=== PATIENT | female | born 1950 | race Caucasian/White ===

== ENCOUNTER 2019-11-18 09:50 | Outpatient (CLI) | payer MEDICARE, SELFPAY ==
[2019-11-18 10:24] LABS: Basophils Percent Auto 0.7 % (0.2-1.2); Eosinophils Absolute Auto 0.2 K/mm3 (0-0.3); Eosinophils Percent Auto 4.2 % (0-4.4); Hematocrit 43.7 % (37.0-47.0); Hemoglobin 14.3 g/dL (12.0-15.0); Immature Granulocyte Absolute 0.01 K/mm3 (0.00-0.031); Immature Granulocyte Percent A 0.2 % (0-0.5); Lymphocytes Absolute Auto 1.35 K/mm3 (0.9-3.2); Lymphocytes Percent Auto 24.5 % (18.3-44.2); Mean Corpuscular HGB Conc 32.7 g/dl (32-36); Mean Corpuscular Hemoglobin 28.8 pg (26-34); Mean Corpuscular Volume 87.9 fl (80-100); Mean Platelet Volume 9.1 fl (7.4-10.4); Monocytes Absolute Auto 0.6 K/mm3 (0.1-0.6); Monocytes Percent Auto 10.7 % (2.6-8.5); Neutrophils Absolute Auto 3.3 K/mm3 (1.3-6.7); Neutrophils Percent Auto 59.7 % (45.5-73.1); Platelet Count Result 247 k/mm3 (150-375); Red Blood Count 4.97 M/mm3 (4.2-5.4); Red Cell Distribution Width 13.2 % (11.5-14.5); White Blood Count 5.5 K/mm3 (4.5-10.0)
[2019-11-18 10:39] LABS: Alanine Aminotransferase 32 U/L (4-35); Albumin Level 4.4 g/dL (3.5-5.1); Alkaline Phosphatase 83 U/L (38-126); Anion Gap 11.5 mmol/L (7-16); Aspartate Amino Transferase 23 U/L (14-36); Bilirubin,Total 0.5 mg/dL (0.2-1.3); Blood Urea Nitrogen 19 mg/dL (7-17); Calcium 9.2 mg/dL (8.4-10.2); Carbon Dioxide 27 mmol/L (22-30); Chloride 106 mmol/L (98-107); Cholesterol 179 mg/dL (0-200); Estimated Glomerular Filt Rate > 60; Glucose 126 mg/dL (65-105); HDL Direct 47 mg/dL; Potassium 4.5 mmol/L (3.4-5.0); Sodium 140 mmol/L (137-145); Triglycerides 119 mg/dL (<150)
[2019-11-18 10:44] LABS: Hemoglobin A1C 5.8 % (<5.7)
[2019-11-18 10:50] LABS: LDL Cholesterol Direct 111 mg/dL
[2019-11-18 11:37] LABS: Free T4 Free Thyroxine 0.98 ng/mL (0.78-2.19)
[2019-11-21 03:43] LABS: Insulin Level Total 32.1 uIU/mL (<=19.6)
== END 2019-11-18 09:51 | disposition home or self-care (01) ==
PROVIDERS: PCP Physician Assistant; Visit Provider Physician Assistant
DX: R73.02 Impaired glucose tolerance (oral) (principal); E78.5 Hyperlipidemia, unspecified; E03.9 Hypothyroidism, unspecified; Z79.899 Other long term (current) drug therapy
CPT/HCPCS: 36415; 80048; 80061; 80076; 83036; 83525; 84439; 84443; 85025

== ENCOUNTER 2020-03-26 09:33 | Outpatient (CLI) | payer MEDICARE, SELFPAY ==
--- NOTE | ~2020-03-26 | MM_ITS ---
EXAMINATION: MM screening autumn BI w kirk HISTORY: Screening TECHNIQUE: Craniocaudal and mediolateral oblique 3-D tomosynthesis images were obtained and synthetic 2-D images were generated. CAD analysis was submitted and interpreted. COMPARISON: Comparison to multiple prior studies sequentially, with oldest reviewed study dated 10/24. BREAST PARENCHYMAL COMPOSITION: There are scattered areas of fibroglandular density. FINDINGS: There is no evidence of suspicious mass, calcification, or architectural distortion to sugg est malignancy in either breast. There has been no suspicious interval change. IMPRESSION: 1. No mammographic evidence of malignancy. 2. Recommend routine screening mammography in one year. BI-RADS Category 1: Negative Reviewed, dictated and finalized at location A. 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
--- NOTE | ~2020-03-26 | DEXA_ITS ---
Bone Density Report Name: Palak Peterson Age: 69 Sex: Female Ethnicity: White Date of : 1950 Indication: postmenopausal; height loss; Referring Provider: ALISHA LUA Study: Bone densitometry was performed. Exam Date: March 26, 2020 Accession number: [id number] Bone Density: Region BMD T-score Z-score Classification AP Spine (L1, L3) 1.277 2.4 4.4 Normal Femoral Neck (Left) 0.956 1.0 2.7 Normal Total Hip (Left) 1.211 2.2 3.7 Normal Total Hip Bilateral Avg 1.178 2.0 3.4 Normal Femoral Neck (Right) 0.926 0.7 2.5 Normal Total Hip (Right) 1.143 1.7 3.1 Normal World Health Organization criteria for BMD impression classify patients as: Normal (T-score at or above -1.0), Osteopenia (T-score between -1.0 and -2.5), or Osteoporosis (T-score at or below -2.5). 10-year Fracture Risk: FRAX not reported because: All T-scores for Spine Total, Hip Total, Femoral Neck at or above -1.0 Previous Exams: Region Exam Age BMD T-score BMD Change BMD Change Date g/cm2 vs Baseline vs Previous AP Spine(L1, L3) 03/26/2020 69 1.277 2.4 0.014(1.1%)# 0.031(2.5%)* 03/05/2018 67 1.246 2.1 -0.018(-1.4%)# -0.039(-3.0%)* 02/16/2016 65 1.284 2.5 0.021(1.7%)# 0.025(2.0%)# 09/19/2012 61 1.260 2.2 -0.004(-0.3%)# -0.089(-6.6%)# 07/15/2010 59 1.349 3.1 0.086(6.8%)* -0.034(-2.5%)* 06/24/2008 57 1.383 3.4 0.120(9.5%)* 0.120(9.5%)* 06/01/2006 55 1.263 2.3 Total Hip(Left) 03/26/2020 69 1.211 2.2 0.012(1.0%)# 0.002(0.2%) 03/05/2018 67 1.209 2.2 0.010(0.8%)# -0.015(-1.3%) 02/16/2016 65 1.224 2.3 0.025(2.1%)# 0.007(0.6%)# 09/19/2012 61 1.217 2.3 0.018(1.5%)# -0.003(-0.2%)# 07/15/2010 59 1.220 2.3 0.021(1.8%) 0.010(0.8%) 06/24/2008 57 1.210 2.2 0.011(0.9%) 0.011(0.9%) 06/01/2006 55 1.199 2.1 Total Hip(Right) 03/26/2020 69 1.143 1.7 -0.029(-2.4%)# -0.035(-3.0%)* 03/05/2018 67 1.178 1.9 0.006(0.5%)# 0.002(0.2%) 02/16/2016 65 1.176 1.9 0.004(0.4%)# 0.016(1.4%)# 09/19/2012 61 1.160 1.8 -0.012(-1.0%)# -0.024(-2.0%)# 07/15/2010 59 1.184 2.0 0.012(1.0%) -0.004(-0.3%) 06/24/2008 57 1.187 2.0 0.015(1.3%) 0.015(1.3%) 06/01/2006 55 1.172 1.9 *Denotes significance at 95% confidence level, LSC for AP Spine = 0.022 g/cm2, LSC for Total Hip = 0.027 g/cm2 Clinical Information Provided by Patient: Has used the following medications:
== END 2020-03-26 09:34 | disposition home or self-care (01) ==
LOC: ANHIMG 09:38
PROVIDERS: PCP Physician Assistant; Visit Provider Obstetrics & Gynecology
DX: Z12.31 Encounter for screening mammogram for malignant neoplasm of breast (principal); Z78.0 Asymptomatic menopausal state
CPT/HCPCS: 77063; 77067; 77080

== ENCOUNTER 2020-06-24 09:16 | Outpatient (CLI) | payer MEDICARE, SELFPAY ==
[2020-06-24 09:59] LABS: Alanine Aminotransferase 31 U/L (4-35); Albumin Level 4.4 g/dL (3.5-5.1); Alkaline Phosphatase 76 U/L (38-126); Anion Gap 8 mmol/L (8-16); Aspartate Amino Transferase 25 U/L (14-36); Bilirubin,Total 0.5 mg/dL (0.2-1.3); Blood Urea Nitrogen 21 mg/dL (7-17); Calcium 9.3 mg/dL (8.4-10.2); Carbon Dioxide 27 mmol/L (22-30); Chloride 109 mmol/L (98-107); Cholesterol 181 mg/dL (0-200); Estimated Glomerular Filt Rate > 60; Glucose 130 mg/dL (65-105); HDL Direct 49 mg/dL; Sodium 144 mmol/L (137-145); Triglycerides 99 mg/dL (<150)
[2020-06-24 10:00] LABS: Add Urine Microscopic? YES; Appearance Urine Cloudy (Clear); Bacteria Urine Trace /hpf; Bilirubin Urine Negative (Negative); Blood Urine 3+ (Negative); Color Urine Yellow (Yellow); Glucose Urine UA Negative (Negative); Ketones Urine Negative (Negative); Leukocyte Esterase Ur 3+ LEU/UL (NEGATIVE); Mucus Urine Rare /lpf; Nitrate Urine Negative (Negative); Protein Urine 1+ mg/dL (Negative); RBC Urine >75 /hpf (0-2); Specific Grav Ur 1.015 (1.001-1.035); Squamous Epithelial Cell Urine Moderate /hpf (Few); Transitional Epi Cells Urine Rare /hpf (None Seen); Urobilinogen Urine Negative mg/dL (<2.0); WBC Urine 51-75 /hpf (0-3)
[2020-06-24 10:09] LABS: Hemoglobin A1C 5.9 % (<5.7)
[2020-06-24 10:09] LABS: LDL Cholesterol Direct 108 mg/dL
[2020-06-24 10:51] LABS: Free T4 Free Thyroxine 1.15 ng/mL (0.78-2.19)
[2020-06-27 03:22] LABS: Insulin Level Total 31.4 uIU/mL (<=19.6)
== END 2020-06-24 09:17 | disposition home or self-care (01) ==
PROVIDERS: PCP Physician Assistant; Visit Provider Physician Assistant
DX: R73.02 Impaired glucose tolerance (oral) (principal); E78.5 Hyperlipidemia, unspecified; E03.9 Hypothyroidism, unspecified; Z79.899 Other long term (current) drug therapy
CPT/HCPCS: 36415; 80048; 80061; 80076; 81001; 83036; 83525; 84439; 84443

== ENCOUNTER 2020-07-06 09:07 | Outpatient (CLI) | payer MEDICARE, SELFPAY ==
--- NOTE | ~2020-07-06 | CT_ITS ---
EXAMINATION: CT abdomen pelvis wo/w con DATE: 07/06/2020 10:25 INDICATION: Gross hematuria TECHNIQUE: Computed tomography (CT) of the abdomen and pelvis was performed without and subsequently with 130 cc Omnipaque 350 intravenous contrast. Automated exposure control and iterative reconstructi on technique were employed. Exam dose: 2017.70 mGy-cm total exam DLP. COMPARISON: 07/17/2011 CT abdomen pelvis FINDINGS: There is minimal dependent atelectasis at the lower lobes. Heart size is within normal limits. No pericardial or pleural effusion. There is diffuse hepatic steatosis. No hepatic space-occupying mass lesion is evident. The gallbladder is present. No gallbladder wall thickening or pericholecystic fluid or fat stranding. No pancreatic mass lesion or calcification. No bile duct or pancreatic duct dilatation. Normal spleni c size. Normal morphology of the adrenal glands. There is a 6 mm cyst of the right kidney. No other renal space occupying mass lesion. There are numerous bilateral renal nonobstructing calculi, measuring up to 9 mm approximate maximal d imension on the left, 7.5 mm on the right. No ureteral calculus or obstruction. The urinary bladder i s unremarkable. Uterus and adnexal areas are unremarkable. There is numerous diverticula of the sigmoid colon and scattered descending and ascending colon diver ticula; no CT evidence of diverticulitis. No bowel obstruction, bowel wall thickening, pneumatosis or intraperitoneal free air. Normal appendix. Normal caliber of the abdominal aorta. No intraperitoneal or retroperitoneal or pelvic mass lesion or adenopathy or ascites is detected. No suspicious osteolytic or osteoblastic lesions are noted. There are degenerative changes of the tho racic and lumbar spine, including degenerative change at the apophyseal joints with associated grade 1 anterolisthesis at L4-5 and multilevel degenerative disc disease, particularly severe at L5-S1. IMPRESSION: Prominent bilateral nonobstructive nephrolithiasis 6 mm right renal cyst Diffuse hepatic steatosis Diverticulosis of the colon; no CT evidence of diverticulitis Reviewed, dictated and finalized at Location A. Reviewed, dictated and finalized at location B.
[2020-07-06 09:55] LABS: Add Urine Microscopic? YES; Appearance Urine Clear (Clear); Bilirubin Urine Negative (Negative); Blood Urine 1+ (Negative); Color Urine Yellow (Yellow); Glucose Urine UA Negative (Negative); Ketones Urine Negative (Negative); Leukocyte Esterase Ur 2+ LEU/UL (NEGATIVE); Mucus Urine Few /lpf; Nitrate Urine Negative (Negative); Protein Urine Negative (Negative); Specific Grav Ur 1.013 (1.001-1.035); Squamous Epithelial Cell Urine Moderate /hpf (Few); Urobilinogen Urine Negative mg/dL (<2.0); WBC Urine 21-30 /hpf (0-3)
== END 2020-07-06 09:08 | disposition home or self-care (01) ==
PROVIDERS: PCP Physician Assistant; Visit Provider Physician Assistant
DX: R31.29 Other microscopic hematuria (principal)
CPT/HCPCS: 74178; 81001; 87086; Q9967

== ENCOUNTER 2020-12-31 08:34 | Outpatient (CLI) | payer MEDICARE, SELFPAY ==
[2020-12-31 09:05] LABS: Basophils Absolute Auto 0.1 K/mm3 (0.0-0.1); Basophils Percent Auto 1.1 % (0.2-1.2); Eosinophils Absolute Auto 0.3 K/mm3 (0-0.3); Eosinophils Percent Auto 6.3 % (0-4.4); Hemoglobin 14.1 g/dL (12.0-15.0); Immature Granulocyte Absolute 0.02 K/mm3 (0.00-0.031); Immature Granulocyte Percent A 0.4 % (0-0.5); Lymphocytes Absolute Auto 1.39 K/mm3 (0.9-3.2); Lymphocytes Percent Auto 26.3 % (18.3-44.2); Mean Corpuscular HGB Conc 32.8 g/dl (32-36); Mean Corpuscular Hemoglobin 29.6 pg (26-34); Mean Corpuscular Volume 90.1 fl (80-100); Mean Platelet Volume 8.9 fl (7.4-10.4); Monocytes Absolute Auto 0.7 K/mm3 (0.1-0.6); Monocytes Percent Auto 13.6 % (2.6-8.5); Neutrophils Absolute Auto 2.8 K/mm3 (1.3-6.7); Neutrophils Percent Auto 52.3 % (45.5-73.1); Platelet Count Result 230 k/mm3 (150-375); Red Blood Count 4.77 M/mm3 (4.2-5.4); Red Cell Distribution Width 13.5 % (11.5-14.5); White Blood Count 5.3 K/mm3 (4.5-10.0)
[2020-12-31 09:24] LABS: Alanine Aminotransferase 45 U/L (4-35); Albumin Level 4.3 g/dL (3.5-5.1); Alkaline Phosphatase 70 U/L (38-126); Anion Gap 8 mmol/L (8-16); Aspartate Amino Transferase 30 U/L (14-36); Bilirubin,Total 0.7 mg/dL (0.2-1.3); Blood Urea Nitrogen 22 mg/dL (7-17); Calcium 9.1 mg/dL (8.4-10.2); Carbon Dioxide 27 mmol/L (22-30); Chloride 107 mmol/L (98-107); Cholesterol 173 mg/dL (0-200); Estimated Glomerular Filt Rate > 60; Glucose 118 mg/dL (65-110); HDL Direct 45 mg/dL; Potassium 4.1 mmol/L (3.4-5.0); Sodium 142 mmol/L (137-145); Triglycerides 125 mg/dL (<150)
[2020-12-31 09:35] LABS: LDL Cholesterol Direct 93 mg/dL
[2020-12-31 10:56] LABS: Hemoglobin A1C 6.1 % (<5.7)
== END 2020-12-31 08:35 | disposition home or self-care (01) ==
PROVIDERS: PCP Physician Assistant; Visit Provider Physician Assistant
DX: E78.5 Hyperlipidemia, unspecified (principal); R73.03 Prediabetes; E03.9 Hypothyroidism, unspecified; Z79.899 Other long term (current) drug therapy
CPT/HCPCS: 36415; 80048; 80061; 80076; 83036; 84439; 84443; 85025

== ENCOUNTER 2021-03-22 11:57 | Outpatient (CLI) | payer MEDICARE, SELFPAY ==
--- NOTE | ~2021-03-22 | XR_ITS ---
EXAMINATION: XR abdomen/kub 1V INDICATION: Bilateral kidney stones TECHNIQUE: Supine views of the abdomen were obtained on 2 radiographs. COMPARISON: 07/06/2020 FINDINGS: There is a 1.3 cm stone of the right kidney lower pole. Punctate stones measuring up to 2 m m are also seen in the right kidney lower pole. There are at least five stones of the left kidney. Th e largest measure 1.7 cm in the upper pole and 1.2 cm in the lower pole. No stones are identified yissel ng the expected courses of the ureters or within the urinary bladder. The bowel gas pattern is normal . Punctate left upper quadrant calcifications are consistent with healed granulomatous disease of the spleen. IMPRESSION: 1. Bilateral nephrolithiasis. Reviewed, dictated and finalized at location A. 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
== END 2021-03-22 11:58 | disposition home or self-care (01) ==
LOC: ANHIMG 12:00
PROVIDERS: PCP Physician Assistant; Visit Provider Urology
DX: N20.0 Calculus of kidney (principal)
CPT/HCPCS: 74018

== ENCOUNTER 2021-04-25 09:47 | Outpatient (CLI) | payer MEDICARE, SELFPAY ==
--- NOTE | ~2021-04-25 | MM_ITS ---
EXAMINATION: MM screening autumn BI w kirk HISTORY: Screening TECHNIQUE: Craniocaudal and mediolateral oblique 3-D tomosynthesis images were obtained and synthetic 2-D images were generated. CAD analysis was submitted and interpreted. COMPARISON: Comparison to multiple prior studies sequentially, with oldest reviewed study dated 10/26. BREAST PARENCHYMAL COMPOSITION: There are scattered areas of fibroglandular density. FINDINGS: There is no evidence of suspicious mass, calcification, or architectural distortion to sugg est malignancy in either breast. There has been no suspicious interval change. IMPRESSION: 1. No mammographic evidence of malignancy. 2. Recommend routine screening mammography in one year. BI-RADS Category 1: Negative Reviewed, dictated and finalized at location A. LE FIRER
== END 2021-04-25 09:48 | disposition home or self-care (01) ==
LOC: ANHIMG 09:49
PROVIDERS: PCP Physician Assistant; Visit Provider Obstetrics & Gynecology
DX: Z12.31 Encounter for screening mammogram for malignant neoplasm of breast (principal)
CPT/HCPCS: 77063; 77067

== ENCOUNTER 2021-06-27 10:24 | Outpatient (CLI) | payer MEDICARE, SELFPAY ==
--- NOTE | 2021-06-27 10:30 | ECG_ITS ---
Measurements Intervals [place] Rate: 81 P: 23 DE: 173 QRS: -33 QRSD: 98 T: 64 QT: 397 QTc: 461 Interpretive Statements SINUS RHYTHM LEFT ANTERIOR HEMIBLOCK INCOMPLETE RIGHT BUNDLE BRANCH BLOCK [90+ ms QRS DURATION, TERMINAL R IN V1/V2, 40+ ms S IN I/aVL/V4/V5/V6] NO PREVIOUS ECG AVAILABLE FOR COMPARISON Electronically Signed On 06-27-2021 14:28:15 CDT by Juan Erwin M.D.
[2021-06-27 11:31] LABS: Prothrombin Time 12.5 Seconds (11.1-14.7)
[2021-06-27 11:32] LABS: Partial Thromboplastin Time 23.5 SECONDS (22.3-36.8)
[2021-06-27 11:36] LABS: Anion Gap 7 mmol/L (8-16); Blood Urea Nitrogen 17 mg/dL (7-17); Calcium 8.9 mg/dL (8.4-10.2); Carbon Dioxide 26 mmol/L (22-30); Chloride 109 mmol/L (98-107); Estimated Glomerular Filt Rate > 60; Glucose 127 mg/dL (65-110); Potassium 4.1 mmol/L (3.4-5.0); Sodium 142 mmol/L (137-145)
== END 2021-06-27 10:25 | disposition home or self-care (01) ==
LOC: ANHSURGERY 10:25
PROVIDERS: Anesthesiology; PCP Physician Assistant; Visit Provider Urology
DX: N20.0 Calculus of kidney (principal); E78.00 Pure hypercholesterolemia, unspecified; E11.9 Type 2 diabetes mellitus without complications; Z01.818 Encounter for other preprocedural examination; I45.10 Unspecified right bundle-branch block
CPT/HCPCS: 36415; 80048; 85610; 85730; 87086; 87088; 93005

== ENCOUNTER 2021-06-27 11:02 | Outpatient (CLI) | payer MEDICARE, SELFPAY ==
[2021-06-27 11:43] LABS: Basophils Absolute Auto 0.1 K/mm3 (0.0-0.1); Basophils Percent Auto 1.1 % (0.2-1.2); Eosinophils Absolute Auto 0.3 K/mm3 (0-0.3); Hematocrit 42.9 % (37.0-47.0); Immature Granulocyte Absolute 0.03 K/mm3 (0.00-0.031); Immature Granulocyte Percent A 0.5 % (0-0.5); Lymphocytes Absolute Auto 1.46 K/mm3 (0.9-3.2); Lymphocytes Percent Auto 22.5 % (18.3-44.2); Mean Corpuscular HGB Conc 32.6 g/dl (32-36); Mean Corpuscular Hemoglobin 29.2 pg (26-34); Mean Corpuscular Volume 89.4 fl (80-100); Mean Platelet Volume 8.9 fl (7.4-10.4); Monocytes Absolute Auto 0.7 K/mm3 (0.1-0.6); Monocytes Percent Auto 11.4 % (2.6-8.5); Neutrophils Absolute Auto 3.9 K/mm3 (1.3-6.7); Neutrophils Percent Auto 60.5 % (45.5-73.1); Platelet Count Result 230 k/mm3 (150-375); Red Cell Distribution Width 13.6 % (11.5-14.5); White Blood Count 6.5 K/mm3 (4.5-10.0)
[2021-06-27 11:57] LABS: Alanine Aminotransferase 33 U/L (4-35); Albumin Level 4.6 g/dL (3.5-5.1); Alkaline Phosphatase 74 U/L (38-126); Aspartate Amino Transferase 26 U/L (14-36); Bilirubin,Total 0.5 mg/dL (0.2-1.3); Cholesterol 192 mg/dL (0-200); HDL Direct 47 mg/dL; Triglycerides 106 mg/dL (<150)
[2021-06-27 12:07] LABS: Hemoglobin A1C 5.9 % (<5.7)
[2021-06-27 12:08] LABS: LDL Cholesterol Direct 112 mg/dL
[2021-06-27 12:27] LABS: Free T4 Free Thyroxine 1.25 ng/mL (0.78-2.19)
== END 2021-06-27 11:03 | disposition home or self-care (01) ==
LOC: ANHLAB 11:12
PROVIDERS: PCP Physician Assistant; Visit Provider Physician Assistant
DX: E78.5 Hyperlipidemia, unspecified (principal); R73.03 Prediabetes; E03.9 Hypothyroidism, unspecified; R31.29 Other microscopic hematuria; Z79.899 Other long term (current) drug therapy
CPT/HCPCS: 36415; 80048; 80061; 80076; 83036; 84439; 84443; 85025; 85610; 85730; 87086; 87088; 93005

== ENCOUNTER 2021-07-01 00:08 | Day surgery (SDC) | payer MEDICARE, SELFPAY ==
[2021-06-20 13:18] VITALS: BMI 32.6
--- NOTE | 2021-06-20 13:37 | PC.NURSE ---
Report to the Outpatient Waiting Room, entrance under the green pavilion located off [facility], at time _6:00AM____ on date __07/01/21 . OR Time: ___7:30AM . - You and your visitor will be asked a series of questions to screen for COVID 19 for your protection. - A mask is required within the hospital. Preoperative COVID Testing Requirements: No COVID Test needed if: (proof is required; if not received patient will have Rapid Test prior to entry) - Patient has received COVID Vaccine at least 14 days prior to procedure date or - Patient has positive COVID test result within last 90 days of surgery date. COVID Test needed if above criteria is not met If not COVID vaccinated a COVID test must be conducted within 72 hours of surgery and patient is asked to isolate self from time of testing until procedure. You will go to the [facility] for your COVID testing. The [facility] is located at the corner of [address] [facility]. You will only be called if COVID results are positive and your surgeon may reschedule your elective surgery date. Patients may have clear liquids (water, carbonated beverages, clear teas, apple juice) until 3 hours prior to surgery with a maximum of 20 ounces. - No food from midnight until time of surgery - Infants may have breast milk until 4 hours before surgery, infant formula 6 hours prior to surgery. - Children will be allowed to drink immediately following surgery. If applicable, please bring a bottle or sippy cup to assist with drinking. Juice, water, soda, and popsicles are readily available. For infants on formula, please bring formula the day of surgery. Pacifiers are allowed. Take the following medications with a SIP of water the morning of surgery: __NONE Medications to discontinue per physician MELOXICAM, ASPIRIN & VITAMINS/SUPPLEMENTS 7 DAYS PRE-OP PER DR RUIZ Date to take last dose 3/11/22 Please no make-up, nail occitan, hairspray, perfume, deodorant, or body powder the day of surgery. No jewelry (including any body piercings) or valuables the day of surgery, leave them at home. Please take a shower or bath the night before, or the morning of, surgery with an antibacterial soap. Wear comfortable, loose fitting clothing. Children are encouraged to wear pajamas. - Jewelry must be removed prior to entering the operating room. Rings and piercings that are not removed may be cut off. - The hospital will not accept responsibility for valuables. - Please leave all valuables, including medications, at home the day of surgery. If you are going home after surgery, a licensed courtesy bus driver must drive you home. - NO public transportation without another adult. - We recommend that an adult stay with you for 24 hours following discharge. - We also recommend that you do not drive, make important decision, drink alcoholic beverages, or take any drugs that were not prescribed by your health care provider for at least 24 hours after your discharge time. For Pediatric surgeries, we recommend two adults accompany the child home (only one inside the building at this time). One visitor will be allowed to accompany the patient into the hospital. Patients visitor will be instructed to remain with patient at all times or leave the building. We will allow the visitor to come back to the postoperative area when patient is ready. Follow any additional instructions given to you from your surgeon. Telephone instructions given to __PATIENT and asked if any additional questions and then verbalized understanding. Patient advised to call surgeon office or pre surgery nurse liaison [phone] if any additional questions.
--- NOTE | 2021-06-27 08:09 | PM.HPGS ---
History of Present Illness History of Present Illness Consent: Risks, benefits, and alternatives have been discussed and questions answered. Patient agrees to proceed with procedure. Chief complaint: Lt Renal Stone Narrative: Palak Peterson is a 70 year old female initially seen in March 2021 when imaging demonstrated nonobstructing calcified renal calculi. Stone in the right kidney measured 7.5 mm left kidney 9 mm. After discussion of therapeutic options she has elected for ESWL, starting the left. She is risk including, but limited to, adverse cardiopulmonary events, persistent so fragments, ureteral obstruction with fragments, injury to her kidney and hematuria. Review of Systems Cardiovascular: Cardiovascular: Denies chest pain, Denies lightheadedness, Denies palpitations and Denies dyspnea Respiratory: Respiratory: Denies dyspnea Gastrointestinal: Gastrointestinal: Denies diarrhea, Denies nausea and Denies vomiting Genitourinary: Genitourinary: Denies hematuria and Denies dysuria Endocrine: Endocrine: Denies palpitations PMFSH Past Medical History Medical History Cataracts, bilateral History of stress test History of vaginal delivery x 2 Kidney stone Retinal detachment Surgical History Surgical History H/O section H/O knee surgery Left knee History of bilateral tubal ligation History of laser refractive surgery Right eye Family History Family History Father Family history of diabetes mellitus in first degree relative, Onset Age: 74 Family history of coronary artery disease, Onset Age: 74 Patient's father is Mother Non Hodgkin's lymphoma Other Cerebrovascular accident Diabetes mellitus Family history of arthritis Family history of cardiovascular disease Family history of kidney disease Family history of malignant neoplasm Family history of osteoporosis Social History Social History Smoking packs per day: 0.5 Smoking cigarettes per day: 10.0 Years smoked: 15 Smoking pack-years: 7.50 Smoking status: Never smoker Tobacco type: cigarettes Second hand tobacco smoke exposure: No Smoking end date: 10/14/80 Alcohol intake: current Substance use: never Additional living arrangements comments: [facility] Spiritual care concerns: No Meds Home Medications and Allergies Home Medications Medication Instructions Recorded Confirmed Type aspirin 81 mg tablet,delayed 81 mg PO DAILY 02/12/20 06/20/21 History release biotin 5,000 mcg disintegrating 10,000 mcg PO DAILY 02/12/20 06/20/21 History tablet meloxicam 15 mg tablet 15 mg PO DAILY 02/12/20 06/20/21 History metformin 500 mg tablet 500 mg PO BID 02/12/20 06/20/21 History omega-3 fatty acids 500 mg capsule 500 mg PO DAILY 02/12/20 06/20/21 History pravastatin 20 mg tablet 20 mg PO DAILY 02/12/20 06/20/21 History triamcinolone acetonide 0.1 % 1 applic TOPICAL BID PRN #30 g 02/12/20 06/20/21 Rx topical ointment clobetasol 1 applic TOPICAL BID PRN 06/20/21 06/20/21 History levothyroxine 50 mcg PO HS 06/20/21 06/20/21 History Allergies Allergy/AdvReac Type Severity Reaction Status Date / Time No Known Allergies Allergy Unverified 06/20/21 13:08 Exam Const: General: no acute distress Resp: Effort & Inspection: normal respiratory effort GI: Inspection: non-distended GI Palp: No abdominal tenderness and No Guarding due to palpation present (GI) Auscultation: normal bowel sounds Assessment and Plan Assessment and plan (1) Bilateral kidney stones: Code(s): N20.0 - Calculus of kidney Status: Acute Assessment and Plan: Left ESWL
[2021-07-01] VITALS (8 sets, daily range): BP systolic 115–159; BP diastolic 74–99; PULSE 65–97; RESP 11–20; TEMP 36.3; O2SAT 95–98
--- NOTE | ~2021-07-01 | XR_ITS ---
XR abdomen/kub 1V 07/01/2021 06:18 Indication: Renal stones Procedure: KUB Comparison: Comparison to multiple prior studies sequentially, with oldest reviewed study dated 08/24. Findings: There are 2 distal right ureteral stones. There are multiple bilateral renal stones. Larges t stone in the distal aspect of the ureter measures 9 x 3 mm. Bowel gas pattern is nonobstructive. Mo derate lower lumbar spondylosis. Impression: 1: Distal right ureterolithiasis. 2: Bilateral nephrolithiasis. Reviewed, dictated and finalized at location B. Impression: 1: Distal right ureterolithiasis. 2: Bilateral nephrolithiasis.
--- NOTE | 2021-07-01 06:48 | WPDHPUPDATE1 ---
History and Physical Update Update Date/Time: 07/01/21 06:48 History and Physical has been reviewed, including an updated exam of the patient. There are NO changes in the patient's condition. Risks, benefits, and alternatives have been discussed and questions answered. Patient agrees to proceed with procedure.
--- NOTE | 2021-07-01 06:54 | WPDANESEPPF ---
Anes - Initial Pre Proc Eval Procedure: Operation Date: 07/01/21 07:30 Proposed Procedures p Left Renal Extracorporeal Shock Wave Lithotripsy - Wong Watkins MD Date/Time: 07/01/21 06:54 Surgeon: Wong Watkins MD Pre Op Diagnosis: Lt Renal Stone Patient Data Age: 70 Gender: F Height: 1.71 m Weight: 96 kg Allergies Allergy/AdvReac Type Severity Reaction Status Date / Time No Known Allergies Allergy Unverified 07/01/21 06:27 Home Medications Medication Instructions Recorded Confirmed Type aspirin 81 mg tablet,delayed 81 mg PO DAILY 02/12/20 07/01/21 History release biotin 5,000 mcg disintegrating 10,000 mcg PO DAILY 02/12/20 07/01/21 History tablet meloxicam 15 mg tablet 15 mg PO DAILY 02/12/20 07/01/21 History metformin 500 mg tablet 500 mg PO BID 02/12/20 07/01/21 History omega-3 fatty acids 500 mg capsule 500 mg PO DAILY 02/12/20 07/01/21 History pravastatin 20 mg tablet 20 mg PO DAILY 02/12/20 07/01/21 History triamcinolone acetonide 0.1 % 1 applic TOPICAL BID PRN #30 g 02/12/20 07/01/21 Rx topical ointment clobetasol 1 applic TOPICAL BID PRN 06/20/21 07/01/21 History levothyroxine 50 mcg PO HS 06/20/21 07/01/21 History Patient hx anesthesia problems: none Family hx anesthesia problems: none Results Review: All pre-operative results and documents have been reviewed as part of the pre-operative evaluation. COUNT INCLUDES THE [facility] Past Medical History Medical History (Updated 07/01/21 @ 06:57 by Waylon Damon MD) Cataracts, bilateral Diabetes History of stress test History of vaginal delivery x 2 Kidney stone Obesity Retinal detachment Surgical History Surgical History H/O section H/O knee surgery Left knee History of bilateral tubal ligation History of laser refractive surgery Right eye Family History Family History Father Family history of diabetes mellitus in first degree relative, Onset Age: 74 Family history of coronary artery disease, Onset Age: 74 Patient's father is Mother Non Hodgkin's lymphoma Other Cerebrovascular accident Diabetes mellitus Family history of arthritis Family history of cardiovascular disease Family history of kidney disease Family history of malignant neoplasm Family history of osteoporosis Social History Social History Smoking packs per day: 0.5 Smoking cigarettes per day: 10.0 Years smoked: 15 Smoking pack-years: 7.50 Smoking status: Former smoker Tobacco type: cigarettes Second hand tobacco smoke exposure: No Smoking end date: 10/14/80 Alcohol intake: current Substance use: never Living arrangements: with family [facility] Spiritual care concerns: No Anes - Eval Final PreProcedure Day of Procedure 07/01/21 06:54 Patient weight: obese Heart: regular rate and rhythm Lungs: clear to auscultation Airway: Mallampati scale class II Neurological: alert and oriented Last oral intake: >/= 8 hours ASA classification: III Emergent: no Anesthetic plan: proceed Anesthesia type and monitoring: general LMA and standard monitoring Results Review: All pre-operative results and documents have been reviewed as part of the pre-operative evaluation. Informed Consent: The patient's anesthetic plan and its attendant risks and benefits were discussed with the patient/family/POA. Questions were solicited and answers provided to the satisfaction of the patient/family/POA.
[2021-07-01] MEDS: LACTATED RINGERS 1,000 ML 30 ML IV CONT (07:05)
[2021-07-01 07:18] LABS: Glucose Point of Care 111 mg/dl (65-105)
[2021-07-01] MEDS: ceFAZolin 2 GM/D5W 50 ML 2 GM/50 ML BAG IVPB (07:19)
--- NOTE | 2021-07-01 07:46 | P.OP_ITS ---
Procedure Note - Detailed Date of Procedure 07/01/21 Pre-op Diagnosis Left renal stone Post-op Diagnosis Same Procedure Performed Left ESWL Surgeon Wong Watkins MD Anesthesia General Description of Procedure The patient was brought to the operative suite where she was placed in the supine position on the Dornier lithotripsy table. The focal point of the lithotripter was placed at a 9mm left upper pole calculus. A total of 2500 shocks were delivered at a power setting of 4. There appeared to be good f ragmentation of Renal calculus but only with shocks delivered at that site. We were not able true stone lower. The patient tolerated the procedure well and was taken to the recovery room in good condition. Estimated Blood Loss 0 Drains No Packing No Pathology None sent Complications No immediate complications Condition Stable Disposition PACU
[2021-07-01 08:10] LABS: Glucose Point of Care 116 mg/dl (65-105)
== END 2021-07-01 09:50 | disposition home or self-care (01) ==
PROVIDERS: PCP Physician Assistant; Visit Provider Urology
PROC: (CPT 50590; principal; 2021-07-01 07:30)
DX: N20.1 Calculus of ureter (principal); Z79.82 Long term (current) use of aspirin; Z79.84 Long term (current) use of oral hypoglycemic drugs; E03.9 Hypothyroidism, unspecified; Z87.891 Personal history of nicotine dependence; E66.9 Obesity, unspecified; Z68.32 Body mass index [BMI] 32.0-32.9, adult
CPT/HCPCS: 50590; 74018; 82948; J0690; J2405; J2704; J3010; J7120

== ENCOUNTER 2021-07-07 11:48 | Outpatient (CLI) | payer MEDICARE, SELFPAY ==
--- NOTE | ~2021-07-07 | XR_ITS ---
EXAMINATION: XR finger 1st RT min 2V INDICATION: Right first finger pain TECHNIQUE: Three views of the right first finger are obtained. COMPARISON: None available FINDINGS: Bone alignment is normal. No acute fracture is identified. There is mild osteoarthritis at the triscaphe and first carpometacarpal joints as well as in the first interphalangeal joint. The sof t tissues are unremarkable. IMPRESSION: 1. Polyarticular osteoarthritis Reviewed, dictated and finalized at location B.
--- NOTE | ~2021-07-07 | XR_ITS ---
EXAMINATION: XR abdomen/kub 1V INDICATION: Calculus of the kidney TECHNIQUE: Supine views of the abdomen were obtained on 2 radiographs. COMPARISON: 07/01/2021 FINDINGS: There are stable stones measuring 11 mm and 6 mm in the distal right ureter. There is a 1.5 cm stone in the left kidney lower pole. There is unchanged gaseous distention of the stomach. Modera te osteoarthritis is noted in the hips. There is also moderate lumbar spondylosis. IMPRESSION: 1. Stable stones in the right distal ureter and left kidney lower pole. Reviewed, dictated and finalized at location B.
== END 2021-07-07 11:49 | disposition home or self-care (01) ==
PROVIDERS: PCP Physician Assistant; Visit Provider Urology
DX: S69.91XA Unspecified injury of right wrist, hand and finger(s), initial encounter (principal); X58.XXXA Exposure to other specified factors, initial encounter; M19.041 Primary osteoarthritis, right hand; N20.2 Calculus of kidney with calculus of ureter
CPT/HCPCS: 73140; 74018

== ENCOUNTER 2021-08-08 11:24 | Outpatient (CLI) | payer MEDICARE, SELFPAY ==
--- NOTE | ~2021-08-08 | XR_ITS ---
EXAMINATION: XR abdomen/kub 1V INDICATION: Calculus of ureter TECHNIQUE: Supine views of the abdomen were obtained on 2 radiographs. COMPARISON: 07/07/2021 FINDINGS: There are stable stones of the left kidney lower pole measuring up to 11 mm. There appear t o be stones of the right distal ureter measuring up to 10 mm with slight decrease in density. The bow el gas pattern is normal. There is severe lumbar spondylosis. Moderate osteoarthritis is noted in the hips. IMPRESSION: 1. Stable left nephrolithiasis. 2. Probable right distal ureteral stones with decrease in density, possibly due to interval treatment change. Reviewed, dictated and finalized at location F.
== END 2021-08-08 11:25 | disposition home or self-care (01) ==
LOC: ANHIMG 11:37
PROVIDERS: PCP Physician Assistant; Visit Provider Urology
DX: N20.2 Calculus of kidney with calculus of ureter (principal)
CPT/HCPCS: 74018

== ENCOUNTER 2021-08-18 10:28 | Outpatient (CLI) | payer MEDICARE, SELFPAY ==
--- NOTE | ~2021-08-18 | CT_ITS ---
EXAMINATION: CT abdomen pelvis wo con DATE: 08/18/2021 10:53 INDICATION: Bilateral kidney stones TECHNIQUE: Computed tomography (CT) of the abdomen and pelvis was performed without intravenous contr ast. The dose-length product (DLP) was 410.57 mGy-cm. Automated exposure control and iterative recons truction technique were employed. COMPARISON: 07/06/2020 FINDINGS: Minimal dependent atelectasis is present in the lung bases. The heart size is normal. The l iver is diffusely low in attenuation when compared with the spleen, consistent with hepatic steatosis . Punctate calcifications in an otherwise normal spleen likely represent healed granulomatous disease . The pancreas, gallbladder, and adrenal glands are normal. There are multiple nonobstructing stones of the left kidney which measure up to 9 mm in the lower pole. There are multiple small nonobstructin g stones of the right kidney which measure up to 2 mm. There is a 9 mm stone at the right ureterovesi cular junction. There is also a 10 mm stone in the urinary bladder. There is severe lumbar spondylosi s. A small fat-containing umbilical hernia is noted. No pathologically enlarged abdominal or pelvic l ymph nodes are identified. There is no free intraperitoneal gas or evidence of bowel obstruction. Col onic diverticulosis is present without evidence of diverticulitis. IMPRESSION: 1. 9 mm stone at the right ureterovesicular junction and 10 mm stone in the urinary bladder. 2. Bilateral nephrolithiasis. Reviewed, dictated and finalized at location B. IMPRESSION: 1. 9 mm stone at the right ureterovesicular junction and 10 mm stone in the uri nary bladder. 2. Bilateral nephrolithiasis.
== END 2021-08-18 10:29 | disposition home or self-care (01) ==
PROVIDERS: PCP Physician Assistant; Visit Provider Urology
DX: N20.0 Calculus of kidney (principal); N20.1 Calculus of ureter
CPT/HCPCS: 74176

== ENCOUNTER 2021-08-25 01:38 | Day surgery (SDC) | payer MEDICARE, SELFPAY ==
--- NOTE | 2021-08-22 14:45 | PC.NURSE ---
Report to the Outpatient Waiting Room, entrance under the green pavilion located off [facility], at time 1000 on date _08/25/21 . OR Time: _1200 . - You and your visitor will be asked a series of questions to screen for COVID 19 for your protection. - Only one visitor is allowed at this time. - The patient visitor is requested to leave or wait in car when not with patient. - A mask is required within the hospital. Patients may have clear liquids (water, carbonated beverages, clear teas, apple juice) until 3 hours prior to surgery with a maximum of 20 ounces. - No food from midnight until time of surgery - Infants may have breast milk until 4 hours before surgery, infant formula 6 hours prior to surgery. - Children will be allowed to drink immediately following surgery. If applicable, please bring a bottle or sippy cup to assist with drinking. Juice, water, soda, and popsicles are readily available. For infants on formula, please bring formula the day of surgery. Pacifiers are allowed. Take the following medications with a SIP of water the morning of surgery: ___LEVOTHYROXINE Medications to discontinue per physician ___ASPRIRIN,MELOXICAM,PER DR RUIZ, BIOTIN 3 DAYS PRE OP Date to take last dose___08/21/21 Please no make-up, nail amharic, hairspray, perfume, deodorant, or body powder the day of surgery. No jewelry (including any body piercings) or valuables the day of surgery, leave them at home. Please take a shower or bath the night before, or the morning of, surgery with an antibacterial soap. Wear comfortable, loose fitting clothing. Children are encouraged to wear pajamas. - Jewelry must be removed prior to entering the operating room. Rings and piercings that are not removed may be cut off. - The hospital will not accept responsibility for valuables. - Please leave all valuables, including medications, at home the day of surgery. If you are going home after surgery, a licensed stake driver must drive you home. - NO public transportation without another adult. - We recommend that an adult stay with you for 24 hours following discharge. - We also recommend that you do not drive, make important decision, drink alcoholic beverages, or take any drugs that were not prescribed by your health care provider for at least 24 hours after your discharge time. For Pediatric surgeries, we recommend two adults accompany the child home (only one inside the building at this time). Follow any additional instructions given to you from your surgeon. If you or anyone in your household have experienced Covid symptoms in the past week, please notify your surgeon or the nurse liaison at the phone number below for possible testing. Telephone instructions given to __PATIENT and asked if any additional questions and then verbalized understanding. Patient advised to call surgeon office or pre surgery nurse liaison [phone] if any additional questions.
[2021-08-22 14:46] VITALS: BMI 30.4
[2021-08-25] VITALS (9 sets, daily range): BP systolic 115–149; BP diastolic 62–80; PULSE 53–67; RESP 11–18; TEMP 36–36.7; O2SAT 93–100
--- NOTE | ~2021-08-25 | XR_ITS ---
EXAMINATION: XR fluoroscopy no charge DATE: 08/25/2021 12:24 INDICATION: Right ureteral stone. TECHNIQUE: A single intraoperative fluoroscopic view of the pelvis was obtained. I was not present. F luoroscopy exposure time was 27 seconds. COMPARISON: CT abdomen and pelvis 08/18/2021 FINDINGS: There is a wire in the right ureter. There is a stone in the distal right ureter. IMPRESSION: 1. Stone in the distal right ureter with wire in the right ureter. Reviewed, dictated and finalized at location A.
--- NOTE | 2021-08-25 06:34 | PM.HPGS ---
History of Present Illness History of Present Illness Consent: Risks, benefits, and alternatives have been discussed and questions answered. Patient agrees to proceed with procedure. Chief complaint: right ureteral and renal stones Narrative: Palak Peterson is a 70 year old female, s/p right ESWL, with residual fragments in her right ureter and kidney. After discussion, plan for endoscopic extration right ureteral stone fragments. She's aware of risks including, but not limited to, ureteral injury, need to replace stent, hematuria. Review of Systems Cardiovascular: Cardiovascular: Denies chest pain, Denies lightheadedness, Denies palpitations and Denies dyspnea Respiratory: Respiratory: Denies dyspnea Gastrointestinal: Gastrointestinal: Denies diarrhea, Denies nausea and Denies vomiting Genitourinary: Genitourinary: Denies hematuria and Denies dysuria Endocrine: Endocrine: Denies palpitations PMFSH Past Medical History Medical History Cataracts, bilateral Diabetes History of stress test History of vaginal delivery x 2 Kidney stone Obesity Retinal detachment Surgical History Surgical History H/O section H/O knee surgery Left knee History of bilateral tubal ligation History of laser refractive surgery Right eye Family History Family History Father Family history of diabetes mellitus in first degree relative, Onset Age: 74 Family history of coronary artery disease, Onset Age: 74 Patient's father is Mother Non Hodgkin's lymphoma Other Cerebrovascular accident Diabetes mellitus Family history of arthritis Family history of cardiovascular disease Family history of kidney disease Family history of malignant neoplasm Family history of osteoporosis Social History Social History Smoking packs per day: 0.5 Smoking cigarettes per day: 10.0 Years smoked: 15 Smoking pack-years: 7.50 Smoking status: Former smoker Tobacco type: cigarettes Second hand tobacco smoke exposure: No Smoking end date: 04/16/80 Alcohol intake: current Substance use: never Living arrangements: with family Additional living arrangements comments: [facility] Spiritual care concerns: No Meds Home Medications and Allergies Home Medications Medication Instructions Recorded Confirmed Type aspirin 81 mg tablet,delayed 81 mg PO DAILY 02/12/20 08/22/21 History release biotin 5,000 mcg disintegrating 10,000 mcg PO DAILY 02/12/20 08/22/21 History tablet meloxicam 15 mg tablet 15 mg PO DAILY 02/12/20 08/22/21 History metformin 500 mg tablet 500 mg PO BID 02/12/20 08/22/21 History pravastatin 20 mg tablet 20 mg PO DAILY 02/12/20 08/22/21 History clobetasol 1 applic TOPICAL PRN PRN 06/20/21 08/22/21 History levothyroxine 50 mcg PO HS 06/20/21 08/22/21 History tamsulosin 0.4 mg PO DAILY 08/22/21 08/22/21 History triamcinolone acetonide 1 applic TOPICAL PRN PRN 08/22/21 08/22/21 History Allergies Allergy/AdvReac Type Severity Reaction Status Date / Time No Known Allergies Allergy Unverified 08/22/21 14:27 Exam Const: General: no acute distress Resp: Effort & Inspection: normal respiratory effort GI: Inspection: non-distended GI Palp: No abdominal tenderness and No Guarding due to palpation present (GI) Auscultation: normal bowel sounds Assessment and Plan Assessment and plan (1) Right ureteral stone: Code(s): N20.1 - Calculus of ureter Status: Acute Assessment and Plan: Cystoscopy, right ureteroscopy with stone extraction, possible laser lithotripsy, retrograde pyelogram and possible stent replacement.
--- NOTE | 2021-08-25 06:38 | WPDHPUPDATE1 ---
History and Physical Update Update Date/Time: 08/25/21 06:38 History and Physical has been reviewed, including an updated exam of the patient. There are NO changes in the patient's condition. Risks, benefits, and alternatives have been discussed and questions answered. Patient agrees to proceed with procedure.
[2021-08-25] MEDS: LACTATED RINGERS 1,000 ML 30 ML IV CONT (10:30)
[2021-08-25 10:55] LABS: Glucose Point of Care 110 mg/dl (65-105)
--- NOTE | 2021-08-25 11:12 | WPDANESEPPF ---
Anes - Initial Pre Proc Eval Procedure: Operation Date: 08/25/21 12:00 Proposed Procedures p Cystoscopy, Right Ureteroscopy, Right Laser Lithotripsy with Bladder and Right Ureteral Stone Removal, Possible Right Retrograde Pyelogram,Possible Right Stent Placement - Wong Watkins MD Date/Time: 08/25/21 11:12 Surgeon: Wong Watkins MD Pre Op Diagnosis: right ureteral and renal stones Patient Data Age: 70 Gender: F Height: 1.73 m Weight: 93 kg Last Vital Signs Temp 36.7 C 08/25/21 10:55 Pulse 60 08/25/21 10:55 Resp 18 08/25/21 10:55 BP 149/80 H 08/25/21 10:55 Pulse Ox 97 08/25/21 10:55 Allergies Allergy/AdvReac Type Severity Reaction Status Date / Time No Known Allergies Allergy Unverified 08/25/21 10:58 Home Medications Medication Instructions Recorded Confirmed Type aspirin 81 mg tablet,delayed 81 mg PO DAILY 02/12/20 08/25/21 History release biotin 5,000 mcg disintegrating 10,000 mcg PO DAILY 02/12/20 08/22/21 History tablet meloxicam 15 mg tablet 15 mg PO DAILY 02/12/20 08/22/21 History metformin 500 mg tablet 500 mg PO BID 02/12/20 08/22/21 History pravastatin 20 mg tablet 20 mg PO DAILY 02/12/20 08/22/21 History clobetasol 1 applic TOPICAL PRN PRN 06/20/21 08/22/21 History levothyroxine 50 mcg PO HS 06/20/21 08/25/21 History tamsulosin 0.4 mg PO DAILY 08/22/21 08/22/21 History triamcinolone acetonide 1 applic TOPICAL PRN PRN 08/22/21 08/22/21 History Laboratory Tests 08/25/21 10:45 POC Capillary Glucose 110 mg/dl H mg/dl (65-105) Patient hx anesthesia problems: post op nausea/vomiting Family hx anesthesia problems: none Results Review: All pre-operative results and documents have been reviewed as part of the pre-operative evaluation. [facility] Past Medical History Medical History Arthritis Diabetes Hyperlipidemia Hypothyroid Kidney stone Obesity Surgical History Surgical History H/O section H/O knee surgery Left knee History of bilateral tubal ligation History of laser refractive surgery Right eye Family History Family History Father Family history of diabetes mellitus in first degree relative, Onset Age: 74 Family history of coronary artery disease, Onset Age: 74 Patient's father is Mother Non Hodgkin's lymphoma Other Cerebrovascular accident Diabetes mellitus Family history of arthritis Family history of cardiovascular disease Family history of kidney disease Family history of malignant neoplasm Family history of osteoporosis Social History Social History Smoking packs per day: 0.5 Smoking cigarettes per day: 10.0 Years smoked: 15 Smoking pack-years: 7.50 Smoking status: Former smoker Tobacco type: cigarettes Second hand tobacco smoke exposure: No Smoking end date: 04/16/80 Alcohol intake: current Substance use: never Living arrangements: with family [facility] Spiritual care concerns: No Anes - Eval Final PreProcedure Day of Procedure 08/25/21 11:12 Patient weight: obese Heart: regular rate and rhythm Lungs: decreased breath sounds Airway: Mallampati scale class II Neurological: alert and oriented Last oral intake: >/= 8 hours ASA classification: III Emergent: no Anesthetic plan: proceed Anesthesia type and monitoring: general LMA and standard monitoring Results Review: All pre-operative results and documents have been reviewed as part of the pre-operative evaluation. Informed Consent: The patient's anesthetic plan and its attendant risks and benefits were discussed with the patient/family/POA. Questions were solicited and answers provided to the satisfaction of the patient/family/PO
[2021-08-25] MEDS: ceFAZolin 2 GM/D5W 50 ML 2 GM/50 ML BAG IVPB (11:54)
[2021-08-25] MEDS: KETOROLAC 30 MG/ML VIAL (*BKC) IV PUSH (12:17)
--- NOTE | 2021-08-25 12:18 | W.PM.PROC2 ---
Procedure Note - Detailed Date of Procedure 08/25/21 Pre-op Diagnosis Right ureteral and renal stones Post-op Diagnosis Other ( 2 right distal ureteral stones) Procedure Performed Cystoscopy with right ureteroscopy and ureteral stone extraction Surgeon Wong Watkins MD Anesthesia General Description of Procedure The patient was brought to the operative suite where she is prepped and draped in a routine sterile fashion while in the dorsal lithotomy position after the uneventful induction of a general LMA anesthetic. A 19F rigid cystoscope was placed in the bladder. The patient had no evidence of urethral stricture or bladder neck contracture. The bladder mucosa was endoscopically normal without hyperemia or neoplasm. There was a single, orthotopic ureteral orifice bilaterally. A 0.035 glidewire was advanced into the right renal pelvis under fluoroscopy. The distal ureter was dilated with an 8F/10F ureteral dilator. Ureteroscopy was undertaken with a short, tapered, semi-rigid ureteroscope and two stone were extracted with ease using a 1.9F Escape disposable stone basket. Due to the ease of this manipulation I opted not to place a ureteral stent. The patient's bladder was emptied and was taken to the recovery room having tolerated this procedure well. Drains No Packing No Pathology Yes Complications No immediate complications Condition Stable Disposition PACU
[2021-08-25 13:19] LABS: Glucose Point of Care 110 mg/dl (65-105)
== END 2021-08-25 14:15 | disposition home or self-care (01) ==
PROVIDERS: PCP Physician Assistant; Visit Provider Urology
PROC: (CPT 52352; principal; 2021-08-25 12:00)
DX: N20.2 Calculus of kidney with calculus of ureter (principal); E03.9 Hypothyroidism, unspecified; Z79.82 Long term (current) use of aspirin; Z79.84 Long term (current) use of oral hypoglycemic drugs; M19.90 Unspecified osteoarthritis, unspecified site; E11.9 Type 2 diabetes mellitus without complications; E78.5 Hyperlipidemia, unspecified; Z87.891 Personal history of nicotine dependence; E66.9 Obesity, unspecified; Z68.31 Body mass index [BMI] 31.0-31.9, adult; H33.20 Serous retinal detachment, unspecified eye
CPT/HCPCS: 52352; 82365; 82948; 88300; A9270; C1769; J0690; J1100; J1885; J2405; J2704; J3010; J7120

== ENCOUNTER 2022-01-06 09:28 | Outpatient (CLI) | payer MEDICARE, SELFPAY ==
[2022-01-06 10:49] LABS: Alanine Aminotransferase 36 U/L (6-35); Albumin Level 4.3 g/dL (3.5-5.1); Alkaline Phosphatase 84 U/L (38-126); Anion Gap 11 mmol/L (8-16); Aspartate Amino Transferase 25 U/L (14-36); Bilirubin,Total 0.5 mg/dL (0.2-1.3); Blood Urea Nitrogen 17 mg/dL (7-17); Calcium 9.1 mg/dL (8.4-10.2); Carbon Dioxide 23 mmol/L (22-30); Chloride 108 mmol/L (98-107); Cholesterol 176 mg/dL (0-200); Estimated Glomerular Filt Rate > 60; Glucose 125 mg/dL (65-110); HDL Direct 50 mg/dL; Potassium 4.4 mmol/L (3.4-5.0); Sodium 142 mmol/L (137-145); Triglycerides 99 mg/dL (<150)
[2022-01-06 10:56] LABS: Hemoglobin A1C 5.9 % (<5.7)
[2022-01-06 11:05] LABS: LDL Cholesterol Direct 109 mg/dL
[2022-01-06 11:19] LABS: Thyroid Stimulating Hormone 0.664 uIU/mL (0.465-4.680)
== END 2022-01-06 09:29 | disposition home or self-care (01) ==
PROVIDERS: PCP Physician Assistant; Visit Provider Physician Assistant
DX: E78.5 Hyperlipidemia, unspecified (principal); E03.9 Hypothyroidism, unspecified; R73.03 Prediabetes
CPT/HCPCS: 36415; 80048; 80061; 80076; 83036; 84439; 84443

== ENCOUNTER 2022-03-07 11:31 | Outpatient (CLI) | payer MEDICARE, SELFPAY ==
--- NOTE | ~2022-03-07 | XR_ITS ---
XR abdomen/kub 1V 03/07/2022 11:49 Indication: Renal stone follow-up Procedure: KUB Comparison: 08/08/2021. Findings: There are stones in the lower pole of the left kidney, largest measuring up to 11 mm. The g as pattern nonobstructive. Moderate colonic fecal loading. No definite ureteral stones. There are pun ctate stones in the lower pole of the right kidney, partially obscured by bowel content. Impression: 1: Bilateral nephrolithiasis. Reviewed, dictated and finalized at location A. [employer] Impression: 1: Bilateral nephrolithiasis.
== END 2022-03-07 11:32 | disposition home or self-care (01) ==
PROVIDERS: PCP Physician Assistant; Visit Provider Urology
DX: N20.0 Calculus of kidney (principal)
CPT/HCPCS: 74018

== ENCOUNTER 2022-07-05 08:31 | Outpatient (CLI) | payer MEDICARE, SELFPAY ==
[2022-07-05 10:40] LABS: Basophils Absolute Auto 0.1 K/mm3 (0.0-0.1); Eosinophils Absolute Auto 0.2 K/mm3 (0-0.3); Eosinophils Percent Auto 4.8 % (0-4.4); Hematocrit 43.5 % (37.0-47.0); Hemoglobin 14.2 g/dL (12.0-15.0); Immature Granulocyte Absolute 0.04 K/mm3 (0.00-0.031); Immature Granulocyte Percent A 0.8 % (0-0.5); Lymphocytes Absolute Auto 1.21 K/mm3 (0.9-3.2); Lymphocytes Percent Auto 24.4 % (18.3-44.2); Mean Corpuscular HGB Conc 32.6 g/dl (32-36); Mean Corpuscular Hemoglobin 28.9 pg (26-34); Mean Corpuscular Volume 88.6 fl (80-100); Mean Platelet Volume 9.3 fl (7.4-10.4); Monocytes Absolute Auto 0.7 K/mm3 (0.1-0.6); Monocytes Percent Auto 13.1 % (2.6-8.5); Neutrophils Absolute Auto 2.8 K/mm3 (1.3-6.7); Neutrophils Percent Auto 55.9 % (45.5-73.1); Platelet Count Result 271 k/mm3 (150-375); Red Blood Count 4.91 M/mm3 (4.2-5.4); Red Cell Distribution Width 13.2 % (11.5-14.5)
[2022-07-05 10:58] LABS: Alanine Aminotransferase 31 U/L (6-35); Albumin Level 4.4 g/dL (3.5-5.1); Alkaline Phosphatase 76 U/L (38-126); Anion Gap 7 mmol/L (8-16); Aspartate Amino Transferase 26 U/L (14-36); Bilirubin,Total 0.6 mg/dL (0.2-1.3); Blood Urea Nitrogen 19 mg/dL (7-17); Calcium 8.8 mg/dL (8.4-10.2); Carbon Dioxide 28 mmol/L (22-30); Chloride 108 mmol/L (98-107); Cholesterol 187 mg/dL (0-200); Estimated Glomerular Filt Rate > 60; Glucose 116 mg/dL (65-110); HDL Direct 42 mg/dL; Potassium 4.2 mmol/L (3.4-5.0); Sodium 143 mmol/L (137-145); Triglycerides 123 mg/dL (<150)
[2022-07-05 11:09] LABS: LDL Cholesterol Direct 116 mg/dL
[2022-07-05 11:19] LABS: Free T4 Free Thyroxine 1.35 ng/mL (0.78-2.19)
== END 2022-07-05 08:32 | disposition home or self-care (01) ==
PROVIDERS: PCP Physician Assistant; Visit Provider Physician Assistant
DX: E78.5 Hyperlipidemia, unspecified (principal); R73.03 Prediabetes; E03.9 Hypothyroidism, unspecified; Z79.899 Other long term (current) drug therapy; Z01.83 Encounter for blood typing
CPT/HCPCS: 36415; 80048; 80061; 80076; 83036; 84439; 84443; 85025; 86900; 86901

== ENCOUNTER 2022-07-25 09:57 | Outpatient (CLI) | payer MEDICARE, SELFPAY ==
--- NOTE | ~2022-07-25 | MM_ITS ---
EXAMINATION: MM screening autumn BI w kirk HISTORY: Screening mammogram TECHNIQUE: Craniocaudal and mediolateral oblique 3-D tomosynthesis images were obtained and synthetic 2-D images were generated. CAD analysis was submitted and interpreted. COMPARISON: 04/25/2021, 03/26/2020, 03/25/2019 BREAST PARENCHYMAL COMPOSITION:There are scattered areas of fibroglandular density. FINDINGS: No suspicious mass, calcification, or architectural distortion are identified in either gaby ast to suggest malignancy. There has been no suspicious interval change. IMPRESSION: No mammographic evidence of malignancy. Recommend routine screening mammography in one year. BI-RADS Category 1: Negative Reviewed, dictated and finalized at location .
--- NOTE | ~2022-07-25 | DEXA_ITS ---
Bone Density Report Name: JONY GONZALEZ Age: 71 Sex: Female Ethnicity: White Date of : 1950 Indication: postmenopausal; screening for osteoporosis; height loss; Referring Provider: ALISHA LUA Study: Bone densitometry was performed. Exam Date: July 25, 2022 Accession number: [id number] Bone Density: Region BMD T-score Z-score Classification AP Spine(L1-L4) 1.338 2.6 4.9 Normal Femoral Neck (Left) 0.940 0.8 2.7 Normal Total Hip (Left) 1.193 2.1 3.7 Normal Femoral Neck (Right) 0.921 0.6 2.5 Normal Total Hip (Right) 1.155 1.7 3.3 Normal Total Hip Mean 1.174 1.9 3.5 Normal World Health Organization criteria for BMD impression classify patients as: Normal (T-score at or above -1.0), Osteopenia (T-score between -1.0 and -2.5), or Osteoporosis (T-score at or below -2.5). 10-year Fracture Risk: FRAX not reported because: All T-scores for Spine Total, Hip Total, Femoral Neck at or above -1.0 Previous Exams: Region Exam Age BMD T-score BMD Change BMD Change Date g/cm2 vs Baseline vs Previous AP Spine (L1-L4) 07/25/2022 71 1.338 2.6 0.038 (2.9%)# 0.038 (2.9%)# 09/19/2012 61 1.300 2.3 Total Hip(Left) 07/25/2022 71 1.193 2.1 -0.024 (-1.9%) -0.018 (-1.4%) 03/26/2020 69 1.211 2.2 -0.006 (-0.5%) 0.002 (0.2%) 03/05/2018 67 1.209 2.2 -0.009 (-0.7%) -0.015 (-1.3%) 02/16/2016 65 1.224 2.3 0.007 (0.6%)# 0.007 (0.6%)# 09/19/2012 61 1.217 2.3 Total Hip(Right) 07/25/2022 71 1.155 1.7 -0.005 (-0.4%) 0.012 (1.0%) 03/26/2020 69 1.143 1.7 -0.017 (-1.4%) -0.035 (-3.0%) 03/05/2018 67 1.178 1.9 0.018 (1.6%)# 0.002 (0.2%) 02/16/2016 65 1.176 1.9 0.016 (1.4%)# 0.016 (1.4%)# 09/19/2012 61 1.160 1.8 *Denotes significance at 95% confidence level, LSC for AP Spine = 0.022 g/cm2, LSC for Total Hip = 0.027 g/cm2 # Denotes dissimilar scan types or analysis methods Clinical Information Provided by Patient: Patient maximum height was 68.5 Menopause Age: 52 Drinks caffeinated beverages Onset of menses at age 14 Number of children 3 Impression: The patient has normal bone mass. No significant bone loss was observed. Discussion: LOW RISK OF FRACTURE; BONE DENSITY IS WELL ABOVE THE MINIMUM DESIRABLE LEVEL AND ABOVE AVERAGE FOR AGE AND SEX AT ALL SKELETAL SITES TESTED. This person's bone density is above expected limits for age and sex. Thi
== END 2022-07-25 09:58 | disposition home or self-care (01) ==
PROVIDERS: PCP Physician Assistant; Visit Provider Obstetrics & Gynecology
DX: Z12.31 Encounter for screening mammogram for malignant neoplasm of breast (principal); Z78.0 Asymptomatic menopausal state
CPT/HCPCS: 77063; 77067; 77080

== ENCOUNTER 2022-09-06 11:47 | Outpatient (CLI) | payer MEDICARE, SELFPAY ==
--- NOTE | ~2022-09-06 | XR_ITS ---
Supine and upright views of the abdomen Clinical history: Kidney stones COMPARISON: 03/07/2022 Findings: Bowel gas pattern is nonspecific. No evidence for obstruction or free air. Left renal stone s measuring up to 11 mm in maximum diameter. Probable small right renal stones present.. Osseous stru ctures are intact. Impression: Probable bilateral nephrolithiasis, largest stone at the left lower pole measuring 11 mm. Reviewed, dictated and finalized at location . Impression: Probable bilateral nephrolithiasis, largest stone at the left lower pole measur ing 11 mm.
== END 2022-09-06 11:48 | disposition home or self-care (01) ==
PROVIDERS: PCP Physician Assistant; Visit Provider Urology
DX: N20.0 Calculus of kidney (principal)
CPT/HCPCS: 74018

== ENCOUNTER 2023-01-04 09:37 | Outpatient (CLI) | payer MEDICARE, SELFPAY ==
[2023-01-04 10:38] LABS: Basophils Absolute Auto 0.1 K/mm3 (0.0-0.1); Eosinophils Absolute Auto 0.2 K/mm3 (0-0.3); Hematocrit 44.8 % (37.0-47.0); Hemoglobin 14.6 g/dL (12.0-15.0); Immature Granulocyte Absolute 0.02 K/mm3 (0.00-0.031); Immature Granulocyte Percent A 0.4 % (0-0.5); Lymphocytes Absolute Auto 1.09 K/mm3 (0.9-3.2); Lymphocytes Percent Auto 20.8 % (18.3-44.2); Mean Corpuscular HGB Conc 32.6 g/dl (32-36); Mean Corpuscular Hemoglobin 29.4 pg (26-34); Mean Corpuscular Volume 90.1 fl (80-100); Mean Platelet Volume 9.2 fl (7.4-10.4); Monocytes Absolute Auto 0.6 K/mm3 (0.1-0.6); Monocytes Percent Auto 11.7 % (2.6-8.5); Neutrophils Absolute Auto 3.3 K/mm3 (1.3-6.7); Neutrophils Percent Auto 62.1 % (45.5-73.1); Platelet Count Result 248 k/mm3 (150-375); Red Blood Count 4.97 M/mm3 (4.2-5.4); Red Cell Distribution Width 13.2 % (11.5-14.5); White Blood Count 5.2 K/mm3 (4.5-10.0)
[2023-01-04 10:48] LABS: Hemoglobin A1C 5.7 % (<5.7)
[2023-01-04 10:52] LABS: Alanine Aminotransferase 34 U/L (6-35); Albumin Level 4.6 g/dL (3.5-5.1); Alkaline Phosphatase 73 U/L (38-126); Anion Gap 8 mmol/L (8-16); Aspartate Amino Transferase 27 U/L (14-36); Bilirubin,Total 0.7 mg/dL (0.2-1.3); Blood Urea Nitrogen 19 mg/dL (7-17); Carbon Dioxide 27 mmol/L (22-30); Chloride 106 mmol/L (98-107); Cholesterol 171 mg/dL (0-200); Estimated Glomerular Filt Rate > 60; Glucose 105 mg/dL (65-110); HDL Direct 48 mg/dL; Potassium 4.1 mmol/L (3.4-5.0); Sodium 141 mmol/L (137-145); Triglycerides 91 mg/dL (<150)
[2023-01-04 11:04] LABS: LDL Cholesterol Direct 101 mg/dL
[2023-01-04 11:09] LABS: Free T4 Free Thyroxine 1.22 ng/mL (0.78-2.19)
[2023-01-07 18:06] LABS: Triiodothyronine T3 Free 2.9 pg/mL (2.3-4.2)
== END 2023-01-04 09:38 | disposition home or self-care (01) ==
LOC: ANHLAB 09:39
PROVIDERS: PCP Physician Assistant; Visit Provider Physician Assistant
DX: R73.03 Prediabetes (principal); E78.5 Hyperlipidemia, unspecified; E03.9 Hypothyroidism, unspecified; Z79.899 Other long term (current) drug therapy
CPT/HCPCS: 36415; 80048; 80061; 80076; 83036; 84439; 84443; 84481; 85025

== ENCOUNTER 2023-02-19 08:09 | Day surgery (SDC) | payer MEDICARE, SELFPAY ==
[2023-01-11 09:26] VITALS: BMI 28.0
--- NOTE | 2023-02-16 13:53 | PM.HPGS ---
History of Present Illness History of Present Illness Consent: Risks, benefits, and alternatives have been discussed and questions answered. Patient agrees to proceed with procedure. Chief complaint: Other Fecal Abnormalities Narrative: Palak Peterson is a 72 year old female Referred for colon cancer screening. A Cologuard test was positive Review of Systems Review of Systems: All systems reviewed & are unremarkable except as noted in HPI and below PMFSH Past Medical History Medical History Arthritis Diabetes Hyperlipidemia Hypothyroid Kidney stone Obesity Surgical History Surgical History H/O section H/O knee surgery Left knee H/O lithotripsy History of bilateral tubal ligation History of laser refractive surgery Right eye Family History Family History Father Family history of diabetes mellitus in first degree relative, Onset Age: 74 Family history of coronary artery disease, Onset Age: 74 Patient's father is Mother Non Hodgkin's lymphoma Other Cerebrovascular accident Diabetes mellitus Family history of arthritis Family history of cardiovascular disease Family history of kidney disease Family history of malignant neoplasm Family history of osteoporosis Social History Social History Smoking packs per day: 0.5 Smoking cigarettes per day: 10.0 Years smoked: 15 Smoking pack-years: 7.50 Smoking status: Former smoker Tobacco type: cigarettes Second hand tobacco smoke exposure: No Smoking end date: 04/16/80 Alcohol intake: current Substance use: never Substance use type: does not use Living arrangements: with family [facility] Spiritual care concerns: No Meds Home Medications and Allergies Home Medications Medication Instructions Recorded Confirmed Type aspirin 81 mg tablet,delayed 81 mg PO DAILY 02/12/20 01/31/23 History release (Adult Aspirin Regimen) biotin 5,000 mcg disintegrating 10,000 mcg PO DAILY 02/12/20 01/31/23 History tablet meloxicam 15 mg tablet 15 mg PO DAILY 02/12/20 01/31/23 History pravastatin 20 mg tablet 20 mg PO DAILY 02/12/20 02/19/23 History levothyroxine 50 mcg tablet 50 mcg PO HS 06/20/21 01/31/23 History clobetasol 0.05 % topical ointment 1 applic topical QAM AND QPM PRN 02/16/22 01/31/23 Rx Itching #45 grams triamcinolone acetonide 0.1 % 1 applic topical PRN PRN vaginal 08/25/22 01/31/23 Rx topical ointment irritation #15 grams multivitamin 1 tablet PO DAILY 01/31/23 01/31/23 History Allergies Allergy/AdvReac Type Severity Reaction Status Date / Time No Known Allergies Allergy Verified 02/19/23 09:11 Exam Resp: Auscultation: clear to auscultation bilaterally Cardio: Rate: regular rate Rhythm: regular rhythm GI: GI Palp: Yes Soft to palpation and No Tenderness to palpation present (GI) Assessment and Plan Assessment and plan (1) Positive colorectal cancer screening using Cologuard test: Code(s): R19.5 - Other fecal abnormalities Status: Acute Assessment and Plan: Colonoscopy with possible biopsy or polypectomy or cautery or injection of substances.
--- NOTE | 2023-02-19 09:17 | WPDANESEPPF ---
Anes - Initial Pre Proc Eval Procedure: Operation Date: 02/19/23 10:30 Proposed Procedures p Diagnostic Colonoscopy - Arthur Canela MD Date/Time: 02/19/23 09:17 Surgeon: Arthur Canela MD Pre Op Diagnosis: Other Fecal Abnormalities Patient Data Age: 72 Gender: F Height: 1.69 m Weight: 90.7 kg Allergies Allergy/AdvReac Type Severity Reaction Status Date / Time No Known Allergies Allergy Verified 02/19/23 09:11 Home Medications Medication Instructions Recorded Confirmed Type aspirin 81 mg tablet,delayed 81 mg PO DAILY 02/12/20 01/31/23 History release (Adult Aspirin Regimen) biotin 5,000 mcg disintegrating 10,000 mcg PO DAILY 02/12/20 01/31/23 History tablet meloxicam 15 mg tablet 15 mg PO DAILY 02/12/20 01/31/23 History pravastatin 20 mg tablet 20 mg PO DAILY 02/12/20 02/19/23 History levothyroxine 50 mcg tablet 50 mcg PO HS 06/20/21 01/31/23 History clobetasol 0.05 % topical ointment 1 applic topical QAM AND QPM PRN 02/16/22 01/31/23 Rx Itching #45 grams triamcinolone acetonide 0.1 % 1 applic topical PRN PRN vaginal 08/25/22 01/31/23 Rx topical ointment irritation #15 grams multivitamin 1 tablet PO DAILY 01/31/23 01/31/23 History Patient hx anesthesia problems: none Family hx anesthesia problems: none Results Review: All pre-operative results and documents have been reviewed as part of the pre-operative evaluation. [facility] Past Medical History Medical History Arthritis Diabetes Hyperlipidemia Hypothyroid Kidney stone Obesity Surgical History Surgical History H/O section H/O knee surgery Left knee H/O lithotripsy History of bilateral tubal ligation History of laser refractive surgery Right eye Family History Family History Father Family history of diabetes mellitus in first degree relative, Onset Age: 74 Family history of coronary artery disease, Onset Age: 74 Patient's father is Mother Non Hodgkin's lymphoma Other Cerebrovascular accident Diabetes mellitus Family history of arthritis Family history of cardiovascular disease Family history of kidney disease Family history of malignant neoplasm Family history of osteoporosis Social History Social History Smoking packs per day: 0.5 Smoking cigarettes per day: 10.0 Years smoked: 15 Smoking pack-years: 7.50 Smoking status: Former smoker Tobacco type: cigarettes Second hand tobacco smoke exposure: No Smoking end date: 04/16/80 Alcohol intake: current Substance use: never Substance use type: does not use Living arrangements: with family Additional living arrangements comments: [facility] Spiritual care concerns: No Anes - Eval Final PreProcedure Day of Procedure 02/19/23 09:17 Patient weight: obese Heart: regular rate and rhythm Lungs: clear to auscultation Airway: Mallampati scale class II Neurological: alert and oriented Last oral intake: >/= 8 hours ASA classification: III Emergent: no Anesthetic plan: proceed Anesthesia type and monitoring: general GIVS and standard monitoring Results Review: All pre-operative results and documents have been reviewed as part of the pre-operative evaluation. Informed Consent: The patient's anesthetic plan and its attendant risks and benefits were discussed with the patient/family/POA. Questions were solicited and answers provided to the satisfaction of the patient/family/POA.
[2023-02-19 09:29] LABS: Glucose Point of Care 113 mg/dl (65-105)
[2023-02-19 09:30] VITALS: BP 144/105; PULSE 80; RESP 16; TEMP 36.8; O2SAT 97
[2023-02-19] MEDS: LACTATED RINGERS 1,000 ML 150 ML IV CONT (09:31)
[2023-02-19 10:49] VITALS: BP 108/60; PULSE 73; RESP 20; O2SAT 96
[2023-02-19 10:59] VITALS: BP 100/64; PULSE 68; RESP 14; O2SAT 94
[2023-02-19 11:09] VITALS: BP 101/71; PULSE 65; RESP 16; O2SAT 94
--- NOTE | 2023-02-19 13:47 | WPDANESPN ---
Anes - Prog Note Post-Op Date/Time: 02/19/23 13:47 Cardiovascular status: normal Respiratory status: normal Airway patency: baseline Mental status: baseline Post-Op hydration status: normal Vital Signs: Last Vital Signs Temp 36.8 C 02/19/23 09:30 Pulse 65 02/19/23 11:09 Resp 16 02/19/23 11:09 BP 101/71 02/19/23 11:09 Pulse Ox 94 02/19/23 11:09 O2 Del Method Room Air 02/19/23 11:09 Pain Score (VAS): 0 I/O: Intake & Output 02/18/23 02/19/23 02/19/23 23:59 07:59 15:59 Intake Total 150 Balance 150 02/19/23 09:25 POC Capillary Glucose 113 H Post-procedural complaints: none Patient Feedback: Patient satisfied with anesthetic care. Other Findings: Patient vital signs back to baseline. Patient denies nausea and vomiting. Patient's pain under control. Patient OK for discharge.
== END 2023-02-19 11:18 | disposition home or self-care (01) ==
PROVIDERS: PCP Internal Medicine; Visit Provider Internal Medicine Gastroenterology
PROC: 0DJD8ZZ Inspection of Lower Intestinal Tract, Via Natural or Artificial Opening Endoscopic (ICD-10-PCS; CPT 45378; principal; 2023-02-19 10:30)
DX: R19.5 Other fecal abnormalities (principal); K57.30 Diverticulosis of large intestine without perforation or abscess without bleeding
CPT/HCPCS: 45378

== ENCOUNTER 2023-07-12 09:40 | Outpatient (CLI) | payer MEDICARE, SELFPAY ==
[2023-07-12 10:14] LABS: Basophils Absolute Auto 0.1 K/mm3 (0.0-0.1); Eosinophils Absolute Auto 0.3 K/mm3 (0-0.3); Eosinophils Percent Auto 6.1 % (0-4.4); Hematocrit 46.4 % (37.0-47.0); Immature Granulocyte Absolute 0.01 K/mm3 (0.00-0.031); Immature Granulocyte Percent A 0.2 % (0-0.5); Lymphocytes Absolute Auto 1.24 K/mm3 (0.9-3.2); Lymphocytes Percent Auto 25.4 % (18.3-44.2); Mean Corpuscular HGB Conc 32.3 g/dl (32-36); Mean Corpuscular Hemoglobin 29.1 pg (26-34); Mean Corpuscular Volume 90.1 fl (80-100); Mean Platelet Volume 9.2 fl (7.4-10.4); Monocytes Absolute Auto 0.6 K/mm3 (0.1-0.6); Monocytes Percent Auto 12.9 % (2.6-8.5); Neutrophils Absolute Auto 2.7 K/mm3 (1.3-6.7); Neutrophils Percent Auto 54.4 % (45.5-73.1); Platelet Count Result 226 k/mm3 (150-375); Red Blood Count 5.15 M/mm3 (4.2-5.4); Red Cell Distribution Width 13.4 % (11.5-14.5); White Blood Count 4.9 K/mm3 (4.5-10.0)
[2023-07-12 10:25] LABS: Alanine Aminotransferase 24 U/L (6-35); Albumin Level 4.4 g/dL (3.5-5.1); Alkaline Phosphatase 81 U/L (38-126); Anion Gap 5 mmol/L (4-12); Aspartate Amino Transferase 29 U/L (14-36); Bilirubin,Total 0.7 mg/dL (0.2-1.3); Blood Urea Nitrogen 19 mg/dL (7-17); Calcium 9.6 mg/dL (8.4-10.2); Carbon Dioxide 29 mmol/L (22-30); Chloride 109 mmol/L (98-107); Cholesterol 196 mg/dL (0-200); Estimated Glomerular Filt Rate > 60; Glucose 122 mg/dL (65-110); HDL Direct 52 mg/dL; Potassium 4.1 mmol/L (3.4-5.0); Sodium 143 mmol/L (137-145); Triglycerides 105 mg/dL (<150)
[2023-07-12 10:47] LABS: LDL Cholesterol Direct 126 mg/dL
[2023-07-12 10:51] LABS: Hemoglobin A1C 6.1 % (<5.7)
[2023-07-12 11:01] LABS: Free T4 Free Thyroxine 0.92 ng/mL (0.78-2.19)
== END 2023-07-12 09:41 | disposition home or self-care (01) ==
LOC: ANHLAB 09:47
PROVIDERS: PCP Internal Medicine; Visit Provider Physician Assistant
DX: R73.03 Prediabetes (principal); Z13.220 Encounter for screening for lipoid disorders; Z79.899 Other long term (current) drug therapy
CPT/HCPCS: 36415; 80048; 80061; 80076; 83036; 84439; 84443; 85025

== ENCOUNTER 2023-09-07 12:53 | Outpatient (RCR) | payer MEDICARE, SELFPAY ==
--- NOTE | 2023-09-07 14:08 | OTOPEVDC ---
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 Patient reports experiencing pain in the base of her thumb for several years. She has a neoprene thumb brace at home that she hasn't really tried to wear. Functionally she reports a decline in her ability to complete gripping and pinching tasks. Difficulties with writing. She uses voltaren. Reported Pain Level Pain Score 2: Self Report Assessment OT Clinical Summary Patient referred to OT with dx of right 1st CMC OA . She presents with intact functional ROM and strength. She verbalizes a functional decline due to pain with gripping and pinching tasks. Educated patient on HEP for ROM and strengthening as well as joint protection techniques during ADLs. She declines fabrication of a thumb spica brace. She declines further follow up at this time. D/C OT with patient independent with HEP. Plan of Care OT Services Indicated No
== END 2023-09-12 10:30 | disposition home or self-care (01) ==
LOC: ANHOT 12:53
PROVIDERS: PCP Internal Medicine; Visit Provider Plastic Surgery
DX: M18.11 Unilateral primary osteoarthritis of first carpometacarpal joint, right hand (principal)
CPT/HCPCS: 97018; 97110; 97165

== ENCOUNTER 2023-10-24 12:52 | Outpatient (CLI) | payer MEDICARE, SELFPAY ==
--- NOTE | ~2023-10-24 | XR_ITS ---
Left Knee Technique: AP, lateral, and sunrise views were obtained. Clinical History: Pain Findings: No fracture or dislocation is seen. Osseous alignment is anatomic. There is mild to moderat e tricompartmental degenerative spurring. Soft tissues are unremarkable. No joint effusion is seen. Impression: Mild to moderate tricompartmental degenerative spurring. Reviewed, dictated and finalized at location . Impression: Mild to moderate tricompartmental degenerative spurring.
--- NOTE | ~2023-10-24 | XR_ITS ---
Right Knee Technique: AP, lateral, and sunrise views were obtained. Clinical History: Pain Findings: No fracture or dislocation is seen. Osseous alignment is anatomic. Mild tricompartmental sp urring noted. Soft tissues are unremarkable. No joint effusion is seen. Impression: Mild tricompartmental degenerative spurring. Reviewed, dictated and finalized at [facility]. Impression: Mild tricompartmental degenerative spurring.
== END 2023-10-24 12:53 | disposition home or self-care (01) ==
LOC: ANHIMG 12:59
PROVIDERS: PCP Physician Assistant; Visit Provider Orthopaedic Surgery
DX: M25.561 Pain in right knee (principal); M25.562 Pain in left knee; M76.52 Patellar tendinitis, left knee; M76.51 Patellar tendinitis, right knee
CPT/HCPCS: 73564

== ENCOUNTER 2023-11-02 10:23 | Outpatient (CLI) | payer MEDICARE, SELFPAY ==
--- NOTE | ~2023-11-02 | MM_ITS ---
EXAMINATION: MM screening autumn BI w kirk HISTORY: Screening TECHNIQUE: Craniocaudal and mediolateral oblique 3-D tomosynthesis images were obtained and synthetic 2-D images were generated. CAD analysis was submitted and interpreted. COMPARISON: Comparison to multiple prior studies sequentially, with oldest reviewed study dated 02/14. BREAST PARENCHYMAL COMPOSITION: Not dense: There are scattered areas of fibroglandular density. FINDINGS: There is no evidence of suspicious mass, calcification, or architectural distortion to sugg est malignancy in either breast. There has been no suspicious interval change. IMPRESSION: 1. No mammographic evidence of malignancy. 2. Recommend routine screening mammography in one year. BI-RADS Category 1: Negative Reviewed, dictated and finalized at location B.
== END 2023-11-02 10:24 | disposition home or self-care (01) ==
PROVIDERS: PCP Physician Assistant; Visit Provider Obstetrics & Gynecology
DX: Z12.31 Encounter for screening mammogram for malignant neoplasm of breast (principal)
CPT/HCPCS: 77063; 77067

== ENCOUNTER 2024-01-21 09:45 | Outpatient (CLI) | payer MEDICARE, SELFPAY ==
[2024-01-21 10:12] LABS: Basophils Absolute Auto 0.1 K/mm3 (0.0-0.1); Basophils Percent Auto 0.9 % (0.2-1.2); Eosinophils Absolute Auto 0.3 K/mm3 (0-0.3); Eosinophils Percent Auto 5.7 % (0-4.4); Hematocrit 43.3 % (37.0-47.0); Hemoglobin 14.5 g/dL (12.0-15.0); Immature Granulocyte Absolute 0.02 K/mm3 (0.00-0.031); Immature Granulocyte Percent A 0.4 % (0-0.5); Lymphocytes Absolute Auto 1.21 K/mm3 (0.9-3.2); Lymphocytes Percent Auto 22.3 % (18.3-44.2); Mean Corpuscular HGB Conc 33.5 g/dl (32-36); Mean Corpuscular Hemoglobin 29.8 pg (26-34); Mean Corpuscular Volume 89.1 fl (80-100); Mean Platelet Volume 9.1 fl (7.4-10.4); Monocytes Absolute Auto 0.7 K/mm3 (0.1-0.6); Monocytes Percent Auto 12.7 % (2.6-8.5); Neutrophils Absolute Auto 3.2 K/mm3 (1.3-6.7); Platelet Count Result 225 k/mm3 (150-375); Red Blood Count 4.86 M/mm3 (4.2-5.4); Red Cell Distribution Width 13.6 % (11.5-14.5); White Blood Count 5.4 K/mm3 (4.5-10.0)
[2024-01-21 10:23] LABS: Alanine Aminotransferase 29 U/L (6-35); Albumin Level 4.3 g/dL (3.5-5.1); Alkaline Phosphatase 74 U/L (38-126); Anion Gap 5 mmol/L (4-12); Aspartate Amino Transferase 24 U/L (14-36); Bilirubin,Total 0.6 mg/dL (0.2-1.3); Blood Urea Nitrogen 13 mg/dL (7-17); Calcium 9.1 mg/dL (8.4-10.2); Carbon Dioxide 30 mmol/L (22-30); Chloride 107 mmol/L (98-107); Cholesterol 173 mg/dL (0-200); Estimated Glomerular Filt Rate > 60; Glucose 125 mg/dL (65-110); HDL Direct 50 mg/dL; Potassium 4.4 mmol/L (3.4-5.0); Sodium 142 mmol/L (137-145); Triglycerides 87 mg/dL (<150)
[2024-01-21 10:35] LABS: LDL Cholesterol Direct 93 mg/dL
[2024-01-21 11:33] LABS: Hemoglobin A1C 6.2 % (<5.7)
== END 2024-01-21 09:46 | disposition home or self-care (01) ==
LOC: ANHLAB 09:47
PROVIDERS: PCP Physician Assistant; Visit Provider Physician Assistant
DX: E03.9 Hypothyroidism, unspecified (principal); E78.5 Hyperlipidemia, unspecified; R73.03 Prediabetes; Z79.899 Other long term (current) drug therapy
CPT/HCPCS: 36415; 80048; 80061; 80076; 83036; 84439; 84443; 85025

== ENCOUNTER 2024-01-25 15:35 | Outpatient (CLI) | payer MEDICARE, SELFPAY ==
--- NOTE | ~2024-01-25 | CT_ITS ---
Clinical indication:Night sweats, hot flashes, chest discomfort. COMPARISON:None TECHNIQUE: Multiple contiguous axial images of the chest were performed without the administration of intravenous contrast. Coronal and sagittal reconstructed images were obtained. DLP: 357 2 mGy-cm FINDINGS: LUNG:No pulmonary nodules are identified. MEDIASTINUM: Calcified lymph nodes are identified within the right hilum and right paratracheal posit ions. Multiple nonpathologically enlarged and otherwise morphologically benign-appearing lymph nodes within the bilateral axilla, a nonspecific finding. HEART:The heart is of normal size, without pericardial effusion. SOFT TISSUES OF THE CHEST: Unremarkable BONES OF THE CHEST: No significant degenerative disease is identified within the thoracic spine. No l ytic or blastic lesions are noted. VISUALIZED PORTION OF THE UPPER ABDOMEN: Unremarkable IMPRESSION: Calcified right hilar and right paratracheal lymph nodes. No pulmonary nodules. No morphologically suspicious or pathologically enlarged lymph nodes, as detailed above. Reviewed, dictated and finalized at location A. IMPRESSION: Calcified right hilar and right paratracheal lymph nodes. No pulmonary nodules. No morphologically suspicious or pathologically enlarged lymph nodes, as detail ed above.
== END 2024-01-25 15:36 | disposition home or self-care (01) ==
LOC: ANHIMG 15:37
PROVIDERS: PCP Physician Assistant; Visit Provider Physician Assistant
DX: I89.8 Other specified noninfective disorders of lymphatic vessels and lymph nodes (principal); R61 Generalized hyperhidrosis
CPT/HCPCS: 71250

== ENCOUNTER 2024-02-22 12:37 | Outpatient (CLI) | payer MEDICARE, SELFPAY ==
[2024-02-22 12:53] LABS: Basophils Absolute Auto 0.1 K/mm3 (0.0-0.1); Basophils Percent Auto 0.9 % (0.2-1.2); Eosinophils Absolute Auto 0.3 K/mm3 (0-0.3); Eosinophils Percent Auto 4.4 % (0-4.4); Hematocrit 42.6 % (37.0-47.0); Hemoglobin 13.9 g/dL (12.0-15.0); Immature Granulocyte Absolute 0.02 K/mm3 (0.00-0.031); Immature Granulocyte Percent A 0.3 % (0-0.5); Lymphocytes Absolute Auto 1.57 K/mm3 (0.9-3.2); Lymphocytes Percent Auto 23.6 % (18.3-44.2); Mean Corpuscular HGB Conc 32.6 g/dl (32-36); Mean Corpuscular Hemoglobin 29.5 pg (26-34); Mean Corpuscular Volume 90.4 fl (80-100); Mean Platelet Volume 9.1 fl (7.4-10.4); Monocytes Absolute Auto 0.9 K/mm3 (0.1-0.6); Monocytes Percent Auto 13.9 % (2.6-8.5); Neutrophils Absolute Auto 3.8 K/mm3 (1.3-6.7); Neutrophils Percent Auto 56.9 % (45.5-73.1); Platelet Count Result 248 k/mm3 (150-375); Red Blood Count 4.71 M/mm3 (4.2-5.4); Red Cell Distribution Width 13.4 % (11.5-14.5); White Blood Count 6.6 K/mm3 (4.5-10.0)
== END 2024-02-22 12:38 | disposition home or self-care (01) ==
LOC: ANHLAB 12:39
PROVIDERS: PCP Physician Assistant; Visit Provider Physician Assistant
DX: R79.9 Abnormal finding of blood chemistry, unspecified (principal)
CPT/HCPCS: 36415; 85025

== ENCOUNTER 2024-04-10 11:02 | Outpatient (CLI) | payer MEDICARE, SELFPAY ==
[2024-04-10 11:28] LABS: Basophils Absolute Auto 0.1 K/mm3 (0.0-0.1); Basophils Percent Auto 0.8 % (0.2-1.2); Eosinophils Absolute Auto 0.4 K/mm3 (0-0.3); Eosinophils Percent Auto 5.7 % (0-4.4); Hematocrit 42.4 % (37.0-47.0); Immature Granulocyte Absolute 0.02 K/mm3 (0.00-0.031); Immature Granulocyte Percent A 0.3 % (0-0.5); Lymphocytes Absolute Auto 1.19 K/mm3 (0.9-3.2); Lymphocytes Percent Auto 19.5 % (18.3-44.2); Mean Corpuscular Hemoglobin 29.5 pg (26-34); Mean Corpuscular Volume 89.5 fl (80-100); Mean Platelet Volume 9.2 fl (7.4-10.4); Monocytes Absolute Auto 0.5 K/mm3 (0.1-0.6); Monocytes Percent Auto 8.5 % (2.6-8.5); Neutrophils Percent Auto 65.2 % (45.5-73.1); Platelet Count Result 214 k/mm3 (150-375); Red Blood Count 4.74 M/mm3 (4.2-5.4); Red Cell Distribution Width 13.2 % (11.5-14.5); White Blood Count 6.1 K/mm3 (4.5-10.0)
== END 2024-04-10 11:03 | disposition home or self-care (01) ==
PROVIDERS: PCP Physician Assistant; Visit Provider Physician Assistant
DX: R79.9 Abnormal finding of blood chemistry, unspecified (principal); I10 Essential (primary) hypertension
CPT/HCPCS: 36415; 85025

== ENCOUNTER 2024-06-29 21:34 | Emergency (ER) | payer MEDICARE, SELFPAY ==
[2024-06-29 21:35] VITALS: BP 121/96; PULSE 79; RESP 15; TEMP 36.6; O2SAT 97
--- OUTSIDE RECORDS SUMMARY | 2024-06-29 21:35 | XMS_ITS | Encounter Summary ---
Author Organization [facility] Address [address] [place] [address] Care Team Providers Care Continuous Yarn Dyeing Machine Operator Name Role Phone Juan Nicole MD Primary Care Provider [phone] Raymundo Bolton MD Unavailable [phone] Encounter Details Date Type Department Care Team (Late st Contact Info) Description 03/19/2023 Lab Requisition [facility] - DermPath Lab [address] [facility], [place] [id number] Wendy Harrison DO [address] [facility] [address]L [place] [address] Social History Tobacco Use Types Packs/Day Years Used Date Smoking Tobacco: Never Assessed Sex and Gender Information Value Date Recorded Sex Assigned at Not on file Gender Identity Not on file Sexual Orientation Not on file documented as of this encounter Plan of Treatment Not on file documented as of this encounter Procedures Procedure Name Priority Date/Time Associated Diagnosis Comments DERMATOPATHOLOGY Routine 03/19/2023 11:2 4 AM BASKET GRADER documented in this encounter Results * DERMATOPATHOLOGY (03/19/2023 11:24 AM BASKET GRADER) Case Report Dermatopathology Report Case: [id number] Authorizing Provider: Wendy Harrison DO Collected: 03/19/2023 11:24 AM Ordering Location: [facility] D[facility] Lab Received: 03/20/2023 12:31 PM Pathologist: Lauren Griffith MD Specimens: A) - Skin, right helix B) - Skin, left upper back 3:03 PM BASKET GRADER DERMATOPATHOLOGY LABORATORY Final Diagnosis Specimen A. SKIN, right helix: SQUAMOUS PROLIFERATION (D48.5) OVERLYING CUTANEOUS HORN (L85.8) (see microscopic description and comment) Specimen B. SKIN, left upper back: BASAL CELL CARCINOMA, SUPERFICIAL MULTIFOCAL (C44.519) 3:03 PM [facility] DERMATOPATHOLOGY LABORATORY Clinical History A: CNH, R/O NMSC B: R/O NMSC 3:03 PM [facility] DERMATOPATHOLOGY LABORATORY Gross Description Specimen A: Received is one formalin filled container labeled with the patient's name and designated right helix. The specimen consists of a(2) pieces shave biopsy measuring 1x1x1, 2x1x1 mm. Jar 0. Specimen B: Received is one formalin filled container labeled with the patient's name and designated left upper back. The specimen consists of a shave biopsy measuring 5x5x1 mm. Jar 0. 3:03 PM [facility] DERMATOPATHOLOGY LABORATORY Microscopic Description Specimen A. SKIN, right helix: Sections show maturational disarray and nuclear pleomorphism of keratinocytes extending throughout the full thickness of the specimen. The base of this lesion is not visualized. There is a column of marked compact hyperkeratosis and parakeratosis. Additional deeper sections were obtained and reviewed. COMMENT: The histological differential diagnosis includes superficial portions of chondrodermatitis nodularis helicis, an irritated and inflamed benign keratosis, an actinic keratosis, and squamous cell carcinoma. Specimen B. SKIN, left upper back: Attached to the undersurface of the epidermis, there are small aggregates of basaloid cells with a high nuclear to cytoplasmic ratio and peripheral palisading. 3:03 PM [facility] DERMATOPATHOLOGY LABORATORY Disclaimer An external and internal positive and negative controls are appropriate for the histochemical, immunohistochemical and immunofluorescence stain(s) in this case (if any), except where stated explicitly. The performance characteristics of the stain(s) cited in this report were developed and its performance characteristic determined by the Dermatopathology Laboratory at [facility], directed by Dr. Linda Armijo. These tests need not be, and therefore are not, approved by the [place] Food and Drug Administration. The tests are used for clinical purposes. Billing Codes Specimen Charges Stain Charges 44285 39969 1 1 3 3:03 PM BASKET GRADER DERMATOPATHOLOGY LABORATORY Embedded Images 3 3:03 PM BASKET GRADER DERMATOPATHOLOGY LABORATORY Pathology/Cytology TISSUE SPECIMEN FROM SKIN / Unknown 03/19/2023 11:24 AM BASKET GRADER 03/20/2023 12:31 PM BASKET GRADER Miscellaneous samples (specimen) TISSUE SPECIMEN FROM SKIN / Unknown 03/19/2023 11:24 AM BASKET GRADER 03/20/2023 12:31 PM BASKET GRADER Wendy Harrison DO LAB - PATHOLOGY/C YTOLOGY ORDERABLES DERMATOPATHOLOGY LABORATORY [facility] - Department of Dermatology [facility] Medicine [address] [place] [address], [address] [phone] documented in this encounter Visit Diagnoses Not on filedocumented in this encounter Care Teams Continuous Yarn Dyeing Machine Operator Relationship Specialty Start Date End Date Juan Nicole MD PCP - General Internal Medicine 11/21/18 [place] [address] [place] [address] Orthopedic Surgery 11/21/18 documented as of this encounter
--- OUTSIDE RECORDS SUMMARY | 2024-06-29 21:35 | XMS_ITS | Clinical Summary ---
Author Organization [facility] Address [address] [place] [address] Care Team Providers Care Cat Cracker Operator Name Role Phone Juan Nicole MD Primary Care Provider [phone] Raymundo Bolton MD Unavailable [phone] Source Comments [facility],non-owned Affiliates and Associated Physician Practices is amultiple site organization consisting of ambulatory clinics and hospital sitesin [place], [place], [place] and [place]. This disclosure is being madepursuant to the Care Everywhere program and may not contain all information available regarding this patient. Last updated 18.[facility] [employer] Allergies No known active allergies Medications * Be aware that medications may not be up to date on this document. Alwaysverify current medications with the patient. Medication Sig Dispensed Refills Start Date End Date Status metFORMIN (GLUCOPHAGE) 500 MG tablet Take 1 tablet by mouth once daily 10/29/2018 Active levothyroxine (SYNTHROID) 50 MCG tablet Take 1 tablet by mouth once daily 09/20/2018 Active MYRBETRIQ 25 MG tablet Take 1 tablet by mouth once daily 11/20/2018 Active pravastatin (PRAVACHOL) 20 MG tablet Take 1 tablet by mouth once daily 10/29/2018 Active meloxicam (MOBIC) 15 MG tablet Take 1 tablet by mouth once daily 30 tablet 5 11/21/2018 Active Active Problems Problem Noted Date Diagnosed Date Primary osteoarthritis of both knees 11/22/2018 Encounters Date Type Department Care Team Description 05/01/2024 Lab Requisition [facility] - DermPath Lab [address] [facility], [place] [address] Wendy Harrison DO from Last 3 Months Social History Tobacco Use Types Packs/Day Years Used Date Smoking Tobacco: Never Assessed Sex and Gender Information Value Date Recorded Sex Assigned at Not on file Gender Identity Not on file Sexual Orientation Not on file Last Filed Vital Signs Vital Sign Reading Time Taken Comments Blood Pressure - - Pulse - - Temperature - - Respiratory Rate - - Oxygen Saturation - - Inhaled Oxygen Concentration - - Weight 90.7 kg (200 lb) 11/21/2018 2:06 PM CDT Height 172.7 cm (5' 8 ) 11/21/2018 2:06 PM CDT Body Mass Index 30.41 11/21/2018 2:06 PM CDT Plan of Treatment Health Maintenance Due Date Last Done Comments BONE DENSITY TESTING 1950 COLOGUARD (AGES 45-75) - COL ON CA SCREENING 1950 COLON MONITORING 1950 COLONOSCOPY - COLON CA SCREENING 1950 CT COLONOGRAPHY - COLON CA SCREENING 1950 Colorectal Cancer Screening 1950 FIT - COLON CA SCREENING 1950 FLEX SIG - COLON CA SCREENING 1950 MAMMOGRAM 1950 HEPATITIS C SCREENING 10/04/1968 DTAP/TDAP/TD VACCINES (1 - Tdap) 1969 PNEUMOCOCCAL VACCINE 50+ (1 of 1 - PCV) 2000 ZOSTER VACCINE (1 of 2) 2000 SCREENING FOR DIABETES 11/21/2018 COVID-19 VACCINE (1 - 2023-2 5 season) 2023 INFLUENZA VACCINE (#1) 2023 DEPRESSION SCREENING 04/16/2024 MEDICARE AWV CALENDAR YEAR 2024 Respiratory Syncytial Virus (RSV) Vaccine Pt: or over 60 yrs (1 - 1-dose 75+ series) 2025 HEPATITIS B VACCINE Aged Out No longe r eligible based on patient's age to complete this topic HIB VACCINE Aged Out No longer eligi ble based on patient's age to complete this topic HPV VACCINE Aged Out No longer eligi ble based on patient's age to complete this topic MENINGOCOCCAL (Group B) VACC INE SHARED DECISION-MAKING Aged Out No longer eligibl e based on patient's age to complete this topic MENINGOCOCCAL GROUPS A/C/Y/W VACCINE Aged Out No longer eligible b ased on patient's age to complete this topic Procedures Procedure Name Priority Date/Time Associated Diagnosis Comments DERMATOPATHOLOGY Routine 05/01/2024 10:5 8 AM SALON PROFESSIONAL from Last 3 Months Results * DERMATOPATHOLOGY (05/01/2024 10:58 AM SALON PROFESSIONAL) Case Report Dermatopathology Report Case: [id number] Authorizing Provider: Wendy Harrison DO Collected: 05/01/2024 10:58 AM Ordering Location: [facility] - Received: 05/01/2024 04:34 PM DermPath Lab Pathologist: Lauren Griffith MD Specimen: Skin, left superior NLF 1:03 PM [facility] DERMATOPATHOLOGY LABORATORY Final Diagnosis Specimen A. SKIN, left superior NLF: BASAL CELL CARCINOMA, NODULAR TYPE (C44.311) (see microscopic description) 1:03 PM [facility] DERMATOPATHOLOGY LABORATORY Clinical History R/O BCC 1:03 PM [facility] DERMATOPATHOLOGY LABORATORY Gross Description Specimen A: Received is one formalin filled container labeled with the patient's name and designated left superior NLF. The specimen consists of a shave biopsy measuring 2x2x1 mm. Jar 0. 1:03 PM [facility] DERMATOPATHOLOGY LABORATORY Microscopic Description Specimen A. SKIN, left superior NLF: Within the dermis there are aggregates of basaloid cells with a high nuclear to cytoplasmic ratio and peripheral palisading. Additional deeper sections were obtained and reviewed. 1:03 PM [facility] DERMATOPATHOLOGY LABORATORY Disclaimer An external and internal positive and negative controls are appropriate for the histochemical, immunohistochemical and immunofluorescence stain(s) in this case (if any), except where stated explicitly. The performance characteristics of the stain(s) cited in this report were developed and its performance characteristic determined by the Dermatopathology Laboratory at [facility], directed by Dr. Linda Armijo. These tests need not be, and therefore are not, approved by the [place] Food and Drug Administration. The tests are used for clinical purposes. Billing Codes Specimen Charges Stain Charges 99431 1 01/20/202 5 1:03 PM SALON PROFESSIONAL DERMATOPATHOLOGY LABORATORY Embedded Images 5 1:03 PM SALON PROFESSIONAL DERMATOPATHOLOGY LABORATORY Pathology/Cytolo gy TISSUE SPECIMEN FROM SKIN / Unknown 05/01/2024 10:58 AM SALON PROFESSIONAL 05/01/2024 4:34 PM SALON PROFESSIONAL Wendy Harrison DO LAB - PATHOLOGY/C YTOLOGY ORDERABLES DERMATOPATHOLOGY LABORATORY [facility] - Department of Dermatology [address], [address] [phone] from Last 3 Months Care Teams Cat Cracker Operator Relationship Specialty Start Date End Date Juan Nicole MD PCP - General Internal Medicine 11/21/18 [place] [address] [place] [address] [place] [address] Orthopedic Surgery 11/21/18
--- OUTSIDE RECORDS SUMMARY | 2024-06-29 21:35 | XMS_ITS | Clinical Summary ---
Author Organization [facility] Address [address] [place] [address] Care Team Providers Care Nut Dehydrator Operator Name Role Phone Unavailable Primary Care Provider Unavailabl e Social History Tobacco Use Types Packs/Day Years Used Date Smoking Tobacco: Never Assessed Comments Unknown Sex and Gender Information Value Date Recorded Sex Assigned at Not on file Legal Sex Female 6:38 PM CDT Gender Identity Not on file Sexual Orientation Not on file Plan of Treatment Health Maintenance Due Date Last Done Comments Colorectal Cancer Screening Colonoscopy (10 Years) 1950 Hepatitis C 1968 DTaP, Tdap and Td Vaccines ( 1 - Tdap) 1969 Mammogram Screening 1990 Zoster Vaccines (1 of 2) 2000 Dexa Scan (General) 10/10/2015 Pneumococcal Vaccine: 65+ Ye ars (1 of 1 - PCV) 10/10/2015 COVID-19 Vaccine (2023-2 5 season) 2023 Influenza Adult (#1) 2024 RSV Immunization or 60+ Years (1 - 1-dose 75+ series) 2025 Meningococcal B Vaccine Aged Out No l onger eligible based on patient's age to complete this topic Meningococcal Vaccine Aged Out No leilani calvin eligible based on patient's age to complete this topic RSV Immunizations Under 20 Months Aged Out No longer eligible based on patient's age to complete this topic
--- OUTSIDE RECORDS SUMMARY | 2024-06-29 21:35 | XMS_ITS | Continuity of Care Document ---
Author Organization [facility] Address [address] [place] [address] Phone Care Team Providers Care Donations Attendant Name Role Phone Karyn Acosta Unavailable Unavailable Procedures Procedure Date Post-op Follow-up Visit Post-op Follow-up Visit Post-op Follow-up Visit Remove Cataract, Insert Lens Post-op Follow-up Visit [facility] Post-op Follow-up Visit Post-op Follow-up Visit Remove Cataract, Insert Lens Office/outpatient Visit, [facility] Advance Directives Directive Yes / No Effective Date File Name No Information Encounters Encounter Description Practice Location Reason(s) For Visit Diagnoses Date Provider Providers Copied on Encounter [facility], [address] [place] [address] [address], [place], [place], [id number], tel:[phone] [facility] No Information Oct-2 1-201 0 Karla Wahl [address], [place], [address], [place]. tel:[phone] [facility], [address] [place] [address] [address], [place], [place], [id number], tel:[phone] [facility] No Information Oct-0 7-201 0 Karla Wahl [address], [place], [address], [place]. tel:[phone] [facility], [address], [place], [place], [address], [place] tel:[phone] [facility] No Information Sep-3 0-201 0 King OD Tomy. [address], [address], [place], [address], [place]. tel:[phone] Referring Provider: Karyn Mackey, [address], [place], [place], [facility]. tel:[phone] [facility], [address], [place], [place], [id number], [place] tel:[phone] [facility] No Information Sep-2 9-201 0 Karla Boss. [address], [place], [facility], [place]. tel:[phone] [facility], [address], [place], [place], [id number], [place] tel:[phone] [facility] No Information Sep-1 6-201 0 Karla Boss. [address], [place], [address], [place]. tel:[phone] Referring Provider: Shala Hernandez MD, [address] [facility], [place], [address]. tel:[phone] [facility], [address], [place], [place], [id number], [place] tel:[phone] [facility] [place] No Information Aug-2 6-201 0 Karla Boss. [address], [place], [address], [place]. tel:[phone] [facility], [address], [place], [place], [address], [place] tel:[phone] [facility] No Information 9-201 0 King OD Tomy. [address], [place], [address], [place]. tel:[phone] [facility], [address] [place] [address] [address], [place], [place], [address], [place] tel:[phone] [facility] No Information 8-201 0 Karla Boss. [address] [facility] , [address], [place], [address], [place]. tel:[phone] Referring Provider: Shala Hernandez MD, [address] [place], [address]. tel:[phone] Office/outpat ient Visit, [facility], [address], [place], [place], [address], [place] tel:[phone] [facility] No Information 0-201 0 Karla Boss. [address] [facility] , [address], [place], [address], [place]. tel:[phone] Referring Provider: Shala Hernandez MD, [address] [place], [address]. tel:[phone] Family History Family Member Type Diagnosis Age At Onset No Information Payers Payer name Insurance type Covered democrat ID Authoriza tion(s) No Information Social History Type Description Quantity Date Captured Comments Sex Female Smoking Status No Information Chief Complaint And Reason For Visit No Information Reason For Referral Reason For Referral No Information History Of Present Illness Encounter Date Complaint History Of Prese nt Illness No Information Functional Status Date Functional Assessmen t No Information Instructions Date Instruction Additional Infor mation No Information Assessments Type Assessment Date No Information Patient Care Teams Name Effective Dates (start - stop) Status Members No Information
--- OUTSIDE RECORDS SUMMARY | 2024-06-29 21:35 | XMS_ITS | Patient Health Summary ---
Author Organization [facility] Address [address] [place] [address] Care Team Providers Care Commissioned Police Officer Name Role Phone Juan Nicole MD Primary Care Provider [phone] Raymundo Bolton MD Unavailable [phone] Note from [facility],non-owned Affiliates and Associated Physician Practices is amultiple site organization consisting of ambulatory clinics and hospital sitesin [place], [place], [place] and [place]. This disclosure is being madepursuant to the Care Everywhere program and may not contain all information available regarding this patient. Last updated 18.[facility] Allergies No known active allergies Medications * Be aware that medications may not be up to date on this document. Alwaysverify current medications with the patient. * metFORMIN (GLUCOPHAGE) 500 MG tablet(Started 10/29/2018) Take 1 tablet by mouth once daily * levothyroxine (SYNTHROID) 50 MCG tablet(Started 09/20/2018) Take 1 tablet by mouth once daily * MYRBETRIQ 25 MG tablet(Started 11/20/2018) Take 1 tablet by mouth once daily * pravastatin (PRAVACHOL) 20 MG tablet(Started 10/29/2018) Take 1 tablet by mouth once daily * meloxicam (MOBIC) 15 MG tablet(Started 11/21/2018) Take 1 tablet by mouth once daily 5 refills remaining Active Problems Problem Noted Date Diagnosed Date Primary osteoarthritis of both knees 11/22/2018 Social History Tobacco Use Types Packs/Day Years [...] Mass Index 30.41 11/21/2018 2:06 PM CDT Procedures * DERMATOPATHOLOGY(Performed 05/01/2024) * DERMATOPATHOLOGY(Performed 03/19/2023) * DERMATOPATHOLOGY(Performed 03/08/2021) * DERMATOPATH TECHNICAL REPORT(Performed 08/26/2019) * XR KNEE BILAT 3VW(Performed 11/21/2018) Performed for Pain in both knees, unspecified chronicity * DERMATOPATHOLOGY(Performed 07/12/2016) Results * DERMATOPATHOLOGY (05/01/2024 10:58 AM [facility]) Only the most recent of4 resultswithin the time period is included. Case Report Dermatopathology Report Case: [id number] Authorizing Provider: Wendy Harrison DO Collected: 05/01/2024 10:58 AM Ordering Location: [facility] - Received: 05/01/2024 04:34 PM DermPath Lab Pathologist: Lauren Griffith MD Specimen: Skin, left superior NLF 1:03 PM [facility] Final Diagnosis Specimen A. SKIN, left superior NLF: BASAL CELL CARCINOMA, NODULAR TYPE (C44.311) (see microscopic description) 1:03 PM [facility] Clinical History R/O BCC 1:03 PM [facility] Gross Description Specimen A: Received is one formalin filled container labeled with the patient's name and designated left superior NLF. The specimen consists of a shave biopsy measuring 2x2x1 mm. Jar 0. 1:03 PM [facility] Microscopic Description Specimen A. SKIN, left superior NLF: Within the dermis there are aggregates of basaloid cells with a high nuclear to cytoplasmic ratio and peripheral palisading. Additional deeper sections were obtained and reviewed. 1:03 PM [facility] Disclaimer An external and internal positive and negative controls are appropriate for the histochemical, immunohistochemical and immunofluorescence stain(s) in this case (if any), except where stated explicitly. The performance characteristics of the stain(s) cited in this report were developed and its performance characteristic determined by the Dermatopathology Laboratory at [facility], directed by Dr. Linda Armijo. These tests need not be, and therefore are not, approved by the [place] Food and Drug Administration. The tests are used for clinical purposes. Billing Codes Specimen Charges Stain Charges 78498 1 5 1:03 PM [facility] Embedded Images 5 1:03 PM [facility] Pathology/Cytolo gy TISSUE SPECIMEN FROM SKIN / Unknown 05/01/2024 10:58 AM [facility] 05/01/2024 4:34 PM [facility] Wendy Harrison DO LAB - PATHOLOGY/C YTOLOGY ORDERABLES DERMATOPATHOLOGY LABORATORY [facility] Department of Dermatology [address], [address] [phone] * DERMATOPATH TECHNICAL REPORT (08/26/2019 12:00 AM CDT) Case Report Dermatopathology Report Case: [id number] Authorizing Provider: Cesilia Gomez MD Collected: 08/26/2019 12:00 AM Ordering Location: [facility] Derm[facility] Lab Received: 08/27/2019 06:44 AM Pathologist: Lauren Griffith MD Specimen: Skin, left upper eyelid 0 12:43 PM CDT DERMATOPATHOLOGY LABORATORY Clinical History R/O SK, irritated. 0 12:43 PM CDT DERMATOPATHOLOGY LABORATORY Gross Description Specimen A: Received is one formalin filled container labeled with the patient's name and designated left upper eyelid. The specimen consists of a shave measuring [id number]. Jar 0. [facility] Dermat[facility] performed the technical component only. 0 12:43 PM CDT DERMATOPATHOLOGY LABORATORY Embedded Images 0 12:43 PM CDT DERMATOPATHOLOGY LABORATORY DISCLAIMER An external and internal positive and negative controls are appropriate for the histochemical, immunohistochemical and immunofluorescence stain(s) in this case (if any), except where stated explicitly. The performance characteristics of the stain(s) cited in this report were developed and its performance characteristic determined by the Dermatopathology Laboratory at [facility], directed by Dr. Linda Armijo. These tests need not be, and therefore are not, approved by the [place] Food and Drug Administration. The tests are used for clinical purposes. 0 12:43 PM CDT DERMATOPATHOLOGY LABORATORY Pathology/Cytolog y TISSUE SPECIMEN FROM SKIN / Unknown 08/26/2019 08/27/2019 6:44 AM CDT Cesilia Gomez MD LAB - PATHOLOGY/CYT OLOGY ORDERABLES Performing Organization Address City/State/[facility] Co de Phone Number DERMATOPATHOLOGY LABORATORY [facility] - Department of Dermatology [address] [place] [address], [address] Floor Lab [address] [phone] * XR KNEE BILAT 3VW (11/21/2018 2:16 PM CDT) Anatomical Region Laterality Modality Lower Extremity Computed Radiogr aphy Narrative 11/21/2018 2:17 PM CDT Kenyatta Pardo, RT(R) 12/04/2018 4:54 PM See progress notes for results Raymundo Bolton MD DIAGNOSTIC IMAGING O RDERABLES Care Teams Commissioned Police Officer Relationship Specialty Start Date End Date Juan Nicole MD PCP - General Internal Medicine 11/21/18 [place] [id number] [address] Orthopedic Surgery 11/21/18
--- OUTSIDE RECORDS SUMMARY | 2024-06-29 21:35 | XMS_ITS | Data Portability ---
Author Organization [facility] [place] [facility] Address [address] [facility] [place] [address] Care Team Providers Care Screening Nurse Name Role Phone TAMELA TORRES Primary Care Provider Unavailab le Assessment Encounter Date Assessment Date Assessment LastModified by Organization Details LastModified Time 01/24/2024 01/24/2024 Mammogram completed October of 2023 Colonoscopy March 05, 2023 at [facility] Eye exam is up-to-date Dental exams up-to-date Labs up-to-date [email or web address] Not available 02/15/2024 23:15:51 Plan of Treatment Reminders Order Date Submit Date Provider Last Modified By Organization Details Last Modified Time Details Appointments ANY 15 2024 10:30A M RODOLFO Fagan Not available Not available Not available Lab HbA1c (hemoglob in A1c), blood [address] [facility], [address] [place] [address], [id number], 01/24/2024 12:58:17 CBC w/ auto diff [address] [facility], [facility], [address], 01/24/2024 12:58:18 BMP, serum or plasma [address] [facility], [facility] [address], [address], 01/24/2024 12:58:18 hepatic function panel, serum [address] [facility], [address] [place] [address], [id number], 01/24/2024 12:58:18 lipid panel, serum [address] [facility], [address] [place] [address], [id number], 01/24/2024 12:58:18 CBC w/ manual diff 2023 024 [facility], [address] [place] [address], [id number], 02/25/2024 12:35:10 TSH + free T4, serum [address] [facility], [address] [place] [address], [id number], 01/24/2024 12:58:18 HbA1c (hemoglob in A1c), blood 2023 024 [facility], [address] [place] [address], [id number], 01/21/2024 15:40:07 CBC w/ auto diff 2023 024 [facility], [address] [place] [address], [id number], 01/21/2024 12:30:44 BMP, serum or plasma [address] [facility], [address] [place] [address], [id number], 01/21/2024 17:07:49 hepatic function panel, serum 2023 024 [facility], [address] [place] [address], [id number], 01/04/2024 09:49:54 lipid panel, serum 2023 024 [facility], [address] [place] [address], [id number], 01/04/2024 09:49:54 TSH + free T4, serum 2023 [facility], [address], [place], [address], 01/04/2024 09:49:54 Referral hand surgeon referral 2023 MORENITA Lozano MD, [address] [facility] [address], [place], [address], 10/11/2023 14:25:54 Procedures None recorded. Surgeries None recorded. Imaging CT, chest, w/o contrast 2023 [facility] (Imaging), [address] [facility] [address], [place], [address], 01/26/2024 09:04:00 Medication Orders pravastat in 20 mg tablet 2023 [place] [facility], [address] [facility], [address], [place], [place], [id number], 07/19/2023 12:27:28 Zepbound 2.5 mg/0.5 mL subcutane ous pen injector [email or web address] [place] [address] [id number], [address] [facility], [place], [place], [id number], 08/01/2023 12:36:44 meloxicam 15 mg tablet 2023 024 [place], [address], [address], [place], [place], [id number], 07/19/2023 12:27:28 levothyro xine 50 mcg tablet 2023 024 [place] [facility], [address], [address], [place], [place], [id number], 07/19/2023 12:27:29 Patient TargetsNo targets recorded. Patient Instructions Encounter Date Encounter Id Patient Instructions Last Modified By Organization Details Last Modified Time 01/24/2024 [id number] A healthy lifestyle: care instructions [email or web address] [id number] Not available 01/24/2024 12:58:18 Reason for Referral Hand Surgeon Referral for Os teoarthrosis of the carpometacarpal joint of the thumb right thumb pain with hx of arthritis. Referring Physician: Tamela Torres, Internal Medicine, Encounter Date: 07/19/2023 Results Created Date Observation Date Name Description Value Unit Range Abnormal Flag Note LastModifiedBy Organization Detail LastModifiedTime 10/24/19 24 10/24/2023 XR, knee No observ ation record ed. [address], [address], 10/24/2023 19:25:31 11/02/19 24 11/02/2023 MAMMO , scree claribel, digit al, bilat eral No observ ation record ed. [address] [facility], [place], [address], 02/15/2024 23:15:57 01/26/20 24 01/25/2024 CT, chest , w/o contr ast No observ ation record ed. [address] [facility], [place], [address], 01/30/2024 12:51:28 Result Notes None recorded. Problems Name Problem SNOMED Code Status Onset Date Resolution Date Notes Provider Name and Address Organization Details Recorded Time Body mass index 30+ - obesity 008138293 Active 2023 Baldemar Nagel MA null, [place] - [facility] 4 12:27:17 Hyperlipide vesna 69499973 Active 2023 RODOLFO Fagan Attn: Mark ravi,[address] [place], [address], [place] - [facility] 4 23:14:47 Hypothyroid ism 00638585 Active 2023 RODOLFO Fagan Attn: Accountin g,[address] [facility], [place], [address], [place] [facility] 4 23:14:48 Impaired glucose tolerance 0192368 Active 2023 RODOLFO Fagan Attn: Accountin g,[address] [facility], [place], [address], [place] [facility] 4 23:14:50 Blood chemistry outside reference range 104050621 Active 2023 RODOLFO Fagan Attn: Accountin g,[address] [facility], [place], [address], [place] [facility] 4 23:14:52 Pain of bilateral knee joints 2074365953514 04 Active 2023 RODOLFO Fagan Attn: Accountin g,[address] [facility], [place], [address], [place] [facility] 4 23:14:55 Osteoarthro sis of the carpometaca rpal joint of the thumb 62889973 Active 2023 RODOLFO Fagan Attn: Accountin g,[address] [facility], [place], [address], [place] [facility] 4 23:14:57 Obesity 194248697 Active 2023 RODOLFO Fagan Attn: Accountin g,[address] [facility], [place], [address], [place] [facility] 4 23:15:00 Long-term drug therapy Active 2023 RODOLFO Fagan Attn: Accountin g,[address] [facility], [place], [address], [place] [facility] 4 23:15:02 Night sweats 67354828 Active 2023 RODOLFO Fagan Attn: Accountin g,[address] [facility], [place], [address], [place] [facility] 4 23:19:07 Problem Notes None recorded. Procedures Surgical History None recorded. Imaging Results Imaging Date Name Status LastModified by Organiz ation Details LastModified Time 10/24/2023 XR, knee completed [address] [facility], [place], [address], 10/24/2023 19:25:31 11/02/2023 MAMMO, screening, digital, bilateral completed [address] [facility], [place], [address], 02/15/2024 23:15:57 01/25/2024 CT, chest, w/o contrast completed [address] [facility], [place], [address], 01/30/2024 12:51:28 Procedure Notes None recorded. Medical Equipment None Reported. Allergies No known drug allergies Medications Name Sig Start Date Stop Date Status Note LastModified by Organization Details LastModified Time metformin 500 mg tablet TAKE 1 TABLET BY MOUTH TWICE DAILY active Not Available Not Available No t Available meloxicam 15 mg tablet TAKE 1 TABLET BY MOUTH DAILY WITH A MEAL 2023 active Not Available Not Available Not Avai lable amoxicillin 500 mg tablet TAKE 1 TABLET BY MOUTH THREE TIMES DAILY UNTIL ALL TAKEN 07/18 completed Not Available Not Available Not Available levothyroxi ne 50 mcg tablet TAKE 1 TABLET BY MOUTH DAILY 2023 active Not Available Not Available Not Avai lable triamcinolo ne acetonide 0.1 % topical ointment APPLY EXTERNALL Y TO THE AFFECTED AREA NEEDED FOR VAGINAL IRRITATIO N 01/23 completed Not Available Not Available Not Available pravastatin 20 mg tablet TAKE 1 TABLET BY MOUTH DAILY 2023 active Not Available Not Available Not Avai lable clobetasol 0.05 % topical ointment APPLY TOPICALLY TO THE AFFECTED AREA EVERY DAY IN THE MORNING AND IN THE EVENING NEEDED FOR ITCHING active Not Available Not Available No t Available hydrocortis one 2.5 % topical ointment APPLY TO EAR TWICE DAILY NEEDED active Not Available Not Available No t Available Asprin Ec Low Dose 81 mg tablet,rachel yed release Take 1 tablet every day by oral route. active Not Available Not Available No t Available levothyroxi ne 50 mcg capsule Take 1 capsule every day by oral route. 01/23 completed Not Available Not Available Not Available Ozempic 1 mg/dose (4 mg/3 mL) subcutaneou s pen injector INJECT 1 MG UNDER THE SKIN EVERY WEEK 07/18 completed Not Available Not Available Not Available Ozempic 2 mg/dose (8 mg/3 mL) subcutaneou s pen injector INJECT 2MG UNDER THE SKIN ONCE WEEKLY 07/18 completed Not Available Not Available Not Available Ozempic 0.25 mg or 0.5 mg (2 mg/3 mL) subcutaneou s pen injector 07/18 completed Not Available Not Available Not Available Zepbound 2.5 mg/0.5 mL subcutaneou s pen injector ADMINISTE R 2.5 MG UNDER THE SKIN EVERY WEEK 07/31 completed Not Available Not Available Not Available Vitals Date Recorded Body height Body mass index (BMI) Body weight Respiratory rate Oxygen saturation Oxygen saturation in Arterial blood by Pulse oximetry Heart rate Systolic blood pressure Diastolic blood pressure Provider Name and Address Organization Details Last Updated DateTime 171.45 cm 31 kg/m2 74961.0 7 g 20 /min 99 % 99 % 83 /min 128 mm[Hg] 82 mm[Hg] Baldemar Nagel MA [facility] 12:00:52 Date Recorded Body height Body mass index (BMI) Body weight Respiratory rate Oxygen saturation Oxygen saturation in Arterial blood by Pulse oximetry Heart rate Systolic blood pressure Diastolic blood pressure Provider Name and Address Organization Details Last Updated DateTime 4 171.45 cm 32.6 kg/m2 32234.9 9 g 18 /min 96 % 96 % 76 /min 138 mm[Hg] 88 mm[Hg] Baldemar Nagel MA [facility] 12:29:46 Social History Question Answer Notes LastModified by Organizat ion Details LastModified Time Tobacco Smoking Status Former Smoker quit at [age] years Baldemar Nagel MA null, [facility] 07/19/2023 11:57:56 What Is Your Level Of Alcohol Consumption? Occasional Information not available 07/19/2023 Are You Blind Or Do You Have Difficulty Seeing? No Glasses Information not available 07/19/2023 What Is Your Level Of Caffeine Consumption? Occasional Tea, Doet Soda Information not available 07/19/2023 In The 14 Days Before Symptom Onset, Have You Had Close Contact With A Laboratory-confir med COVID-19 While That Case Was Ill? No Information not available 07/19/2023 In The 14 Days Before Symptom Onset, Have You Had Close Contact With A Person Who Is Under Investigation For COVID-19 While That Person Was Ill? No Information not available 07/19/2023 Have You Been To An Area Known To Be High Risk For COVID-19? No Information not available 07/19/2023 Are You Deaf Or Do You Have Serious Difficulty Hearing? No Information not available 07/19/2023 What Type Of Diet Are You Following? REGULAR Information not available 07/19/2023 Are There Any Guns Present In Your Home? No Information not available 07/19/2023 What Was The Date Of Your Most Recent Tobacco Screening? 01/24/2024 Information not available 01/24/2024 What Is Your Current Pack Years? 20-29packyear s Information not available 07/19/2023 Do You Use Your Seat Belt Or Car Seat Routinely? Yes Information not available 07/19/2023 Do You Have Smoke And Carbon Monoxide Detectors In Your Home? Yes Information not available 07/19/2023 At What Age Did You Start Smoking Tobacco? 16 Information not available 07/19/2023 Do You Use Any Illicit Or Recreational Drugs? No Information not available 07/19/2023 Do You Use Sunscreen Routinely? Yes Information not available 07/19/2023 Has Tobacco Cessation Counseling Been Provided? No Information not available 07/19/2023 Do You Or Have You Ever Used Any Other Forms Of Tobacco Or Nicotine? No Information not available 07/19/2023 Sex: Female Functional Status Question Answer Note LastModified by Organizat ion Details LastModified Time Are you able to care for yourself? Yes Information not available 07/19/2023 What is your exercise level? Occasional walk Information not available 07/19/2023 Mental Status None recorded. Family History Nothing Reported. Medical History No medical history recorded. Gynecological History Statement/Question Response Menses Monthly N Current Control Method Other Obstetrics History GPAL:G 0 P 0 0 0 0 Immunizations Vaccine Type Date Status Note Provider Nam e and Address Organization Details Recorded Time COVID-19, mRNA, LNP-S, PF, 30 mcg/0.3 mL dose 06/13/2020 completed [place], [place] - [facility] 01/22/2024 17:13:44 COVID-19, mRNA, LNP-S, PF, 30 mcg/0.3 mL dose 07/04/2020 completed [place] [facility] 01/22/2024 17:13:44 zoster live 02/06/2013 completed [place] [facility] 01/22/2024 17:13:44 Past Encounters Encounter ID Performer Location Encounter Start Date Encounter Closed Date Diagnosis/Indication Diagnosis SNOMED-CT Code Diagnosis ICD10 Code Diagnosis Note [id number] RODOLFO Fagan [facility] [place] [address] [place] [address] 07/19/2023 11:48:48 07/19/2023 12:39:36 Hyperlipidemia 51072058 E78.5 refill pravastati n 20mg daily and repeat fasting lipids in dec. Hypothyroidism 18201559 E03.9 refill levothyrox ine 50mcg daily. due for repeat TFT panel in Dec. Impaired g lucose tolerance 9108170 R73.03 6.1% a1c. stable but no longer on ozempic due to coverage issues. Long-term drug therapy 854634459 Z79.899 next labs due in dec. Body mass index 30+ - obesity 063316629 Z68.31 bmi 31 Obesity 664748010 E66.9 If insurance will authorize, start zepbound titration course to aid on weight loss but also with her prediabete s and hyperlipid emia and hypothyroi dism underlying risk factors. Pain of bi lateral knee joints 8836499239 94346 M25.561 M25.562 Trial of meloxicam 15mg daily PRN. Osteoarthr osis of the carpometacarpal joint of the thumb 90969297 M18.9 refer to Hand specialist for evaluation of painful thumb joint. hx of OA/DJD on film [id number] RODOLFO Fagan [facility] [place] [address] [place] [address] 01/24/2024 11:45:48 01/24/2024 14:32:07 Body mass index 30+ - obesity 252609601 Z68.31 BMI is 32.6 Obesity 783790910 E66.9 discussed healthy diet, exercise, controllin g carbohydra bjorn and added sugars in the diet Hyperlipidemia 71097790 E78.5 refill pravastati n 20mg daily and repeat fasting lipids in June Hypothyroidism 93383203 E03.9 Stable on levothyrox ine 50mcg daily. Repeat labs in June Impaired g lucose tolerance 9031899 R73.03 6.1% a1c. stable but no longer on ozempic due to coverage issues. Repeat A1c in June Pain of bi lateral knee joints 2064500634 51782 M25.561 M25.562 Patient has meloxicam 15mg daily PRN. Long-term drug therapy 520943017 Z79.899 Next labs are due in June Osteoarthr osis of the carpometacarpal joint of the thumb 25249010 M18.9 History noted she has seen a specialist for the thumb joint arthritis Night sweats 55497562 R6 1 For an increase in night sweats we will refer for CT of the chest without contrast for mediastina l evaluation Blood chem istry outside reference range 094029166 R79.9 Repeat CBC next month as there is a little elevation in her monocytes and differenti al that is minor that she would like to repeat to ensure normalized levels Health Concerns Section Related Observation LastModified by Organization Forrest clancy LastModified Time None Recorded Concern Status LastModified by Organization Details LastModified Time None Recorded Advance Directives Directive None Recorded Payers Encounter Date Sequence Insurance Name Policy Number Policy [place] Covered Member ID [place] Member ID Guarantor Name 07/19/2023 1 [facility] (MEDICARE REPLACEMENT/A DVANTAGE - HMO) [id number] [id number] 01/24/2024 1 [facility] (MEDICARE REPLACEMENT/A DVANTAGE - HMO) [id number] Palak Handjulien [id number] Palak Horsariela Notes Date Note Type Note Provider Name and Address Organization Details Recorded Time 07/19/19 24 text/htm l Generic HPI TemplateReported bypatient.Notes:Prediabetes hx. was on ozempic prior but not taking now.HyperlipidemiaReported bypatient.Notes:stable on pravastatin 20mg dailyThyroidReported bypatient.Notes:stable on levothyroxine 50mcg daily. RODOLFO Fagan Attn: Accounting,[address] [facility], [place], [address], [facility] 07/24/2023 09:02:56 01/24/20 24 text/htm l Generic HPI TemplateReported bypatient.Notes:Prediabetes hx. was on ozempic prior but not taking now due to coverage issues and costHyperlipidemiaReported bypatient.Notes:stable on pravastatin 20mg dailyThyroidReported bypatient.Notes:stable on levothyroxine 50mcg daily. Osteoarthritis of the knees and the thumb joint-patient has seen a specialist for both of these Patient reports night sweats are back and a little bit stronger than they were prior. She has had them for several years but they just seem a bit more frequent lately RODOLFO Fagan Attn: Accounting,[address] [facility], [place], [address], [facility] 02/15/2024 23:19:26 OBGyn Episode Ob Episode Information Episode Created Date Number of Fetuses Patient Bloodtype Patient rh Status Prepregnancy Weight lbs Domestic Partner Domestic Partner Phone Father Name Servicen[employer] Administrator Status 02/22/20 24 1 DELETED Fetus Data First Name Last Name Admitted to NICU Weight (g) Sex Living Outcome Pediatric Complications Fetus ID Race Codes Race Delivery Type [id number] Fabrice Calculation Initial Fabrice Date Initial Exam Date Initial Exam Provider Initial Ultrasound Date Last Menstrual Period Date Ultra Sound Weeks Gestation 02/22/2024 0 Eighteen To Twenty Week Fabrice Update Ultra Sound Date Fundal Height At Umbil Quickening Date Ultra Sound Latest Weeks Gestation Final Fabrice Confirmed By Final Fabrice Confirmed Date Final Fabrice Date Ultra Sound Latest Days Gestation 0 0 Menstrual History Last Menstrual Date Menses Monthly On Bcp Conception Prior Menses Frequency Hcg Plus Date Menarche Onset Age Delivery Information Delivery Date Delivery Type Labor Anesthesia Weeks Gestation Incision Type Labor Labor Length Hrs Delivered By Post Complications Tubal Sterilization Discharge Date Comments Discharge Information Feeding Method Contraceptive Method Maternal HG B and HCT Levels
--- OUTSIDE RECORDS SUMMARY | 2024-06-29 21:35 | XMS_ITS | Data Portability ---
Author Organization [place] - [facility] [email or web address], Main Office Address [address] [place] [address] Care Team Providers Care Land Use Planner Name Role Phone MELL CHIN Primary Care Provider MELL CHIN Referring Provider [phone] Assessment No assessment recorded. Plan of Treatment Reminders Order Date Submit Date Provider Last Modified By Organization Details Last Modified Time Details Appointments None recorded. Lab HbA1c (hemoglobin A1c), blood [address] (Lab), [address] [place] [address], [address], 4 11:48:28 CBC w/ auto diff [address] (Lab), [address] [place] [address], [address], 4 11:47:01 BMP, serum or plasma [address] (Lab), [address] [place] [address], [address], 4 11:47:16 hepatic function panel, serum [address] (Lab), [address] [place] [address], [address], 4 11:47:27 lipid panel, serum [address] (Lab), [address] [place] [address], [address], 4 11:48:19 T4, free, serum [address] (Lab), [address] [place] [address] 162, [place], [address], 4 11:47:43 TSH, serum or plasma [address] (Lab), [address] [place] [address] [address], [place], [address], 4 11:47:58 T3, free, serum or plasma [address] (Lab), [address] [place] [address] [address], [place], [address], 4 11:48:09 HbA1c (hemoglobin A1c), blood [email or web address] [place] [address] (Lab), [address] [place] [address], [place], [address], 3 10:53:03 CBC w/ auto diff 2022 [email or web address] [place] [address] (Lab), [address] [place] [address], [place], [address], 3 10:52:08 BMP, serum or plasma 2022 [email or web address] [place] [address] (Lab), [address] [place] [address], [place], [address], 3 10:52:27 hepatic function panel, serum 2022 [email or web address] [place] [address] (Lab), [address] [place] [address], [address], 3 10:53:18 lipid panel, serum [facility] [address] [place] [address], [place], [address], 3 10:43:39 noninvasive colorectal cancer DNA + occult blood screening, QL, stool 2022 023 [place] [facility] (Cologuard Orders Only), [address], [address], [place], [address], 3 04:30:51 T4, free, serum [address] (Lab), [address] [facility] [address], [address], 3 10:52:46 TSH, serum or plasma [address] (Lab), [facility] [address], [address], 3 10:52:52 T3, free, serum or plasma 2022 023 [facility] (Lab), [facility]0 [facility] [address], [address], 3 10:47:30 Referral None recorded. Procedures diagnostic colonoscopy (PROC) - no referral required 2022 023 [place] Arthur Canela MD, [address] [facility] [address], [address], [place], [address], 3 15:48:19 Surgeries None recorded. Imaging None recorded. Medication Orders Ozempic 1 mg/dose (4 mg/3 mL) subcutaneou s pen injector 2022 023 [place] [id number], [address], [place], [place], [id number], 3 12:16:49 Wegovy 0.25 mg/0.5 mL subcutaneou s pen injector 2022 023 [email or web address] [facility], [address], [address], [place], [place], [id number], 12:16:34 Patient TargetsNo targets recorded. Patient InstructionsNo instructions recorded. Reason for Referral None Reported. Results Created Date Observation Date Name Description Value Unit Range Abnormal Flag Note LastModifiedBy Organization Detail LastModifiedTime 01/05/2001/04/2021 urina lysis , dipst ick Leukocytes (reference range: negative keyla/ l) Small Not Available [facility] [place] [address], [place], [address], 01/04/2021 12:36:18 01/05/2001/04/2021 urina lysis , dipst ick Nitrite (reference rage: negative mg/dl) negati ve Not Available [facility] [place] [address], [place], [address], 01/04/2021 12:36:18 01/05/2001/04/2021 urina lysis , dipst ick Urobilinogen (reference range: 0.2-1 mg/dl) 0.2 Not Available [facility] [place] [address], [place], [address], 01/04/2021 12:36:18 01/05/2001/04/2021 urina lysis , dipst ick Protein (reference range: negative mg/dl) Negati ve Not Available [facility] [place] [address], [place], [address], 01/04/2021 12:36:18 01/05/2001/04/2021 urina lysis , dipst ick pH (reference range: 5-7) 5.5 Not Available [facility] [place] [address], [place], [address], 01/04/2021 12:36:18 01/05/2001/04/2021 urina lysis , dipst ick Blood (reference range: negative Sushant/ l) Hemoly zed: Trace Not Available [facility] [place] [address], [place], [address], 01/04/2021 12:36:18 01/05/2001/04/2021 urina lysis , dipst ick Specific [place] (reference range: 1.005-1.030) 1.025 Not Available [facility] [place] [address], [place], [address], 01/04/2021 12:36:18 01/05/2001/04/2021 urina lysis , dipst ick Ketone (reference range: negative mg/dl) Negati ve Not Available [facility] [place] [address], [place], [address], 01/04/2021 12:36:18 01/05/20 21 01/04/2021 urina lysis , dipst ick Bilirubin (reference range: negative mg/dl) Negati ve Not Available [facility] [place] [address], [place], [address], 01/04/2021 12:36:18 01/05/20 21 01/04/2021 urina lysis , dipst ick Glucose (reference range: negative mg/dl) Negati ve Not Available [facility] [place] [address], [place], [address], 01/04/2021 12:36:18 01/05/20 21 01/04/2021 urina lysis , dipst ick Appearance Cloudy Not Available [facility] [place] [address], [place], [address], 01/04/2021 12:36:18 01/05/20 21 01/04/2021 urina lysis , dipst ick Color Dark Yellow Not Available [facility] [place] [address], [place], [address], 01/04/2021 12:36:18 12/26/19 23 12/25/2022 COLOG UARD cologuard result reportable POSITI VE negati ve abnormal POSIT JESSE TEST RESUL T. A posit jesse Colog uard resul t shoul d be follo wed with a colon oscop y or visua l exami natio n of the colon . The bri l value (refe rence range ) for this assay is negat jesse. TEST DESCR IPTIO N: Naylor site algor ithmi c khloe sis of stool DNA-b debby puente with hemog lobin immun oassa y. Quant itati ve value s of indiv idual bioma rkers are not repor table and are not assoc iated with indiv idual bioma rker resul t refer ence range s. Colog uard is inten ded for color ectal cance r scree claribel of adult s of eithe r sex, 45 years or older , who are at [facility] for color ectal cance r (CRC) . Colog uard has been appro kevin for use by the [place]. FDA. The perfo rmanc e of Colog uard was estab lishe d in a cross secti onal study of [facility] adult s aged 50-84 . Colog uard perfo rmanc e in patie nts ages 45 to 49 years was estim ated by sub-g roup khloe sis of near- age group s. Colon oscop ies perfo rmed for a posit jesse resul t may find as the most clini sudarshan signi fican t lesio n: color ectal cance r [4.0% ], advan mitul adeno ma (incl uding sessi le bg mary lou polyp s great er than or equal to 1cm diame ter) [20%] or non- advan mitul adeno ma [31%] ; or no color ectal neopl tre [45%] . These estim ates are deriv ed from a prosp ectiv e cross -sect ional dania sanford study of ,00 0 indiv idual s at [facility] risk for color ectal cance r who were scree gayathri with both Colog uard and colon oscop y. (Gilberto Canela et al, N Engl J Med 2014; 370(1 4):12 86-12 97.) Colog uard may produ ce a false negat jesse or false posit jesse resul t (no color ectal cance r or preca ncero us polyp prese nt at colon oscop y follo w up). A negat jesse Colog uard test resul t does not guara ntee the absen ce of CRC or advan mitul adeno ma (pre- cance r). The curre nt Colog uard gagane claribel inter lore is every 3 years . (Amer ican Cance r Socie ty and U.S. Multi -Soci ety Task Force ). Colog uard perfo rmanc e data in a 0 patie nt pivot al study using colon oscop y as the refer ence metho d can be acces sed at the follo wing locat ion: www.e xactl abs.c om/re elizabeth . Addit ional descr iptio n of the Colog uard test proce ss, warni ngs and preca ution s can be found at www.c ologu loyd.c om. Not Available [facility] (Cologuard Orders Only) [address], [place], [address], 12/30/2022 04:30:51 03/23/20 21 03/22/2021 XR, abdom en No observ ation record ed. [id number] [facility] (Imaging) [facility] [address], [place], [address], 06/14/2022 03:34:14 07/08/19 22 07/01/2021 XR, abdom en No observ ation record ed. [id number] Not Available 06/14/2022 03:34:14 07/09/19 22 07/07/2021 XR, thumb No observ ation record ed. MIGRATION. [facility] ([facility]) [address] [place] [address] [address] [facility], [place], [address], 06/14/2022 03:34:14 07/14/19 22 07/07/2021 XR, abdom en No observ ation record ed. [id number] Not Available 06/14/2022 03:34:14 08/30/19 22 08/25/2021 imagi ng/di agnos tic resul t No observ ation record ed. MIGRATION. [id number], [place], [address], 06/14/2022 03:34:14 09/03/19 22 08/08/2021 XR, abdom en No observ ation record ed. MIGRATION. [address] [facility], [place], [address], 06/14/2022 03:34:14 01/17/20 23 07/25/2022 MAMMO , scree claribel, digit al, bilat eral No observ ation record ed. [id number] [facility] [address], [place], [address], 01/17/2023 15:38:00 02/20/20 23 02/19/2023 diagn ostic colon oscop y (PROC ) No observ ation record ed. [email or web address] Arthur Canela MD [address] [address] [address], [place], [address], 04/20/2023 19:49:06 Result Notes None recorded. Problems Name Problem SNOMED Code Status Onset Date Resolution Date Notes Provider Name and Address Organization Details Recorded Time Colorectal cancer detected by DNA-based stool screening 987238100 Active 2022 RODOLFO Fagan [address] [place] [address], [address], [place], [address] , [facility] 3 12:15:15 Cervical radiculitis 43864990 Active Not Available [facility] 3 03:17:14 Body mass index 30+ - obesity 388294462 Active Not Available [facility] 3 03:17:14 Thumb injury 999720139 Active 2021 Not Available [facility] 3 03:17:14 Low back pain 192547683 Active 2021 Not Available [facility] 3 03:17:14 Pain in toe 877988645 Active Not Available [facility] 3 03:17:15 Pain in left arm 166277788 Active Not Available [facility] 3 03:17:15 Hypothyroidis m 45195430 Active 2021 Not Available [facility] 3 03:17:15 Hyperlipidemi a 71042063 Active Not Available [facility] 3 03:17:15 Urinary tract infectious disease 83306289 Active Not Available [facility] 3 03:17:15 Degeneration of cervical intervertebra l disc 19362548 Active Not Available [facility] 3 03:17:15 Hyperglycemia 43298975 Active Not Available [facility] 3 03:17:15 Fatigue 44235168 Active Not Available [facility] 3 03:17:15 Impaired glucose tolerance 5761259 Active Not Available [facility] 3 03:17:15 Kidney stone 58600377 Active 2021 Not Available [facility] 3 03:17:16 Problem Notes None recorded. Procedures Surgical History Date Name Laterality Status Provider Name and Address Organization Details Recorded Time 08/26/19 22 cystoscopy completed Not Available [facility] 3 03:04:38 07/02/19 22 Lithotripsy completed Not Available [facility] 06/15/19 23 03:04:38 03/26/20 20 Most Recent Bone Density completed Not Available [facility] 06/14/2022 03:04:29 04/16/19 13 other completed Not Available [facility] 03:04:38 04/16/19 12 Eye Surgery completed Not Available [facility] 06/15/19 23 03:04:38 04/16/19 10 Xcapsl ctrc rmvl cplx wo ecp completed Not Available [facility] 06/14/2022 03:04:38 04/16/19 10 repair of retina for retinal detachment completed Not Available [facility] 06/14/2022 03:04:38 04/16/19 06 oophorectomy completed Not Available [facility] 023 03:04:38 Imaging Results Imaging Date Name Status LastModified by Organiz ation Details LastModified Time 07/07/2021 XR, abdomen completed [id number] Information not available 06/14/2022 03:34:14 08/25/2021 imaging/diagnos tic result completed [id number] [address] [place] [address], [address], 06/14/2022 03:34:14 08/08/2021 XR, abdomen completed [id number], [address], 06/14/2022 03:34:14 03/22/2021 XR, abdomen completed [id number] [facility] (Imaging) [address] [place] [address], [address], 06/14/2022 03:34:14 07/07/2021 XR, thumb completed [id number] [facility] (Imaging) [address] [place] [address], [address], 06/14/2022 03:34:14 07/01/2021 XR, abdomen completed [id number] Information not available 06/14/2022 03:34:14 07/25/2022 MAMMO, screening, digital, bilateral completed [email or web address] [address], [address], 01/17/2023 15:38:00 02/19/2023 diagnostic colonoscopy (PROC) completed [email or web address] Arthur Canela MD [address] [facility] [address], [place], [address], 04/20/2023 19:49:06 Procedure Notes None recorded. Medical Equipment None Reported. Allergies No known drug allergies Medications Name Sig Start Date Stop Date Status Note LastModified by Organization Details LastModified Time amoxicilli n 500 mg capsule TAKE 1 CAPSULE BY MOUTH THREE TIMES DAILY UNTIL ALL TAKEN 07/10 completed Not Available Not Available Not Available metformin 500 mg tablet TAKE 1 TABLET BY MOUTH TWICE DAILY active HOLD at this time. pt feels it caused GI bloat Not Available Not Available Not Available azithromyc in 250 mg tablet TAKE 2 TABLETS (500 MG) BY ORAL ROUTE ONCE DAILY FOR 1 DAY THEN 1 TABLET (250 MG) BY ORAL ROUTE ONCE DAILY FOR 4 DAYS 11/09 completed Not Available Not Available Not Available hydrocodon e 5 mg-acetami nophen 325 mg tablet TAKE 1 TO 2 TABLETS BY MOUTH EVERY 6 HOURS NEEDED 01/10 completed Not Available Not Available Not Available meloxicam 15 mg tablet TAKE 1 TABLET BY MOUTH DAILY active Not Available Not Available No t Available clobetasol 0.05 % topical cream 08/13 completed Not Available Not Available Not Available phentermin e 37.5 mg tablet TK 1 T PO D 07/31 completed Not Available Not Available Not Available ciprofloxa sabiha 500 mg tablet Take 1 tablet every 12 hours by oral route. active Not Available Not Available No t Available amoxicilli n 500 mg tablet TAKE 1 TABLET BY MOUTH THREE TIMES DAILY UNTIL ALL TAKEN 01/08 completed Not Available Not Available Not Available acyclovir 800 mg tablet TK ONE T PO FID FOR 7 DAYS 11/12 completed Not Available Not Available Not Available amoxicilli n 875 mg tablet Take 1 tablet twice a day by oral route for 7 days. active Not Available Not Available No t Available pravastati n 10 mg tablet Take 1 tablet every day by oral route in the evening. active Not Available Not Available No t Available tamsulosin 0.4 mg capsule TAKE 1 CAPSULE BY MOUTH AT BEDTIME 01/10 completed Not Available Not Available Not Available levothyrox ine 50 mcg tablet TAKE 1 TABLET BY MOUTH IN THE MORNING 01/083 completed Not Available Not Available Not Available hydrocodon e 7.5 mg-acetami nophen 325 mg tablet TK 1 T PO Q 6 TO 8 H PRN P active Not Available Not Available No t Available cephalexin 500 mg capsule TAKE 1 CAPSULE BY MOUTH EVERY 8 HOURS 01/10 completed Not Available Not Available Not Available triamcinol one acetonide 0.1 % topical ointment APPLY EXTERNAL LY TO THE AFFECTED AREA NEEDED FOR VAGINAL IRRITATI ON active Not Available Not Available No t Available indomethac in 50 mg capsule Take 1 capsule( s) 2-3 TIMES A DAY by oral route for toe pain. take with food. active Not Available Not Available No t Available oxybutynin chloride ER 5 mg tablet,ext ended release 24 hr Take 1 tablet every day by oral route. 02/01 completed Not Available Not Available Not Available gabapentin 300 mg capsule Take 1 capsule 3 times a week by oral route. 02/01 completed Not Available Not Available Not Available diclofenac sodium 75 mg tablet,del ayed release TK 1 T PO BID WC active Not Available Not Available No t Available pravastati n 20 mg tablet TAKE 1 TABLET BY MOUTH DAILY active Not Available Not Available No t Available gabapentin 100 mg capsule Take 1 capsule 3 times a day by oral route. 02/04 completed as needed Not Available Not Available Not Available clobetasol 0.05 % topical ointment APPLY TOPICALL Y TO THE AFFECTED AREA EVERY DAY IN THE MORNING AND IN THE EVENING NEEDED FOR ITCHING active Not Available Not Available No t Available Tylenol-Co deine #3 300 mg-30 mg tablet Take 1 tablet every 6 hours by oral route as needed. active Not Available Not Available No t Available Cipro HC 0.2 %-1 % ear drops,susp ension INSTILL 3 DROPS INTO AFFECTED EAR(S) BY OTIC ROUTE EVERY 12 HOURS 08/10 completed Not Available Not Available Not Available methylpred nisolone 4 mg tablets in a dose pack TK UTD 11/09 completed Not Available Not Available Not Available oxybutynin chloride 5 mg tablet Take 1 tablet twice a day by oral route. active Not Available Not Available No t Available cefdinir 300 mg capsule TK ONE C PO BID FOR 5 DAYS 11/09 completed Not Available Not Available Not Available neomycin-p olymyxin-h ydrocort 3.5 mg-10,000 unit/mL-1 % ear drops,susp INSTILL 4 DROPS INTO AFFECTED EAR(S) BY OTIC ROUTE 3 TIMES PER DAY active Not Available Not Available No t Available Asprin Ec Low Dose 81 mg tablet,del ayed release Take 1 tablet every day by oral route. 2016 active Not Available Not Available Not Avai lable Crestor 5 mg tablet Take 1 tablet every day by oral route. active Not Available Not Available No t Available Prefest 1 mg (15)/1 mg-0.09 mg (15) tablet TK 1 T PO QD 07/31 completed Not Available Not Available Not Available [place] 3 takes daily 2019 active Not Available Not Available Not Avai lable B12 takes daily 07/05 completed Not Available Not Available Not Available Picato 0.05 % topical gel 11/12 completed Not Available Not Available Not Available Myrbetriq 25 mg tablet,ext ended release TAKE 1 TABLET BY MOUTH DAILY 07/05 completed Not Available Not Available Not Available Flucelvax Quad 7310-2980 (PF) 60 mcg (15 mcg x 4)/0.5 mL IM syringe 08/13 completed Not Available Not Available Not Available Ozempic 1 mg/dose (4 mg/3 mL) subcutaneo us pen injector INJECT 1 MG UNDER THE SKIN EVERY WEEK active Not Available Not Available No t Available Wegovy 0.25 mg/0.5 mL subcutaneo us pen injector Inject 0.25 mg every week by subcutan eous route as directed . 01/09 completed Not Available Not Available Not Available Ozempic 2 mg/dose (8 mg/3 mL) subcutaneo us pen injector INJECT 2MG UNDER THE SKIN ONCE WEEKLY active Not Available Not Available No t Available Ozempic 0.25 mg or 0.5 mg (2 mg/3 mL) subcutaneo us pen injector inject 0.25mg SQ once weekly for weeks 1-4.inje ct 0.5mg SQ once weekly weeks 5 and after 01/09 completed Not Available Not Available Not Available Vitals Date Recorded Body height Body temperature Body mass index (BMI) Body weight Heart rate Oxygen saturation Oxygen saturation in Arterial blood by Pulse oximetry Systolic blood pressure Diastolic blood pressure Provider Name and Address Organization Details Last Updated DateTime 3 172.72 cm 96.9 [degF] 31.9 kg/m2 87102.4 g 84 /min 97 % 97 % 124 mm[Hg] 82 mm[Hg] ADOLPH Troncoso [facility] [employer] [facility] 3 11:44:49 Date Recorded Body height Body mass index (BMI) Body weight Body temperature Heart rate Oxygen saturation Oxygen saturation in Arterial blood by Pulse oximetry Systolic blood pressure Diastolic blood pressure Provider Name and Address Organization Details Last Updated DateTime 3 172.72 cm 30.4 kg/m2 04118.4 7 g 97.3 [degF] 84 /min 96 % 96 % 122 mm[Hg] 80 mm[Hg] ADOLPH [place] [facility] [place] [employer] [facility] 3 11:41:41 Date Recorded Body mass index (BMI) Body height Oxygen saturation Oxygen saturation in Arterial blood by Pulse oximetry Heart rate Body temperature Body weight Systolic blood pressure Diastolic blood pressure Provider Name and Address Organization Details Last Updated DateTime 1 32.2 kg/m2 172.72 cm 95 % 95 % 84 /min 96.1 [degF] 44266.1 5 g 130 mm[Hg] 90 mm[Hg] Not Available [facility] 3 03:10:39 Date Recorded Body mass index (BMI) Body height Oxygen saturation Oxygen saturation in Arterial blood by Pulse oximetry Heart rate Body temperature Body weight Systolic blood pressure Diastolic blood pressure Provider Name and Address Organization Details Last Updated DateTime 2 31.6 kg/m2 172.72 cm 96 % 96 % 92 /min 97.2 [degF] 47150.2 1 g 126 mm[Hg] 80 mm[Hg] Not Available [facility] 3 03:10:39 Date Recorded Body height Heart rate Respiratory rate Body temperature Systolic blood pressure Diastolic blood pressure Systolic blood pressure Diastolic blood pressure Provider Name and Address Organization Details Last Updated DateTime 2 172.72 cm 83 /min 16 /min 96.6 [degF] 158 mm[Hg] 100 mm[Hg] 130 mm[Hg] 90 mm[Hg] Not Available [facility] 3 03:10:40 Social History Question Answer Notes LastModified by Organizat ion Details LastModified Time Tobacco Smoking Status Former Smoker Not Available [facility] 06/14/2022 02:46:24 Do You Have An Advance Directive? No [id number] Information not available 06/14/2022 What Is Your Level Of Alcohol Consumption? Moderate [id number] Information not available 06/14/2022 Do You Wear A Helmet When Biking? No [id number] Information not available 06/14/2022 What Is Your Level Of Caffeine Consumption? Moderate [id number] Information not available 06/14/2022 How Much Tobacco Do You Chew? None [id number] Information not available 06/14/2022 In The 14 Days Before Symptom Onset, Have You Had Close Contact With A Laboratory-confir med COVID-19 While That Case Was Ill? No [id number] Information not available 06/14/2022 In The 14 Days Before Symptom Onset, Have You Had Close Contact With A Person Who Is Under Investigation For COVID-19 While That Person Was Ill? No [id number] Information not available 06/14/2022 Are You Currently Employed? No [email or web address] Information not available 01/08/2023 What Type Of Diet Are You Following? REGULAR [id number] Information not available 06/14/2022 Which Illicit Or Recreational Drugs Have You Used? None [id number] Information not available 06/14/2022 Do You Or Have You Ever Used E-cigarettes Or Vape? Never Used Electronic Cigarettes [id number] Information not available 06/14/2022 What Is The Highest Grade Or Level Of School You Have Completed Or The Highest Degree You Have Received? [id number] Information not available 06/14/2022 What Is Your Occupation? Retired. [id number] Information not available 06/14/2022 Have There Been Any Changes To Your Family Or Social Situation? No MIGRATION.[id number] Information not available 06/14/2022 Are There Any Guns Present In Your Home? No MIGRATION.964857 5006 Information not available 06/14/2022 Do You Use Insect Repellent Routinely? No MIGRATION.417893 3480 Information not available 06/14/2022 Do You Have A Medical Power Of Double Cut Off Saw Operator? No [email or web address] Information not available 01/08/2023 Have You Ever Been Counseled For Unhealthy Alcohol Use? No MIGRATION.604126 9491 Information not available 06/14/2022 Do You Have Any Pets? No MIGRATION.910161 9445 Information not available 06/14/2022 What Is Your Relationship Status? MIGRATION.179522 1061 Information not available 06/14/2022 Do You Use Your Seat Belt Or Car Seat Routinely? Yes MIGRATION.956073 8700 Information not available 06/14/2022 Do You Have Smoke And Carbon Monoxide Detectors In Your Home? Yes MIGRATION.590378 5628 Information not available 06/14/2022 Are You Passively Exposed To Smoke? No MIGRATION.731636 4488 Information not available 06/14/2022 Do You Or Have You Ever Used Smokeless Tobacco? Never Used Smokeless Tobacco MIGRATION.204992 0954 Information not available 06/14/2022 Are There Any Smokers In Your House? No MIGRATION.777612 6783 Information not available 06/14/2022 How Much Tobacco Do You Smoke? 0.5 PPD MIGRATION.977466 1202 Information not available 06/14/2022 Do You Feel Stressed (tense, Restless, Nervous, Or Anxious, Or Unable To Sleep At Night)? [id number] MIGRATION.814046 2568 Information not available 06/14/2022 Do You Use Any Illicit Or Recreational Drugs? No MIGRATION.843575 9129 Information not available 06/14/2022 Do You Use Sunscreen Routinely? Yes MIGRATION.072253 4770 Information not available 06/14/2022 Have You Recently Traveled Abroad? No MIGRATION.970458 1845 Information not available 06/14/2022 Do You Have Any Dietary Restrictions? No MIGRATION.543482 5548 Information not available 06/14/2022 Do You Or Have You Ever Used Any Other Forms Of Tobacco Or Nicotine? No MIGRATION.842006 2742 Information not available 06/14/2022 Sex: Unknown Functional Status Question Answer Note LastModified by Organizat ion Details LastModified Time Do you have transportation difficulties? No MIGRATION.9101979 026 Information not available 06/14/2022 Are you able to walk? YESWOREST MIGRATION.7577670 026 Information not available 06/14/2022 Do you have difficulty doing errands alone? No MIGRATION.4505118 026 Information not available 06/14/2022 Are you able to care for yourself? Yes MIGRATION.2805946 026 Information not available 06/14/2022 Do you have difficulty dressing or bathing? No MIGRATION.8417274 026 Information not available 06/14/2022 What is your exercise level? Moderate MIGRATION.3396560 026 Information not available 06/14/2022 Mental Status None recorded. Family History Relationship Description Onset Age of this Age Resolved Age Notes LastModified by Organization Details LastModified Time Father No current problems or disability [id number] Not available 06/14/2022 03:04:43 Father General health good MIGRATION.032 [id number] Not available 06/14/2022 03:04:43 Mother No current problems or disability MIGRATION.525 [id number] Not available 06/14/2022 03:04:43 Medical History Condition Response BLINDNESS N NERVE DISEASE N RHEUMATIC FEVER N BLADDER PROBLEMS N KIDNEY STONES Y OTHER # 1 N POLIO N LUNG DISEASE/DISORDER N RADIATION / CHEMOTHERAPY N COPD N Other # 2 N BLOOD DISEASES N SURGERY N EAR OR HEARING PROBLEMS N MUMPS N DEPRESSION (INCLUDING POST ) N BOWEL PROBLEMS N STROKE/TIA N ULCERS N BENIGN PROSTATIC HYPERPLASIA N MEASLES N MYOCARDIAL INFARCTION N OBESITY Y GERD/NAUSEA N ANEURYSM N URINARY/BLADDER/KIDNEY PROBLEMS N INPATIENT PSYCH CARE N CORONARY ARTERY DISEASE (CAD) N ADDICTION CONCERNS N ENDOMETRIOSIS N Impotence N USE OF BLOOD THINNERS N SKIN PROBLEMS N GASTROINTESTINAL DISORDER N PERIPHERAL VASCULAR DISEASE N MUSCLE,JOINT OR BONE PROBLEMS N GASTROINTESTINAL BLEEDING N BLOOD CLOTS N ASTHMA N CATARACTS N ERECTILE DYSFUNCTION N VARICOSITIES N GI PROBLEMS N Low Testosterone N INFERTILITY N AIDS/HIV N LIVER DISEASE N MALE HYPOGONADISM N HYPERTENSION N Deficiency N ANXIETY DISORDER N BLOOD TRANSFUSION N ANEMIA/BLOOD DISORDER N CHRONIC EAR INFECTIONS N BRONCHITIS N TUBERCULOSIS N GLAUCOMA N FOOT PROBLEM N DIVERTICULITIS N SLEEP APNEA N CHICKENPOX N INFECTIOUS DISEASE N HEART ARRHYTHMIA N PROSTATE N INSOMNIA N HIGH CHOLESTEROL / HYPERLIPIDEMIA N HYPERTHYROIDISM N EYE PROBLEMS N NEUROLOGICAL PROBLEMS N EDEMA N CHRONIC PAIN SYNDROME N HYPOTHYROIDISM N CAROTID BLOCKAGE N CONSTIPATION N BACK / NECK PROBLEMS Y HAVE YOU BEEN HOSPITALIZED OR SEEN IN [facility] IN THE PAST YEAR ? N ATHEROSCLEROSIS N BREAST PROBLEMS N DIALYSIS N ECZEMA N OSTEOPOROSIS N ARTHRITIS N NO SIGNIFICANT PAST MEDICAL HISTORY N APPENDICITIS N DIABETES, TYPE Y BAD TEETH N ENT N HEARTBURN / REFLUX N AUTISM SPECTRUM DISORDER (ASD) N HEPATITIS / LIVER DISEASE N PULMONARY DISEASE N GOUT Y SLEEP DISORDER N ALZHEIMER'S DISEASE N Brain Problems N HERPES N DEMENTIA N HEADACHES/MIGRAINES N SEIZURES/EPILEPSY N VASCULAR DISEASE N PACEMAKER N Blood Disorder N DIZZINESS N HEART DISEASE/HEART PROBLEMS N KIDNEY DISEASE N MULTIPLE SCLEROSIS N CARDIAC ARRHYTHMIA N CANCER: SPECIFY N ANESTHESIA COMPLICATIONS N ATRIAL FIBRILLATION N Gall Stones N PULMONARY EMBOLISM N AUTOIMMUNE DISEASE N Gynecological History Statement/Question Response Menses Monthly N Date of Last Mammogram 03/26/2020 Current Control Method Menopause Most Recent Bone Density 03/26/2020 Obstetrics History GPAL:G 0 P 0 0 0 0 Immunizations Vaccine Type Date Status Note Provider Nam e and Address Organization Details Recorded Time Influenza, split virus, quadrivalent, preservative 9 completed Not Available [facility] 06/14/2022 03:32:54 Influenza, split virus, quadrivalent, preservative 8 completed Not Available [facility] 06/14/2022 03:32:54 COVID-19, mRNA, LNP-S, PF, 30 mcg/0.3 mL dose 1 completed Not Available [facility] 06/14/2022 03:32:54 zoster live 4 completed Not Available [facility] 06/14/2022 03:32:54 Past Encounters Encounter ID Performer Location Encounter Start Date Encounter Closed Date Diagnosis/Indication Diagnosis SNOMED-CT Code Diagnosis ICD10 Code Diagnosis Note [id number] [facility] [address] [place] [address] 06/29/2020 00:00:00 07/06/2020 13:54:00 [id number] [facility] [address] [place] [address] 01/04/2021 00:00:00 01/12/2021 11:18:37 [id number] [facility] [address] [place] [address] 07/05/2021 00:00:00 07/12/2021 23:45:56 [id number] [facility] [address] [place] [address] 01/10/2022 00:00:00 01/10/2022 13:53:52 [id number] RODOLFO Fagan [facility] [address] [place] [address] 07/11/2022 11:31:57 07/11/2022 12:21:18 Impaired glucose tolerance 0803001 R73.03 6% a1c. repeat lab in dec. Hyperlipidemia 91152046 E78.5 on pravastati n 20mg daily. stable labs. repeat in dec. Hypothyroidism 98080807 E03.9 on supplement . stable. repeat labs due in dec. Body mass index 30+ - obesity 796359917 Z68.31 start wegovy if insurance with cover Long-term drug therapy 596414845 Z79.899 routine labs due in dec Screening for malignant neoplasm of colon 489764954 Z12.11 pt will be due for cologuard screening. [id number] RODOLFO Fagan [facility] Internal [facility] [address] [place] [address] 01/09/2023 11:19:56 01/09/2023 12:25:27 Impaired glucose tolerance 1443739 R73.03 5.7% a1c. . boost to ozempic 1mg weekly. HOLD metformin at this time. she feels she has GI issues from it. Hyperlipidemia 14274134 E78.5 on pravastati n 20mg daily. stable labs. repeat fasting in June Hypothyroidism 80908367 E03.9 on supplement . stable. repeat labs due in June Body mass index 30+ - obesity 622585674 Z68.31 noted. stable Long-term drug therapy 942740313 Z79.899 next labs due in June Colorectal cancer detected by DNA-based stool screening 165921053 R19.5 pt agrees to colonoscop y now with her positive cologuard screening. Health Concerns Section Related Observation LastModified by Organization Detai ls LastModified Time None Recorded Concern Status LastModified by Organization Details LastModified Time None Recorded Advance Directives Directive N: Payers Encounter Date Sequence Insurance Name Policy Number Policy [place] Covered Member ID [place] Member ID Guarantor Name 07/11/2022 1 [facility] MED[employer]ARE SOLUTIONS - MEDICARE COMPLETE (MEDICARE REPLACEMENT HMO) [id number] [address] Nicholas [id number] Palak Nicholas 01/09/2023 1 [facility] MED[employer] SOLUT[employer] - MEDICARE COMPLETE (MEDICARE REPLACEMENT HMO) [id number] Pal[address] Handariela [id number] Palak Nicholas Notes Date Note Type Note Provider Name and Address Organization Details Recorded Time 01/05/20 21 text/ht ml HyperlipidemiaReported bypatient.Control:usually well controlled; improving; at goal Compliance:compliant; compliant with diet; exercises Complications:no coronary artery disease; no peripheral artery disease; no cardiovascular diseaseHypothyroidismReported bypatient.Onset/Timing:better Context/Risk:normal thyroid levels; no history of head or neck radiation during childhood; no history of thyroid disease; no history of hypothyroidism; no history of hyperthyroidism; no excess iron exposure Exercisegets exercise Associated Symptoms:no cold intolerance; no heat intolerance; no weight loss; no weight gain; no double vision; no dry eyes; no hoarseness; no difficulty swallowing; no neck masses; no deepening of the voice; no fast heart rate; no increased blood pressure; no palpitations; no chest pain; no chest tightess or pressure; no constipation; no diarrhea; no vomiting; no decreased appetite; no loose stools; no irregular menstrual periods; no excessive sweating; no joint pain; no numbness; no tingling of the hands or feet; no dry skin; no tremor; no nervousness; no anxiety; no depression; no fatigue; no sleep difficulties; no skin changes; no hair changes Not Available [facility] [employer] [facility] [employer] 01/12/2021 11:18:37 07/06/19 22 text/ht ml Generic HPI TemplateReported bypatient.Notes:Pt presents today for six month routine follow up. States she is doing well. Pt completed labs recently and are ready for review. Pt is up to date on mammo, dexa, and colonoscopy.HyperlipidemiaReport ed bypatient.Duration:chronic Current Therapy:currently taking: (pravastatin 20mg) Compliance:compliant with diet; exercises Complications:no coronary artery disease; no peripheral artery disease; no cardiovascular disease Risk Factors:diabetes;obesityHypothyr oidReported bypatient.Reason for Visit:general check-up Associated Symptoms:no weakness; no lightheadedness; no fatigue; no cold intolerance; no constipation; no weight gain; no involuntary weight loss; normal mood; no menstrual irregularity; no pain; no dry/coarse skin; no edema; no deepening of the voice; no hoarseness; no goiter; no mass detected; no chest pain; no palpitations Treatment:current dose: 50 mcg tabs; taking medication as directed Not Available [place] [email or web address] [facility] 07/12/2021 23:45:56 01/11/20 22 text/ht ml HyperlipidemiaReported bypatient.Duration:chronic Control:usually well controlled Current Therapy:currently taking: (pravastatin 20mg) Compliance:compliant;noncomplian t with diet;does not exercise Complications:no coronary artery disease; no peripheral artery disease; no cardiovascular diseaseHypothyroidismReported bypatient.Quality:not changing Duration:constant Onset/Timing:still present Context/Risk:normal thyroid levels; no history of head or neck radiation during childhood; no history of thyroid disease; no history of hyperthyroidism; no excess iron exposure;history of hypothyroidism;female gender Modifying Factors:medication Exerciseno exercise Associated Symptoms:no cold intolerance; no heat intolerance; no weight loss; no weight gain; no double vision; no dry eyes; no hoarseness; no difficulty swallowing; no neck masses; no deepening of the voice; no fast heart rate; no increased blood pressure; no palpitations; no chest pain; no chest tightess or pressure; no constipation; no diarrhea; no vomiting; no decreased appetite; no loose stools; no irregular menstrual periods; no excessive sweating; no joint pain; no numbness; no tingling of the hands or feet; no dry skin; no tremor; no nervousness; no anxiety; no depression; no fatigue; no sleep difficulties; no skin changes;hair changes Not Available [email or web address] 01/10/2022 13:53:52 07/12/19 23 text/ht ml HyperlipidemiaReported bypatient.Duration:chronic Control:usually well controlled; improving; at goal Compliance:compliant; compliant with diet; exercises Complications:no coronary artery disease; no peripheral artery disease; no cardiovascular diseaseHypothyroidismReported bypatient.Quality:improving Onset/Timing:better Context/Risk:normal thyroid levels; no history of head or neck radiation during childhood; no history of thyroid disease; no history of hyperthyroidism; no excess iron exposure;history of hypothyroidism Modifying Factors:medication Exercisegets exercise Associated Symptoms:no cold intolerance; no heat intolerance; no weight loss; no weight gain; no double vision; no dry eyes; no hoarseness; no difficulty swallowing; no neck masses; no deepening of the voice; no fast heart rate; no increased blood pressure; no palpitations; no chest pain; no chest tightess or pressure; no constipation; no diarrhea; no vomiting; no decreased appetite; no loose stools; no irregular menstrual periods; no excessive sweating; no joint pain; no numbness; no tingling of the hands or feet; no dry skin; no tremor; no nervousness; no anxiety; no depression; no fatigue; no sleep difficulties; no skin changes; no hair changes IGT on metformin 6% a1c RODOLFO Fagan [address] [facility], [facility] [address], [place], [address], [facility] [employer] 07/11/2022 20:59:02 01/10/20 23 text/ht ml HyperlipidemiaReported bypatient.Duration:chronic Control:usually well controlled; improving; at goal Compliance:compliant; compliant with diet; exercises Complications:no coronary artery disease; no peripheral artery disease; no cardiovascular diseaseHypothyroidismReported bypatient.Quality:improving Onset/Timing:better Context/Risk:normal thyroid levels; no history of head or neck radiation during childhood; no history of thyroid disease; no history of hyperthyroidism; no excess iron exposure;history of hypothyroidism Modifying Factors:medication Exercisegets exercise Associated Symptoms:no cold intolerance; no heat intolerance; no weight loss; no weight gain; no double vision; no dry eyes; no hoarseness; no difficulty swallowing; no neck masses; no deepening of the voice; no fast heart rate; no increased blood pressure; no palpitations; no chest pain; no chest tightess or pressure; no constipation; no diarrhea; no vomiting; no decreased appetite; no loose stools; no irregular menstrual periods; no excessive sweating; no joint pain; no numbness; no tingling of the hands or feet; no dry skin; no tremor; no nervousness; no anxiety; no depression; no fatigue; no sleep difficulties; no skin changes; no hair changes 6 mo f/u RODOLFO Fagan [address] [facility], [facility] [address], [place], [address], [facility] 01/09/2023 18:11:05 OBGyn Episode No OBEpisode recorded.
--- OUTSIDE RECORDS SUMMARY | 2024-06-29 21:35 | XMS_ITS | Encounter Summary ---
Author Organization [facility] Address [address] [facility] [place] [address] Care Team Providers Care Digital Advisor Name Role Phone Juan Nicole MD Primary Care Provider [phone] Raymundo Bolton MD Unavailable [phone] Encounter Details Date Type Department Care Team (Late st Contact Info) Description 08/27/2019 Lab Requisition [facility] DermPath Lab [address] [facility] [place] [address] Cesilia Gomez MD [address] [facility] [address] [place] [address] Social History Tobacco Use Types Packs/Day Years Used Date Smoking Tobacco: Never Assessed Sex and Gender Information Value Date Recorded Sex Assigned at Not on file Gender Identity Not on file Sexual Orientation Not on file documented as of this encounter Plan of Treatment Not on file documented as of this encounter Procedures Procedure Name Priority Date/Time Associated Diagnosis Comments DERMATOPATH TECHNICAL REPORT Routine 08/26/2019 12:00 AM CDT documented in this encounter Results * DERMATOPATH TECHNICAL REPORT (08/26/2019 12:00 AM CDT) Case Report Dermatopathology Report Case: [id number] Authorizing Provider: Cesilia Gomez MD Collected: 08/26/2019 12:00 AM Ordering Location: [facility] DermPath Lab Received: 08/27/2019 06:44 AM Pathologist: Lauren Griffith MD Specimen: Skin, left upper eyelid 0 12:43 PM CDT DERMATOPATHOLOGY LABORATORY Clinical History R/O SK, irritated. 0 12:43 PM CDT DERMATOPATHOLOGY LABORATORY Gross Description Specimen A: Received is one formalin filled container labeled with the patient's name and designated left upper eyelid. The specimen consists of a shave measuring 8w8f3dh. Jar 0. [facility] Dermatopathology Laboratory performed the technical component only. [...] characteristic determined by the Dermatopathology Laboratory at [facility], directed by Dr. Linda Armijo. These tests need not be, and therefore are not, approved by the [place] Food and Drug Administration. The tests are used for clinical purposes. 0 12:43 PM CDT DERMATOPATHOLOGY LABORATORY Pathology/Cytolog y TISSUE SPECIMEN FROM SKIN / Unknown 08/26/2019 08/27/2019 6:44 AM CDT Cesilia Gomez MD LAB - PATHOLOGY/CYT OLOGY ORDERABLES DERMATOPATHOLOGY LABORATORY [facility] - Department of Dermatology [address] [place] [address], 5th Floor Lab [address] [phone] documented in this encounter Visit Diagnoses Not on filedocumented in this encounter Care Teams Digital Advisor Relationship Specialty Start Date End Date Juan Nicole MD PCP - General Internal Medicine 11/21/18 [place] [address] [place] [address] [place] [address] Orthopedic Surgery 11/21/18 documented as of this encounter
--- OUTSIDE RECORDS SUMMARY | 2024-06-29 21:35 | XMS_ITS | Referral Summary ---
Author Organization [facility] Address [address] [facility] [place] [address] Care Team Providers Care Piano Assembler Name Role Phone Juan Nicole MD Primary Care Provider Raymundo Bolton MD Unavailable [phone] Source Comments [facility],non-owned Affiliates and Associated Physician Practices is amultiple site organization consisting of ambulatory clinics and hospital sitesin [place], [place], [place] and [place]. This disclosure is being madepursuant to the Care Everywhere program and may not contain all information available regarding this patient. Last updated 18.[facility] Encounters Date Type Department Care Team Description 05/01/2024 Lab Requisition [facility] - DermPath Lab [address] [facility], [facility] [place] [address] Wendy Harrison DO from Last 3 Months Allergies No known active allergies Medications * [...] 11/21/2018 2:06 PM CDT Plan of Treatment Not on file Procedures Procedure Name Priority Date/Time Associated Diagnosis Comments DERMATOPATHOLOGY Routine 05/01/2024 10:5 8 AM [facility] from Last 3 Months Results * DERMATOPATHOLOGY (05/01/2024 10:58 AM [facility]) Case Report Dermatopathology Report Case: [id number] Authorizing Provider: Wendy Harrison DO Collected: 05/01/2024 10:58 AM Ordering Location: [facility] - Received: 05/01/2024 04:34 PM DermPath Lab Pathologist: Lauren Griffith MD Specimen: Skin, left superior NLF 1:03 PM [facility] DERMATOPATHOLOGY LABORATORY Final Diagnosis Specimen A. SKIN, left superior NLF: BASAL CELL CARCINOMA, NODULAR TYPE (C44.311) (see microscopic description) 1:03 PM [facility] DERMATOPATHOLOGY LABORATORY Clinical History R/O BCC 1:03 PM [facility] DERMATOPATHOLOGY LABORATORY Gross Description Specimen A: Received is one formalin filled container labeled with the patient's name and designated left superior NLF. The specimen consists of a shave biopsy measuring 2x2x1 mm. Jar 0. 1:03 PM [facility] DERMATOPATHOLOGY LABORATORY Microscopic Description Specimen A. SKIN, left superior NLF: Within the dermis there are aggregates of basaloid cells with a high nuclear to cytoplasmic ratio and peripheral palisading. Additional deeper sections were obtained and reviewed. 1:03 PM [facility] Disclaimer An external and internal positive and negative controls are appropriate for the histochemical, immunohistochemical and immunofluorescence stain(s) in this case (if any), except where stated explicitly. The performance characteristics of the stain(s) cited in this report were developed and its performance characteristic determined by the Dermatopathology Laboratory at [facility], directed by Dr. Linda Armijo. These tests need not be, and therefore are not, approved by the [place] Food and Drug Administration. The tests are used for clinical purposes. Billing Codes Specimen Charges Stain Charges 04261 1 5 1:03 PM [facility] Embedded Images 5 1:03 PM [facility] Pathology/Cytolo gy TISSUE SPECIMEN FROM SKIN / Unknown 05/01/2024 10:58 AM [facility] 05/01/2024 4:34 PM [facility] Wendy Harrison DO LAB - PATHOLOGY/C YTOLOGY ORDERABLES Performing Organization Address City/State/[facility] Co de Phone Number DERMATOPATHOLOGY LABORATORY [facility] - Department of Dermatology [facility] Medicine [address] [place] [address], [address] [phone] from Last 3 Months Care Teams Piano Assembler Relationship Specialty Start Date End Date Juan Nicole MD PCP - General Internal Medicine 11/21/18 [place] [address] [address] Orthopedic Surgery 11/21/18
--- OUTSIDE RECORDS SUMMARY | 2024-06-29 21:35 | XMS_ITS | Encounter Summary ---
Author Organization [facility] Address [address] [facility] [place] [address] Care Team Providers Care Forest Management Professor Name Role Phone Juan Nicole MD Primary Care Provider [phone] Raymundo Bolton MD Unavailable [phone] Encounter Details Date Type Department Care Team (Late st Contact Info) Description 05/01/2024 Lab Requisition [facility] - DermPath Lab [address] [facility], [place] [address] Wendy Harrison DO [address] [facility] 3 [place] [address] Social History Tobacco Use Types Packs/Day Years [...] Comments DERMATOPATHOLOGY Routine 05/01/2024 10:5 8 AM FUEL CELL BINDER documented in this encounter Results * DERMATOPATHOLOGY (05/01/2024 10:58 AM FUEL CELL BINDER) Case Report Dermatopathology Report Case: [id number] Authorizing Provider: Wendy Harrison DO Collected: 05/01/2024 10:58 AM Ordering Location: [facility] - Received: 05/01/2024 04:34 PM DermPath Lab Pathologist: Lauren Griffith MD Specimen: Skin, left superior NLF 1:03 PM FUEL CELL BINDER DERMATOPATHOLOGY LABORATORY Final Diagnosis Specimen A. SKIN, left superior NLF: BASAL CELL CARCINOMA, NODULAR TYPE (C44.311) (see microscopic description) 1:03 PM [facility] DERMATOPATHOLOGY LABORATORY Clinical History R/O BCC 1:03 PM [facility] DERMATOPATHOLOGY LABORATORY Gross Description Specimen A: Received is one formalin filled container labeled with the patient's name and designated left superior NLF. The specimen consists of a shave biopsy measuring 2x2x1 mm. Jar 0. 1:03 PM [facility] DERMATOPATHOLOGY LABORATORY Microscopic Description Specimen A. SKIN, left superior NLF: Within the dermis there are aggregates of basaloid cells with a high nuclear to cytoplasmic ratio and peripheral palisading. Additional deeper sections were obtained and reviewed. 1:03 PM [facility] DERMATOPATHOLOGY LABORATORY Disclaimer An external and internal positive and negative controls are appropriate for the histochemical, immunohistochemical and immunofluorescence stain(s) in this case (if any), except where stated explicitly. The performance characteristics of the stain(s) cited in this report were developed and its performance characteristic determined by the Dermatopathology Laboratory at [facility], directed by Dr. Linda Armijo. These tests need not be, and therefore are not, approved by the [place] Food and Drug Administration. The tests are used for clinical purposes. Billing Codes Specimen Charges Stain Charges 22622 1 1:03 PM FUEL CELL BINDER DERMATOPATHOLOGY LABORATORY Embedded Images 1:03 PM [facility] DERMATOPATHOLOGY LABORATORY Pathology/Cytolo gy TISSUE SPECIMEN FROM SKIN / Unknown 05/01/2024 10:58 AM FUEL CELL BINDER 05/01/2024 4:34 PM FUEL CELL BINDER Wendy Harrison DO LAB - PATHOLOGY/C YTOLOGY ORDERABLES DERMATOPATHOLOGY LABORATORY [facility] - Department of Dermatology [facility] [address] [place] [address], [address] [place] [address], [facility] [phone] documented in this encounter Visit Diagnoses Not on filedocumented in this encounter Care Teams Forest Management Professor Relationship Specialty Start Date End Date Juan Nicole MD PCP - General Internal Medicine 11/21/18 [place] [address] [address] Orthopedic Surgery 11/21/18 documented as of this encounter
--- NOTE | 2024-06-29 22:56 | PC.NURSE ---
to desk multiple times asking when they will be moved to a room. wheeled patient to order picker/assembler area and they left.
--- OUTSIDE RECORDS SUMMARY | 2024-06-29 23:02 | XMS_ITS | Referral Summary ---
Author Organization [facility] Address [address] [place] [address] Care Team Providers Care Jewelry Making Instructor Name Role Phone Juan Nicole MD Primary Care Provider [phone] Raymundo Bolton MD Unavailable Source Comments [facility],non-owned Affiliates and Associated Physician Practices is amultiple site organization consisting of ambulatory clinics and hospital sitesin [place], [place], [place] and [place]. This disclosure is being madepursuant to the Care Everywhere program and may not contain all information available regarding this patient. Last updated 18.[facility] Encounters Date Type Department Care Team Description 05/01/2024 Lab Requisition [facility] - DermPath Lab [address] [facility], [facility] [address] Wendy Harrison DO from Last 3 Months [...] Comments DERMATOPATHOLOGY Routine 05/01/2024 10:5 8 AM SOFTWARE ENGINEER WEB APPLICATIONS from Last 3 Months Results * DERMATOPATHOLOGY (05/01/2024 10:58 AM SOFTWARE ENGINEER WEB APPLICATIONS) Case Report Dermatopathology Report Case: [id number] Authorizing Provider: Wendy Harrison DO Collected: 05/01/2024 10:58 AM Ordering Location: [facility] - Received: 05/01/2024 04:34 PM DermPath Lab Pathologist: Lauren Griffith MD Specimen: Skin, left superior NLF 1:03 PM [facility] DERMATOPATHOLOGY LABORATORY Final Diagnosis Specimen A. SKIN, left superior NLF: BASAL CELL CARCINOMA, NODULAR TYPE (C44.311) (see microscopic description) 1:03 PM [facility] DERMATOPATHOLOGY LABORATORY Clinical History R/O BCC 1:03 PM [facility] DERMATOPATHOLOGY LABORATORY Gross Description Specimen A: Received is one formalin filled container labeled with the patient's name and designated left superior NLF. The specimen consists of a shave biopsy measuring 2x2x1 mm. Jar 0. 1:03 PM [facility] DERMATOPATHOLOGY LABORATORY Microscopic Description Specimen A. SKIN, left superior NLF: Within the dermis there are aggregates of basaloid cells with a high nuclear to cytoplasmic ratio and peripheral palisading. Additional deeper sections were obtained and reviewed. 1:03 PM SOFTWARE ENGINEER WEB APPLICATIONS DERMATOPATHOLOGY LABORATORY Disclaimer An external and internal positive and negative controls are appropriate for the histochemical, immunohistochemical and immunofluorescence stain(s) in this case (if any), except where stated explicitly. The performance characteristics of the stain(s) cited in this report were developed and its performance characteristic determined by the Dermatopathology Laboratory at [facility], directed by Dr. Linda Armijo. These tests need not be, and therefore are not, approved by the [place] Food and Drug Administration. The tests are used for clinical purposes. Billing Codes Specimen Charges Stain Charges 30030 1 5 1:03 PM SOFTWARE ENGINEER WEB APPLICATIONS DERMATOPATHOLOGY LABORATORY Embedded Images 5 1:03 PM SOFTWARE ENGINEER WEB APPLICATIONS DERMATOPATHOLOGY LABORATORY Pathology/Cytolo gy TISSUE SPECIMEN FROM SKIN / Unknown 05/01/2024 10:58 AM SOFTWARE ENGINEER WEB APPLICATIONS 05/01/2024 4:34 PM SOFTWARE ENGINEER WEB APPLICATIONS Wendy Harrison DO LAB - PATHOLOGY/C YTOLOGY ORDERABLES Performing Organization Address City/State/[facility] Co de Phone Number DERMATOPATHOLOGY LABORATORY [facility] - Department of Dermatology [facility] Medicine [address] [place] [address], [address]rd Floor [address] [phone] from Last 3 Months Care Teams Jewelry Making Instructor Relationship Specialty Start Date End Date Juan Nicole MD PCP - General Internal Medicine 11/21/18 [place] [address] [address] Orthopedic Surgery 11/21/18
--- OUTSIDE RECORDS SUMMARY | 2024-06-29 23:02 | XMS_ITS | Patient Health Summary ---
Author Organization [facility] Address [address] [place] [address] Care Team Providers Care Residential Property Manager Name Role Phone Juan Nicole MD Primary Care Provider [phone] Raymundo Bolton MD Unavailable [phone] Note from [facility],non-owned Affiliates and Associated Physician Practices is amultiple site organization consisting of ambulatory clinics and hospital sitesin [place], [place], [place] and [place]. This disclosure is being madepursuant to the Care Everywhere program and may not contain all information available regarding this patient. Last updated 18.[facility] Allergies No known active allergies Medications [...] 07/12/2016) Results * DERMATOPATHOLOGY (05/01/2024 10:58 AM SCOOP FILLER) Only the most recent of4 resultswithin the time period is included. Case Report Dermatopathology Report Case: [id number] Authorizing Provider: Wendy Harrison DO Collected: 05/01/2024 10:58 AM Ordering Location: [facility] - Received: 05/01/2024 04:34 PM DermPath Lab Pathologist: Lauren Griffith MD Specimen: Skin, left superior NLF 1:03 PM [facility] DERMATOPATHOLOGY LABORATORY Final Diagnosis Specimen A. SKIN, left superior NLF: BASAL CELL CARCINOMA, NODULAR TYPE (C44.311) (see microscopic description) 1:03 PM [facility] DERMATOPATHOLOGY LABORATORY Clinical History R/O BCC 1:03 PM SCOOP FILLER DERMATOPATHOLOGY LABORATORY Gross Description Specimen A: Received is one formalin filled container labeled with the patient's name and designated left superior NLF. The specimen consists of a shave biopsy measuring 2x2x1 mm. Jar 0. 1:03 PM [facility] DERMATOPATHOLOGY LABORATORY Microscopic Description Specimen A. SKIN, left superior NLF: Within the dermis there are aggregates of basaloid cells with a high nuclear to cytoplasmic ratio and peripheral palisading. Additional deeper sections were obtained and reviewed. 1:03 PM [facility] DERMATOPATHOLOGY LABORATORY Disclaimer An external and internal positive and negative controls are appropriate for the histochemical, immunohistochemical and immunofluorescence stain(s) in this case (if any), except where stated explicitly. The performance characteristics of the stain(s) cited in this report were developed and its performance characteristic determined by the Dermatopathology Laboratory at [facility], directed by Dr. Linda Armijo. These tests need not be, and therefore are not, approved by the [place] Food and Drug Administration. The tests are used for clinical purposes. Billing Codes Specimen Charges Stain Charges 45149 1 5 1:03 PM SCOOP FILLER DERMATOPATHOLOGY LABORATORY Embedded Images 5 1:03 PM [facility] DERMATOPATHOLOGY LABORATORY Pathology/Cytolo gy TISSUE SPECIMEN FROM SKIN / Unknown 05/01/2024 10:58 AM SCOOP FILLER 05/01/2024 4:34 PM SCOOP FILLER Wendy Harrison DO LAB - PATHOLOGY/C YTOLOGY ORDERABLES DERMATOPATHOLOGY LABORATORY [facility] Department of Dermatology [address], [address] [phone] * DERMATOPATH TECHNICAL REPORT (08/26/2019 12:00 AM CDT) Case Report Dermatopathology Report Case: [id number] Authorizing Provider: Cesilia Gomez MD Collected: 08/26/2019 12:00 AM Ordering Location: [facility] DermPath Lab Received: 08/27/2019 06:44 AM Pathologist: Lauren Griffith MD Specimen: Skin, left upper eyelid 0 12:43 PM CDT DERMATOPATHOLOGY LABORATORY Clinical History R/O SK, irritated. 0 12:43 PM CDT DERMATOPATHOLOGY LABORATORY Gross Description Specimen A: Received is one formalin filled container labeled with the patient's name and designated left upper eyelid. The specimen consists of a shave measuring 5x4d0ib. Jar 0. [facility] Dermatopathology Laboratory performed the technical component only. [...] characteristic determined by the Dermatopathology Laboratory at [facility], directed by Dr. Linda Armijo. These tests need not be, and therefore are not, approved by the [place] Food and Drug Administration. The tests are used for clinical purposes. 0 12:43 PM CDT DERMATOPATHOLOGY LABORATORY Pathology/Cytolog y TISSUE SPECIMEN FROM SKIN / Unknown 08/26/2019 08/27/2019 6:44 AM CDT Cesilia Gomez MD LAB - PATHOLOGY/CYT OLOGY ORDERABLES Performing Organization Address City/State/[facility] Co de Phone Number DERMATOPATHOLOGY LABORATORY [facility] - Department of Dermatology [address] [place] [address], 5th Floor Lab [address] [phone] * XR KNEE BILAT 3VW (11/21/2018 2:16 PM CDT) Anatomical Region Laterality Modality Lower Extremity Computed Radiogr aphy Narrative 11/21/2018 2:17 PM CDT Kenyatta Pardo, RT(R) 12/04/2018 4:54 PM See progress notes for results Raymundo Bolton MD DIAGNOSTIC IMAGING O RDERABLES Care Teams Residential Property Manager Relationship Specialty Start Date End Date Juan Nicole MD PCP - General Internal Medicine 11/21/18 [place] [address] [address] Orthopedic Surgery 11/21/18
--- OUTSIDE RECORDS SUMMARY | 2024-06-29 23:02 | XMS_ITS | Encounter Summary ---
Author Organization [facility] Address [address] [facility] [place] [address] Care Team Providers Care Supervisor Wood Crew Name Role Phone Juan Nicole MD Primary Care Provider [phone] Raymundo Bolton MD Unavailable [phone] Encounter Details Date Type Department Care Team (Late st Contact Info) Description 03/19/2023 Lab Requisition [facility] - DermPath Lab [address] [facility], [place] [address] Wendy Harrison DO [address] [facility] 3L [place] [address] Social History Tobacco Use Types Packs/Day Years [...] Comments DERMATOPATHOLOGY Routine 03/19/2023 11:2 4 AM ACCOUNTING COORDINATOR documented in this encounter Results * DERMATOPATHOLOGY (03/19/2023 11:24 AM ACCOUNTING COORDINATOR) Case Report Dermatopathology Report Case: [id number] Authorizing Provider: Wendy Harrison DO Collected: 03/19/2023 11:24 AM Ordering Location: [facility] DermPath Lab Received: 03/20/2023 12:31 PM Pathologist: Lauren Griffith MD Specimens: A) - Skin, right helix B) - Skin, left upper back 3:03 PM ACCOUNTING COORDINATOR DERMATOPATHOLOGY LABORATORY Final Diagnosis Specimen A. SKIN, right helix: SQUAMOUS PROLIFERATION (D48.5) OVERLYING CUTANEOUS HORN (L85.8) (see microscopic description and comment) Specimen B. SKIN, left upper back: BASAL CELL CARCINOMA, SUPERFICIAL MULTIFOCAL (C44.519) 3:03 PM [facility] DERMATOPATHOLOGY LABORATORY Clinical History A: CNH, R/O NMSC B: R/O NMSC 3:03 PM [facility] DERMATOPATHOLOGY LABORATORY Gross Description Specimen A: [...] measuring 5x5x1 mm. Jar 0. 3:03 PM [facility] DERMATOPATHOLOGY LABORATORY Microscopic Description Specimen A. [...] cytoplasmic ratio and peripheral palisading. 3:03 PM [facility] DERMATOPATHOLOGY LABORATORY Disclaimer An external and internal positive and negative controls are appropriate for the histochemical, immunohistochemical and immunofluorescence stain(s) in this case (if any), except where stated explicitly. The performance characteristics of the stain(s) cited in this report were developed and its performance characteristic determined by the Dermatopathology Laboratory at [facility], directed by Dr. Linda Armijo. These tests need not be, and therefore are not, approved by the [place] Food and Drug Administration. The tests are used for clinical purposes. Billing Codes Specimen Charges Stain Charges 22803 51443 1 1 3 3:03 PM ACCOUNTING COORDINATOR DERMATOPATHOLOGY LABORATORY Embedded Images 3 3:03 PM ACCOUNTING COORDINATOR DERMATOPATHOLOGY LABORATORY Pathology/Cytology TISSUE SPECIMEN FROM SKIN / Unknown 03/19/2023 11:24 AM ACCOUNTING COORDINATOR 03/20/2023 12:31 PM ACCOUNTING COORDINATOR Miscellaneous samples (specimen) TISSUE SPECIMEN FROM SKIN / Unknown 03/19/2023 11:24 AM ACCOUNTING COORDINATOR 03/20/2023 12:31 PM ACCOUNTING COORDINATOR Wendy Harrison DO LAB - PATHOLOGY/C YTOLOGY ORDERABLES DERMATOPATHOLOGY LABORATORY [facility] - Department of Dermatology [facility] Medicine [address] [place] [address], [address] [phone] documented in this encounter Visit Diagnoses Not on filedocumented in this encounter Care Teams Supervisor Wood Crew Relationship Specialty Start Date End Date Juan Nicole MD PCP - General Internal Medicine 11/21/18 [place] [address] [place] [address] Orthopedic Surgery 11/21/18 documented as of this encounter
--- OUTSIDE RECORDS SUMMARY | 2024-06-29 23:02 | XMS_ITS | Continuity of Care Document ---
Author Organization [facility] Address [address] [facility] [address] [place] [address] Phone Care Team Providers Care Continuous Process Tanner Rotary Drum Name Role Phone Karyn Acosta Unavailable Unavailable Procedures Procedure Date Post-op Follow-up Visit Post-op Follow-up Visit Post-op Follow-up Visit Remove Cataract, Insert Lens Post-op Follow-up Visit [facility] Post-op Follow-up Visit Post-op Follow-up Visit Remove Cataract, Insert Lens Office/outpatient Visit, [facility] Advance Directives Directive Yes / No Effective Date File Name No Information Encounters Encounter Description Practice Location Reason(s) For Visit Diagnoses Date Provider Providers Copied on Encounter [facility], [address] [place] [address] [address], [place], [place], [id number], tel:[phone] [facility] No Information Oct-2 1-201 0 Karla Wahl [address], [place], [address], [place]. tel:[phone] [facility], [address] [place] [address] [address], [place], [place], [id number], tel:[phone] [facility] No Information Oct-0 7-201 0 Karla Wahl [address] , [address], [place], [address], [place]. tel:[phone] [facility], [address], [place], [place], [address], [place] tel:[phone] [facility] No Information Sep-3 0-201 0 King OD Tomy. [address], [address], [place], [address], [place]. tel:[phone] Referring Provider: Karyn Mackey, [address], [place], [place], [facility]. tel:[phone] [facility], [address], [place], [place], [address], [place] tel:[phone] [facility] No Information Sep-2 9-201 0 Karla Boss. [address], [place], [place], [facility], [place]. tel:[phone] [facility], [address], [place], [place], [id number], [place] tel:[phone] [facility] No Information Sep-1 6-201 0 Karla Boss. [address], [place], [address], [place]. tel:[phone] Referring Provider: Shala Hernandez MD, [address] [facility], [place], [address]. tel:[phone] [facility], [address], [place], [place], [address], [place] tel:[phone] [facility] No Information Aug-2 6-201 0 Karla Boss. [address], [place], [address], [place]. tel:[phone] [facility], [address], [place], [place], [address], [place] tel:[phone] [facility] No Information 9-201 0 King OD Tomy. [address], [place], [address], [place]. tel:[phone] [facility], [address] [place] [address] [address], [place], [place], [address], [place] tel:[phone] [facility] No Information 8-201 0 Karla Boss. [address] [facility] , [address], [place], [address], [place]. tel:[phone] Referring Provider: Shala Hernandez MD, [address] [place], [address]. tel:[phone] Office/outpat ient Visit, [facility], [address], [place], [place], [address], [place] tel:[phone] [facility] No Information 0-201 0 Karla Boss. [address] [facility] , [address], [place], [address], [place]. tel:[phone] Referring Provider: Shala Hernandez MD, [address] [place], [address]. tel:[phone] Family History Family Member Type Diagnosis Age At Onset No Information Payers Payer name Insurance type Covered libertarian ID Authoriza tion(s) No Information Social History [...]
--- OUTSIDE RECORDS SUMMARY | 2024-06-29 23:03 | XMS_ITS | Clinical Summary ---
Author Organization [facility] Address [address] [facility] [place] [address] Care Team Providers Care Automotive Fuel Injection Servicer Name Role Phone Juan Nicole MD Primary Care Provider [phone] Raymundo Bolton MD Unavailable [phone] Source Comments [facility],non-owned Affiliates and Associated Physician Practices is amultiple site organization consisting of ambulatory clinics and hospital sitesin [place], [place], [place] and [place]. This disclosure is being madepursuant to the Care Everywhere program and may not contain all information available regarding this patient. Last updated 18.[facility] Allergies No known active allergies Medications * [...] Department Care Team Description 05/01/2024 Lab Requisition [facility] - DermPath Lab [address] [facility], [place] [address] Wendy Harrison DO from Last 3 Months [...] Comments DERMATOPATHOLOGY Routine 05/01/2024 10:5 8 AM LIBRARY TECHNICIAN from Last 3 Months Results * DERMATOPATHOLOGY (05/01/2024 10:58 AM LIBRARY TECHNICIAN) Case Report Dermatopathology Report Case: [id number] Authorizing Provider: Wendy Harrison DO Collected: 05/01/2024 10:58 AM Ordering Location: [facility] - Received: 05/01/2024 04:34 PM DermPath Lab Pathologist: Lauren Griffith MD Specimen: Skin, left superior NLF 1:[address] [facility] DERMATOPATHOLOGY LABORATORY Final Diagnosis Specimen A. SKIN, left superior NLF: BASAL CELL CARCINOMA, NODULAR TYPE (C44.311) (see microscopic description) 1:[address] [facility] DERMATOPATHOLOGY LABORATORY Clinical History R/O BCC 1:[address] [facility] DERMATOPATHOLOGY LABORATORY Gross Description Specimen A: Received is one formalin filled container labeled with the patient's name and designated left superior NLF. The specimen consists of a shave biopsy measuring 2x2x1 mm. Jar 0. 1:[address] [facility] DERMATOPATHOLOGY LABORATORY Microscopic Description Specimen A. SKIN, left superior NLF: Within the dermis there are aggregates of basaloid cells with a high nuclear to cytoplasmic ratio and peripheral palisading. Additional deeper sections were obtained and reviewed. 1:[address] [facility] DERMATOPATHOLOGY LABORATORY Disclaimer An external and internal positive and negative controls are appropriate for the histochemical, immunohistochemical and immunofluorescence stain(s) in this case (if any), except where stated explicitly. The performance characteristics of the stain(s) cited in this report were developed and its performance characteristic determined by the Dermatopathology Laboratory at [facility], directed by Dr. Linda Armijo. These tests need not be, and therefore are not, approved by the [place] Food and Drug Administration. The tests are used for clinical purposes. Billing Codes Specimen Charges Stain Charges 81626 1 01/20/202 5 1:03 PM LIBRARY TECHNICIAN DERMATOPATHOLOGY LABORATORY Embedded Images 5 1:03 PM LIBRARY TECHNICIAN DERMATOPATHOLOGY LABORATORY Pathology/Cytolo gy TISSUE SPECIMEN FROM SKIN / Unknown 05/01/2024 10:58 AM LIBRARY TECHNICIAN 05/01/2024 4:34 PM LIBRARY TECHNICIAN Wendy Harrison DO LAB - PATHOLOGY/C YTOLOGY ORDERABLES DERMATOPATHOLOGY LABORATORY [facility] - Department of Dermatology [address], [address] [phone] from Last 3 Months Care Teams Automotive Fuel Injection Servicer Relationship Specialty Start Date End Date Juan Nicole MD PCP - General Internal Medicine 11/21/18 [place] [address] [place] [address] [place] [id number] Orthopedic Surgery 11/21/18
--- OUTSIDE RECORDS SUMMARY | 2024-06-29 23:03 | XMS_ITS | Encounter Summary ---
Author Organization [facility] Address [address] [facility] [place] [address] Care Team Providers Care Freight Adjuster Name Role Phone Juan iNcole MD Primary Care Provider [phone] Raymundo Bolton MD Unavailable [phone] Encounter Details Date Type Department Care Team (Late st Contact Info) Description 08/27/2019 Lab Requisition [facility] DermPath Lab [address] [facility] [place] [address] Cesilia Gomez MD [address] [facility] [address] DE[place] [address] Social History Tobacco Use Types Packs/Day Years [...] AM CDT) Case Report Dermatopathology Report Case: [id number] Authorizing Provider: Cesilia Gomez MD Collected: 08/26/2019 12:00 AM Ordering Location: [facility] DermPath Lab Received: 08/27/2019 06:44 AM Pathologist: Lauren Griffith MD Specimen: Skin, left upper eyelid 0 12:43 PM CDT DERMATOPATHOLOGY LABORATORY Clinical History R/O SK, irritated. 0 12:43 PM CDT DERMATOPATHOLOGY LABORATORY Gross Description Specimen A: Received is one formalin filled container labeled with the patient's name and designated left upper eyelid. The specimen consists of a shave measuring [id number]. Jar 0. [facility] Dermatopathology Laboratory performed the technical component only. [...] determined by the Dermatopathology Laboratory at [facility], directed by Dr. Linda Armijo. These tests need not be, and therefore are not, approved by the [place] Food and Drug Administration. The tests are used for clinical purposes. 0 12:43 PM CDT DERMATOPATHOLOGY LABORATORY Pathology/Cytolog y TISSUE SPECIMEN FROM SKIN / Unknown 08/26/2019 08/27/2019 6:44 AM CDT Cesilia Gomez MD LAB - PATHOLOGY/CYT OLOGY ORDERABLES DERMATOPATHOLOGY LABORATORY [facility] - Department of Dermatology [address] [place] [address], 5th Floor Lab [address] [phone] documented in this encounter Visit Diagnoses Not on filedocumented in this encounter Care Teams Freight Adjuster Relationship Specialty Start Date End Date Juan Nicole MD PCP - General Internal Medicine 11/21/18 [place] [address] [place] [address] [place] [id number] Orthopedic Surgery 11/21/18 documented as of this encounter
--- OUTSIDE RECORDS SUMMARY | 2024-06-29 23:03 | XMS_ITS | Clinical Summary ---
Author Organization [facility] Address [address] [place] [address] Care Team Providers Care Mine Supervisor Name Role Phone Unavailable Primary Care Provider [...]
--- OUTSIDE RECORDS SUMMARY | 2024-06-29 23:03 | XMS_ITS | Encounter Summary ---
Author Organization [facility] Address [address] [place] [address] Care Team Providers Care Hourly Manager Name Role Phone Juan Nicole MD Primary Care Provider [phone] Raymundo Bolton MD Unavailable [phone] Encounter Details Date Type Department Care Team (Late st Contact Info) Description 05/01/2024 Lab Requisition [facility] - DermPath Lab [address] [facility], [place] [address] Wendy Harrison DO [address] [facility] [address] [place] [address] Social History Tobacco Use Types Packs/Day Years [...] Comments DERMATOPATHOLOGY Routine 05/01/2024 10:5 8 AM PHOTO OFFSET PRINTER documented in this encounter Results * DERMATOPATHOLOGY (05/01/2024 10:58 AM PHOTO OFFSET PRINTER) Case Report Dermatopathology Report Case: [id number] Authorizing Provider: Wendy Harrison DO Collected: 05/01/2024 10:58 AM Ordering Location: [facility] - Received: 05/01/2024 04:34 PM DermPath Lab Pathologist: Lauren Griffith MD Specimen: Skin, left superior NLF 1:03 PM PHOTO OFFSET PRINTER DERMATOPATHOLOGY LABORATORY Final Diagnosis Specimen A. SKIN, left superior NLF: BASAL CELL CARCINOMA, NODULAR TYPE (C44.311) (see microscopic description) 1:03 PM [facility] DERMATOPATHOLOGY LABORATORY Clinical History R/O BCC 1:03 PM [facility] DERMATOPATHOLOGY LABORATORY Gross Description Specimen A: Received is one formalin filled container labeled with the patient's name and designated left superior NLF. The specimen consists of a shave biopsy measuring 2x2x1 mm. Jar 0. 1:03 PM [facility] DERMATOPATHOLOGY LABORATORY Microscopic Description Specimen A. SKIN, left superior NLF: Within the dermis there are aggregates of basaloid cells with a high nuclear to cytoplasmic ratio and peripheral palisading. Additional deeper sections were obtained and reviewed. 1:03 PM [facility] DERMATOPATHOLOGY LABORATORY Disclaimer An external and internal positive and negative controls are appropriate for the histochemical, immunohistochemical and immunofluorescence stain(s) in this case (if any), except where stated explicitly. The performance characteristics of the stain(s) cited in this report were developed and its performance characteristic determined by the Dermatopathology Laboratory at [facility], directed by Dr. Linda Armijo. These tests need not be, and therefore are not, approved by the [place] Food and Drug Administration. The tests are used for clinical purposes. Billing Codes Specimen Charges Stain Charges 59983 1 1:03 PM PHOTO OFFSET PRINTER DERMATOPATHOLOGY LABORATORY Embedded Images 1:03 PM [facility] DERMATOPATHOLOGY LABORATORY Pathology/Cytolo gy TISSUE SPECIMEN FROM SKIN / Unknown 05/01/2024 10:58 AM PHOTO OFFSET PRINTER 05/01/2024 4:34 PM PHOTO OFFSET PRINTER Wendy Harrison DO LAB - PATHOLOGY/C YTOLOGY ORDERABLES DERMATOPATHOLOGY LABORATORY [facility] - Department of Dermatology [facility] Medicine [address] [place] [address], [address] [place] [address], [facility] [phone] documented in this encounter Visit Diagnoses Not on filedocumented in this encounter Care Teams Hourly Manager Relationship Specialty Start Date End Date Juan Nicole MD PCP - General Internal Medicine 11/21/18 [place] [address] [address] Orthopedic Surgery 11/21/18 documented as of this encounter
== END 2024-06-30 00:21 | disposition left against medical advice (07) ==
PROVIDERS: PCP Physician Assistant
DX: R10.9 Unspecified abdominal pain (principal)
CPT/HCPCS: 99199

== ENCOUNTER 2024-07-09 08:37 | Outpatient (CLI) | payer MEDICARE, SELFPAY ==
--- NOTE | ~2024-07-09 | CT_ITS ---
EXAMINATION: CT LE LT wo con DATE: 07/09/2024 08:59 INDICATION: Left knee osteoarthritis. TECHNIQUE: Computed tomography (CT) of the left lower limb was performed without intravenous contrast . Automated exposure control and iterative reconstruction technique were employed. The dose-length pr oduct was 1889.24 mGy-cm. COMPARISON: Left knee radiographs 06/27/2024 FINDINGS: There is moderate left hip osteoarthritis. Left knee demonstrates severe osteoarthritis of patellofemoral compartment, moderate osteoarthritis of medial compartment, and mild osteoarthritis of lateral compartment. There is a small knee joint effusion. IMPRESSION: 1. Severe left knee osteoarthritis. 2. Small left knee joint effusion. Reviewed, dictated and finalized at location A.
--- OUTSIDE RECORDS SUMMARY | 2024-07-09 09:00 | XMS_ITS | Data Portability ---
Author Organization [facility] [place] Address [address] [facility] [place] [address] Care Team Providers Care Face Man Name Role Phone TAMELA ROMERO Primary Care Provider Unavailab le Assessment Encounter Date Assessment Date Assessment LastModified by Organization Details LastModified Time 01/24/2024 01/24/2024 Mammogram completed October of 2023 Colonoscopy March 05, 2023 at [facility] Eye exam is up-to-date Dental exams up-to-date Labs up-to-date Not available 02/15/2024 23:15:51 Plan of Treatment Reminders Order Date Submit Date Provider Last Modified By Organization Details Last Modified Time Details Appointments ANY 15 2024 10:30A M RODOLFO Fagan Not available Not available Not available Lab HbA1c (hemoglob in A1c), blood 2023 025 [facility], [address] [place] [address], [address], 07/07/2024 09:30:55 CBC w/ auto diff 2023 025 [facility], [address] [place] [address], [address], 07/07/2024 09:30:55 BMP, serum or plasma 2023 025 [facility], [address] [place] [address], [address], 07/07/2024 09:30:55 hepatic function panel, serum 2023 025 [facility], [address] [place] [address], [address], 07/07/2024 09:30:55 lipid panel, serum 2023 025 [facility], [address] [place] [address], [address], 07/07/2024 09:30:55 CBC w/ manual diff 2023 024 [facility], [address] [place] [address], [address], 02/25/2024 12:35:10 TSH + free T4, serum 2023 025 [facility], [address] [place] [address], [address], 07/07/2024 09:30:55 HbA1c (hemoglob in A1c), blood 2023 024 [facility], [address] [place] [address], [address], 01/21/2024 15:40:07 CBC w/ auto diff 2023 024 [facility], [address] [place] [address], [id number], 01/21/2024 12:30:44 BMP, serum or plasma [address] [facility], [address] [place] [address], [address], 01/21/2024 17:07:49 hepatic function panel, serum [address] [facility], [address] [place] [address], [address], 07/02/2024 10:58:53 lipid panel, serum [address] [facility], [address] [place] [address], [address], 07/02/2024 10:58:53 TSH + free T4, serum [address] [facility], [address], [place], [address], 07/02/2024 10:58:52 Referral hand surgeon referral 2023 MORENITA Lozano MD, [address] [facility] [address], [place], [address], 10/11/2023 14:25:54 Procedures None recorded. Surgeries None recorded. Imaging CT, chest, w/o contrast 2023 [facility] (Imaging), [address] [facility] [address], [place], [address], 01/26/2024 09:04:00 Medication Orders pravastat in 20 mg tablet 2023 [place] [facility], [address], [address], [place], [place], [id number], 07/19/2023 12:27:28 Zepbound 2.5 mg/0.5 mL subcutane ous pen injector 2023 [email or web address] [id number], [address] , [place], [place], [id number], 08/01/2023 12:36:44 meloxicam 15 mg tablet 2023 024 [place] [facility], [address], [address], [place], [place], [id number], 07/19/2023 12:27:28 levothyro xine 50 mcg tablet 2023 024 [place] [facility], [address], [address], [place], [place], [id number], 07/19/2023 12:27:29 Patient TargetsNo targets recorded. Patient Instructions Encounter Date Encounter Id Patient Instructions Last Modified By Organization Details Last Modified Time 01/24/2024 [id number] A healthy lifestyle: care instructions Not available 01/24/2024 12:58:18 Reason for Referral Hand Surgeon Referral for Os teoarthrosis of the carpometacarpal joint of the thumb right thumb pain with hx of arthritis. Referring Physician: Tamela Romero, Internal Medicine, Encounter Date: 07/19/2023 Results Created Date Observation Date Name Description Value Unit Range Abnormal Flag Note LastModifiedBy Organization Detail LastModifiedTime 05/01/19 25 05/05/2024 Skin Patho logy biops y repor t pathology report.secti on heading Dermat opatho logy Report Case: [id number] Author shun Owens er: Wendy Harrison DO Colle mary lou: 2024 10:58 AM Orderi ng Locati on: [facility] - Receiv ed: 2024 04:34 PM [facility]erm[facility] th Lab Pathol ogist: Lauren Bertrand MD Specim en: Skin, left superi or NLF Case Repor t [place] [facility] y Repor t Case: [id number] Autho shaheen ravi Provi fanta: Jensen Saldana DO Colle cted: 05/01 10:58 AM Order ing Locat ion: [facility] - Recei kevin: 05/01 04:34 PM DermP ath Lab Patho logis t: Carmen Chavez MD Speci men: Skin, left super ior NLF 05/05 1:03 PM [facility] Not Available Not Available 07/03/2024 11:01:27 05/01/19 25 05/05/2024 Skin Patho logy biops y repor t pathology report final diagnosis narrative Specim en A. SKIN, left superi or NLF: BASAL CELL CARCIN IMAN, NODULA R TYPE (C44.3 11) (see micros copic descri ption) Final Diagn osis Speci men A. SKIN, left super ior NLF: BASAL CELL CARCI NOMA, NODUL AR TYPE (C44. 311) (see micro scopi c descr iptio n) 05/05 1:03 PM [facility] Elect diya jameson mili d by Carmen Chavez MD on 2024 at 1:03 PM Not Available Not Available 07/03/2024 11:01:27 05/01/19 25 05/05/2024 Skin Patho logy biops y repor t pathology report relevant history narrative R/O BCC Clini stephanie Histo ry R/O BCC 05/05 1:03 PM [facility] Not Available Not Available 07/03/2024 11:01:27 05/01/19 25 05/05/2024 Skin Patho logy biops y repor t pathology report gross observation narrative Specim en A: Receiv ed is one formal in filled contai ner labele d with the jh t's name and design ated left superi or NLF. The specim en consis ts of a shave biopsy measur ing 2x2x1 mm. Jar 0. Gross Descr iptio n Speci men A: Recei kevin is one forma thee fille d conta iner label ed with the patie nt's name and desig nated left super ior NLF. The speci men consi sts of a shave biops y measu ring 2x2x1 mm. Jar 0. 05/05 1:03 PM [facility] Not Available Not Available 07/03/2024 11:01:27 05/01/19 25 05/05/2024 Skin Patho logy biops y repor t pathology report microscopic observation narrative other stain Specim en A. SKIN, left superi or NLF: Within the dermis there are aggreg ates of basalo id cells with a high nuclea r to cytopl asmic ratio and periph eral palisa ding. Additi onal deeper sectio ns were obtain ed and review ed. Micro scopi c Descr iptio n Speci men A. SKIN, left super ior NLF: Withi n the dermi s there are aggre louie of basal oid cells with a high nucle ar to cytop lasmi c ratio and perip heral palis ading . Addit ional deepe r secti ons were obtai gayathri and revie wed. 05/05 1:03 PM [facility] Not Available Not Available 07/03/2024 11:01:27 05/01/19 25 05/05/2024 Skin Patho logy biops y repor t service comment An top carrier al and internet database specialist al positi ve and negati ve contro ls are approp riate for the histoc hemica l, immuno histoc hemica l and immuno fluore scence stain( s) in this case (if any), except where stated explic itly. The perfor aileen charac terist ics of the stain( s) cited in this report were develo ped and its perfor aileen charac terist ic determ ined by the Dermat opatho logy Eliza toralaina at [facility], direct ed by Dr. Linda Armijo . These tests need not be, and theref ore are not, approv ed by the [place] Food and Drug Admini strati on. The tests are used for clinic al purpos es. Billin g Codes Specim en Charge s Stain Charge s [id number] 1 Discl aimer An exter nal and inter nal posit nabor and negat nabor contr ols are appro priat e for the histo chemi stephanie, immun ohist ochem ical and immun ofluo resce nce stain (s) in this case (if any), excep t where state d expli citly . The perfo rmanc e becki cteri stics of the stain (s) cited in this repor t were devel oped and its perfo rmanc e becki cteri stic deter mined by the [place] [facility] , direc mary lou by Dr. Linda Bryant. These tests need not be, and there fore are not, appro kevin by the [facility] Food and Drug Admin istra tion. The tests are used for clini stephanie purpo ses. Roddy ng Codes Speci [place] Charg [place] [id number] 1 05/05 1:03 PM [facility] Not Available Not Available 07/03/2024 11:01:27 05/01/19 25 05/05/2024 Skin Patho logy biops y repor t embedded images Embed ded Image s 05/05 1:03 PM [facility] Not Available Not Available 07/03/2024 11:01:27 10/24/19 24 10/24/2023 XR, knee No observ ation record ed. [address] [facility], [place], [address], 10/24/2023 19:25:31 11/02/19 24 11/02/2023 MAMMO , scree claribel, digit al, bilat eral No observ ation record ed. [address] [facility], [place], [address], 02/15/2024 23:15:57 01/26/20 24 01/25/2024 CT, chest , w/o contr ast No observ ation record ed. [address] [facility], [place], [address], 01/30/2024 12:51:28 Result Notes None recorded. Problems Name Problem SNOMED Code Status Onset Date Resolution Date Notes Provider Name and Address Organization Details Recorded Time Body mass index 30+ - obesity 747377430 Active 2023 Baldemar Nagel MA null, [place] - SI 4 12:27:17 Hyperlipide vesna 05336806 Active 2023 RODOLFO Fagan Attn: Mark ravi,[address] [facility], [place], [address], [place] - [facility] 4 23:14:47 Hypothyroid ism 13243283 Active 2023 RODOLFO Fagan Attn: Mark g,[address] [facility], [place], [address], [facility] - SIF 4 23:14:48 Impaired glucose tolerance 6573201 Active 2023 RODOLFO Fagan Attn: Mark ravi,[address] [facility], [place], [address], [place] - [facility] 4 23:14:50 Blood chemistry outside reference range 064354578 Active 2023 RODOLFO Fagan Attn: Mark ravi,[address] [facility], [place], [address], [place] - [facility] 4 23:14:52 Pain of bilateral knee joints 5286358832123 04 Active 2023 RODOLFO Fagan Attn: Mark ravi,[address] [facility], [place], [address], [place] - [facility] 4 23:14:55 Osteoarthro sis of the carpometaca rpal joint of the thumb 49701464 Active 2023 RODOLFO Fagan Attn: Mark ravi,[address] [place], [address], [place] [facility] 4 23:14:57 Obesity 008923914 Active 2023 RODOLFO Fagan Attn: Mark ravi,[address] [place], [address], [place] - [facility] 4 23:15:00 Long-term drug therapy Active 2023 RODOLFO Fagan Attn: Mark ravi,[address] [place], [address], [place] 4 23:15:02 Night sweats 69589772 Active 2023 RODOLFO Fagan Attn: Mark ravi,[address] [place], [address], [place] 4 23:19:07 Problem Notes None recorded. Procedures Surgical History None recorded. Imaging Results Imaging Date Name Status LastModified by Organiz atcount includes the [facility] Details LastModified Time 10/24/2023 XR, knee completed [email or web address] [facility] [address] [facility] [address], [place], [address], 10/24/2023 19:25:31 11/02/2023 MAMMO, screening, digital, bilateral completed [email or web address] [address], [place], [address], 02/15/2024 23:15:57 01/25/2024 CT, chest, w/o contrast completed [address], [place], [address], 01/30/2024 12:51:28 Procedure Notes None recorded. Medical [...] Last Updated DateTime 171.45 cm 31 kg/m2 07821.0 7 g 20 /min 99 % 99 % 83 /min 128 mm[Hg] 82 mm[Hg] Badlemar Nagel MA [facility] 12:00:52 Date Recorded Body height Body mass index (BMI) Body weight Respiratory rate Oxygen saturation Oxygen saturation in Arterial blood by Pulse oximetry Heart rate Systolic blood pressure Diastolic blood pressure Provider Name and Address Organization Details Last Updated DateTime 4 171.45 cm 32.6 kg/m2 62468.9 9 g 18 /min 96 % 96 % 76 /min 138 mm[Hg] 88 mm[Hg] Baldemar Nagel MA [facility] 4 12:29:46 Social History Question Answer Notes LastModified by Organizat ion Details LastModified Time Tobacco Smoking Status Former Smoker quit at 25-30 years Baldemar Nagel MA null, [facility] 07/19/2023 11:57:56 What Is Your Level Of [...] Immunizations Vaccine Type Date Status Note Provider Roshan santa and Address Organization Details Recorded Time COVID-19, [...] SNOMED-CT Code Diagnosis ICD10 Code Diagnosis Note [id number] RODOLFO Fagan [facility] [place] [address] [place] [address] 07/19/2023 11:48:48 07/19/2023 12:39:36 Hyperlipidemia 02025355 E78.5 refill pravastati n 20mg daily and repeat fasting lipids in dec. Hypothyroidism 79148257 E03.9 refill levothyrox ine 50mcg daily. due for repeat TFT panel in Dec. Impaired g lucose tolerance 0973846 R73.03 6.1% a1c. stable but no longer on ozempic due to coverage issues. Long-term drug therapy 243192791 Z79.899 next labs due in dec. Body mass index 30+ - obesity 270424302 Z68.31 bmi 31 Obesity 254863443 E66.9 If insurance will authorize, start zepbound titration course to aid on weight loss but also with her prediabete s and hyperlipid emia and hypothyroi dism underlying risk factors. Pain of bi lateral knee joints 3329597278 38899 M25.561 M25.562 Trial of meloxicam 15mg daily PRN. Osteoarthr osis of the carpometacarpal joint of the thumb 15041884 M18.9 refer to Hand specialist for evaluation of painful thumb joint. 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 Repeat labs in June Impaired g lucose tolerance 1456726 R73.03 6.1% a1c. stable but no longer on ozempic due to coverage issues. Repeat A1c in June Pain of bi lateral knee joints 1529348959 66472 M25.561 M25.562 Patient has meloxicam 15mg daily PRN. Long-term drug therapy 348860599 Z79.899 Next labs are due in June Osteoarthr osis of the carpometacarpal joint of the thumb 91746346 M18.9 History noted she has seen a specialist for the thumb joint arthritis Night sweats 26064957 R6 1 For an increase in night sweats we will refer for CT of the chest without contrast for mediastina l evaluation Blood chem istry outside reference range 285932089 R79.9 Repeat CBC next month as there [...] Beach Member ID Guarantor Name 07/19/2023 1 [facility] (MEDICARE REPLACEMENT/A DVANTAGE - HMO) [id number] Palak Peterson [id number] Palak Peterson 01/24/2024 1 [facility] (MEDICARE REPLACEMENT/A DVANTAGE - HMO) [id number] Palak Peterson [id number] Palak Peterson Notes Date Note Type Note Provider Name and Address Organization Details Recorded Time 07/19/19 24 text/htm l Generic HPI TemplateReported bypatient.Notes:Prediabetes hx. was on ozempic prior but not taking now.HyperlipidemiaReported bypatient.Notes:stable on pravastatin 20mg dailyThyroidReported bypatient.Notes:stable on levothyroxine 50mcg daily. RODOLFO Fagan Attn: Accounting,[address] [facility], [place], [address], [facility] 07/24/2023 09:02:56 01/24/20 24 text/htm l Generic [...] frequent lately RODOLFO Fagan Attn: Accounting,[address] [facility], [place], [address], [facility] 02/15/2024 23:19:26 OBGyn Episode Ob Episode Information Episode Created Date Number of Fetuses Patient Bloodtype Patient rh Status Prepregnancy Weight lbs Domestic Partner Domestic Partner Phone Father Name Indoor Landscape Architect Status 02/22/20 24 1 DELETED Fetus Data First Name Last Name Admitted to NICU Weight (g) Sex Living Outcome Pediatric Complications Fetus ID Race Codes Race Delivery Type [id number] Fabrice Calculation Initial Fabrice Date Initial Exam [...]
--- OUTSIDE RECORDS SUMMARY | 2024-07-09 09:00 | XMS_ITS | Continuity of Care Document ---
Author Organization [facility] Address [address] [place] [address] Phone Care Team Providers Care Orchardist Name Role Phone Karyn Acosta Unavailable Unavailable Procedures Procedure Date Post-op Follow-up Visit Post-op Follow-up Visit Post-op Follow-up Visit Remove Cataract, Insert Lens Post-op Follow-up Visit [facility]-Professional Post-op Follow-up Visit Post-op Follow-up Visit Remove Cataract, Insert Lens Office/outpatient Visit, [facility] Advance Directives Directive Yes / No Effective Date File Name No Information Encounters Encounter Description Practice Location Reason(s) For Visit Diagnoses Date Provider Providers Copied on Encounter [facility], [address] [place] [address] [address], [place], [place], [id number], tel:[phone] [facility] No Information Oct-2 1-201 0 Karla Wahl [address], [place], [address], [place]. tel:[phone] [facility], [address] [place] [address] [address], [place], [place], [address], tel:[phone] [facility] No Information Oct-0 7-201 0 Karla Wahl [address], [place], [address], [place]. tel:[phone] [facility], [address], [place], [place], [address], [place] tel:[phone] [facility] No Information Sep-3 0-201 0 King OD Tomy. [address], [place], [address], [place]. tel:[phone] Referring Provider: Karyn Mackey, [address], [place], [place], [facility]. tel:[phone] [facility], [address], [place], [place], [address], [place] tel:[phone] [facility] No Information Sep-2 9-201 0 Karla Boss. [address], [place], [facility], [place]. tel:[phone] [facility], [address], [place], [place], [address], [place] tel:[phone] [facility] No Information Sep-1 6-201 0 Karla Boss. [address], [place], [address], [place]. tel:[phone] Referring Provider: Shala Hernandez MD, [address] [facility], [place], [address]. tel:[phone] [facility], [address], [place], [place], [address], [place] tel:[phone] [facility] No Information Aug-2 6-201 0 Karla Boss. [address], [place], [address], [place]. tel:[phone] [facility], [address], [place], [place], [address], [place] tel:[phone] [facility] No Information 9-201 0 King OD Tomy. [address], [place], [address], [place]. tel:[phone] [facility], [address] [place] [address] [address], [place], [place], [address], [place] tel:[phone] [facility] No Information 8-201 0 Karla Boss. [address] [facility] , [address], [place], [address], [place]. tel:[phone] Referring Provider: Shala Hernandez MD, [address] [place], [address]. tel:[phone] Office/outpat ient Visit, [facility], [address], [place], [place], [address], [place] tel:[phone] [facility] No Information 0-201 0 Karla Boss. [address] [facility] , [address], [place], [address], [place]. tel:[phone] Referring Provider: Shala Hernandez MD, [address] [place], [address]. tel:[phone] Family History Family Member Type Diagnosis Age At Onset No Information Payers Payer name Insurance type Covered green party ID Authoriza tion(s) No Information Social History [...]
--- OUTSIDE RECORDS SUMMARY | 2024-07-09 09:00 | XMS_ITS | Encounter Summary ---
Author Organization [facility] Address [address] [facility] [place] [address] Care Team Providers Care Hardening Machine Operator Name Role Phone Juan Nicole MD Primary Care Provider [phone] Raymundo Bolton MD Unavailable [phone] Encounter Details Date Type Department Care Team (Late st Contact Info) Description 05/01/2024 Lab Requisition [facility] - DermPath Lab [address] [facility], [place] [address] Wendy Harrison DO [address] [facility] [address] [place] [address] Social History Tobacco Use Types Packs/Day Years [...] Comments DERMATOPATHOLOGY Routine 05/01/2024 10:5 8 AM URBAN REDEVELOPMENT SPECIALIST documented in this encounter Results * DERMATOPATHOLOGY (05/01/2024 10:58 AM URBAN REDEVELOPMENT SPECIALIST) Case Report Dermatopathology Report Case: [id number] Authorizing Provider: Wendy Harrison DO Collected: 05/01/2024 10:58 AM Ordering Location: [facility] - Received: 05/01/2024 04:34 PM DermPath Lab Pathologist: Lauren Griffith MD Specimen: Skin, left superior NLF 1:03 PM URBAN REDEVELOPMENT SPECIALIST DERMATOPATHOLOGY LABORATORY Final Diagnosis Specimen A. SKIN, left superior NLF: BASAL CELL CARCINOMA, NODULAR TYPE (C44.311) (see microscopic description) 1:03 PM [facility] DERMATOPATHOLOGY LABORATORY Clinical History R/O BCC 1:03 PM [facility] DERMATOPATHOLOGY LABORATORY Gross Description Specimen [...] characteristic determined by the Dermatopathology Laboratory at [facility], directed by Dr. Linda Armijo. These tests need not be, and therefore are not, approved by the [place] Food and Drug Administration. The tests are used for clinical purposes. Billing Codes Specimen Charges Stain Charges 76361 1 1:03 PM URBAN REDEVELOPMENT SPECIALIST DERMATOPATHOLOGY LABORATORY Embedded Images 1:03 PM [facility] DERMATOPATHOLOGY LABORATORY Pathology/Cytolo gy TISSUE SPECIMEN FROM SKIN / Unknown 05/01/2024 10:58 AM URBAN REDEVELOPMENT SPECIALIST 05/01/2024 4:34 PM URBAN REDEVELOPMENT SPECIALIST Wendy Harrison DO LAB - PATHOLOGY/C YTOLOGY ORDERABLES DERMATOPATHOLOGY LABORATORY [facility] - Department of Dermatology [facility] [address] [place] [address], [address] [place] [address], [facility] [phone] documented in this encounter Visit Diagnoses Not on filedocumented in this encounter Care Teams Hardening Machine Operator Relationship Specialty Start Date End Date Juan Nicole MD PCP - General Internal Medicine 11/21/18 [place] [address] [address] Orthopedic Surgery 11/21/18 documented as of this encounter
--- OUTSIDE RECORDS SUMMARY | 2024-07-09 09:00 | XMS_ITS | Encounter Summary ---
Author Organization [facility] Address [address] [place] [address] Care Team Providers Care Cigar Roller Name Role Phone Juan Nicole MD Primary Care Provider [phone] Raymundo Bolton MD Unavailable [phone] Encounter Details Date Type Department Care Team (Late st Contact Info) Description 03/19/2023 Lab Requisition [facility] - Derm[facility] Lab [address] [facility] [place] [address] Wendy Harrison DO [address] [facility] [address] [place] [address] Social History Tobacco Use Types Packs/Day Years [...] Comments DERMATOPATHOLOGY Routine 03/19/2023 11:2 4 AM AIR ANALYSIS TECHNICIAN documented in this encounter Results * DERMATOPATHOLOGY (03/19/2023 11:24 AM AIR ANALYSIS TECHNICIAN) Case Report Dermatopathology Report Case: [id number] Authorizing Provider: Wendy Harrison DO Collected: 03/19/2023 11:24 AM Ordering Location: [facility] Received: 03/20/2023 12:31 PM Pathologist: Lauren Griffith MD Specimens: A) - Skin, right helix B) - Skin, left upper back 3:03 PM AIR ANALYSIS TECHNICIAN DERMATOPATHOLOGY LABORATORY Final Diagnosis Specimen A. SKIN, right helix: SQUAMOUS PROLIFERATION (D48.5) OVERLYING CUTANEOUS HORN (L85.8) (see microscopic description and comment) Specimen B. SKIN, left upper back: BASAL CELL CARCINOMA, SUPERFICIAL MULTIFOCAL (C44.519) 3:03 PM [facility] Clinical History A: [facility], R/O NMSC B: R/O NMSC 3:03 PM [facility] Gross Description Specimen A: Received [...] measuring 5x5x1 mm. Jar 0. 3:03 PM [facility] Microscopic Description Specimen A. SKIN, [...] cytoplasmic ratio and peripheral palisading. 3:03 PM [facility] Disclaimer An external and internal positive and negative controls are appropriate for the histochemical, immunohistochemical and immunofluorescence stain(s) in this case (if any), except where stated explicitly. The performance characteristics of the stain(s) cited in this report were developed and its performance characteristic determined by the Dermatopathology Laboratory at [facility], directed by Dr. Linda Armijo. These tests need not be, and therefore are not, approved by the [place] Food and Drug Administration. The tests are used for clinical purposes. Billing Codes Specimen Charges Stain Charges 38951 [id number] 1 1 3 3:03 PM AIR ANALYSIS TECHNICIAN DERMATOPATHOLOGY LABORATORY Embedded Images 3 3:03 PM AIR ANALYSIS TECHNICIAN DERMATOPATHOLOGY LABORATORY Pathology/Cytology TISSUE SPECIMEN FROM SKIN / Unknown 03/19/2023 11:24 AM AIR ANALYSIS TECHNICIAN 03/20/2023 12:31 PM AIR ANALYSIS TECHNICIAN Miscellaneous samples (specimen) TISSUE SPECIMEN FROM SKIN / Unknown 03/19/2023 11:24 AM AIR ANALYSIS TECHNICIAN 03/20/2023 12:31 PM AIR ANALYSIS TECHNICIAN Wendy Harrison DO LAB - PATHOLOGY/C YTOLOGY ORDERABLES DERMATOPATHOLOGY LABORATORY [facility] - Department of Dermatology [facility] Medicine [address] [place] [address], [address] [phone] documented in this encounter Visit Diagnoses Not on filedocumented in this encounter Care Teams Cigar Roller Relationship Specialty Start Date End Date Juan Nicole MD PCP - General Internal Medicine 11/21/18 [place] [id number] [place] [id number] Orthopedic Surgery 11/21/18 documented as of this encounter
--- OUTSIDE RECORDS SUMMARY | 2024-07-09 09:01 | XMS_ITS | Data Portability ---
Author Organization [facility], Main Office Address [address] [place] [address] Care Team Providers Care Buggy Man Name Role Phone MELL CHIN Primary Care Provider MELL CHIN Referring Provider Assessment No assessment recorded. Plan of Treatment Reminders Order Date Submit Date Provider Last Modified By Organization Details Last Modified Time Details Appointments None recorded. Lab HbA1c (hemoglobin A1c), blood [address] (Lab), [address] [place] [address], [address], 4 11:48:28 CBC w/ auto diff [address] (Lab), [address] [place] [address], [address], 4 11:47:01 BMP, serum or plasma [address] (Lab), [address] [place] [address], [address], 4 11:47:16 hepatic function panel, serum [address] (Lab), [address] [place] [address], [address], 4 11:47:27 lipid panel, serum [address] (Lab), [address] [place] [address], [address], 4 11:48:19 T4, free, serum [address] (Lab), [address] [place] [address] 162, [place], [address], 4 11:47:43 TSH, serum or plasma [address] (Lab), [address] [place] [address] 162, [place], [address], 4 11:47:58 T3, free, serum or plasma [address] (Lab), [address] [place] [address] 162, [place], [address], 4 11:48:09 HbA1c (hemoglobin A1c), blood [email or web address] [place] [address] (Lab), [address] [place] [address], [place], [address], 3 10:53:03 CBC w/ auto diff 2022 [email or web address] [place] [address] (Lab), [address] [place] [address], [place], [address], 3 10:52:08 BMP, serum or plasma 2022 [email or web address] [place] [address] (Lab), [address] [place] [address], [place], [address], 3 10:52:27 hepatic function panel, serum 2022 [email or web address] [place] [address] (Lab), [address] [place] [address], [address], 3 10:53:18 lipid panel, serum 2022 023 [facility] [address] [place] [address] 162, [place], [address], 3 10:43:39 noninvasive colorectal cancer DNA + occult blood screening, QL, stool 2022 023 [place] [facility] (Cologuard Orders Only), [address], [address], [place], [address], 3 04:30:51 T4, free, serum [address] (Lab), [address] [facility] [address], [address], 3 10:52:46 TSH, serum or plasma [address] (Lab), [facility] [address], [address], 3 10:52:52 T3, free, serum or plasma 2022 023 [facility] (Lab), [facility] [address], [place], [address], 3 10:47:30 Referral None recorded. Procedures diagnostic colonoscopy (PROC) - no referral required 2022 023 [place] Arthur Canela MD, [address] [facility] [address], [address], [place], [address], 3 15:48:19 Surgeries None recorded. Imaging None recorded. Medication Orders Ozempic 1 mg/dose (4 mg/3 mL) subcutaneou s pen injector 2022 023 [place] [id number], [address], [place], [place], [id number], 3 12:16:49 Wegovy 0.25 mg/0.5 mL subcutaneou s pen injector 2022 023 [email or web address] [facility], [address], [address], [place], [place], [phone], 12:16:34 Patient TargetsNo targets recorded. Patient InstructionsNo instructions recorded. Reason for Referral None Reported. Results Created Date Observation Date Name Description Value Unit Range Abnormal Flag Note LastModifiedBy Organization Detail LastModifiedTime 01/05/2001/04/2021 urina lysis , dipst ick Leukocytes (reference range: negative keyla/ l) Small Not Available [facility] [place] [address], [place], [address], 01/04/2021 12:36:18 01/05/2001/04/2021 urina lysis , dipst ick Nitrite (reference rage: negative mg/dl) negati ve Not Available [facility] [place] [address], [place], [address], 01/04/2021 12:36:18 01/05/2001/04/2021 urina lysis , dipst ick Urobilinogen (reference range: 0.2-1 mg/dl) 0.2 Not Available [facility] [place] [address], [place], [address], 01/04/2021 12:36:18 01/05/2001/04/2021 urina lysis , dipst ick Protein (reference range: negative mg/dl) Negati ve Not Available [facility] [place] [address], [place], [address], 01/04/2021 12:36:18 01/05/2001/04/2021 urina lysis , dipst ick pH (reference range: 5-7) 5.5 Not Available [facility] [place] [address], [place], [address], 01/04/2021 12:36:18 01/05/2001/04/2021 urina lysis , dipst ick Blood (reference range: negative Sushant/ l) Hemoly zed: Trace Not Available [facility] [place] [address], [place], [address], 01/04/2021 12:36:18 01/05/2001/04/2021 urina lysis , dipst ick Specific [place] (reference range: 1.005-1.030) 1.025 Not Available [facility] [place] [address], [place], [address], 01/04/2021 12:36:18 01/05/2001/04/2021 urina lysis , dipst ick Ketone (reference range: negative mg/dl) Negati ve Not Available [facility] [place] [address], [place], [address], 01/04/2021 12:36:18 01/05/20 21 01/04/2021 urina lysis , dipst ick Bilirubin (reference range: negative mg/dl) Negati ve Not Available [facility] [place] [address], [place], [address], 01/04/2021 12:36:18 01/05/20 21 01/04/2021 urina lysis , dipst ick Glucose (reference range: negative mg/dl) Negati ve Not Available [facility] [place] [address], [place], [address], 01/04/2021 12:36:18 01/05/20 21 01/04/2021 urina lysis , dipst ick Appearance Cloudy Not Available [facility] [place] [address], [place], [address], 01/04/2021 12:36:18 01/05/20 21 01/04/2021 urina lysis , dipst ick Color Dark Yellow Not Available [facility] [place] [address], [place], [address], 01/04/2021 12:36:18 12/26/19 23 12/25/2022 COLOG UARD [...] is negat jesse. TEST DESCR IPTIO N: [place] site algor ithmi c khloe sis of [...] years or older , who are at [facility] for color ectal cance r (CRC) . Colog uard has been appro kevin for use by the [place]. FDA. The perfo rmanc e of Colog uard was estab lishe d in a cross secti onal study of [facility] adult s aged 50-84 . Colog uard [...] of ,00 0 indiv idual s at [facility] risk for color ectal cance r who [...] at www.c ologu loyd.c om. Not Available [facility] (Cologuard Orders Only) [address], [place], [address], 12/30/2022 04:30:51 03/23/20 21 03/22/2021 XR, abdom en No observ ation record ed. [id number] [facility] (Imaging) [facility] [address], [place], [address], 06/14/2022 03:34:14 07/08/19 22 07/01/2021 XR, abdom en No observ ation record ed. [id number] Not Available 06/14/2022 03:34:14 07/09/19 22 07/07/2021 XR, thumb No observ ation record ed. MIGRATION. [facility] ([facility]) [address] [place] [address] Rte [facility], [place], [address], 06/14/2022 03:34:14 07/14/19 22 07/07/2021 XR, abdom en No observ ation record ed. [id number] Not Available 06/14/2022 03:34:14 08/30/19 22 08/25/2021 imagi ng/di agnos tic resul t No observ ation record ed. MIGRATION. [address], [place], [address], 06/14/2022 03:34:14 09/03/19 22 08/08/2021 XR, abdom en No observ ation record ed. MIGRATION. [address] [facility], [place], [address], 06/14/2022 03:34:14 01/17/20 23 07/25/2022 MAMMO , scree claribel, digit al, bilat eral No observ ation record ed. [id number] [facility] [address], [place], [address], 01/17/2023 15:38:00 02/20/20 23 02/19/2023 diagn ostic colon oscop y (PROC ) No observ ation record ed. [email or web address] Arthur Canela MD [address] [address] [address], [place], [address], 04/20/2023 19:49:06 Result Notes None recorded. Problems Name Problem SNOMED Code Status Onset Date Resolution Date Notes Provider Name and Address Organization Details Recorded Time Colorectal cancer detected by DNA-based stool screening 088312298 Active 2022 RODOLFO Fagan [address] [place] [address], [address], [place], [address] , [facility] 3 12:15:15 Cervical radiculitis 33792000 Active Not Available [facility] 3 03:17:14 Body mass index 30+ - obesity 119820897 Active Not Available [facility] 3 03:17:14 Thumb injury 155529503 Active 2021 Not Available [facility] 3 03:17:14 Low back pain 789958884 Active 2021 Not Available [facility] 3 03:17:14 Pain in toe 486431369 Active Not Available [facility] 3 03:17:15 Pain in left arm 303383394 Active Not Available [facility] 3 03:17:15 Hypothyroidis m 15266392 Active 2021 Not Available [facility] 3 03:17:15 Hyperlipidemi a 14575354 Active Not Available [facility] 3 03:17:15 Urinary tract infectious disease 41290285 Active Not Available [facility] 3 03:17:15 Degeneration of cervical intervertebra l disc 87476801 Active Not Available [facility] 3 03:17:15 Hyperglycemia 15199087 Active Not Available [facility] 3 03:17:15 Fatigue 26442408 Active Not Available [facility] 3 03:17:15 Impaired glucose tolerance 2806364 Active Not Available [facility] 3 03:17:15 Kidney stone 14348622 Active 2021 Not Available [facility] 3 03:17:16 Problem Notes None recorded. Procedures Surgical History Date Name Laterality Status Provider Name and Address Organization Details Recorded Time 08/26/19 22 cystoscopy completed Not Available [facility] 3 03:04:38 07/02/19 22 Lithotripsy completed Not Available [facility] 06/15/19 23 03:04:38 03/26/20 20 Most Recent Bone Density completed Not Available [facility] 06/14/2022 03:04:29 04/16/19 13 other completed Not Available [facility] 03:04:38 04/16/19 12 Eye Surgery completed Not Available [facility] 06/15/19 23 03:04:38 04/16/19 10 Xcapsl ctrc rmvl cplx wo ecp completed Not Available [facility] 06/14/2022 03:04:38 04/16/19 10 repair of retina for retinal detachment completed Not Available [facility] 06/14/2022 03:04:38 04/16/19 06 oophorectomy completed Not Available [facility] 023 03:04:38 Imaging Results Imaging Date Name Status LastModified by Organiz ation Details LastModified Time 07/07/2021 XR, abdomen completed [id number] 3 0026 Information not available 06/14/2022 03:34:14 08/25/2021 imaging/diagnos tic result completed MIGRATION.[id number] [address] [place] [address], [address], 06/14/2022 03:34:14 08/08/2021 XR, abdomen completed MIGRATION.[address], [address], 06/14/2022 03:34:14 03/22/2021 XR, abdomen completed MIGRATION.[id number] 3 0026 [facility] (Imaging) [address] [place] [address], [address], 06/14/2022 03:34:14 07/07/2021 XR, thumb completed MIGRATION.[id number] 3 0026 [facility] (Imaging) [address] [place] [address], [address], 06/14/2022 03:34:14 07/01/2021 XR, abdomen completed MIGRATION.[id number] 3 0026 Information not available 06/14/2022 03:34:14 07/25/2022 MAMMO, screening, digital, bilateral completed [email or web address] [address], [address], 01/17/2023 15:38:00 02/19/2023 diagnostic colonoscopy (PROC) completed [email or web address] Arthur Canela MD [address] [facility] [address], [place], [address], 04/20/2023 19:49:06 Procedure Notes None recorded. Medical [...] completed Not Available Not Available Not Available Greer 3 takes daily 2019 active Not Available Not Available Not Avai lable B12 takes daily 07/05 completed Not Available Not Available Not Available Picato 0.05 % topical gel 11/12 completed Not Available Not Available Not Available Myrbetriq 25 mg tablet,ext ended release TAKE 1 TABLET BY MOUTH DAILY 07/05 completed Not Available Not Available Not Available Flucelvax Quad [id number] (PF) 60 mcg (15 mcg x 4)/0.5 [...] 3 172.72 cm 96.9 [degF] 31.9 kg/m2 30562.4 g 84 /min 97 % 97 % 124 mm[Hg] 82 mm[Hg] AD[facility] [employer] [facility] 3 11:44:49 Date Recorded Body height Body mass index (BMI) Body weight Body temperature Heart rate Oxygen saturation Oxygen saturation in Arterial blood by Pulse oximetry Systolic blood pressure Diastolic blood pressure Provider Name and Address Organization Details Last Updated DateTime 3 172.72 cm 30.4 kg/m2 45773.4 7 g 97.3 [degF] 84 /min 96 % 96 % 122 mm[Hg] 80 mm[Hg] ADOLPH [place] [facility] [place] [facility] [employer] [facility] 3 11:41:41 Date Recorded Body mass index (BMI) Body height Oxygen saturation Oxygen saturation in Arterial blood by Pulse oximetry Heart rate Body temperature Body weight Systolic blood pressure Diastolic blood pressure Provider Name and Address Organization Details Last Updated DateTime 1 32.2 kg/m2 172.72 cm 95 % 95 % 84 /min 96.1 [degF] 55609.1 5 g 130 mm[Hg] 90 mm[Hg] Not Available [facility] 3 03:10:39 Date Recorded Body mass index (BMI) Body height Oxygen saturation Oxygen saturation in Arterial blood by Pulse oximetry Heart rate Body temperature Body weight Systolic blood pressure Diastolic blood pressure Provider Name and Address Organization Details Last Updated DateTime 2 31.6 kg/m2 172.72 cm 96 % 96 % 92 /min 97.2 [degF] 56036.2 1 g 126 mm[Hg] 80 mm[Hg] Not Available [facility] 3 03:10:39 Date Recorded Body height Heart rate Respiratory rate Body temperature Systolic blood pressure Diastolic blood pressure Systolic blood pressure Diastolic blood pressure Provider Name and Address Organization Details Last Updated DateTime 2 172.72 cm 83 /min 16 /min 96.6 [degF] 158 mm[Hg] 100 mm[Hg] 130 mm[Hg] 90 mm[Hg] Not Available [facility] 3 03:10:40 Social History Question Answer Notes LastModified by Organizat ion Details LastModified Time Tobacco Smoking Status Former Smoker Not Available [facility] 06/14/2022 02:46:24 Do You Have An Advance Directive? No [id number] Information not available 06/14/2022 What Is Your Level Of Alcohol Consumption? Moderate MIGRATION.685769 5041 Information not available 06/14/2022 Do You Wear A Helmet When Biking? No MIGRATION.738417 5282 Information not available 06/14/2022 What Is Your Level Of Caffeine Consumption? Moderate MIGRATION.170606 8870 Information not available 06/14/2022 How Much Tobacco Do You Chew? None MIGRATION.649859 8808 Information not available 06/14/2022 In The 14 Days Before Symptom Onset, Have You Had Close Contact With A Laboratory-confir med COVID-19 While That Case Was Ill? No MIGRATION.246858 7646 Information not available 06/14/2022 In The 14 Days Before Symptom Onset, Have You Had Close Contact With A Person Who Is Under Investigation For COVID-19 While That Person Was Ill? No MIGRATION.249703 8636 Information not available 06/14/2022 Are You Currently Employed? No [email or web address] Information not available 01/08/2023 What Type Of Diet Are You Following? REGULAR MIGRATION.730262 1843 Information not available 06/14/2022 Which Illicit Or Recreational Drugs Have You Used? None MIGRATION.948743 0066 Information not available 06/14/2022 Do You Or Have You Ever Used E-cigarettes Or Vape? Never Used Electronic Cigarettes MIGRATION.621693 0538 Information not available 06/14/2022 What Is The Highest Grade Or Level Of School You Have Completed Or The Highest Degree You Have Received? [id number] MIGRATION.848261 6969 Information not available 06/14/2022 What Is Your Occupation? Retired. MIGRATION.274868 5605 Information not available 06/14/2022 Have There Been Any Changes To Your Family Or Social Situation? No MIGRATION.773249 8338 Information not available 06/14/2022 Are There Any Guns Present In Your Home? No MIGRATION.960209 6661 Information not available 06/14/2022 Do You Use Insect Repellent Routinely? No MIGRATION.266590 3033 Information not available 06/14/2022 Do You Have A Medical Power Of Rfid Analyst? No [email or web address] Information not available 01/08/2023 Have You Ever Been Counseled For Unhealthy Alcohol Use? No MIGRATION.472475 4547 Information not available 06/14/2022 Do You Have Any Pets? No MIGRATION.360336 0832 Information not available 06/14/2022 What Is Your Relationship Status? MIGRATION.410228 4858 Information not available 06/14/2022 Do You Use Your Seat Belt Or Car Seat Routinely? Yes MIGRATION.925896 3791 Information not available 06/14/2022 Do You Have Smoke And Carbon Monoxide Detectors In Your Home? Yes MIGRATION.307138 1632 Information not available 06/14/2022 Are You Passively Exposed To Smoke? No MIGRATION.227317 4301 Information not available 06/14/2022 Do You Or Have You Ever Used Smokeless Tobacco? Never Used Smokeless Tobacco MIGRATION.739429 2501 Information not available 06/14/2022 Are There Any Smokers In Your House? No MIGRATION.572818 7179 Information not available 06/14/2022 How Much Tobacco Do You Smoke? 0.5 PPD MIGRATION.169286 4544 Information not available 06/14/2022 Do You Feel Stressed (tense, Restless, Nervous, Or Anxious, Or Unable To Sleep At Night)? [id number] MIGRATION.048406 7276 Information not available 06/14/2022 Do You Use Any Illicit Or Recreational Drugs? No MIGRATION.733936 1397 Information not available 06/14/2022 Do You Use Sunscreen Routinely? Yes MIGRATION.511399 1904 Information not available 06/14/2022 Have You Recently Traveled Abroad? No MIGRATION.290610 0082 Information not available 06/14/2022 Do You Have Any Dietary Restrictions? No MIGRATION.021095 9631 Information not available 06/14/2022 Do You Or Have You Ever Used Any Other Forms Of Tobacco Or Nicotine? No MIGRATION.673417 7163 Information not available 06/14/2022 Sex: Unknown Functional Status Question Answer Note LastModified by Organizat ion Details LastModified Time Do you have transportation difficulties? No MIGRATION.5692884 026 Information not available 06/14/2022 Are you able to walk? YESWOREST MIGRATION.0904249 026 Information not available 06/14/2022 Do you have difficulty doing errands alone? No MIGRATION.7068970 026 Information not available 06/14/2022 Are you able to care for yourself? Yes MIGRATION.3479047 026 Information not available 06/14/2022 Do you have difficulty dressing or bathing? No MIGRATION.3995102 026 Information not available 06/14/2022 What is your exercise level? Moderate MIGRATION.4254966 026 Information not available 06/14/2022 Mental Status None recorded. Family History Relationship Description Onset Age of this Age Resolved Age Notes LastModified by Organization Details LastModified Time Father No current problems or disability [id number].[id number] Not available 06/14/2022 03:04:43 Father General health good MIGRATION.912 [id number] Not available 06/14/2022 03:04:43 Mother No current problems or disability MIGRATION.472 [id number] Not available 06/14/2022 03:04:43 Medical History Condition [...] ARTERY DISEASE (CAD) N ADDICTION CONCERNS N Impotence N ENDOMETRIOSIS N USE OF BLOOD THINNERS N SKIN [...] APNEA N CHICKENPOX N INFECTIOUS DISEASE N PROSTATE N HEART ARRHYTHMIA N INSOMNIA N HIGH CHOLESTEROL / HYPERLIPIDEMIA N HYPERTHYROIDISM N EYE PROBLEMS N NEUROLOGICAL PROBLEMS N EDEMA N CHRONIC PAIN SYNDROME N HYPOTHYROIDISM N CONSTIPATION N CAROTID BLOCKAGE N BACK / NECK PROBLEMS Y HAVE YOU BEEN HOSPITALIZED OR SEEN IN [facility] IN THE PAST YEAR ? N [...] Brain Problems N HERPES N DEMENTIA N SEIZURES/EPILEPSY N HEADACHES/MIGRAINES N VASCULAR DISEASE N PACEMAKER N Blood Disorder N DIZZINESS N KIDNEY DISEASE N HEART DISEASE/HEART PROBLEMS N MULTIPLE SCLEROSIS N CARDIAC ARRHYTHMIA N CANCER: SPECIFY N ANESTHESIA COMPLICATIONS N Gall Stones N ATRIAL FIBRILLATION N PULMONARY EMBOLISM N AUTOIMMUNE DISEASE N Gynecological History Statement/Question Response Menses Monthly N Date of Last Mammogram 03/26/2020 Current Control Method Menopause Most Recent Bone Density 03/26/2020 Obstetrics History GPAL:G 0 P 0 0 0 0 Immunizations Vaccine Type Date Status Note Provider Nam e and Address Organization Details Recorded Time Influenza, split virus, quadrivalent, preservative 9 completed Not Available [facility] 06/14/2022 03:32:54 Influenza, split virus, quadrivalent, preservative 8 completed Not Available [facility] 06/14/2022 03:32:54 COVID-19, mRNA, LNP-S, PF, 30 mcg/0.3 mL dose 1 completed Not Available [facility] 06/14/2022 03:32:54 zoster live 4 completed Not Available [facility] 06/14/2022 03:32:54 Past Encounters Encounter ID Performer Location Encounter Start Date Encounter Closed Date Diagnosis/Indication Diagnosis SNOMED-CT Code Diagnosis ICD10 Code Diagnosis Note [id number] [facility] [place] [address] [place] [address] 06/29/2020 00:00:00 07/06/2020 13:54:00 [id number] [facility] [place] [address] [place] [address] 01/04/2021 00:00:00 01/12/2021 11:18:37 [id number] [facility] [place] [address] [place] [address] 07/05/2021 00:00:00 07/12/2021 23:45:56 [id number] [facility] [place] [address] [place] [address] 01/10/2022 00:00:00 01/10/2022 13:53:52 [id number] RODOLFO Fagan [facility] Internal [facility] [address] [place] [address] 07/11/2022 11:31:57 07/11/2022 12:21:18 Impaired glucose tolerance 7887481 R73.03 6% a1c. repeat lab in dec. Hyperlipidemia 69000173 E78.5 on pravastati n 20mg daily. stable labs. repeat in dec. Hypothyroidism 54621544 E03.9 on supplement . stable. repeat labs due in dec. Body mass index 30+ - obesity 410669033 Z68.31 start wegovy if insurance with cover Long-term drug therapy 082062166 Z79.899 routine labs due in dec Screening for malignant neoplasm of colon 604829207 Z12.11 pt will be due for cologuard screening. [id number] RODOLFO Fagan [facility] Internal [facility] [address] [place] [address] 01/09/2023 11:19:56 01/09/2023 12:25:27 Impaired glucose tolerance 6026528 R73.03 5.7% a1c. . boost to ozempic 1mg weekly. HOLD metformin at this time. she feels she has GI issues from it. Hyperlipidemia 14844235 E78.5 on pravastati n 20mg daily. stable labs. repeat fasting in June Hypothyroidism 92574490 E03.9 on supplement . stable. repeat labs due in June Body mass index 30+ - obesity 402358126 Z68.31 noted. stable Long-term drug therapy 913166192 Z79.899 next labs due in June Colorectal cancer detected by DNA-based stool screening 137896629 R19.5 pt agrees to colonoscop y now with her positive cologuard screening. Health Concerns Section Related Observation LastModified by Organization Detai ls LastModified Time None Recorded Concern Status LastModified by Organization Details LastModified Time None Recorded Advance Directives Directive N: Payers Encounter Date Sequence Insurance Name Policy Number Policy [place] Covered Member ID [place] Member ID Guarantor Name 07/11/2022 1 [facility] MEDICARE SOLUTIONS - MEDICARE COMPLETE (MEDICARE REPLACEMENT HMO) [id number] [address] Vaca Nicholas [id number] Palak Nicholas 01/09/2023 1 [facility] MEDICARE SOLUTIONS - MEDICARE COMPLETE (MEDICARE REPLACEMENT HMO) [id number] Palak Handariela [id number] Palak Nicholas Notes Date Note Type Note [...] skin changes; no hair changes Not Available [facility] [employer] [facility] [employer] 01/12/2021 11:18:37 07/06/19 22 text/ht ml Generic [...] tabs; taking medication as directed Not Available [place] [employer] [facility] 07/12/2021 23:45:56 01/11/20 22 text/ht ml [...] difficulties; no skin changes;hair changes Not Available [employer] 01/10/2022 13:53:52 07/12/19 23 text/ht ml HyperlipidemiaReported [...] on metformin 6% a1c RODOLFO Fagan [address] [facility] [facility] [address], [place], [address], [facility] [employer] 07/11/2022 20:59:02 01/10/20 23 text/ht ml HyperlipidemiaReported [...] changes 6 mo f/u RODOLFO Fagan [address] [facility] [facility] [address], [place], [address], [facility] 01/09/2023 18:11:05 OBGyn Episode No OBEpisode recorded.
--- OUTSIDE RECORDS SUMMARY | 2024-07-09 09:01 | XMS_ITS | Clinical Summary ---
Author Organization [facility] Address [address] [place] [address] Care Team Providers Care Utilization Manager Name Role Phone Juan Nicole MD Primary Care Provider [phone] Raymundo Bolton MD Unavailable [phone] Source Comments [facility],non-owned Affiliates and Associated Physician Practices is amultiple site organization consisting of ambulatory clinics and hospital sitesin [place], [place], [place] and [place]. This disclosure is being madepursuant to the Care Everywhere program and may not contain all information available regarding this patient. Last updated 18.[facility] [employer] Allergies No known active allergies Medications * [...] Department Care Team Description 05/01/2024 Lab Requisition [facility] - DermPath Lab [address] [facility] [place] [address] Wendy Harrison DO from Last 3 Months [...] Comments DERMATOPATHOLOGY Routine 05/01/2024 10:5 8 AM WATER SANDER from Last 3 Months Results * DERMATOPATHOLOGY (05/01/2024 10:58 AM WATER SANDER) Case Report Dermatopathology Report Case: [id number] Authorizing Provider: Wendy Harrison DO Collected: 05/01/2024 10:58 AM Ordering Location: [facility] - Received: 05/01/2024 04:34 PM DermPath Lab Pathologist: Lauren Griffith MD Specimen: Skin, left superior NLF 1:03 PM [facility] DERMATOPATHOLOGY LABORATORY Final Diagnosis Specimen A. SKIN, left superior NLF: BASAL CELL CARCINOMA, NODULAR TYPE (C44.311) (see microscopic description) 1:03 PM [facility] DERMATOPATHOLOGY LABORATORY Clinical History R/O BCC 1:03 PM [facility] DERMATOPATHOLOGY LABORATORY Gross Description Specimen A: Received is one formalin filled container labeled with the patient's name and designated left superior NLF. The specimen consists of a shave biopsy measuring 2x2x1 mm. Jar 0. 1:03 PM [facility] DERMATOPATHOLOGY LABORATORY Microscopic Description Specimen A. SKIN, left superior NLF: Within the dermis there are aggregates of basaloid cells with a high nuclear to cytoplasmic ratio and peripheral palisading. Additional deeper sections were obtained and reviewed. 1:03 PM [facility] DERMATOPATHOLOGY LABORATORY Disclaimer An external and [...] purposes. Billing Codes Specimen Charges Stain Charges 78373 1 01/20/202 5 1:03 PM [facility] DERMATOPATHOLOGY LABORATORY Embedded Images 5 1:03 PM [facility] DERMATOPATHOLOGY LABORATORY Pathology/Cytolo gy TISSUE SPECIMEN FROM SKIN / Unknown 05/01/2024 10:58 AM WATER SANDER 05/01/2024 4:34 PM WATER SANDER Wendy Harrison DO LAB - PATHOLOGY/C YTOLOGY ORDERABLES DERMATOPATHOLOGY LABORATORY [facility] - Department of Dermatology [address], [address] [phone] from Last 3 Months Care Teams Utilization Manager Relationship Specialty Start Date End Date Juan Nicole MD PCP - General Internal Medicine 11/21/18 [place] [address] [place] [address] [place] [address] Orthopedic Surgery 11/21/18
--- OUTSIDE RECORDS SUMMARY | 2024-07-09 09:01 | XMS_ITS | Clinical Summary ---
Author Organization [facility] Address [address] [place] [address] Care Team Providers Care Concrete Buildings Assembler Name Role Phone Unavailable Primary Care Provider [...]
--- OUTSIDE RECORDS SUMMARY | 2024-07-09 09:01 | XMS_ITS | Encounter Summary ---
Author Organization [facility] Address [address] [facility] [place] [address] Care Team Providers Care Pattern Illustrator Name Role Phone Juan Nicole MD Primary Care Provider [phone] Raymundo Bolton MD Unavailable [phone] Encounter Details Date Type Department Care Team (Late st Contact Info) Description 08/27/2019 Lab Requisition [facility] DermPath Lab [address] [facility] [place] [address] Cesilia Gomez MD [address] [facility] [address] [place] [address] Social History Tobacco Use Types Packs/Day Years [...] AM CDT) Case Report Dermatopathology Report Case: [id number] Authorizing Provider: Cesilia Gomez MD Collected: 08/26/2019 12:00 AM Ordering Location: [facility] DermPath Lab Received: 08/27/2019 06:44 AM Pathologist: Lauren Griffith MD Specimen: Skin, left upper eyelid 0 12:43 PM CDT DERMATOPATHOLOGY LABORATORY Clinical History R/O SK, irritated. 0 12:43 PM CDT DERMATOPATHOLOGY LABORATORY Gross Description Specimen A: Received is one formalin filled container labeled with the patient's name and designated left upper eyelid. The specimen consists of a shave measuring [id number]. Jar 0. [facility] Dermatopathology Laboratory performed the technical [...] characteristic determined by the Dermatopathology Laboratory at [facility], directed by Dr. Linda Armijo. These tests need not be, and therefore are not, approved by the [place] Food and Drug Administration. The tests are used for clinical purposes. 0 12:43 PM CDT DERMATOPATHOLOGY LABORATORY Pathology/Cytolog y TISSUE SPECIMEN FROM SKIN / Unknown 08/26/2019 08/27/2019 6:44 AM CDT Cesilia Gomez MD LAB - PATHOLOGY/CYT OLOGY ORDERABLES DERMATOPATHOLOGY LABORATORY [facility] - Department of Dermatology [address] [place] [address], 5th Floor Lab [address] [phone] documented in this encounter Visit Diagnoses Not on filedocumented in this encounter Care Teams Pattern Illustrator Relationship Specialty Start Date End Date Juan Nicole MD PCP - General Internal Medicine 11/21/18 [place] [address] [place] [address] [place] [address] Orthopedic Surgery 11/21/18 documented as of this encounter
--- NOTE | 2024-07-09 09:02 | ECG_ITS ---
Test Date: 2024-07-09 09:26:13 Measurements Intervals [place] Rate: 65 P: 38 IN: 168 QRS: -41 QRSD: 101 T: 70 QT: 412 QTc: 430 Interpretive Statements SINUS RHYTHM LEFT AXIS DEVIATION [QRS AXIS < -30] INCOMPLETE RIGHT BUNDLE BRANCH BLOCK [90+ ms QRS DURATION, TERMINAL R IN V1/V2, 40+ ms S IN I/aVL/V4/V5/V6] No previous ECG available for comparison Electronically Signed On 07-09-2024 12:59:48 CDT by Samira Fernández M.D.
[2024-07-09 10:15] LABS: Hematocrit 42.7 % (37.0-47.0); Hemoglobin 13.6 g/dL (12.0-15.0)
[2024-07-09 10:26] LABS: Albumin Level 4.3 g/dL (3.5-5.1); Estimated Glomerular Filt Rate > 60; Glucose 120 mg/dL (65-110)
[2024-07-09 10:45] LABS: Hemoglobin A1C 6.1 % (<5.7)
== END 2024-07-09 08:38 | disposition home or self-care (01) ==
LOC: ANHIMG 08:40
PROVIDERS: PCP Physician Assistant; Visit Provider Orthopaedic Surgery
DX: Z01.818 Encounter for other preprocedural examination (principal); M17.12 Unilateral primary osteoarthritis, left knee; M25.462 Effusion, left knee; R94.31 Abnormal electrocardiogram [ECG] [EKG]; R73.03 Prediabetes; N28.9 Disorder of kidney and ureter, unspecified; E78.5 Hyperlipidemia, unspecified
CPT/HCPCS: 36415; 73700; 82040; 82565; 82947; 83036; 85014; 85018; 93005

== ENCOUNTER 2024-07-10 15:58 | Outpatient (CLI) | payer MEDICARE, SELFPAY ==
--- NOTE | ~2024-07-10 | CT_ITS ---
EXAMINATION: CT abdomen pelvis wo con DATE: 07/10/2024 16:14 INDICATION: Bilateral kidney stones TECHNIQUE: Computed tomography (CT) of the abdomen and pelvis was performed without intravenous contr ast. Automated exposure control and iterative reconstruction technique were employed. The dose-length product was 456.08 mGy-cm. COMPARISON: 08/18/2021 FINDINGS: Mild reticular opacities at the periphery of the bilateral lower lungs more prominent on the right wi th appearance favoring atelectasis over mild pulmonary edema or pneumonia. Heart size is normal. No p ericardial or pleural effusion. Calcified right hilar lymph nodes and a couple hepatic and splenic ca lcifications consistent with old granulomatous disease. Diffuse hepatic steatosis. Gallbladder, pancr eas and bilateral adrenal glands are normal. Bilateral nephrolithiasis. This includes a 4 mm stone at the right ureterovesicular junction without hydronephrosis as well as stones in the right kidney calli suring up to 3-4 mm and 10 stones in the left kidney measuring up to 11 mm. There are few scattered c olonic diverticula most prominent along the sigmoid colon without adjacent inflammatory stranding to suggest diverticulitis. Small bowel and appendix are normal. Ovaries are not visualized and there are suture lines along the left and right sides of the normal uterus which suggests prior bilateral salp ingo-oophorectomies. Aside from a stone at the right ureterovesicular junction the decompressed bladd er is otherwise unremarkable. No free intraperitoneal gas or fluid. No pathologically enlarged abdomi nal or pelvic lymphadenopathy. Mild lumbar levocurvature with moderate to severe spondylosis. IMPRESSION: 1. Bilateral nephrolithiasis with 4 mm stone at the right ureterovesicular junction without right hyd roureteronephrosis. 2. Diffuse hepatic steatosis. Reviewed, dictated and finalized at location B. IMPRESSION: 1. Bilateral nephrolithiasis with 4 mm stone at the right ureterovesicular junc tion without right hydroureteronephrosis. 2. Diffuse hepatic steatosis.
--- NOTE | ~2024-07-10 | XR_ITS ---
XR abdomen/kub 1V Ordering provider: Jovana Cavanaugh, CHIEF DRAFTER History: . bi kidney stones . Comparison: September 06, 2022 FINDINGS: BOWEL: Grossly distended stomach with gases. Nonobstructive bowel gas pattern. ORGANOMEGALY: None. SIGNIFICANT PATHOLOGIC CALCIFICATIONS: Fecal material is overlapping both kidneys with highly suggest nabor bilateral kidney stones. OTHER: No free air is seen under the diaphragm. Degenerative changes of the spine. IMPRESSION: NO ACUTE ABDOMINAL FINDINGS. Distended stomach with gases. Highly suggestive bilateral kidney stones. Reviewed, dictated and finalized at location A.
--- OUTSIDE RECORDS SUMMARY | 2024-07-10 16:24 | XMS_ITS | Encounter Summary ---
Author Organization [facility] Address [address] [facility] [place] [address] Care Team Providers Care Production Drilling Machine Operator Name Role Phone Juan Nicole MD Primary Care Provider [phone] Raymundo Bolton MD Unavailable [phone] Encounter Details Date Type Department Care Team (Late st Contact Info) Description 03/19/2023 Lab Requisition [facility] - DermPath Lab [address] [facility] [place] [phone] Wendy Harrison DO [address] [facility] [address] [place] [address] Social History Tobacco Use Types Packs/Day Years [...] Comments DERMATOPATHOLOGY Routine 03/19/2023 11:2 4 AM CATALOG LIBRARIAN documented in this encounter Results * DERMATOPATHOLOGY (03/19/2023 11:24 AM CATALOG LIBRARIAN) Case Report Dermatopathology Report Case: [id number] Authorizing Provider: Wendy Harrison DO Collected: 03/19/2023 11:24 AM Ordering Location: [facility] DermPath Lab Received: 03/20/2023 12:31 PM Pathologist: Lauren Griffith MD Specimens: A) - Skin, right helix B) - Skin, left upper back 3:03 PM [facility]IAN DERMATOPATHOLOGY LABORATORY Final Diagnosis Specimen A. SKIN, right helix: SQUAMOUS PROLIFERATION (D48.5) OVERLYING CUTANEOUS HORN (L85.8) (see microscopic description and comment) Specimen B. SKIN, left upper back: BASAL CELL CARCINOMA, SUPERFICIAL MULTIFOCAL (C44.519) 3:03 PM [facility] DERMATOPATHOLOGY LABORATORY Clinical History A: CNH, R/O NMSC B: R/O NMSC 3:03 PM [facility] DERMATOPATHOLOGY [...] measuring 5x5x1 mm. Jar 0. 3:03 PM [facility] DERMATOPATHOLOGY [...] cytoplasmic ratio and peripheral palisading. 3:03 PM [facility] DERMATOPATHOLOGY LABORATORY Disclaimer An external and internal positive and negative controls are appropriate for the histochemical, immunohistochemical and immunofluorescence stain(s) in this case (if any), except where stated explicitly. The performance characteristics of the stain(s) cited in this report were developed and its performance characteristic determined by the Dermatopathology Laboratory at [facility], directed by Dr. Linda Armijo. These tests need not be, and therefore are not, approved by the [place] Food and Drug Administration. The tests are used for clinical purposes. Billing Codes Specimen Charges Stain Charges 34999 46107 1 1 3 3:03 PM CATALOG LIBRARIAN DERMATOPATHOLOGY LABORATORY Embedded Images 3 3:03 PM [facility] DERMATOPATHOLOGY LABORATORY Pathology/Cytology TISSUE SPECIMEN FROM SKIN / Unknown 03/19/2023 11:24 AM CATALOG LIBRARIAN 03/20/2023 12:31 PM CATALOG LIBRARIAN Miscellaneous samples (specimen) TISSUE SPECIMEN FROM SKIN / Unknown 03/19/2023 11:24 AM CATALOG LIBRARIAN 03/20/2023 12:31 PM CATALOG LIBRARIAN Wendy Harrison DO LAB - PATHOLOGY/C YTOLOGY ORDERABLES DERMATOPATHOLOGY LABORATORY [facility] - Department of Dermatology [facility] Medicine [address] [place] [address], [address] [phone] documented in this encounter Visit Diagnoses Not on filedocumented in this encounter Care Teams Production Drilling Machine Operator Relationship Specialty Start Date End Date Juan Nicole MD PCP - General Internal Medicine 11/21/18 [place] [address] [place] [address] Orthopedic Surgery 11/21/18 documented as of this encounter
--- OUTSIDE RECORDS SUMMARY | 2024-07-10 16:25 | XMS_ITS | Data Portability ---
Author Organization [place] - [facility], Main Office Address [address] [place] [address] Care Team Providers Care Eating Disorder Specialist Name Role Phone MELL CHIN Primary Care Provider [phone] MELL CHIN Referring Provider Assessment No assessment recorded. Plan of Treatment Reminders Order Date Submit Date Provider Last Modified By Organization Details Last Modified Time Details Appointments None recorded. Lab HbA1c (hemoglobin A1c), blood [address] (Lab), [address] [place] [address], [address], 4 11:48:28 CBC w/ auto diff [address] (Lab), [address] [place] [address], [address], 4 11:47:01 BMP, serum or plasma [address] (Lab), [address] [place] [address], [address], 4 11:47:16 hepatic function panel, serum [address] (Lab), [address] [place] [address], [address], 4 11:47:27 lipid panel, serum [address] (Lab), [address] [place] [address], [address], 4 11:48:19 T4, free, serum [address] (Lab), [address] [place] [address] 162, [place], [address], 4 11:47:43 TSH, serum or plasma [address] (Lab), [address] [place] [address] 162, [place], [address], 4 11:47:58 T3, free, serum or plasma [address] (Lab), [address] [place] [address] 162, [place], [address], 4 11:48:09 HbA1c (hemoglobin A1c), blood 2022 [email or web address] [place] [address] (Lab), [address] [place] [address], [place], [address], 3 10:53:03 CBC w/ auto diff 2022 [email or web address] [place] [address] (Lab), [address] [place] [address], [place], [address], 3 10:52:08 BMP, serum or plasma 2022 [email or web address] [place] [address] (Lab), [address] [place] [address], [place], [address], 3 10:52:27 hepatic function panel, serum 2022 [email or web address] [place] [address] (Lab), [address] [place] [address], [address], 3 10:53:18 [facility], [facility] [address] [place] [address] 162, [place], [address], 3 10:43:39 noninvasive colorectal cancer DNA + occult blood screening, QL, stool 2022 023 [place] [facility] (Cologuard Orders Only), [address], [address], [place], [address], 3 04:30:51 T4, free, serum [address] (Lab), [address] [facility] [address], [address], 3 10:52:46 TSH, serum or plasma [address] (Lab), [facility] [address], [place], [address], 3 10:52:52 T3, free, serum or plasma 2022 023 [facility] (Lab), [facility] [address], [address], 3 10:47:30 Referral None recorded. Procedures diagnostic colonoscopy (PROC) - no referral required 2022 023 [place] Arthur Canela MD, [address] [facility] [address], [address], [place], [address], 3 15:48:19 Surgeries None recorded. Imaging None recorded. Medication Orders Ozempic 1 mg/dose (4 mg/3 mL) subcutaneou s pen injector 2022 023 [place] [id number], [address], [place], [place], [id number], 3 12:16:49 Wegovy 0.25 mg/0.5 mL subcutaneou s pen injector 2022 023 [email or web address] [facility], [address], [address], [place], [place], [id number], 12:16:34 Patient TargetsNo targets recorded. Patient InstructionsNo instructions recorded. Reason for Referral None Reported. Results Created Date Observation Date Name Description Value Unit Range Abnormal Flag Note LastModifiedBy Organization Detail LastModifiedTime 01/05/2001/04/2021 urina lysis , dipst ick Leukocytes (reference range: negative keyla/ l) Small Not Available [facility] [place] [address], [place], [address], 01/04/2021 12:36:18 01/05/2001/04/2021 urina lysis , dipst ick Nitrite (reference rage: negative mg/dl) negati ve Not Available [facility] [place] [address], [place], [address], 01/04/2021 12:36:18 01/05/2001/04/2021 urina lysis , dipst ick Urobilinogen (reference range: 0.2-1 mg/dl) 0.2 Not Available [facility] [place] [address], [place], [address], 01/04/2021 12:36:18 01/05/2001/04/2021 urina lysis , dipst ick Protein (reference range: negative mg/dl) Negati ve Not Available [facility] [place] [address], [place], [address], 01/04/2021 12:36:18 01/05/2001/04/2021 urina lysis , dipst ick pH (reference range: 5-7) 5.5 Not Available [facility] [place] [address], [place], [address], 01/04/2021 12:36:18 01/05/2001/04/2021 urina lysis , dipst ick Blood (reference range: negative Sushant/ l) Hemoly zed: Trace Not Available [facility] [place] [address], [place], [address], 01/04/2021 12:36:18 01/05/2001/04/2021 urina lysis , dipst ick Specific Commerce (reference range: 1.005-1.030) 1.025 Not Available [facility] [place] [address], [place], [address], 01/04/2021 12:36:18 01/05/2001/04/2021 urina lysis , dipst ick Ketone (reference range: negative mg/dl) Negati ve Not Available [facility] [place] [address], [place], [address], 01/04/2021 12:36:18 01/05/20 21 01/04/2021 urina lysis , dipst ick Bilirubin (reference range: negative mg/dl) Negati ve Not Available [facility] [place] [address], [place], [address], 01/04/2021 12:36:18 01/05/20 21 01/04/2021 urina lysis , dipst ick Glucose (reference range: negative mg/dl) Negati ve Not Available [facility] [place] [address], [place], [address], 01/04/2021 12:36:18 01/05/20 21 01/04/2021 urina lysis , dipst ick Appearance Cloudy Not Available [facility] [place] [address], [place], [address], 01/04/2021 12:36:18 01/05/20 21 01/04/2021 urina lysis , dipst ick Color Dark Yellow Not Available [facility] [place] [address], [place], [address], 01/04/2021 12:36:18 12/26/19 23 12/25/2022 COLOG UARD [...] is negat jesse. TEST DESCR IPTIO N: [place] site algor ithmi c khloe sis of [...] years or older , who are at [facility] for color ectal cance r (CRC) . Colog uard has been appro kevin for use by the [place]. FDA. The perfo rmanc e of Colog uard was estab lishe d in a cross secti onal study of [facility] adult s aged 50-84 . Colog [...] of ,00 0 indiv idual s at [facility] risk for color ectal cance r who [...] at www.c ologu loyd.c om. Not Available [facility] (Cologuard Orders Only) [address], [place], [address], 12/30/2022 04:30:51 03/23/20 21 03/22/2021 XR, abdom en No observ ation record ed. [id number] [facility] (Imaging) [facility] [address], [place], [address], 06/14/2022 03:34:14 07/08/19 22 07/01/2021 XR, abdom en No observ ation record ed. [id number] Not Available 06/14/2022 03:34:14 07/09/19 22 07/07/2021 XR, thumb No observ ation record ed. MIGRATION. [facility] ([facility]) [address] [place] [address] [address] [facility], [place], [address], 06/14/2022 03:34:14 07/14/19 22 07/07/2021 XR, abdom en No observ ation record ed. [id number].[id number] Not Available 06/14/2022 03:34:14 08/30/19 22 08/25/2021 imagi ng/di agnos tic resul t No observ ation record ed. MIGRATION. [id number], [place], [address], 06/14/2022 03:34:14 09/03/19 22 08/08/2021 XR, abdom en No observ ation record ed. MIGRATION. [address] [facility], [place], [address], 06/14/2022 03:34:14 01/17/20 23 07/25/2022 MAMMO , scree claribel, digit al, bilat eral No observ ation record ed. [email or web address] [id number] [facility] [address], [place], [address], 01/17/2023 15:38:00 02/20/20 23 02/19/2023 diagn ostic colon oscop y (PROC ) No observ ation record ed. [email or web address] Arthur Canela MD [address] [address] [address], [place], [address], 04/20/2023 19:49:06 Result Notes None recorded. Problems Name Problem SNOMED Code Status Onset Date Resolution Date Notes Provider Name and Address Organization Details Recorded Time Colorectal cancer detected by DNA-based stool screening 966365378 Active 2022 RODOLFO Fagan [address] [place] [address], [address], [place], [address] , [facility] 3 12:15:15 Cervical radiculitis 32577687 Active Not Available [facility] 3 03:17:14 Body mass index 30+ - obesity 054327518 Active Not Available [facility] 3 03:17:14 Thumb injury 859565449 Active 2021 Not Available [facility] 3 03:17:14 Low back pain 383624703 Active 2021 Not Available [facility] 3 03:17:14 Pain in toe 561664420 Active Not Available [facility] 3 03:17:15 Pain in left arm 894107153 Active Not Available [facility] 3 03:17:15 Hypothyroidis m 49481209 Active 2021 Not Available [facility] 3 03:17:15 Hyperlipidemi a 84995838 Active Not Available [facility] 3 03:17:15 Urinary tract infectious disease 65036282 Active Not Available [facility] 3 03:17:15 Degeneration of cervical intervertebra l disc 84872871 Active Not Available [facility] 3 03:17:15 Hyperglycemia 66503019 Active Not Available [facility] 3 03:17:15 Fatigue 46439143 Active Not Available [facility] 3 03:17:15 Impaired glucose tolerance 3850547 Active Not Available [facility] 3 03:17:15 Kidney stone 71862085 Active 2021 Not Available [facility] 3 03:17:16 Problem Notes None recorded. Procedures Surgical History Date Name Laterality Status Provider Name and Address Organization Details Recorded Time 08/26/19 22 cystoscopy completed Not Available [facility] 3 03:04:38 07/02/19 22 Lithotripsy completed Not Available [facility] 06/15/19 23 03:04:38 03/26/20 20 Most Recent Bone Density completed Not Available [facility] 06/14/2022 03:04:29 04/16/19 13 other completed Not Available [facility] 03:04:38 04/16/19 12 Eye Surgery completed Not Available [facility] 06/15/19 23 03:04:38 04/16/19 10 Xcapsl ctrc rmvl cplx wo ecp completed Not Available [facility] 06/14/2022 03:04:38 04/16/19 10 repair of retina for retinal detachment completed Not Available [facility] 06/14/2022 03:04:38 04/16/19 06 oophorectomy completed Not Available [facility] 023 03:04:38 Imaging Results Imaging Date Name Status LastModified by Organiz ation Details LastModified Time 07/07/2021 XR, abdomen completed MIGRATION.[id number] 3 0026 Information not available 06/14/2022 03:34:14 08/25/2021 imaging/diagnos tic result completed MIGRATION.[id number] [address] [place] [address], [address], 06/14/2022 03:34:14 08/08/2021 XR, abdomen completed MIGRATION.[id number], [address], 06/14/2022 03:34:14 03/22/2021 XR, abdomen completed MIGRATION.[id number] 3 0026 [facility] (Imaging) [address] [place] [address], [address], 06/14/2022 03:34:14 07/07/2021 XR, thumb completed MIGRATION.[id number] 3 0026 [facility] (Imaging) [address] [place] [address], [address], 06/14/2022 03:34:14 07/01/2021 XR, abdomen completed MIGRATION.[id number] 3 0026 Information not available 06/14/2022 03:34:14 07/25/2022 MAMMO, screening, digital, bilateral completed [email or web address] [address], [address], 01/17/2023 15:38:00 02/19/2023 diagnostic colonoscopy (PROC) completed [email or web address] Arthur Canela MD [address] [facility] [address], [place], [address], 04/20/2023 19:49:06 Procedure Notes None recorded. Medical [...] completed Not Available Not Available Not Available Laie 3 takes daily 2019 active Not Available Not Available Not Avai lable B12 takes daily 07/05 completed Not Available Not Available Not Available Picato 0.05 % topical gel 11/12 completed Not Available Not Available Not Available Myrbetriq 25 mg tablet,ext ended release TAKE 1 TABLET BY MOUTH DAILY 07/05 completed Not Available Not Available Not Available Flucelvax Quad 7675-9095 (PF) 60 mcg (15 mcg x 4)/0.5 [...] 3 172.72 cm 96.9 [degF] 31.9 kg/m2 55873.4 g 84 /min 97 % 97 % 124 mm[Hg] 82 mm[Hg] ADOLPH Troncoso [facility] [employer] [facility] 3 11:44:49 Date Recorded Body height Body mass index (BMI) Body weight Body temperature Heart rate Oxygen saturation Oxygen saturation in Arterial blood by Pulse oximetry Systolic blood pressure Diastolic blood pressure Provider Name and Address Organization Details Last Updated DateTime 3 172.72 cm 30.4 kg/m2 98816.4 7 g 97.3 [degF] 84 /min 96 % 96 % 122 mm[Hg] 80 mm[Hg] ADOLPH Tron[place]o [facility] [place] [employer] [facility] 3 11:41:41 Date Recorded Body mass index (BMI) Body height Oxygen saturation Oxygen saturation in Arterial blood by Pulse oximetry Heart rate Body temperature Body weight Systolic blood pressure Diastolic blood pressure Provider Name and Address Organization Details Last Updated DateTime 1 32.2 kg/m2 172.72 cm 95 % 95 % 84 /min 96.1 [degF] 53189.1 5 g 130 mm[Hg] 90 mm[Hg] Not Available [facility] 3 03:10:39 Date Recorded Body mass index (BMI) Body height Oxygen saturation Oxygen saturation in Arterial blood by Pulse oximetry Heart rate Body temperature Body weight Systolic blood pressure Diastolic blood pressure Provider Name and Address Organization Details Last Updated DateTime 2 31.6 kg/m2 172.72 cm 96 % 96 % 92 /min 97.2 [degF] 77554.2 1 g 126 mm[Hg] 80 mm[Hg] Not Available [facility] 3 03:10:39 Date Recorded Body height Heart rate Respiratory rate Body temperature Systolic blood pressure Diastolic blood pressure Systolic blood pressure Diastolic blood pressure Provider Name and Address Organization Details Last Updated DateTime 2 172.72 cm 83 /min 16 /min 96.6 [degF] 158 mm[Hg] 100 mm[Hg] 130 mm[Hg] 90 mm[Hg] Not Available [facility] 3 03:10:40 Social History Question Answer Notes LastModified by Organizat ion Details LastModified Time Tobacco Smoking Status Former Smoker Not Available [facility] 06/14/2022 02:46:24 Do You Have An Advance Directive? No MIGRATION.[id number] 7427 Information not available 06/14/2022 What Is Your Level Of Alcohol Consumption? Moderate MIGRATION.695209 3434 Information not available 06/14/2022 Do You Wear A Helmet When Biking? No MIGRATION.723244 7167 Information not available 06/14/2022 What Is Your Level Of Caffeine Consumption? Moderate MIGRATION.002076 5947 Information not available 06/14/2022 How Much Tobacco Do You Chew? None MIGRATION.960190 4025 Information not available 06/14/2022 In The 14 Days Before Symptom Onset, Have You Had Close Contact With A Laboratory-confir med COVID-19 While That Case Was Ill? No MIGRATION.411322 1112 Information not available 06/14/2022 In The 14 Days Before Symptom Onset, Have You Had Close Contact With A Person Who Is Under Investigation For COVID-19 While That Person Was Ill? No MIGRATION.480213 1775 Information not available 06/14/2022 Are You Currently Employed? No [email or web address] Information not available 01/08/2023 What Type Of Diet Are You Following? REGULAR MIGRATION.554041 8920 Information not available 06/14/2022 Which Illicit Or Recreational Drugs Have You Used? None MIGRATION.043029 4745 Information not available 06/14/2022 Do You Or Have You Ever Used E-cigarettes Or Vape? Never Used Electronic Cigarettes MIGRATION.103459 1843 Information not available 06/14/2022 What Is The Highest Grade Or Level Of School You Have Completed Or The Highest Degree You Have Received? [id number] MIGRATION.571246 6084 Information not available 06/14/2022 What Is Your Occupation? Retired. MIGRATION.811739 6066 Information not available 06/14/2022 Have There Been Any Changes To Your Family Or Social Situation? No MIGRATION.812172 8762 Information not available 06/14/2022 Are There Any Guns Present In Your Home? No MIGRATION.990773 9938 Information not available 06/14/2022 Do You Use Insect Repellent Routinely? No MIGRATION.481581 6430 Information not available 06/14/2022 Do You Have A Medical Power Of Hunter Guide? No [email or web address] Information not available 01/08/2023 Have You Ever Been Counseled For Unhealthy Alcohol Use? No MIGRATION.445904 9532 Information not available 06/14/2022 Do You Have Any Pets? No MIGRATION.469219 8910 Information not available 06/14/2022 What Is Your Relationship Status? MIGRATION.377103 3950 Information not available 06/14/2022 Do You Use Your Seat Belt Or Car Seat Routinely? Yes MIGRATION.582528 3489 Information not available 06/14/2022 Do You Have Smoke And Carbon Monoxide Detectors In Your Home? Yes MIGRATION.079456 8343 Information not available 06/14/2022 Are You Passively Exposed To Smoke? No MIGRATION.334275 9271 Information not available 06/14/2022 Do You Or Have You Ever Used Smokeless Tobacco? Never Used Smokeless Tobacco MIGRATION.001995 6443 Information not available 06/14/2022 Are There Any Smokers In Your House? No MIGRATION.607623 8290 Information not available 06/14/2022 How Much Tobacco Do You Smoke? 0.5 PPD MIGRATION.237844 6260 Information not available 06/14/2022 Do You Feel Stressed (tense, Restless, Nervous, Or Anxious, Or Unable To Sleep At Night)? [id number] MIGRATION.944681 9304 Information not available 06/14/2022 Do You Use Any Illicit Or Recreational Drugs? No MIGRATION.346942 0500 Information not available 06/14/2022 Do You Use Sunscreen Routinely? Yes MIGRATION.662485 6334 Information not available 06/14/2022 Have You Recently Traveled Abroad? No MIGRATION.560999 1071 Information not available 06/14/2022 Do You Have Any Dietary Restrictions? No MIGRATION.555236 1072 Information not available 06/14/2022 Do You Or Have You Ever Used Any Other Forms Of Tobacco Or Nicotine? No MIGRATION.840725 5105 Information not available 06/14/2022 Sex: Unknown Functional Status Question Answer Note LastModified by Organizat ion Details LastModified Time Do you have transportation difficulties? No MIGRATION.9150931 026 Information not available 06/14/2022 Are you able to walk? YESWOREST MIGRATION.1212899 026 Information not available 06/14/2022 Do you have difficulty doing errands alone? No MIGRATION.4968149 026 Information not available 06/14/2022 Are you able to care for yourself? Yes MIGRATION.6605700 026 Information not available 06/14/2022 Do you have difficulty dressing or bathing? No MIGRATION.8447415 026 Information not available 06/14/2022 What is your exercise level? Moderate MIGRATION.5886411 026 Information not available 06/14/2022 Mental Status None recorded. Family History Relationship Description Onset Age of this Age Resolved Age Notes LastModified by Organization Details LastModified Time Father No current problems or disability MIGRATION.724 [id number] Not available 06/14/2022 03:04:43 Father General health good MIGRATION.177 [id number] Not available 06/14/2022 03:04:43 Mother No current problems or disability MIGRATION.018 [id number] Not available 06/14/2022 03:04:43 Medical History Condition Response NERVE DISEASE N BLINDNESS N RHEUMATIC FEVER N KIDNEY STONES Y BLADDER PROBLEMS N OTHER # 1 N POLIO N LUNG DISEASE/DISORDER N RADIATION / CHEMOTHERAPY N COPD N Other # 2 N BLOOD DISEASES N SURGERY N EAR OR HEARING PROBLEMS N MUMPS N BOWEL PROBLEMS N DEPRESSION (INCLUDING POST ) N STROKE/TIA N ULCERS N BENIGN PROSTATIC [...] HAVE YOU BEEN HOSPITALIZED OR SEEN IN [facility] IN THE PAST YEAR ? N [...] virus, quadrivalent, preservative 9 completed Not Available [facility] 06/14/2022 03:32:54 Influenza, split virus, quadrivalent, preservative 8 completed Not Available [facility] 06/14/2022 03:32:54 COVID-19, mRNA, LNP-S, PF, 30 mcg/0.3 mL dose 1 completed Not Available [facility] 06/14/2022 03:32:54 zoster live 4 completed Not Available [facility] 06/14/2022 03:32:54 Past Encounters Encounter ID Performer Location Encounter Start Date Encounter Closed Date Diagnosis/Indication Diagnosis SNOMED-CT Code Diagnosis ICD10 Code Diagnosis Note [id number] [facility] [place] [address] [place] [address] 06/29/2020 00:00:00 07/06/2020 13:54:00 [id number] [facility] [place] [address] [place] [address] 01/04/2021 00:00:00 01/12/2021 11:18:37 [id number] [facility] [place] [address] [place] [address] 07/05/2021 00:00:00 07/12/2021 23:45:56 [id number] [facility] [place] [address] [place] [address] 01/10/2022 00:00:00 01/10/2022 13:53:52 [id number] RODOLFO Fagan [facility] Internal [facility] [address] [place] [address] 07/11/2022 11:31:57 07/11/2022 12:21:18 Impaired glucose tolerance 1393913 R73.03 6% a1c. repeat lab in dec. Hyperlipidemia 34579969 E78.5 on pravastati n 20mg daily. stable labs. repeat in dec. Hypothyroidism 81999476 E03.9 on supplement . stable. repeat labs due in dec. Body mass index 30+ - obesity 110299390 Z68.31 start wegovy if insurance with cover Long-term drug therapy 985132075 Z79.899 routine labs due in dec Screening for malignant neoplasm of colon 508620022 Z12.11 pt will be due for cologuard screening. [id number] RODOLFO Fagan [facility] Internal [facility] [address] [place] [address] 01/09/2023 11:19:56 01/09/2023 12:25:27 Impaired glucose tolerance 2723961 R73.03 5.7% a1c. . boost to ozempic 1mg weekly. HOLD metformin at this time. she feels she has GI issues from it. Hyperlipidemia 77738373 E78.5 on pravastati n 20mg daily. stable labs. repeat fasting in June Hypothyroidism 98474175 E03.9 on supplement . stable. repeat labs due in June Body mass index 30+ - obesity 131509877 Z68.31 noted. stable Long-term drug therapy 462578685 Z79.899 next labs due in June Colorectal cancer detected by DNA-based stool screening 500486445 R19.5 pt agrees to colonoscop y now with her positive cologuard screening. Health Concerns Section Related Observation LastModified by Organization Detai ls LastModified Time None Recorded Concern Status LastModified by Organization Details LastModified Time None Recorded Advance Directives Directive N: Payers Encounter Date Sequence Insurance Name Policy Number Policy [place] Covered Member ID [place] Member ID Guarantor Name 07/11/2022 1 [facility] MEDICARE SOLUTIONS - MEDICARE COMPLETE (MEDICARE REPLACEMENT HMO) [id number] Palak Vaca Nicholas [id number] Palak Nicholas 01/09/2023 1 [facility] MEDICARE SOLUTIONS - MEDICARE COMPLETE (MEDICARE REPLACEMENT HMO) [id number] Palak Handariela [id number] Palak Nicholas Notes Date Note Type Note [...] skin changes; no hair changes Not Available [facility] Zubie 01/12/2021 11:18:37 07/06/19 22 text/ht ml Generic [...] tabs; taking medication as directed Not Available [place] [facility] 07/12/2021 23:45:56 01/11/20 22 text/ht ml HyperlipidemiaReported [...] difficulties; no skin changes;hair changes Not Available [employer] 01/10/2022 13:53:52 07/12/19 23 text/ht ml HyperlipidemiaReported [...] on metformin 6% a1c RODOLFO Fagan [address] [facility], [facility] [address], [place], [address], [facility] [employer] 07/11/2022 20:59:02 01/10/20 23 text/ht ml HyperlipidemiaReported [...] changes 6 mo f/u RODOLFO Fagan [address] [facility], [facility] [address], [place], [address], [facility] 01/09/2023 18:11:05 OBGyn Episode No OBEpisode recorded.
--- OUTSIDE RECORDS SUMMARY | 2024-07-10 16:25 | XMS_ITS | Clinical Summary ---
Author Organization [facility] Address [address] [place] [address] Care Team Providers Care Senior Hr Generalist Name Role Phone Unavailable Primary Care Provider [...]
--- OUTSIDE RECORDS SUMMARY | 2024-07-10 16:25 | XMS_ITS | Continuity of Care Document ---
Author Organization [facility] Address [address] [place] [address] Phone Care Team Providers Care Vocational Rehabilitation Supervisor Name Role Phone Karyn Acosta Unavailable Unavailable Procedures Procedure Date Post-op Follow-up Visit Post-op Follow-up Visit Post-op Follow-up Visit Remove Cataract, Insert Lens Post-op Follow-up Visit [facility]Professional Post-op Follow-up Visit Post-op Follow-up Visit Remove Cataract, Insert Lens Office/outpatient Visit, [facility] [employer] Advance Directives Directive Yes / No Effective Date File Name No Information Encounters Encounter Description Practice Location Reason(s) For Visit Diagnoses Date Provider Providers Copied on Encounter [facility], [address] [place] [address] [address], [place], [place], [id number], tel:[phone] [facility] No Information Oct-2 1-201 0 Karla Wahl [address], [place], [address], [place]. tel:[phone] [facility], [address] [place] [address] [address], [place], [place], [id number], tel:[phone] [facility] No Information Oct-0 7-201 0 Karla Wahl [address], [place], [address], [place]. tel:[phone] [facility], [address], [place], [place], [address], [place] tel:[phone] [facility] No Information Sep-3 0-201 0 King OD Tomy. [address], [place], [address], [place]. tel:[phone] Referring Provider: Karyn Mackey, [address], [place], [place], [facility]. tel:[phone] [facility], [address], [place], [place], [address], [place] tel:[phone] [facility] No Information Sep-2 9-201 0 Karla Boss. [address], [place], [place], [facility], [place]. tel:[phone] [facility], [address], [place], [place], [address], [place] tel:[phone] [facility] No Information Sep-1 6-201 0 Karla Boss. [address], [place], [address], [place]. tel:[phone] Referring Provider: Shala Hernandez MD, [address] [facility], [place], [address]. tel:[phone] [facility], [address], [place], [place], [address], [place] tel:[phone] [facility] No Information Aug-2 6-201 0 Karla Boss. [address], [place], [address], [place]. tel:[phone] [facility], [address], [place], [place], [address], [place] tel:[phone] [facility] No Information 9-201 0 King OD Tomy. [address], [place], [address], [place]. tel:[phone] [facility], [address] [place] [address] [address], [place], [place], [address], [place] tel:[phone] [facility] No Information 8-201 0 Karla Boss. [address] , [address], [place], [address], [place]. tel:[phone] Referring Provider: Sahla Hernandez MD, [address] [place], [address]. tel:[phone] Office/outpat ient Visit, [facility], [address], [place], [place], [address], [place] tel:[phone] [facility] No Information 0-201 0 Karla Boss. [address] [facility] [address] [facility] , [address], [place], [address], [place]. tel:[phone] Referring Provider: Shala Hernandez MD, [address] [place], [address]. tel:[phone] Family History Family Member Type Diagnosis Age At Onset No Information Payers Payer name Insurance type Covered republican ID Authoriza tion(s) No Information Social History [...]
--- OUTSIDE RECORDS SUMMARY | 2024-07-10 16:25 | XMS_ITS | Clinical Summary ---
Author Organization [facility] Address [address] [place] [address] Care Team Providers Care Cake Puller Name Role Phone Juan Nicole MD Primary Care Provider [phone] Raymundo Bolton MD Unavailable [phone] [facility],non-owned Affiliates and Associated Physician Practices is amultiple site organization consisting of ambulatory clinics and hospital sitesin [place], [place], [place] and [place]. This disclosure is being madepursuant to the Care Everywhere program and may not contain all information available regarding this patient. Last updated 18.[facility] Allergies No known active allergies Medications * [...] Department Care Team Description 05/01/2024 Lab Requisition [facility] - DermPath Lab [address] [facility] [place] [address] Wendy Harrison DO from Last 3 Months [...] Comments DERMATOPATHOLOGY Routine 05/01/2024 10:5 8 AM LEAD SOFTWARE TEST ENGINEER from Last 3 Months Results * DERMATOPATHOLOGY (05/01/2024 10:58 AM LEAD SOFTWARE TEST ENGINEER) Case Report Dermatopathology Report Case: [id number] Authorizing Provider: Wendy Harrison DO Collected: 05/01/2024 10:58 AM Ordering Location: [facility] - Received: 05/01/2024 04:34 PM DermPath Lab Pathologist: Lauren Griffith MD Specimen: Skin, left superior NLF 1:03 PM [facility] [[email or web address]] DERMATOPATHOLOGY LABORATORY Final Diagnosis Specimen A. SKIN, left superior NLF: BASAL CELL CARCINOMA, NODULAR TYPE (C44.311) (see microscopic description) 1:03 PM [facility] [[email or web address]] DERMATOPATHOLOGY LABORATORY Clinical History R/O BCC 1:03 PM [facility] [[email or web address]] DERMATOPATHOLOGY LABORATORY Gross Description Specimen A: Received is one formalin filled container labeled with the patient's name and designated left superior NLF. The specimen consists of a shave biopsy measuring 2x2x1 mm. Jar 0. 1:03 PM [facility] [[email or web address]] DERMATOPATHOLOGY LABORATORY Microscopic Description Specimen A. SKIN, left superior NLF: Within the dermis there are aggregates of basaloid cells with a high nuclear to cytoplasmic ratio and peripheral palisading. Additional deeper sections were obtained and reviewed. 1:03 PM [facility] [[email or web address]] DERMATOPATHOLOGY LABORATORY Disclaimer An external and internal positive and negative controls are appropriate for the histochemical, immunohistochemical and immunofluorescence stain(s) in this case (if any), except where stated explicitly. The performance characteristics of the stain(s) cited in this report were developed and its performance characteristic determined by the Dermatopathology Laboratory at [facility], directed by Dr. Linda Armijo. These tests need not be, and therefore are not, approved by the [place] Food and Drug Administration. The tests are used for clinical purposes. Billing Codes Specimen Charges Stain Charges 71553 1 01/20/202 5 1:03 PM LEAD SOFTWARE TEST ENGINEER DERMATOPATHOLOGY LABORATORY Embedded Images 5 1:03 PM LEAD SOFTWARE TEST ENGINEER DERMATOPATHOLOGY LABORATORY Pathology/Cytolo gy TISSUE SPECIMEN FROM SKIN / Unknown 05/01/2024 10:58 AM LEAD SOFTWARE TEST ENGINEER 05/01/2024 4:34 PM LEAD SOFTWARE TEST ENGINEER Wendy Harrison DO LAB - PATHOLOGY/C YTOLOGY ORDERABLES DERMATOPATHOLOGY LABORATORY [facility] - Department of Dermatology [address], [address] [phone] from Last 3 Months Care Teams Cake Puller Relationship Specialty Start Date End Date Juan Nicole MD PCP - General Internal Medicine 11/21/18 [place] [address] [place] [address] Orthopedic Surgery 11/21/18
--- OUTSIDE RECORDS SUMMARY | 2024-07-10 16:25 | XMS_ITS | Encounter Summary ---
Author Organization [facility] Address [address] [facility] [place] [address] Care Team Providers Care Acetylene Torch Operator Name Role Phone Juan Nicole MD Primary Care Provider [phone] Raymundo Bolton MD Unavailable [phone] Encounter Details Date Type Department Care Team (Late st Contact Info) Description 08/27/2019 Lab Requisition [facility] DermPath Lab [address] [facility], [place] [address] Cesilia Gomez MD [address] [facility] [address] [place] [address] Social History Tobacco Use Types Packs/Day Years [...] AM CDT) Case Report Dermatopathology Report Case: [id number] Authorizing Provider: Cesilia Gomez MD Collected: 08/26/2019 12:00 AM Ordering Location: [facility] DermPath Lab Received: 08/27/2019 06:44 AM Pathologist: Lauren Griffith MD Specimen: Skin, left upper eyelid 0 12:43 PM CDT DERMATOPATHOLOGY LABORATORY Clinical History R/O SK, irritated. 0 12:43 PM CDT DERMATOPATHOLOGY LABORATORY Gross Description Specimen A: Received is one formalin filled container labeled with the patient's name and designated left upper eyelid. The specimen consists of a shave measuring [id number]. Jar 0. [facility] Dermatopathology Laboratory performed the technical [...] characteristic determined by the Dermatopathology Laboratory at [facility], directed by Dr. Linda Armijo. These tests need not be, and therefore are not, approved by the [place] Food and Drug Administration. The tests are used for clinical purposes. 0 12:43 PM CDT DERMATOPATHOLOGY LABORATORY Pathology/Cytolog y TISSUE SPECIMEN FROM SKIN / Unknown 08/26/2019 08/27/2019 6:44 AM CDT Cesilia Gomez MD LAB - PATHOLOGY/CYT OLOGY ORDERABLES DERMATOPATHOLOGY LABORATORY [facility] - Department of Dermatology [address] [place] [address], 5th Floor Lab [address] [phone] documented in this encounter Visit Diagnoses Not on filedocumented in this encounter Care Teams Acetylene Torch Operator Relationship Specialty Start Date End Date Juan Nicole MD PCP - General Internal Medicine 11/21/18 [place] [address] [place] [address] Orthopedic Surgery 11/21/18 documented as of this encounter
--- OUTSIDE RECORDS SUMMARY | 2024-07-10 16:25 | XMS_ITS | Encounter Summary ---
Author Organization [facility] Address [address] [facility] [place] [address] Care Team Providers Care Spray Gun Operator Name Role Phone Juan Nicole MD Primary Care Provider Raymundo Bolton MD Unavailable [phone] Encounter Details Date Type Department Care Team (Late st Contact Info) Description 05/01/2024 Lab Requisition [facility] - DermPath Lab [address] [facility], [place] [address] Wendy Harrison DO [address] [facility] 3 [place] [address] Social History Tobacco Use Types Packs/Day Years [...] Comments DERMATOPATHOLOGY Routine 05/01/2024 10:5 8 AM SALESPERSON PARTS documented in this encounter Results * DERMATOPATHOLOGY (05/01/2024 10:58 AM SALESPERSON PARTS) Case Report Dermatopathology Report Case: [id number] Authorizing Provider: Wendy Harrison DO Collected: 05/01/2024 10:58 AM Ordering Location: [facility] - Received: 05/01/2024 04:34 PM DermPath Lab Pathologist: Lauren Griffith MD Specimen: Skin, left superior NLF 1:03 PM [employer]ESPERSON [employer]S DERMATOPATHOLOGY LABORATORY Final Diagnosis Specimen A. SKIN, left superior NLF: BASAL CELL CARCINOMA, NODULAR TYPE (C44.311) (see microscopic description) 1:[address] [facility] DERMATOPATHOLOGY LABORATORY Clinical History R/O BCC 1:[address] [facility] DERMATOPATHOLOGY LABORATORY Gross Description Specimen A: Received is one formalin filled container labeled with the patient's name and designated left superior NLF. The specimen consists of a shave biopsy measuring 2x2x1 mm. Jar 0. 1:[address] [facility] DERMATOPATHOLOGY LABORATORY Microscopic Description Specimen A. SKIN, left superior NLF: Within the dermis there are aggregates of basaloid cells with a high nuclear to cytoplasmic ratio and peripheral palisading. Additional deeper sections were obtained and reviewed. 1:[address] [facility] DERMATOPATHOLOGY LABORATORY Disclaimer An external and [...] purposes. Billing Codes Specimen Charges Stain Charges 80066 1 1:03 PM SALESPERSON PARTS DERMATOPATHOLOGY LABORATORY Embedded Images 1:[address] [facility] DERMATOPATHOLOGY LABORATORY Pathology/Cytolo gy TISSUE SPECIMEN FROM SKIN / Unknown 05/01/2024 10:58 AM SALESPERSON PARTS 05/01/2024 4:34 PM SALESPERSON PARTS Wendy Harrison DO LAB - PATHOLOGY/C YTOLOGY ORDERABLES DERMATOPATHOLOGY LABORATORY [facility] - Department of Dermatology [facility] Medicine [address] [place] [address], [address]rd [place] [address], [facility] [phone] documented in this encounter Visit Diagnoses Not on filedocumented in this encounter Care Teams Spray Gun Operator Relationship Specialty Start Date End Date Juan Nicole MD PCP - General Internal Medicine 11/21/18 [place] [address] [address] Orthopedic Surgery 11/21/18 documented as of this encounter
--- OUTSIDE RECORDS SUMMARY | 2024-07-10 16:25 | XMS_ITS | Data Portability ---
Author Organization [facility] [place] [facility] Address [address] [place] [address] Care Team Providers Care Infusion Nurse Name Role Phone TAMELA ROMERO Primary Care Provider Unavailab le Assessment Encounter Date Assessment Date Assessment LastModified by Organization Details LastModified Time 01/24/2024 01/24/2024 Mammogram completed October of 2023 Colonoscopy March 05, 2023 at [facility] Eye exam is up-to-date Dental exams up-to-date Labs up-to-date Not available 02/15/2024 23:15:51 Plan of Treatment Reminders Order Date Submit Date Provider Last Modified By Organization Details Last Modified Time Details Appointments ANY 15 2024 10:30A M RODOLFO Fagan Not available Not available Not available Lab HbA1c (hemoglob in A1c), blood 2023 025 [facility], [address] [place] [address], [id number], 07/07/2024 09:30:55 CBC w/ auto diff 2023 025 [facility], [address] [place] [address], [id number], 07/07/2024 09:30:55 BMP, serum or plasma 2023 025 [facility], [address] [place] [address], [id number], 07/07/2024 09:30:55 hepatic function panel, serum 2023 025 [facility], [address] [place] [address], [id number], 07/07/2024 09:30:55 lipid panel, serum 2023 025 [facility], [address] [place] [address], [id number], 07/07/2024 09:30:55 CBC w/ manual diff 2023 024 [facility], [address] [place] [address], [id number], 02/25/2024 12:35:10 TSH + free T4, serum 2023 025 [facility], [address] [place] [address], [id number], 07/07/2024 09:30:55 HbA1c (hemoglob in A1c), blood 2023 024 [facility], [address] [place] [address], [id number], 01/21/2024 15:40:07 CBC w/ auto diff 2023 024 [facility], [address] [place] [address], [id number], 01/21/2024 12:30:44 BMP, serum or plasma [address] [facility], [address] [place] [address], [id number], 01/21/2024 17:07:49 hepatic function panel, serum [address] [facility], [address] [place] [address], [address], 07/02/2024 10:58:53 lipid panel, serum [address] [facility], [address] [place] [address], [address], 07/02/2024 10:58:53 TSH + free T4, serum [address] [facility], [address], [place], [address], 07/02/2024 10:58:52 Referral hand surgeon referral 2023 MORENITA Lozano MD, [address] [facility] [address], [place], [address], 10/11/2023 14:25:54 Procedures None recorded. Surgeries None recorded. Imaging CT, chest, w/o contrast 2023 [facility] ([facility]), [address] [facility] [facility] [address], [place], [address], 01/26/2024 09:04:00 Medication Orders pravastat in 20 mg tablet 2023 [place] [facility], [address], [address], [place], [place], [id number], 07/19/2023 12:27:28 Zepbound 2.5 mg/0.5 mL subcutane ous pen injector 2023 [email or web address] [id number], [address] , [place], [place], [id number], 08/01/2023 12:36:44 meloxicam 15 mg tablet 2023 024 [place] [facility], [address], [address], [place], [place], [id number], 07/19/2023 12:27:28 levothyro xine 50 mcg tablet 2023 024 [place] [facility], [address], [address], [place], [place], [id number], 07/19/2023 12:27:29 Patient TargetsNo targets recorded. Patient Instructions Encounter Date Encounter Id Patient Instructions Last Modified By Organization Details Last Modified Time 01/24/2024 [id number] A healthy lifestyle: care instructions Not available [...] left superi or NLF Case Repor t [place] topat holog y Repor t Case: [id number] Autho shaheen ravi Provi fanta: Jensen Saldana DO Colle cted: 05/01 10:58 AM Order ing Locat ion: [facility] - Recei kevin: 05/01 04:34 PM [facility] ath Lab Patho logis t: Carmen Chavez MD Speci men: Skin, left super ior NLF 05/05 1:03 PM [facility] Not [...] c descr iptio n) 05/05 1:03 PM [facility] Elect diya jameson mili d by Carmen Chavez MD on 2024 at 1:03 PM Not Available Not Available 07/03/2024 11:01:27 05/01/19 25 05/05/2024 Skin Patho logy biops y repor t pathology report relevant history narrative R/O BCC Clini stephanie Histo ry R/O BCC 05/05 1:03 PM [facility] Not [...] 2x2x1 mm. Jar 0. 05/05 1:03 PM [facility] Not [...] gayathri and revie wed. 05/05 1:03 PM [facility] Not Available Not Available 07/03/2024 11:01:27 05/01/19 25 05/05/2024 Skin Patho logy biops y repor t service comment An flower picker al and credit intern al positi ve and negati ve contro [...] the Dermat opatho logy Eliza toralaina at [facility], direct ed by Dr. Linda Armijo . These tests need not be, and theref ore are not, approv ed by the [place] Food and Drug Admini strati on. The tests are used for clinic al purpos es. Billin g Codes Specim [place] [id number] 1 Discl aimer An exter nal and [...] becki cteri stic deter mined by the [place] [facility] , direc mary lou by Dr. Linda Bryant. These tests need not be, and there fore are not, appro kevin by the [facility] Food and Drug Admin istra tion. The tests are used for clini stephanie purpo ses. Roddy ng Codes Speci [place] [id number] 1 05/05 1:03 PM [facility] Not Available Not Available 07/03/2024 11:01:27 05/01/19 25 05/05/2024 Skin Patho logy biops y repor t embedded images Embed ded Image s 05/05 1:03 PM [facility] Not Available Not Available 07/03/2024 11:01:27 10/24/19 24 10/24/2023 XR, knee No observ ation record ed. [address] [facility], [place], [address], 10/24/2023 19:25:31 11/02/19 24 11/02/2023 MAMMO , scree claribel, digit al, bilat eral No observ ation record ed. [address] [address], [place], [address], 02/15/2024 23:15:57 01/26/20 24 01/25/2024 CT, chest , w/o contr ast No observ ation record ed. [address] [facility], [place], [address], 01/30/2024 12:51:28 07/11/19 25 07/09/2024 CT, lower extre mity, w/o contr ast No observ ation record ed. [address] [facility], [place], [address], 07/10/2024 16:29:46 Result Notes None recorded. Problems Name Problem SNOMED Code Status Onset Date Resolution Date Notes Provider Name and Address Organization Details Recorded Time Body mass index 30+ - obesity 340348278 Active 2023 Baldemar Nagel MA null, [place] - [facility] 4 12:27:17 Hyperlipide vesna 98396643 Active 2023 RODOLFO Fagan Attn: Mark ravi,[address] [facility], [place], [address], [facility] - [facility] 4 23:14:47 Hypothyroid ism 65521924 Active 2023 RODOLFO Fagan Attn: Accountin g,[address] [facility], [place], [address], [place] - [facility] 4 23:14:48 Impaired glucose tolerance 6533842 Active 2023 RODOLFO Fagan Attn: Accountin g,[address] [facility], [place], [address], [place] [facility] 4 23:14:50 Blood chemistry outside reference range 258904400 Active 2023 RODOLFO Fagan Attn: Accountin g,[address] [place], [address], [place] [facility] 4 23:14:52 Pain of bilateral knee joints 1819367918671 04 Active 2023 RODOLFO Fagan Attn: Accountin g,[address] [place], [address], [place] [facility] 4 23:14:55 Osteoarthro sis of the carpometaca rpal joint of the thumb 24344427 Active 2023 RODOLFO Fagan Attn: Accountin g,[address] [place], [address], [place] [facility] 4 23:14:57 Obesity 007931511 Active 2023 RODOLFO Fagan Attn: Accountin g,[address] [place], [address], [place] [facility] 4 23:15:00 Long-term drug therapy Active 2023 RODOLFO Fagan Attn: Accountin g,[address] [place], [address], [place] [facility] 4 23:15:02 Night sweats 57825670 Active 2023 RODOLFO Fagan Attn: Accountin g,[address] [place], [address], [place] [facility] 23:19:07 Problem Notes None recorded. Procedures Surgical History None recorded. Imaging Results Imaging Date Name Status LastModified by Organiz ation Details LastModified Time 10/24/2023 XR, knee completed [address] [facility], [place], [address], 10/24/2023 19:25:31 11/02/2023 MAMMO, screening, digital, bilateral completed [address] [address], [place], [address], 02/15/2024 23:15:57 01/25/2024 CT, chest, w/o contrast completed [address] [address], [place], [address], 01/30/2024 12:51:28 07/09/2024 CT, lower extremity, w/o contrast completed [address] [facility], [place], [address], 07/10/2024 16:29:46 Procedure Notes None recorded. Medical Equipment None [...] Details Last Updated DateTime 4 171.45 cm 31 kg/m2 38033.0 7 g 20 /min 99 % 99 % 83 /min 128 mm[Hg] 82 mm[Hg] Baldemar Nagel [place] - [facility] 4 12:00:52 Date Recorded Body height Body mass index (BMI) Body weight Respiratory rate Oxygen saturation Oxygen saturation in Arterial blood by Pulse oximetry Heart rate Systolic blood pressure Diastolic blood pressure Provider Name and Address Organization Details Last Updated DateTime 4 171.45 cm 32.6 kg/m2 43824.9 9 g 18 /min 96 % 96 % 76 /min 138 mm[Hg] 88 mm[Hg] Baldemar Nagel [place] - [facility] 4 12:29:46 Social History Question Answer Notes LastModified by Organizat ion Details LastModified Time Tobacco Smoking Status Former Smoker quit at 25-30 years Baldemar Nagel MA [facility], [facility] 07/19/2023 11:57:56 What Is Your Level Of [...] SNOMED-CT Code Diagnosis ICD10 Code Diagnosis Note [id number] RODOLFO Fagan [facility] [place] [address] [place] [address] 07/19/2023 11:48:48 07/19/2023 12:39:36 Hyperlipidemia 36952952 E78.5 refill pravastati n 20mg daily and repeat fasting lipids in dec. Hypothyroidism 33553562 E03.9 refill levothyrox ine 50mcg daily. due for repeat TFT panel in Dec. Impaired g lucose tolerance 0577279 R73.03 6.1% a1c. stable but no longer on ozempic due to coverage issues. Long-term drug therapy 887708949 Z79.899 next labs due in dec. Body mass index 30+ - obesity 791594210 Z68.31 bmi 31 Obesity 560367608 E66.9 If insurance will authorize, start zepbound titration course to aid on weight loss but also with her prediabete s and hyperlipid emia and hypothyroi dism underlying risk factors. Pain of bi lateral knee joints 7125772091 66108 M25.561 M25.562 Trial of meloxicam 15mg daily PRN. Osteoarthr osis of the carpometacarpal joint of the thumb 30707734 M18.9 refer to Hand specialist for evaluation of painful thumb joint. 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 Repeat labs in June Impaired g lucose tolerance 8364226 R73.03 6.1% a1c. stable but no longer on ozempic due to coverage issues. Repeat A1c in June Pain of bi lateral knee joints 1687255397 25120 M25.561 M25.562 Patient has meloxicam 15mg daily PRN. Long-term drug therapy 396904764 Z79.899 Next labs are due in June Osteoarthr osis of the carpometacarpal joint of the thumb 49735791 M18.9 History noted she has seen a specialist for the thumb joint arthritis Night sweats 83727982 R6 1 For an increase in night sweats we will refer for CT of the chest without contrast for mediastina l evaluation Blood chem istry outside reference range 717402094 R79.9 Repeat CBC next month as there [...] [place] Member ID Guarantor Name 07/19/2023 1 [facility] (MEDICARE REPLACEMENT/A DVANTAGE - HMO) [id number] [facility] [id number] [facility] 01/24/2024 1 [facility] (MEDICARE REPLACEMENT/A DVANTAGE - HMO) [id number] [facility] [id number] [facility] Notes Date Note Type Note Provider Name and Address Organization Details Recorded Time 07/19/19 24 text/htm l Generic HPI TemplateReported bypatient.Notes:Prediabetes hx. was on ozempic prior but not taking now.HyperlipidemiaReported bypatient.Notes:stable on pravastatin 20mg dailyThyroidReported bypatient.Notes:stable on levothyroxine 50mcg daily. RODOLFO Fagan Attn: Accounting,[address] [place], [address], [facility] 07/24/2023 09:02:56 01/24/20 24 text/htm l Generic [...] frequent lately RODOLFO Fagan Attn: Accounting,[address] [facility], [place], [address], [facility] 02/15/2024 23:19:26 OBGyn Episode Ob Episode Information Episode Created Date Number of Fetuses Patient Bloodtype Patient rh Status Prepregnancy Weight lbs Domestic Partner Domestic Partner Phone Father Name Bilingual Counter Sales Retail Status 02/22/20 24 1 DELETED Fetus Data First Name Last Name Admitted to NICU Weight (g) Sex Living Outcome Pediatric Complications Fetus ID Race Codes Race Delivery Type [id number] Fabrice Calculation Initial Fabrice Date Initial Exam [...]
== END 2024-07-10 15:59 | disposition home or self-care (01) ==
PROVIDERS: PCP Physician Assistant; Visit Provider Nurse Practitioner Family
DX: N20.2 Calculus of kidney with calculus of ureter (principal); K76.0 Fatty (change of) liver, not elsewhere classified
CPT/HCPCS: 74018; 74176

== ENCOUNTER 2024-07-21 10:17 | Outpatient (CLI) | payer MEDICARE, SELFPAY ==
[2024-07-21 11:03] LABS: Basophils Percent Auto 0.9 % (0.2-1.2); Eosinophils Absolute Auto 0.2 K/mm3 (0-0.3); Eosinophils Percent Auto 4.7 % (0-4.4); Hematocrit 42.9 % (37.0-47.0); Hemoglobin 13.7 g/dL (12.0-15.0); Immature Granulocyte Absolute 0.03 K/mm3 (0.00-0.031); Immature Granulocyte Percent A 0.6 % (0-0.5); Lymphocytes Absolute Auto 1.15 K/mm3 (0.9-3.2); Lymphocytes Percent Auto 24.7 % (18.3-44.2); Mean Corpuscular HGB Conc 31.9 g/dl (32-36); Mean Corpuscular Hemoglobin 28.8 pg (26-34); Mean Corpuscular Volume 90.3 fl (80-100); Mean Platelet Volume 9.4 fl (7.4-10.4); Monocytes Absolute Auto 0.6 K/mm3 (0.1-0.6); Monocytes Percent Auto 13.3 % (2.6-8.5); Neutrophils Absolute Auto 2.6 K/mm3 (1.3-6.7); Neutrophils Percent Auto 55.8 % (45.5-73.1); Platelet Count Result 264 k/mm3 (150-375); Red Blood Count 4.75 M/mm3 (4.2-5.4); Red Cell Distribution Width 13.2 % (11.5-14.5); White Blood Count 4.7 K/mm3 (4.5-10.0)
--- OUTSIDE RECORDS SUMMARY | 2024-07-21 11:49 | XMS_ITS | Data Portability ---
Author Organization [facility] Address [address] [place] [address] Care Team Providers Care Snow Maker Name Role Phone TAMELA ROMERO Primary Care Provider Unavailab le Assessment Encounter Date Assessment Date Assessment LastModified by Organization Details LastModified Time 01/24/2024 01/24/2024 Mammogram completed October of 2023 Colonoscopy March 05, 2023 at [facility] Eye exam is up-to-date Dental exams up-to-date Labs up-to-date Not available 02/15/2024 23:15:51 Plan of Treatment Reminders Order Date Submit Date Provider Last Modified By Organization Details Last Modified Time Details Appointments ANY 15 2024 10:30A M RODOLFO Fagan Not available Not available Not available Lab HbA1c (hemoglob in A1c), blood 2023 025 [facility], [address] [place] [address], [address], 07/07/2024 09:30:55 CBC w/ auto diff 2023 025 [facility], [address] [place] [address], [address], 07/07/2024 09:30:55 BMP, serum or plasma 2023 025 [facility], [address] [place] [address], [address], 07/07/2024 09:30:55 hepatic function panel, serum 2023 025 [facility], [address] [place] [address], [address], 07/07/2024 09:30:55 lipid panel, serum 2023 025 [facility], [address] [place] [address], [address], 07/07/2024 09:30:55 CBC w/ manual diff 2023 024 [facility], [address] [place] [address], [address], 02/25/2024 12:35:10 TSH + free T4, serum 2023 025 [facility], [address] [place] [address], [address], 07/07/2024 09:30:55 HbA1c (hemoglob in A1c), blood 2023 024 [facility], [address] [place] [address], [address], 01/21/2024 15:40:07 CBC w/ auto diff 2023 024 [facility], [address] [place] [address], [address], 01/21/2024 12:30:44 BMP, serum or plasma 2023 024 [facility], [address] [place] [address], [address], 07/19/2024 04:05:25 hepatic function panel, serum [address] [facility], [address] [place] [address], [address], 07/02/2024 10:58:53 lipid panel, serum [address] [facility], [address] [place] [address], [address], 07/02/2024 10:58:53 TSH + free T4, serum [address] [facility], [address], [place], [address], 07/02/2024 10:58:52 Referral hand surgeon referral 2023 MORENITA Lozano MD, [address] [facility] [address], [place], [address], 10/11/2023 14:25:54 Procedures None recorded. Surgeries None recorded. Imaging CT, chest, w/o contrast 2023 [facility] (Imaging), [address] [facility] [address], [place], [address], 01/26/2024 09:04:00 Medication Orders pravastat in 20 mg tablet 2023 [place] [facility], [address], [address], [place], [place], [id number], 07/19/2023 12:27:28 Zepbound 2.5 mg/0.5 mL subcutane ous pen injector 2023 024 [email or web address] [id number], [address] , [place], [place], [id number], 08/01/2023 12:36:44 meloxicam 15 mg tablet 2023 024 [place] [facility], [address], [address], [place], [place], [id number], 07/19/2023 12:27:28 levothyro xine 50 mcg tablet 2023 024 [place] [facility], [address], [address], [place], [place], [id number], 07/19/2023 12:27:29 Patient TargetsNo targets recorded. Patient Instructions Encounter Date Encounter Id Patient Instructions Last Modified By Organization Details Last Modified Time 01/24/2024 [id number] A healthy lifestyle: care instructions Not available [...] Author shun Owens er: Wendy Harrison DO Collec mary lou: 2024 10:58 AM Orderi ng Locati on: [facility] - Receiv ed: 2024 04:34 PM DermPa th Lab Pathol ogist: Lauren Bertrand MD Specim en: Skin, left superi or NLF Case Repor t [place] topat holog y Repor t Case: [id number] Autho shaheen ravi Provi fanta: Jensen Saldana DO Colle cted: 05/01 10:58 AM Order ing Locat ion: [facility] - Recei kevin: 05/01 04:34 PM DermP ath Lab Patho logis t: Carmen Chavez MD Speci men: Skin, left super ior NLF 05/05 1:03 PM TRAVEL AGENCY MANAGER DERMA TOPAT HOLOG Y LABOR ATORY Not [...] c descr iptio n) 05/05 1:03 PM TRAVEL AGENCY MANAGER DERMA TOPAT HOLOG Y LABOR ATORY Elect diya jameson mili d by Carmen Chavez MD on 2024 at 1:03 PM Not Available Not Available 07/03/2024 11:01:27 05/01/19 25 05/05/2024 Skin Patho logy biops y repor t pathology report relevant history narrative R/O BCC Clini stephanie Histo ry R/O BCC 05/05 1:03 PM TRAVEL AGENCY MANAGER DERMA TOPAT HOLOG Y LABOR ATORY Not Available Not Available 07/03/2024 11:01:27 05/01/1905/05/2024 Skin Patho logy biops y repor t [...] 2x2x1 mm. Jar 0. 05/05 1:03 PM TRAVEL AGENCY MANAGER DERMA TOPAT HOLOG Y LABOR ATORY Not [...] gayathri and revie wed. 05/05 1:03 PM TRAVEL AGENCY MANAGER DERMA TOPAT HOLOG Y LABOR ATORY Not Available Not Available 07/03/2024 11:01:27 05/01/19 25 05/05/2024 Skin Patho logy biops y repor t service comment An grocery clerk checking al and internship coordinator al positi ve and negati ve contro [...] the Dermat opatho logy Eliza toralaina at [facility], direct ed by Dr. Linda Armijo . These tests need not be, and theref ore are not, approv ed by the [place] Food and Drug Admini strati on. The tests are used for clinic al purpos es. Billin g Codes Specim [place] Charge [place] [address]351 1 Discl aimer An exter nal and [...] becki cteri stic deter mined by the [place] top[facility] holog [facility] at [facility] , direc mary lou by Dr. Linda Bryant. These tests need not be, and there fore are not, appro [facility]vin by [facility] Food and Drug Admin istra tion. The tests are used for clini stephanie purpo ses. Roddy ng Codes Spec[place] [address] 1 05/05 1:03 PM TRAVEL AGENCY MANAGER DERMA TOPAT HOLOG Y LABOR ATORY Not Available Not Available 07/03/2024 11:01:27 05/01/19 25 05/05/2024 Skin Patho logy biops y repor t embedded images Embed ded Image s 05/05 1:03 PM TRAVEL AGENCY MANAGER DERMA TOPAT HOLOG Y LABOR ATORY Not Available Not Available 07/03/2024 11:01:27 10/24/19 24 10/24/2023 XR, knee No observ ation record ed. [address] [facility], [place], [address], 10/24/2023 19:25:31 11/02/19 24 11/02/2023 MAMMO , scree claribel, digit al, bilat eral No observ ation record ed. [address] [address], [place], [address], 02/15/2024 23:15:57 01/26/20 24 01/25/2024 CT, chest , w/o contr ast No observ ation record ed. [address] [facility], [place], [address], 01/30/2024 12:51:28 07/11/19 25 07/09/2024 CT, lower extre mity, w/o contr ast No observ ation record ed. [address] [facility], [place], [address], 07/10/2024 16:29:46 Result Notes None recorded. Problems Name Problem SNOMED Code Status Onset Date Resolution Date Notes Provider Name and Address Organization Details Recorded Time Body mass index 30+ - obesity 652796696 Active 2023 Baldemar Nagel MA null, [place] - [facility] 4 12:27:17 Hyperlipide vesna 24770430 Active 2023 RODOLFO Fagan Attn: Mark ravi,[address] [facility], [place], [address], [facility] - [facility] 4 23:14:47 Hypothyroid ism 54131556 Active 2023 RODOLFO Fagan Attn: Accountin g,[address] [facility], [place], [address], [place] - [facility] 4 23:14:48 Impaired glucose tolerance 6134058 Active 2023 RODOLFO Fagan Attn: Accountin g,[address] [facility], [place], [address], [place] [facility] 4 23:14:50 Blood chemistry outside reference range 326611001 Active 2023 RODOLFO Fagan Attn: Accountin g,[address] [place], [address], [place] [facility] 4 23:14:52 Pain of bilateral knee joints 1660546633220 04 Active 2023 RODOLFO Fagan Attn: Accountin g,[address] [place], [address], [place] [facility] 4 23:14:55 Osteoarthro sis of the carpometaca rpal joint of the thumb 33955278 Active 2023 RODOLFO Fagan Attn: Accountin g,[address] [place], [address], [place] [facility] 4 23:14:57 Obesity 757109758 Active 2023 RODOLFO Fagan Attn: Accountin g,[address] [place], [address], [place] [facility] 4 23:15:00 Long-term drug therapy Active 2023 RODOLFO Fagan Attn: Accountin g,[address] [place], [address], [place] [facility] 4 23:15:02 Night sweats 19080058 Active 2023 RODOLFO Fagan Attn: Accountin g,[address] [place], [address], [place] [facility] 23:19:07 Problem Notes None recorded. Procedures Surgical History None recorded. Imaging Results Imaging Date Name Status LastModified by Organiz ation Details LastModified Time 10/24/2023 XR, knee completed [address] [facility], [place], [address], 10/24/2023 19:25:31 11/02/2023 MAMMO, screening, digital, bilateral completed [address] [address], [place], [address], 02/15/2024 23:15:57 01/25/2024 CT, chest, w/o contrast completed [address] [address], [place], [address], 01/30/2024 12:51:28 07/09/2024 CT, lower extremity, w/o contrast completed [address] [facility] [place], [address], 07/10/2024 16:29:46 Procedure Notes None recorded. Medical [...] Updated DateTime 4 171.45 cm 31 kg/m2 03875.0 7 g 20 /min 99 % 99 % 83 /min 128 mm[Hg] 82 mm[Hg] Baldemar Nagel [place] - [facility] 4 12:00:52 Date Recorded Body height Body mass index (BMI) Body weight Respiratory rate Oxygen saturation Oxygen saturation in Arterial blood by Pulse oximetry Heart rate Systolic blood pressure Diastolic blood pressure Provider Name and Address Organization Details Last Updated DateTime 4 171.45 cm 32.6 kg/m2 51123.9 9 g 18 /min 96 % 96 % 76 /min 138 mm[Hg] 88 mm[Hg] Baldemar Nagel [place] [facility] 4 12:29:46 Social History Question Answer Notes LastModified by Organizat ion Details LastModified Time Tobacco Smoking Status Former Smoker quit at 25-30 years Baldemar Nagel MA [facility], [facility] 07/19/2023 11:57:56 What Is Your Level Of [...] SNOMED-CT Code Diagnosis ICD10 Code Diagnosis Note [id number] RODOLFO Fagan [facility] [place] [address] [place] [address] 07/19/2023 11:48:48 07/19/2023 12:39:36 Hyperlipidemia 66637279 E78.5 refill pravastati n 20mg daily and repeat fasting lipids in dec. Hypothyroidism 03499221 E03.9 refill levothyrox ine 50mcg daily. due for repeat TFT panel in Dec. Impaired g lucose tolerance 8495826 R73.03 6.1% a1c. stable but no longer on ozempic due to coverage issues. Long-term drug therapy 911612503 Z79.899 next labs due in dec. Body mass index 30+ - obesity 510232535 Z68.31 bmi 31 Obesity 923287413 E66.9 If insurance will authorize, start zepbound titration course to aid on weight loss but also with her prediabete s and hyperlipid emia and hypothyroi dism underlying risk factors. Pain of bi lateral knee joints 2687230841 57856 M25.561 M25.562 Trial of meloxicam 15mg daily PRN. Osteoarthr osis of the carpometacarpal joint of the thumb 67632184 M18.9 refer to Hand specialist for evaluation of painful thumb joint. 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 Repeat labs in June Impaired g lucose tolerance 0734841 R73.03 6.1% a1c. stable but no longer on ozempic due to coverage issues. Repeat A1c in June Pain of bi lateral knee joints 2588793140 46837 M25.561 M25.562 Patient has meloxicam 15mg daily PRN. Long-term drug therapy 899363846 Z79.899 Next labs are due in June Osteoarthr osis of the carpometacarpal joint of the thumb 77187582 M18.9 History noted she has seen a specialist for the thumb joint arthritis Night sweats 48677820 R6 1 For an increase in night sweats we will refer for CT of the chest without contrast for mediastina l evaluation Blood chem istry outside reference range 364830339 R79.9 Repeat CBC next month as there [...] Beach Member ID Guarantor Name 07/19/2023 1 [facility] (MEDICARE REPLACEMENT/A DVANTAGE - HMO) [id number] [facility] [id number] [facility] 01/24/2024 1 [facility] (MEDICARE REPLACEMENT/A DVANTAGE - HMO) [id number] [facility] [id number] [facility] Notes Date Note Type Note Provider Name and Address Organization Details Recorded Time 07/19/19 24 text/htm l Generic HPI TemplateReported bypatient.Notes:Prediabetes hx. was on ozempic prior but not taking now.HyperlipidemiaReported bypatient.Notes:stable on pravastatin 20mg dailyThyroidReported bypatient.Notes:stable on levothyroxine 50mcg daily. RODOLFO Fagan Attn: Accounting,[address] [place], [address], [facility] 07/24/2023 09:02:56 01/24/20 24 text/htm l [...] [address] [facility], [place], [address], [facility] 02/15/2024 23:19:26 OBGyn Episode Ob Episode Information Episode Created Date Number of Fetuses Patient Bloodtype Patient rh Status Prepregnancy Weight lbs Domestic Partner Domestic Partner Phone Father Name Ecd Status 02/22/20 24 1 DELETED Fetus Data First Name Last Name Admitted to NICU Weight (g) Sex Living Outcome Pediatric Complications Fetus ID Race Codes Race Delivery Type [id number] Fabrice Calculation Initial Fabrice Date Initial Exam [...]
--- OUTSIDE RECORDS SUMMARY | 2024-07-21 11:49 | XMS_ITS | Encounter Summary ---
Author Organization [facility] Address [address] [facility] [place] [address] Care Team Providers Care Confectionery Laboratory Manager Name Role Phone Juan Nicole MD Primary Care Provider [phone] Raymundo Bolton MD Unavailable [phone] Encounter Details Date Type Department Care Team (Late st Contact Info) Description 08/27/2019 Lab Requisition [facility] [address] [facility], [place] [address] Cesilia Gomez MD [address] [facility] [address] [place] [address] Social History Tobacco Use Types Packs/Day Years [...] AM CDT) Case Report Dermatopathology Report Case: [id number] Authorizing Provider: Cesilia Gomez MD Collected: 08/26/2019 12:00 AM Ordering Location: [facility] Received: 08/27/2019 06:44 AM Pathologist: Lauren Griffith MD Specimen: Skin, left upper eyelid 0 12:43 PM CDT DERMATOPATHOLOGY LABORATORY Clinical History R/O SK, irritated. 0 12:43 PM CDT DERMATOPATHOLOGY LABORATORY Gross Description Specimen A: Received is one formalin filled container labeled with the patient's name and designated left upper eyelid. The specimen consists of a shave measuring 3d0o3tq. Jar 0. [facility] performed the technical component only. [...] characteristic determined by the Dermatopathology Laboratory at [facility], directed by Dr. Linda Armijo. These tests need not be, and therefore are not, approved by the [place] Food and Drug Administration. The tests are used for clinical purposes. 0 12:43 PM CDT DERMATOPATHOLOGY LABORATORY Pathology/Cytolog y TISSUE SPECIMEN FROM SKIN / Unknown 08/26/2019 08/27/2019 6:44 AM CDT Cesilia Gomez MD LAB - PATHOLOGY/CYT OLOGY ORDERABLES DERMATOPATHOLOGY LABORATORY [facility] - Department of Dermatology [address] [place] [address], 5th Floor Lab [address] [phone] documented in this encounter Visit Diagnoses Not on filedocumented in this encounter Care Teams Confectionery Laboratory Manager Relationship Specialty Start Date End Date Juan Nicole MD PCP - General Internal Medicine 11/21/18 [place] [address] [place] [address] [place] [address] Orthopedic Surgery 11/21/18 documented as of this encounter
--- OUTSIDE RECORDS SUMMARY | 2024-07-21 11:49 | XMS_ITS | Encounter Summary ---
Author Organization [facility] Address [address] [facility] [place] [address] Care Team Providers Care Mechanical Engineering Officer Name Role Phone Juan Nicole MD Primary Care Provider [phone] Raymundo Bolton MD Unavailable [phone] Encounter Details Date Type Department Care Team (Late st Contact Info) Description 03/19/2023 Lab Requisition [facility] - DermPath Lab [address] [facility], [place] [address] Wendy Harrison DO [address] [facility] [address]L [place] [address] Social History Tobacco Use Types Packs/Day Years [...] Comments DERMATOPATHOLOGY Routine 03/19/2023 11:2 4 AM MANAGER UI documented in this encounter Results * DERMATOPATHOLOGY (03/19/2023 11:24 AM MANAGER UI) Case Report Dermatopathology Report Case: [id number] Authorizing Provider: Wendy Harrison DO Collected: 03/19/2023 11:24 AM Ordering Location: [facility] DermPath Lab Received: 03/20/2023 12:31 PM Pathologist: Lauren Griffith MD Specimens: A) - Skin, right helix B) - Skin, left upper back 3:03 PM MANAGER UI DERMATOPATHOLOGY LABORATORY Final Diagnosis Specimen A. SKIN, right helix: SQUAMOUS PROLIFERATION (D48.5) OVERLYING CUTANEOUS HORN (L85.8) (see microscopic description and comment) Specimen B. SKIN, left upper back: BASAL CELL CARCINOMA, SUPERFICIAL MULTIFOCAL (C44.519) 3:03 PM [facility] DERMATOPATHOLOGY LABORATORY Clinical History A: CNH, R/O NMSC B: R/O NMSC 3:03 PM [facility] DERMATOPATHOLOGY LABORATORY Gross Description Specimen [...] measuring 5x5x1 mm. Jar 0. 3:03 PM [facility] DERMATOPATHOLOGY LABORATORY Microscopic Description Specimen [...] cytoplasmic ratio and peripheral palisading. 3:03 PM [facility] DERMATOPATHOLOGY LABORATORY Disclaimer An external and internal positive and negative controls are appropriate for the histochemical, immunohistochemical and immunofluorescence stain(s) in this case (if any), except where stated explicitly. The performance characteristics of the stain(s) cited in this report were developed and its performance characteristic determined by the Dermatopathology Laboratory at [facility], directed by Dr. Linda Armijo. These tests need not be, and therefore are not, approved by the [place] Food and Drug Administration. The tests are used for clinical purposes. Billing Codes Specimen Charges Stain Charges 00942 97131 1 1 3 3:03 PM MANAGER UI DERMATOPATHOLOGY LABORATORY Embedded Images 3 3:03 PM MANAGER UI DERMATOPATHOLOGY LABORATORY Pathology/Cytology TISSUE SPECIMEN FROM SKIN / Unknown 03/19/2023 11:24 AM MANAGER UI 03/20/2023 12:31 PM MANAGER UI Miscellaneous samples (specimen) TISSUE SPECIMEN FROM SKIN / Unknown 03/19/2023 11:24 AM MANAGER UI 03/20/2023 12:31 PM MANAGER UI Wendy Harrison DO LAB - PATHOLOGY/C YTOLOGY ORDERABLES DERMATOPATHOLOGY LABORATORY [facility] - Department of Dermatology [facility] [address] [place] [address], [address] [phone] documented in this encounter Visit Diagnoses Not on filedocumented in this encounter Care Teams Mechanical Engineering Officer Relationship Specialty Start Date End Date Juan Nicole MD PCP - General Internal Medicine 11/21/18 [place] [address] [place] [address] Orthopedic Surgery 11/21/18 documented as of this encounter
--- OUTSIDE RECORDS SUMMARY | 2024-07-21 11:49 | XMS_ITS | Encounter Summary ---
Author Organization [facility] Address [address] [place] [address] Care Team Providers Care Federal Judge Name Role Phone Jaun Nicole MD Primary Care Provider [phone] Raymundo Bolton MD Unavailable Encounter Details Date Type Department Care Team (Late st Contact Info) Description 05/01/2024 Lab Requisition [facility] - DermPath Lab [address] [facility], [place] [address] Wendy Harrison DO [address] [facility] [address] [place] [address] Social History Tobacco Use Types Packs/Day Years [...] Comments DERMATOPATHOLOGY Routine 05/01/2024 10:5 8 AM COMPUTER SYSTEMS ENGINEER documented in this encounter Results * DERMATOPATHOLOGY (05/01/2024 10:58 AM COMPUTER SYSTEMS ENGINEER) Case Report Dermatopathology Report Case: [id number] Authorizing Provider: Wendy Harrison DO Collected: 05/01/2024 10:58 AM Ordering Location: [facility] - Received: 05/01/2024 04:34 PM DermPath Lab Pathologist: Lauren Griffith MD Specimen: Skin, left superior NLF 1:03 PM COMPUTER SYSTEMS ENGINEER DERMATOPATHOLOGY LABORATORY Final Diagnosis Specimen A. SKIN, left superior NLF: BASAL CELL CARCINOMA, NODULAR TYPE (C44.311) (see microscopic description) 1:[address] [facility] DERMATOPATHOLOGY LABORATORY Clinical History R/O BCC 1:[address] [facility] DERMATOPATHOLOGY LABORATORY Gross Description Specimen A: Received is one formalin filled container labeled with the patient's name and designated left superior NLF. The specimen consists of a shave biopsy measuring 2x2x1 mm. Jar 0. 1:[address] [facility] DERMATOPATHOLOGY LABORATORY Microscopic Description Specimen A. SKIN, left superior NLF: Within the dermis there are aggregates of basaloid cells with a high nuclear to cytoplasmic ratio and peripheral palisading. Additional deeper sections were obtained and reviewed. 1:[address] [facility] DERMATOPATHOLOGY LABORATORY Disclaimer An [...] purposes. Billing Codes Specimen Charges Stain Charges 35798 1 1:03 PM COMPUTER SYSTEMS ENGINEER DERMATOPATHOLOGY LABORATORY Embedded Images 1:[address] [facility] DERMATOPATHOLOGY LABORATORY Pathology/Cytolo gy TISSUE SPECIMEN FROM SKIN / Unknown 05/01/2024 10:58 AM COMPUTER SYSTEMS ENGINEER 05/01/2024 4:34 PM COMPUTER SYSTEMS ENGINEER Wendy Harrison DO LAB - PATHOLOGY/C YTOLOGY ORDERABLES DERMATOPATHOLOGY LABORATORY [facility] - Department of Dermatology [facility] [address] [place] [address], [address] [place] [address], [facility] [phone] documented in this encounter Visit Diagnoses Not on filedocumented in this encounter Care Teams Federal Judge Relationship Specialty Start Date End Date Juan Nicole MD PCP - General Internal Medicine 11/21/18 [place] [address] [address] Orthopedic Surgery 11/21/18 documented as of this encounter
--- OUTSIDE RECORDS SUMMARY | 2024-07-21 11:49 | XMS_ITS | Continuity of Care Document ---
Author Organization [facility] Address [address] [place] [address] Phone Care Team Providers Care Lumber Handler Name Role Phone Karyn Acosta Unavailable Unavailable Procedures Procedure Date Post-op Follow-up Visit Post-op Follow-up Visit Post-op Follow-up Visit Remove Cataract, Insert Lens Post-op Follow-up Visit [facility] Post-op Follow-up Visit Post-op Follow-up Visit Remove Cataract, Insert Lens Office/outpatient Visit, [facility] Advance Directives Directive Yes / No Effective Date File Name No Information Encounters Encounter Description Practice Location Reason(s) For Visit Diagnoses Date Provider Providers Copied on Encounter [facility], [address] [place] [address] [address], [place], [place], [id number], tel:[phone] [facility] No Information Oct-2 1-201 0 Karla Wahl [address], [place], [address], [place]. tel:[phone] [facility], [address] [place] [address] [address], [place], [place], [id number], tel:[phone] [facility] No Information Oct-0 7-201 0 Karla Wahl [address] , [address], [place], [address], [place]. tel:[phone] [facility], [address], [place], [place], [id number], [place] tel:[phone] [facility] No Information Sep-3 0-201 0 King OD Tomy. [address], [place], [address], [place]. tel:[phone] Referring Provider: Karyn Mackey, [address], [place], [place], [facility]. tel:[phone] [facility], [address], [place], [place], [id number], [place] tel:[phone] [facility] No Information Sep-2 9-201 0 Karla Boss. [address], [place], [place], [facility], [place]. tel:[phone] [facility], [address], [place], [place], [id number], [place] tel:[phone] [facility] [place] No Information Sep-1 6-201 0 Karla Boss. [address], [place], [address], [place]. tel:[phone] Referring Provider: Shala Hernandez MD, [address] [facility], [place], [address]. tel:[phone] [facility], [address], [place], [place], [id number], [place] tel:[phone] [facility] [place] No Information Aug-2 6-201 0 Karla Boss. [address], [place], [address], [place]. tel:[phone] [facility], [address], [place], [place], [address], [place] tel:[phone] [facility] No Information 9-201 0 King OD Tomy. [address], [place], [address], [place]. tel:[phone] [facility], [address] [place] [address] [address], [place], [place], [id number], [place] tel:[phone] [facility] No Information 8-201 0 Karla Boss. [address] , [address], [place], [address], [place]. tel:[phone] Referring Provider: Shala Hernandez MD, [address] [place], [address]. tel:[phone] Office/outpat ient Visit, [facility], [address], [place], [place], [address], [place] tel:[phone] [facility] No Information 0-201 0 Karla Boss. [address] , [address], [place], [address], [place]. tel:[phone] Referring Provider: Shala Hernandez MD, [address] [place], [address]. tel:[phone] Family History Family Member Type Diagnosis Age [...]
--- OUTSIDE RECORDS SUMMARY | 2024-07-21 11:49 | XMS_ITS | Clinical Summary ---
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
--- OUTSIDE RECORDS SUMMARY | 2024-07-21 11:50 | XMS_ITS | Data Portability ---
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 Plan of Treatment Reminders Order Date Submit Date Provider Last Modified By Organization Details Last Modified Time Details Appointments None recorded. Lab HbA1c (hemoglobin A1c), blood [address] (Lab), [address] [place] [address], [address], 4 11:48:28 CBC w/ auto diff [address] (Lab), [address] [place] [address], [address], 4 11:47:01 BMP, serum or plasma [address] (Lab), [address] [place] [address], [address], 4 11:47:16 hepatic function panel, serum [address] (Lab), [address] [place] [address], [address], 4 11:47:27 lipid panel, serum [address] (Lab), [address] [place] [address], [address], 4 11:48:19 T4, free, serum [address] (Lab), [address] [place] [address] 162, [place], [address], 4 11:47:43 TSH, serum or plasma [address] (Lab), [address] [place] [address] 162, [place], [address], 4 11:47:58 T3, free, serum or plasma [address] (Lab), [address] [place] [address] 162, [place], [address], 4 11:48:09 HbA1c (hemoglobin A1c), blood [address]22 [email or web address] [place] [address] (Lab), [address] [place] [address], [place], [address], 3 10:53:03 CBC w/ auto diff 2022 [email or web address] [place] [address] (Lab), [address] [place] [address], [place], [address], 3 10:52:08 BMP, serum or plasma 2022 [email or web address] [place] [address] (Lab), [address] [place] [address], [place], [address], 3 10:52:27 hepatic function panel, serum 2022 [email or web address] [place] [address] (Lab), [address] [place] [address], [address], 3 10:53:18 lipid panel, serum [facility] [address] [place] [address] 162, [place], [address], 3 10:43:39 noninvasive colorectal cancer DNA + occult blood screening, QL, stool 2022 023 [place] [facility] (Cologuard Orders Only), [address], [address], [place], [address], 3 04:30:51 T4, free, serum [address] (Lab), [address] [facility] [address], [place], [address], 3 10:52:46 TSH, serum or plasma [address] (Lab), [facility] [address], [place], [address], 3 10:52:52 T3, free, serum or plasma 2022 023 [facility] (Lab), [facility] [address], [place], [address], 3 10:47:30 Referral None recorded. Procedures diagnostic colonoscopy (PROC) - no referral required 2022 023 [place] Arthur Canela MD, [address] [facility] [address], [address], [place], [address], 3 15:48:19 Surgeries None recorded. Imaging None recorded. Medication Orders Ozempic 1 mg/dose (4 mg/3 mL) subcutaneou s pen injector 2022 023 [place] [id number], [address], [place], [place], [id number], 3 12:16:49 Wegovy 0.25 mg/0.5 mL subcutaneou s pen injector 2022 023 [email or web address] [facility], [address], [address], [place], [place], [id number], 12:16:34 Patient TargetsNo targets recorded. Patient InstructionsNo instructions recorded. Reason for Referral None Reported. Results Created Date Observation Date Name Description Value Unit Range Abnormal Flag Note LastModifiedBy Organization Detail LastModifiedTime 01/05/2001/04/2021 urina lysis , dipst ick Leukocytes (reference range: negative keyla/ l) Small Not Available [facility] [place] [address], [place], [address], 01/04/2021 12:36:18 01/05/2001/04/2021 urina lysis , dipst ick Nitrite (reference rage: negative mg/dl) negati ve Not Available [facility] [place] [address], [place], [address], 01/04/2021 12:36:18 01/05/2001/04/2021 urina lysis , dipst ick Urobilinogen (reference range: 0.2-1 mg/dl) 0.2 Not Available [facility] [place] [address], [place], [address], 01/04/2021 12:36:18 01/05/2001/04/2021 urina lysis , dipst ick Protein (reference range: negative mg/dl) Negati ve Not Available [facility] [place] [address], [place], [address], 01/04/2021 12:36:18 01/05/2001/04/2021 urina lysis , dipst ick pH (reference range: 5-7) 5.5 Not Available [facility] [place] [address], [place], [address], 01/04/2021 12:36:18 01/05/2001/04/2021 urina lysis , dipst ick Blood (reference range: negative Sushant/ l) Hemoly zed: Trace Not Available [facility] [place] [address], [place], [address], 01/04/2021 12:36:18 01/05/2001/04/2021 urina lysis , dipst ick Specific Meeker (reference range: 1.005-1.030) 1.025 Not Available [facility] [place] [address], [place], [address], 01/04/2021 12:36:18 01/05/2001/04/2021 urina lysis , dipst ick Ketone (reference range: negative mg/dl) Negati ve Not Available [facility] [place] [address], [place], [address], 01/04/2021 12:36:18 01/05/20 21 01/04/2021 urina lysis , dipst ick Bilirubin (reference range: negative mg/dl) Negati ve Not Available [facility] [place] [address], [place], [address], 01/04/2021 12:36:18 01/05/20 21 01/04/2021 urina lysis , dipst ick Glucose (reference range: negative mg/dl) Negati ve Not Available [facility] [place] [address], [place], [address], 01/04/2021 12:36:18 01/05/20 21 01/04/2021 urina lysis , dipst ick Appearance Cloudy Not Available [facility] [place] [address], [place], [address], 01/04/2021 12:36:18 01/05/20 21 01/04/2021 urina lysis , dipst ick Color Dark Yellow Not Available [facility] [place] [address], [place], [address], 01/04/2021 12:36:18 12/26/19 23 12/25/2022 COLOG UARD [...] is negat jesse. TEST DESCR IPTIO N: Stephen site algor ithmi c khloe sis of [...] years or older , who are at [facility] for color ectal cance r (CRC) . Colog uard has been appro kevin for use by the [place]. FDA. The perfo rmanc e of Colog uard was estab lishe d in a cross secti onal study of [facility] adult s aged 50-84 . Colog [...] of ,00 0 indiv idual s at [facility] for color ectal cance r who [...] at www.c ologu loyd.c om. Not Available [facility] (Cologuard Orders Only) [address], [place], [address], 12/30/2022 04:30:51 03/23/20 21 03/22/2021 XR, abdom en No observ ation record ed. [id number] [facility] (Imaging) [facility][note 3] [address], [place], [address], 06/14/2022 03:34:14 07/08/19 22 07/01/2021 XR, abdom en No observ ation record ed. [id number] Not Available 06/14/2022 03:34:14 07/09/19 22 07/07/2021 XR, thumb No observ ation record ed. MIGRATION. [facility] ([facility]) [address] [place] [address] [address]te [facility], [place], [address], 06/14/2022 03:34:14 07/14/19 22 07/07/2021 XR, abdom en No observ ation record ed. [id number] Not Available 06/14/2022 03:34:14 08/30/19 22 08/25/2021 imagi ng/di agnos tic resul t No observ ation record ed. MIGRATION. [id number], [place], [address], 06/14/2022 03:34:14 09/03/19 22 08/08/2021 XR, abdom en No observ ation record ed. MIGRATION. [address] [facility], [place], [address], 06/14/2022 03:34:14 01/17/20 23 07/25/2022 MAMMO , scree claribel, digit al, bilat eral No observ ation record ed. [email or web address] [id number] [facility] [address], [place], [address], 01/17/2023 15:38:00 02/20/20 23 02/19/2023 diagn ostic colon oscop y (PROC ) No observ ation record ed. [email or web address] Arthur Canela MD [address] [address] [address], [place], [address], 04/20/2023 19:49:06 Result Notes None recorded. Problems Name Problem SNOMED Code Status Onset Date Resolution Date Notes Provider Name and Address Organization Details Recorded Time Colorectal cancer detected by DNA-based stool screening 398372435 Active 2022 RODOLFO Fagan [address] [place] [address], [address], [place], [address] , [facility] 3 12:15:15 Cervical radiculitis 80744657 Active Not Available [facility] 3 03:17:14 Body mass index 30+ - obesity 042531817 Active Not Available [facility] 3 03:17:14 Thumb injury 235673165 Active 2021 Not Available [facility] 3 03:17:14 Low back pain 683152020 Active 2021 Not Available [facility] 3 03:17:14 Pain in toe 244306360 Active Not Available [facility] 3 03:17:15 Pain in left arm 843165780 Active Not Available [facility] 3 03:17:15 Hypothyroidis m 42406377 Active 2021 Not Available [facility] 3 03:17:15 Hyperlipidemi a 20790260 Active Not Available [facility] 3 03:17:15 Urinary tract infectious disease 88382951 Active Not Available [facility] 3 03:17:15 Degeneration of cervical intervertebra l disc 48135145 Active Not Available [facility] 3 03:17:15 Hyperglycemia 81236870 Active Not Available [facility] 3 03:17:15 Fatigue 25102241 Active Not Available [facility] 3 03:17:15 Impaired glucose tolerance 0655206 Active Not Available [facility] 3 03:17:15 Kidney stone 95104744 Active 2021 Not Available [facility] 3 03:17:16 Problem Notes None recorded. Procedures Surgical History Date Name Laterality Status Provider Name and Address Organization Details Recorded Time 08/26/19 22 cystoscopy completed Not Available [facility] 3 03:04:38 07/02/19 22 Lithotripsy completed Not Available [facility] 06/15/19 23 03:04:38 03/26/20 20 Most Recent Bone Density completed Not Available [facility] 06/14/2022 03:04:29 04/16/19 13 other completed Not Available [facility] 03:04:38 04/16/19 12 Eye Surgery completed Not Available [facility] 06/15/19 23 03:04:38 04/16/19 10 Xcapsl ctrc rmvl cplx wo ecp completed Not Available [facility] 06/14/2022 03:04:38 04/16/19 10 repair of retina for retinal detachment completed Not Available [facility] 06/14/2022 03:04:38 04/16/19 06 oophorectomy completed Not Available [facility] 023 03:04:38 Imaging Results Imaging Date Name Status LastModified by Organiz ation Details LastModified Time 07/07/2021 XR, abdomen completed MIGRATION.[id number] 3 0026 Information not available 06/14/2022 03:34:14 08/25/2021 imaging/diagnos tic result completed MIGRATION.[id number] [address] [place] [address], [address], 06/14/2022 03:34:14 08/08/2021 XR, abdomen completed MIGRATION.[id number], [address], 06/14/2022 03:34:14 03/22/2021 XR, abdomen completed MIGRATION.[id number] 3 0026 [facility] (Imaging) [address] [place] [address], [address], 06/14/2022 03:34:14 07/07/2021 XR, thumb completed MIGRATION.[id number] 3 0026 [facility] (Imaging) [address] [place] [address], [address], 06/14/2022 03:34:14 07/01/2021 XR, abdomen completed MIGRATION.[id number] 3 0026 Information not available 06/14/2022 03:34:14 07/25/2022 MAMMO, screening, digital, bilateral completed [email or web address] [address], [address], 01/17/2023 15:38:00 02/19/2023 diagnostic colonoscopy (PROC) completed [email or web address] Arthur Canela MD [address] [facility] [address], [place], [address], 04/20/2023 19:49:06 Procedure Notes None recorded. Medical [...] completed Not Available Not Available Not Available [place] 3 takes daily 2019 active Not Available Not Available Not Avai lable B12 takes daily 07/05 completed Not Available Not Available Not Available Picato 0.05 % topical gel 11/12 completed Not Available Not Available Not Available Myrbetriq 25 mg tablet,ext ended release TAKE 1 TABLET BY MOUTH DAILY 07/05 completed Not Available Not Available Not Available Flucelvax Quad 6540-4241 (PF) 60 mcg (15 mcg x 4)/0.5 [...] 3 172.72 cm 96.9 [degF] 31.9 kg/m2 29307.4 g 84 /min 97 % 97 % 124 mm[Hg] 82 mm[Hg] ADOLPH [place] [facility] 3 11:44:49 Date Recorded Body height Body mass index (BMI) Body weight Body temperature Heart rate Oxygen saturation Oxygen saturation in Arterial blood by Pulse oximetry Systolic blood pressure Diastolic blood pressure Provider Name and Address Organization Details Last Updated DateTime 3 172.72 cm 30.4 kg/m2 33195.4 7 g 97.3 [degF] 84 /min 96 % 96 % 122 mm[Hg] 80 mm[Hg] ADOLPH [place] [facility] [facility] 3 11:41:41 Date Recorded Body mass index (BMI) Body height Oxygen saturation Oxygen saturation in Arterial blood by Pulse oximetry Heart rate Body temperature Body weight Systolic blood pressure Diastolic blood pressure Provider Name and Address Organization Details Last Updated DateTime 1 32.2 kg/m2 172.72 cm 95 % 95 % 84 /min 96.1 [degF] 20633.1 5 g 130 mm[Hg] 90 mm[Hg] Not Available [facility] 3 03:10:39 Date Recorded Body mass index (BMI) Body height Oxygen saturation Oxygen saturation in Arterial blood by Pulse oximetry Heart rate Body temperature Body weight Systolic blood pressure Diastolic blood pressure Provider Name and Address Organization Details Last Updated DateTime 2 31.6 kg/m2 172.72 cm 96 % 96 % 92 /min 97.2 [degF] 01553.2 1 g 126 mm[Hg] 80 mm[Hg] Not Available [facility] 3 03:10:39 Date Recorded Body height Heart rate Respiratory rate Body temperature Systolic blood pressure Diastolic blood pressure Systolic blood pressure Diastolic blood pressure Provider Name and Address Organization Details Last Updated DateTime 2 172.72 cm 83 /min 16 /min 96.6 [degF] 158 mm[Hg] 100 mm[Hg] 130 mm[Hg] 90 mm[Hg] Not Available [facility] 3 03:10:40 Social History Question Answer Notes LastModified by Organizat ion Details LastModified Time Tobacco Smoking Status Former Smoker Not Available [facility] 06/14/2022 02:46:24 Do You Have An Advance Directive? No [id number].[id number] 0862 Information not available 06/14/2022 What Is Your Level Of Alcohol Consumption? Moderate MIGRATION.423572 4581 Information not available 06/14/2022 Do You Wear A Helmet When Biking? No MIGRATION.794573 1362 Information not available 06/14/2022 What Is Your Level Of Caffeine Consumption? Moderate MIGRATION.946888 6340 Information not available 06/14/2022 How Much Tobacco Do You Chew? None MIGRATION.466707 4261 Information not available 06/14/2022 In The 14 Days Before Symptom Onset, Have You Had Close Contact With A Laboratory-confir med COVID-19 While That Case Was Ill? No MIGRATION.311202 3620 Information not available 06/14/2022 In The 14 Days Before Symptom Onset, Have You Had Close Contact With A Person Who Is Under Investigation For COVID-19 While That Person Was Ill? No MIGRATION.866460 2284 Information not available 06/14/2022 Are You Currently Employed? No [email or web address] Information not available 01/08/2023 What Type Of Diet Are You Following? REGULAR MIGRATION.541153 7980 Information not available 06/14/2022 Which Illicit Or Recreational Drugs Have You Used? None MIGRATION.559246 1783 Information not available 06/14/2022 Do You Or Have You Ever Used E-cigarettes Or Vape? Never Used Electronic Cigarettes MIGRATION.167296 6083 Information not available 06/14/2022 What Is The Highest Grade Or Level Of School You Have Completed Or The Highest Degree You Have Received? [id number] MIGRATION.964157 9243 Information not available 06/14/2022 What Is Your Occupation? Retired. MIGRATION.016359 7861 Information not available 06/14/2022 Have There Been Any Changes To Your Family Or Social Situation? No MIGRATION.944576 5088 Information not available 06/14/2022 Are There Any Guns Present In Your Home? No MIGRATION.070087 2203 Information not available 06/14/2022 Do You Use Insect Repellent Routinely? No MIGRATION.120163 4277 Information not available 06/14/2022 Do You Have A Medical Power Of Bag Bundler? No [email or web address] Information not available 01/08/2023 Have You Ever Been Counseled For Unhealthy Alcohol Use? No MIGRATION.939018 6347 Information not available 06/14/2022 Do You Have Any Pets? No MIGRATION.584219 4727 Information not available 06/14/2022 What Is Your Relationship Status? MIGRATION.998365 3584 Information not available 06/14/2022 Do You Use Your Seat Belt Or Car Seat Routinely? Yes MIGRATION.319437 3290 Information not available 06/14/2022 Do You Have Smoke And Carbon Monoxide Detectors In Your Home? Yes MIGRATION.947363 2415 Information not available 06/14/2022 Are You Passively Exposed To Smoke? No MIGRATION.017202 4724 Information not available 06/14/2022 Do You Or Have You Ever Used Smokeless Tobacco? Never Used Smokeless Tobacco MIGRATION.997483 2209 Information not available 06/14/2022 Are There Any Smokers In Your House? No MIGRATION.923467 7771 Information not available 06/14/2022 How Much Tobacco Do You Smoke? 0.5 PPD MIGRATION.653715 0226 Information not available 06/14/2022 Do You Feel Stressed (tense, Restless, Nervous, Or Anxious, Or Unable To Sleep At Night)? [id number] MIGRATION.477746 3092 Information not available 06/14/2022 Do You Use Any Illicit Or Recreational Drugs? No MIGRATION.426970 3332 Information not available 06/14/2022 Do You Use Sunscreen Routinely? Yes MIGRATION.863548 4643 Information not available 06/14/2022 Have You Recently Traveled Abroad? No MIGRATION.533833 0132 Information not available 06/14/2022 Do You Have Any Dietary Restrictions? No MIGRATION.541817 1717 Information not available 06/14/2022 Do You Or Have You Ever Used Any Other Forms Of Tobacco Or Nicotine? No MIGRATION.145306 4481 Information not available 06/14/2022 Sex: Unknown Functional Status Question Answer Note LastModified by Organizat ion Details LastModified Time Do you have transportation difficulties? No MIGRATION.9519871 026 Information not available 06/14/2022 Are you able to walk? YESWOREST MIGRATION.4402055 026 Information not available 06/14/2022 Do you have difficulty doing errands alone? No MIGRATION.8071711 026 Information not available 06/14/2022 Are you able to care for yourself? Yes MIGRATION.9316811 026 Information not available 06/14/2022 Do you have difficulty dressing or bathing? No MIGRATION.3482500 026 Information not available 06/14/2022 What is your exercise level? Moderate MIGRATION.8324175 026 Information not available 06/14/2022 Mental Status None recorded. Family History Relationship Description Onset Age of this Age Resolved Age Notes LastModified by Organization Details LastModified Time Father No current problems or disability MIGRATION.396 [id number] Not available 06/14/2022 03:04:43 Father General health good MIGRATION.373 [id number] Not available 06/14/2022 03:04:43 Mother No current problems or disability MIGRATION.797 [id number] Not available 06/14/2022 03:04:43 Medical History Condition [...] HAVE YOU BEEN HOSPITALIZED OR SEEN IN [facility] IN THE PAST YEAR ? N [...] quadrivalent, preservative 9 completed Not Available [facility] 06/14/2022 03:32:54 Influenza, split virus, quadrivalent, preservative 8 completed Not Available [facility] 06/14/2022 03:32:54 COVID-19, mRNA, LNP-S, PF, 30 mcg/0.3 mL dose 1 completed Not Available [facility] 06/14/2022 03:32:54 zoster live 4 completed Not Available [facility] 06/14/2022 03:32:54 Past Encounters Encounter ID Performer Location Encounter Start Date Encounter Closed Date Diagnosis/Indication Diagnosis SNOMED-CT Code Diagnosis ICD10 Code Diagnosis Note [id number] [facility] [place] [address] [place] [address] 06/29/2020 00:00:00 07/06/2020 13:54:00 [id number] [facility] [place] [address] [place] [address] 01/04/2021 00:00:00 01/12/2021 11:18:37 [id number] [facility] [place] [address] [place] [address] 07/05/2021 00:00:00 07/12/2021 23:45:56 [id number] [facility] [place] [address] [place] [address] 01/10/2022 00:00:00 01/10/2022 13:53:52 [id number] RODOLFO Fagan [facility] Internal [facility] [address] [place] [address] 07/11/2022 11:31:57 07/11/2022 12:21:18 Impaired glucose tolerance 1685316 R73.03 6% a1c. repeat lab in dec. Hyperlipidemia 77638533 E78.5 on pravastati n 20mg daily. stable labs. repeat in dec. Hypothyroidism 86759106 E03.9 on supplement . stable. repeat labs due in dec. Body mass index 30+ - obesity 245822641 Z68.31 start wegovy if insurance with cover Long-term drug therapy 811881213 Z79.899 routine labs due in dec Screening for malignant neoplasm of colon 627912638 Z12.11 pt will be due for cologuard screening. [id number] RODOLFO Fagan [facility] Internal [facility] [address] [place] [address] 01/09/2023 11:19:56 01/09/2023 12:25:27 Impaired glucose tolerance 4604650 R73.03 5.7% a1c. . boost to ozempic 1mg weekly. HOLD metformin at this time. she feels she has GI issues from it. Hyperlipidemia 90136634 E78.5 on pravastati n 20mg daily. stable labs. repeat fasting in June Hypothyroidism 04974499 E03.9 on supplement . stable. repeat labs due in June Body mass index 30+ - obesity 582275682 Z68.31 noted. stable Long-term drug therapy 389585518 Z79.899 next labs due in June Colorectal cancer detected by DNA-based stool screening 477777761 R19.5 pt agrees to colonoscop y now with her positive cologuard screening. Health Concerns Section Related Observation LastModified by Organization Detai ls LastModified Time None Recorded Concern Status LastModified by Organization Details LastModified Time None Recorded Advance Directives Directive N: Payers Encounter Date Sequence Insurance Name Policy Number Policy Beach Covered Member ID [place] Member ID Guarantor Name 07/11/2022 1 [facility] MED[employer] SOL[employer] - MEDICARE COMPLETE (MEDICARE REPLACEMENT HMO) [id number] Palak Vaca Nicholas [id number] Palak Nicholas 01/09/2023 1 [facility] MEDICARE SOLUT[employer] - MEDICARE COMPLETE (MEDICARE REPLACEMENT HMO) [id number] Palak Handariela [id number] Palak Nicholas Notes Date Note Type Note [...] skin changes; no hair changes Not Available [facility] [employer] [facility] 01/12/2021 11:18:37 07/06/19 22 text/ht ml Generic [...] tabs; taking medication as directed Not Available [place] [employer] [facility] 07/12/2021 23:45:56 01/11/20 22 text/ht ml HyperlipidemiaReported [...] difficulties; no skin changes;hair changes Not Available [employer] 01/10/2022 13:53:52 07/12/19 23 text/ht ml HyperlipidemiaReported [...] on metformin 6% a1c RODOLFO Fagan [address] [facility], [facility] [address], [place], [address], [facility] [employer] 07/11/2022 20:59:02 01/10/20 23 text/ht ml HyperlipidemiaReported [...] changes 6 mo f/u RODOLFO Fagan [address] [facility], [facility] [address], [place], [address], [facility] 01/09/2023 18:11:05 OBGyn Episode No OBEpisode recorded.
--- OUTSIDE RECORDS SUMMARY | 2024-07-21 11:50 | XMS_ITS | Clinical Summary ---
Author Organization [facility] Address [address] [place] [place] [address] Care Team Providers Care Tank Setter Name Role Phone Juan Nicole MD Primary Care Provider Raymundo Bolton MD Unavailable [phone] Source Comments [facility],non-owned Affiliates and Associated Physician Practices is amultiple site organization consisting of ambulatory clinics and hospital sitesin [place], [place], [place] and [place]. This disclosure is being madepursuant to the Care Everywhere program and may not contain all information available regarding this patient. Last updated 18.[facility] [place] Allergies No known active allergies Medications * [...] Department Care Team Description 05/01/2024 Lab Requisition [facility] - DermPath Lab [address] [place] [address] Wendy Harrison DO from Last 3 Months [...] VACCINE (1 - 2023-2 5 season) 2023 DEPRESSION SCREENING 04/16/2024 MEDICARE AWV CALENDAR YEAR 2024 INFLUENZA VACCINE (Season Ended) 2024 Respiratory Syncytial Virus (RSV) Vaccine Pt: [...] Comments DERMATOPATHOLOGY Routine 05/01/2024 10:5 8 AM PUNCH BOX TENDER from Last 3 Months Results * DERMATOPATHOLOGY (05/01/2024 10:58 AM PUNCH BOX TENDER) Case Report Dermatopathology Report Case: [id number] Authorizing Provider: Wendy Harrison DO Collected: 05/01/2024 10:58 AM Ordering Location: [facility] - Received: 05/01/2024 04:34 PM DermPath Lab Pathologist: Lauren Griffith MD Specimen: Skin, left superior NLF 1:03 PM [facility] Final Diagnosis Specimen A. SKIN, left superior NLF: BASAL CELL CARCINOMA, NODULAR TYPE (C44.311) (see microscopic description) 1:03 PM [facility] Clinical History R/O BCC 1:03 PM [facility] Gross Description Specimen A: Received is one formalin filled container labeled with the patient's name and designated left superior NLF. The specimen consists of a shave biopsy measuring 2x2x1 mm. Jar 0. 1:03 PM [facility] Microscopic Description Specimen A. SKIN, left superior NLF: Within the dermis there are aggregates of basaloid cells with a high nuclear to cytoplasmic ratio and peripheral palisading. Additional deeper sections were obtained and reviewed. 1:03 PM [facility] Disclaimer An external and [...] purposes. Billing Codes Specimen Charges Stain Charges 85881 1 01/20/202 5 1:03 PM [facility] DERMATOPATHOLOGY LABORATORY Embedded Images 5 1:03 PM [facility] DERMATOPATHOLOGY LABORATORY Pathology/Cytolo gy TISSUE SPECIMEN FROM SKIN / Unknown 05/01/2024 10:58 AM P[employer] BOX TENDER 05/01/2024 4:34 PM P[employer]OX T[employer]ER Wendy Harrison DO LAB - PATHOLOGY/C YTOLOGY ORDERABLES DERMATOPATHOLOGY LABORATORY [facility] - Department of Dermatology [address], [address] [phone] from Last 3 Months Care Teams Tank Setter Relationship Specialty Start Date End Date Juan Nicole MD PCP - General Internal Medicine 11/21/18 [place] [id number] [place] [address] [place] [id number] Orthopedic Surgery 11/21/18
[2024-07-21 12:11] LABS: Alanine Aminotransferase 31 U/L (6-35); Albumin Level 4.3 g/dL (3.5-5.1); Alkaline Phosphatase 79 U/L (38-126); Anion Gap 10 mmol/L (4-12); Aspartate Amino Transferase 24 U/L (14-36); Bilirubin,Total 0.5 mg/dL (0.2-1.3); Blood Urea Nitrogen 18 mg/dL (7-17); Calcium 9.1 mg/dL (8.4-10.2); Carbon Dioxide 24 mmol/L (22-30); Chloride 107 mmol/L (98-107); Cholesterol 188 mg/dL (0-200); Estimated Glomerular Filt Rate > 60; Glucose 131 mg/dL (65-110); HDL Direct 54 mg/dL; Potassium 4.1 mmol/L (3.4-5.0); Sodium 141 mmol/L (137-145); Triglycerides 85 mg/dL (<150)
[2024-07-21 12:22] LABS: LDL Cholesterol Direct 105 mg/dL
[2024-07-21 12:50] LABS: Free T4 Free Thyroxine 1.18 ng/dL (0.78-2.19)
[2024-07-21 14:23] LABS: Hemoglobin A1C 6.2 % (<5.7)
== END 2024-07-21 10:18 | disposition home or self-care (01) ==
PROVIDERS: PCP Physician Assistant; Visit Provider Physician Assistant
DX: E78.5 Hyperlipidemia, unspecified (principal); E03.9 Hypothyroidism, unspecified; R73.03 Prediabetes; Z79.899 Other long term (current) drug therapy
CPT/HCPCS: 36415; 80048; 80061; 80076; 83036; 84439; 84443; 85025

== ENCOUNTER 2024-08-20 10:21 | Outpatient (CLI) | payer MEDICARE, SELFPAY ==
--- NOTE | ~2024-08-20 | XR_ITS ---
XR abdomen/kub 1V Ordering provider: Wong Watkins MD History: . Right ureteral stone . Comparison: July 10, 2024 FINDINGS: BOWEL: Distended stomach with gases. Nonobstructive bowel gas pattern. ORGANOMEGALY: None. SIGNIFICANT PATHOLOGIC CALCIFICATIONS: Multiple stones in the left kidney. Tiny stone in the right ki dney lower pole. OTHER: No free air is seen under the diaphragm. Degenerative the spine. IMPRESSION: NO ACUTE ABDOMINAL FINDINGS. Bilateral kidney stones. Reviewed, dictated and finalized at location A.
--- OUTSIDE RECORDS SUMMARY | 2024-08-20 11:09 | XMS_ITS | Data Portability ---
Author Organization MEI TEODOROKatty Perez Address [address] [facility] [place] [address] Care Team Providers Care Creative Project Manager Name Role Phone TAMELA ROMERO Primary Care Provider Unavailab le Assessment Encounter Date Assessment Date Assessment LastModified by Organization Details LastModified Time 01/24/2024 01/24/2024 Mammogram completed October of 2023 Colonoscopy March 05, 2023 at [facility] Eye exam is up-to-date Dental exams up-to-date Labs up-to-date Not available 02/15/2024 23:15:51 07/24/2024 07/24/2024 Mammogram completed October of 2023 Colonoscopy March 05, 2023 at [facility] Eye exam is up-to-date Dental exams up-to-date Labs up-to-date Not available 07/24/2024 11:57:06 Plan of Treatment Reminders Order Date Submit Date Provider Last Modified By Organization Details Last Modified Time Details Appointments ANY 15 2024 11:00A M RODOLFO Fagan Not available Not available Not available Lab HbA1c (hemoglob in A1c), blood 2024 025 [email or web address] [facility], [address] [place] [address], [id number], 07/24/2024 12:09:10 CBC w/ auto diff 2024 025 [email or web address] [facility], [address], [address], 07/24/2024 12:09:10 BMP, serum or plasma [address] Lab, [address] [place] [address], [address], 07/24/2024 12:09:10 hepatic function panel, serum [address] [place] [address] Lab, [address] [place] [address], [address], 07/24/2024 12:09:10 lipid panel, serum [address] [place] [address] Lab, [address] [place] [address], [address], 07/24/2024 12:09:10 TSH + free T4, serum [address] [place] [address] Lab, [address] [place] [address], [address], 07/24/2024 12:09:10 HbA1c (hemoglob in A1c), blood [address] [place] [address] Lab, [address] [place] [address], [address], 07/07/2024 09:30:55 CBC w/ auto diff [address] Lab, [address] [place] [address], [address], 07/25/2024 10:04:00 BMP, serum or plasma [address] [place] [address] Lab, [address] [place] [address], [address], 07/07/2024 09:30:55 hepatic function panel, serum [address] [place] [address] Lab, [address] [place] [address], [address], 07/07/2024 09:30:55 lipid panel, serum [address] [place] [address] Lab, [address] [place] [address], [address], 07/07/2024 09:30:55 CBC w/ manual diff 2023 024 [facility], [address] [place] [address], [address], 02/25/2024 12:35:10 TSH + free T4, serum 2023 025 [facility], [address] [place] [address], [address], 07/07/2024 09:30:55 HbA1c (hemoglob in A1c), blood 2023 024 [facility], [address] [place] [address], [address], 01/21/2024 15:40:07 CBC w/ auto diff 2023 024 [facility], [address] [place] [address], [address], 01/21/2024 12:30:44 BMP, serum or plasma 2023 024 [facility], [facility] [address], [address], 07/22/2024 09:30:48 hepatic function panel, serum [address] Lab, [facility] [address], [address], 07/02/2024 10:58:53 lipid panel, serum [address] Lab, [facility] [address], [address], 07/02/2024 10:58:53 TSH + free T4, serum [address] Lab, [address] [place] [address], [address], 07/02/2024 10:58:52 Referral hand surgeon referral 2023 MORENITA Lozano MD, [address] [facility] [address], [address], [place], [address], 10/11/2023 14:25:54 Procedures None recorded. Surgeries None recorded. Imaging CT, chest, w/o contrast 2023 [facility] (Imaging), [address] [facility] [address], [place], [address], 01/26/2024 09:04:00 Medication Orders pravastat in 20 mg tablet 2023 [place] [facility], [address] [place] [address], [address], [place], [place], [id number], 07/19/2023 12:27:28 Zepbound 2.5 mg/0.5 mL subcutane ous pen injector 2023 [email or web address] [id number], [address] [facility], [place], [place], [id number], 08/01/2023 12:36:44 meloxicam 15 mg tablet 2023 [place] [facility], [address] [facility] [address], [address], [place], [place], [id number], 07/19/2023 12:27:28 levothyro xine 50 mcg tablet 2023 024 [place] [facility], [address] [place] [address], [address], [place], [place], [phone], 07/19/2023 12:27:29 Patient TargetsNo targets recorded. Patient Instructions Encounter Date Encounter Id Patient Instructions Last Modified By Organization Details Last Modified Time 01/24/2024 [id number] A healthy lifestyle: care instructions Not available 01/24/2024 12:58:18 07/24/2024 [id number] A healthy lifestyle: care instructions Not available 07/24/2024 12:09:10 Reason for Referral Hand Surgeon Referral for [...] opatho logy Report Case: [id number] Author izing Provid er: Wendy Harrison DO Collec mary lou: 2024 10:58 AM Orderi ng Locati on: [facility] - Receiv ed: 2024 04:34 PM DermPa th Lab Pathol ogist: Lauren Bertrand MD Specim en: Skin, left superi or NLF Case Repor t [place] topat holog y Repor t Case: [id number] Autho azjaziel Provi fanta: Jensen Saldana DO Colle cted: 05/01 10:58 AM Order ing Locat ion: [facility] - Recei kevin: 05/01 04:34 PM DermP ath Lab Patho logis t: Carmen Chavez MD Speci men: Skin, left super ior NLF 05/05 1:03 PM TRAIN DISPATCHER [facility] Not [...] c descr iptio n) 05/05 1:03 PM TRAIN DISPATCHER [facility] Elect diya jameson mili d by Carmen Chavez MD on 2024 at 1:03 PM Not Available Not Available 07/03/2024 11:01:27 05/01/19 25 05/05/2024 Skin Patho logy biops y repor t pathology report relevant history narrative R/O BCC Clini stephanie Histo ry R/O BCC 05/05 1:03 PM TRAIN DISPATCHER [facility] Not Available Not Available 07/03/2024 11:01:27 05/01/19 25 05/05/2024 Skin Patho logy biops y repor t pathology report gross observation narrative Specim en A: Receiv ed is one formal in filled contai ner labele d with the patien t's name and design ated left superi [...] 2x2x1 mm. Jar 0. 05/05 1:03 PM TRAIN DISPATCHER [facility] Not [...] gayathri and revie wed. 05/05 1:03 PM TRAIN DISPATCHER [facility] Not Available Not Available 07/03/2024 11:01:27 05/01/19 25 05/05/2024 Skin Patho logy biops y repor t service comment An circle shear operator al and information technology internship al positi ve and negati ve contro [...] ined by the Dermat opatho logy Eliza black at [facility], direct ed by Dr. Linda Armijo . These tests need not be, and theref ore are not, approv ed by the [place] Food and Drug Admini strati on. The tests are used for clinic al purpos es. Allyson g Codes Specim en Charge [place] [address] 1 Discl aimer An exter nal and [...] becki cteri stic deter mined by the [place] topat holog y Labor atory at [facility] , direc mary lou by Dr. Linda Bryant. These tests need not be, and there fore are not, appro kevin by the [facility] Food and Drug Admin istra tion. The tests are used for clini stephanie purpo ses. Roddy ng Codes Speci [place] [id number] 1 05/05 1:03 PM TRAIN DISPATCHER [facility] Not Available Not Available 07/03/2024 11:01:27 05/01/19 25 05/05/2024 Skin Patho logy biops y repor t embedded images Embed ded Image s 05/05 1:03 PM TRAIN DISPATCHER [facility] Not Available Not Available 07/03/2024 11:01:27 10/24/19 24 10/24/2023 XR, knee No observ ation record ed. [address] [facility], [place], [address], 10/24/2023 19:25:31 11/02/19 24 11/02/2023 MAMMO , scree claribel, digit al, bilat eral No observ ation record ed. [address] [facility], [place], [address], 02/15/2024 23:15:57 01/26/20 24 01/25/2024 CT, chest , w/o contr ast No observ ation record ed. [address] [facility], [place], [address], 01/30/2024 12:51:28 07/11/19 25 07/09/2024 CT, lower extre mity, w/o contr ast No observ ation record ed. [address] [facility], [place], [address], 07/10/2024 16:29:46 Result Notes None recorded. Problems Name Problem SNOMED Code Status Onset Date Resolution Date Notes Provider Name and Address Organization Details Recorded Time Body mass index 30+ - obesity 938053528 Active 2023 Baldemar Nagel [place] null, [place] - [facility] 4 12:27:17 Hyperlipide vesna 81818090 Active 2023 RODOLFO Fagan Attn: Mark ravi,[address] [place], [address], [facility] - [facility] 4 23:14:47 Hypothyroid ism 35558868 Active 2023 RODOLFO Fagan Attn: Mark ravi,[address] [place], [address], [place] - [facility] 4 23:14:48 Impaired glucose tolerance 7494891 Active 2023 RODOLFO Fagan Attn: Mark ravi,[address] [facility], [place], [address], [place] [facility] 4 23:14:50 Blood chemistry outside reference range 159907066 Active 2023 RODOLFO Fagan Attn: Accountblake g,[address] [facility], [place], [address], [place] [facility] 4 23:14:52 Pain of bilateral knee joints 9759383020037 04 Active 2023 RODOLFO Fagan Attn: Mark ravi,[address] [facility], [place], [address], [place] [facility] 4 23:14:55 Osteoarthro sis of the carpometaca rpal joint of the thumb 62330876 Active 2023 RODOLFO Fagan Attn: Accountblake ravi,[address] [facility], [place], [address], [place] [facility] 4 23:14:57 Obesity 935342397 Active 2023 RODOLFO Fagan Attn: Mark ravi,[address] [facility], [place], [address], [place] [facility] 4 23:15:00 Long-term drug therapy Active 2023 RODOLFO Fagan Attn: Accountblake g,[address] [facility], [place], [address], [place] [facility] 4 23:15:02 Night sweats 09505921 Active 2023 RODOLFO Fagan Attn: Mark g,[address] [facility], [place], [address], [place] [facility] 4 23:19:07 Problem Notes None recorded. Procedures Surgical History None recorded. Imaging Results Imaging Date Name Status LastModified by Bill peng Details LastModified Time 10/24/2023 XR, knee completed [address], [place], [address], 10/24/2023 19:25:31 11/02/2023 MAMMO, screening, digital, bilateral completed [address] [place] [address], [address], 02/15/2024 23:15:57 01/25/2024 CT, chest, w/o contrast completed [address], [place], [address], 01/30/2024 12:51:28 07/09/2024 CT, lower extremity, w/o contrast completed [address], [place], [address], 07/10/2024 16:29:46 Procedure Notes None recorded. Medical Equipment None Reported. Allergies No known drug allergies Medications Name Sig Start Date Stop Date Status Note LastModified by Organization Details LastModified Time metformin 500 mg tablet TAKE 1 TABLET BY MOUTH TWICE DAILY 2024 active Not Available Not Available Not Avai lable hydrocodone 5 mg-acetamin ophen 325 mg tablet TAKE 1 TO 2 TABLETS BY MOUTH EVERY 6 HOURS NEEDED 07/24 completed Not Available Not Available Not Available meloxicam 15 mg tablet TAKE 1 TABLET BY MOUTH DAILY WITH A MEAL 2023 active Not Available Not Available Not Avai lable clobetasol 0.05 % topical cream APPLY TO THE AFFECTED AREA DAILY FOR 1 MONTH THEN TWICE DAILY FOR 2 WEEKS FOR RECURRING SYMPTOMS 07/24 completed Not Available Not Available Not Available sulfamethox azole 800 mg-trimetho prim 160 mg tablet TAKE 1 TABLET BY MOUTH TWICE DAILY active Not Available Not Available No t Available amoxicillin 500 mg tablet TAKE 1 TABLET BY MOUTH THREE TIMES DAILY UNTIL ALL TAKEN 07/18 completed Not Available Not Available Not Available tamsulosin 0.4 mg capsule TAKE 1 CAPSULE BY MOUTH DAILY active Not Available Not Available No t Available levothyroxi ne 50 mcg tablet TAKE [...] AND IN THE EVENING NEEDED FOR ITCHING 07/24 completed Not Available Not Available Not Available hydrocortis one 2.5 % topical ointment APPLY TO EAR TWICE DAILY NEEDED active Not Available Not Available No t Available ondansetron 4 mg disintegrat ing tablet DISSOLVE 1 TABLET ON THE TONGUE EVERY 6 HOURS NEEDED FOR NAUSEA 07/24 completed Not Available Not Available Not Available Asprin Ec Low Dose 81 mg tablet,rachel yed release Take 1 tablet every day by oral route. active Not Available Not Available No t Available mometasone 0.1 % topical solution INSTILL 4 TO 6 DROPS INTO THE AFFECTED EAR ONCE DAILY active Not Available Not Available No [...] Updated DateTime 4 171.45 cm 31 kg/m2 22443.0 7 g 20 /min 99 % 99 % 83 /min 128 mm[Hg] 82 mm[Hg] Baldemar Nagel MA [facility] 4 12:00:52 Date Recorded Body height Body mass index (BMI) Body weight Respiratory rate Oxygen saturation Oxygen saturation in Arterial blood by Pulse oximetry Heart rate Systolic blood pressure Diastolic blood pressure Provider Name and Address Organization Details Last Updated DateTime 4 171.45 cm 32.6 kg/m2 08612.9 9 g 18 /min 96 % 96 % 76 /min 138 mm[Hg] 88 mm[Hg] Baldemar Nagel MA [facility] SIF 4 12:29:46 Date Recorded Body height Body mass index (BMI) Body weight Respiratory rate Oxygen saturation Oxygen saturation in Arterial blood by Pulse oximetry Heart rate Systolic blood pressure Diastolic blood pressure Provider Name and Address Organization Details Last Updated DateTime 5 171.45 cm 32.9 kg/m2 64443.1 7 g 18 /min 97 % 97 % 76 /min 122 mm[Hg] 80 mm[Hg] Baldemar Nagel MA [facility] SIF 5 11:38:49 Social History Question Answer Notes LastModified by Organizat ion Details LastModified Time Tobacco Smoking Status Former Smoker quit at [age] years Baldemar Nagel MA [facility], [facility] SI 07/19/2023 11:57:56 Do You Have An Advance Directive? Yes Information not available 07/24/2024 What Is Your Level Of Alcohol Consumption? [...] No Information not available 07/19/2023 Are You Currently Employed? No Information not available 07/24/2024 Are You Deaf Or Do You Have Serious Difficulty Hearing? No Information not available 07/19/2023 What Type Of Diet Are You Following? REGULAR Information not available 07/19/2023 Are There Any Guns Present In Your Home? No Information not available 07/19/2023 What Was The Date Of Your Most Recent Tobacco Screening? 07/24/2024 Information not available 07/24/2024 What Is Your Current Pack Years? 20-29packyear [...] PF, 30 mcg/0.3 mL dose 06/13/2020 completed Baldemar Nagel [place] - [facility] 01/22/2024 17:13:44 COVID-19, mRNA, LNP-S, PF, 30 mcg/0.3 mL dose 07/04/2020 completed Baldemar Nagel [place] [facility] 01/22/2024 17:13:44 zoster live 02/06/2013 completed Baldemar Nagel [place] - [facility] 01/22/2024 17:13:44 Past Encounters Encounter ID Performer Location Encounter Start Date Encounter Closed Date Diagnosis/Indication Diagnosis SNOMED-CT Code Diagnosis ICD10 Code Diagnosis Note [id number] Juan Nicole MD [facility] [place] [address] [email or web address] [id number] 07/19/2023 11:48:48 07/19/2023 12:39:36 Hyperlipidemia 99779675 E78.5 refill pravastati n 20mg daily and repeat fasting lipids in dec. Hypothyroidism 94352140 E03.9 refill levothyrox ine 50mcg daily. due for repeat TFT panel in Dec. Impaired g lucose tolerance 4831085 R73.03 6.1% a1c. stable but no longer on ozempic due to coverage issues. Long-term drug therapy 743661326 Z79.899 next labs due in dec. Body mass index 30+ - obesity 893407608 Z68.31 bmi 31 Obesity 793559426 E66.9 If insurance will authorize, start zepbound titration course to aid on weight loss but also with her prediabete s and hyperlipid emia and hypothyroi dism underlying risk factors. Pain of bi lateral knee joints 1003888011 16691 M25.561 M25.562 Trial of meloxicam 15mg daily PRN. Osteoarthr osis of the carpometacarpal joint of the thumb 28822145 M18.9 refer to Hand specialist for evaluation of painful thumb joint. 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 Repeat labs in June Impaired g lucose tolerance 1414947 R73.03 6.1% a1c. stable but no longer on ozempic due to coverage issues. Repeat A1c in June Pain of bi lateral knee joints 0903017904 69110 M25.561 M25.562 Patient has meloxicam 15mg daily PRN. Long-term drug therapy 037701296 Z79.899 Next labs are due in June Osteoarthr osis of the carpometacarpal joint of the thumb 53179001 M18.9 History noted she has seen a specialist for the thumb joint arthritis Night sweats 13430608 R6 1 For an increase in night sweats we will refer for CT of the chest without contrast for mediastina l evaluation Blood chem istry outside reference range 432979218 R79.9 Repeat CBC next month as there is a little elevation in her monocytes and differenti al that is minor that she would like to repeat to ensure normalized levels [id number] Juan Nicole MD [facility] [place] [address] [place] [address] 07/24/2024 11:06:08 07/24/2024 15:37:24 Hyperlipidemia 49809168 E78.5 Stable on pravastati n 20mg daily and repeat fasting lipids due in December Hypothyroidism 76255328 E03.9 Stable on levothyrox ine 50mcg daily. Labs due again in December Impaired g lucose tolerance 3310834 R73.03 6.2% a1c. stable but no longer on ozempic due to coverage issues. Repeat A1c ordered Pain of bi lateral knee joints 5294495243 40627 M25.561 M25.562 Patient has meloxicam 15mg daily PRN. Osteoarthr osis of the carpometacarpal joint of the thumb 61243789 M18.9 History noted she has seen a specialist for the thumb joint arthritis Body mass index 30+ - obesity 701528952 Z68.31 BMI is 32.9 Obesity 595144697 E66.9 discussed healthy diet, exercise, controllin g carbohydra bjorn and added sugars in the diet Long-term drug therapy 205506549 Z79.899 Health Concerns Section Related Observation LastModified by Organization Detai ls LastModified Time None Recorded Concern Status LastModified by Organization Details LastModified Time None Recorded Advance Directives Directive Y: Payers Encounter Date Sequence Insurance Name Policy Number Policy [place] Covered Member ID [place] Member ID Guarantor Name 07/19/2023 1 [facility] (MEDICARE REPLACEMENT/A DVANTAGE - HMO) [id number] Palak Peterson [id number] Palak Peterson 01/24/2024 1 [facility] (MEDICARE REPLACEMENT/A DVANTAGE - HMO) [id number] Palak Peterson [id number] Palak Peterson 07/24/2024 1 [facility] (MEDICARE REPLACEMENT/A DVANTAGE - HMO) [id number] Palak Peterson [id number] Palak Peterson Notes Date Note Type Note Provider Name and Address Organization Details Recorded Time 07/19/19 24 text/htm l Generic HPI TemplateReported bypatient.Notes:Prediabetes hx. was on ozempic prior but not taking now.HyperlipidemiaReported bypatient.Notes:stable on pravastatin 20mg dailyThyroidReported bypatient.Notes:stable on levothyroxine 50mcg daily. RODOLFO Fagan Attn: Accounting[address] [place], [address], [facility] 07/24/2023 09:02:56 01/24/20 24 text/htm l Generic [...] frequent lately RODOLFO Fagan Attn: Accounting,[address] [facility], [place], [address], [facility] [place] [place] 02/15/2024 23:19:26 07/25/19 25 text/htm l Generic HPI TemplateReported bypatient.Notes:Prediabetes hx. was on ozempic prior but not taking now due to coverage issues and costHyperlipidemiaReported bypatient.Notes:stable on pravastatin 20mg dailyThyroidReported bypatient.Notes:stable on levothyroxine 50mcg daily. Osteoarthritis of the knees and the thumb joint-patient has seen a specialist for both of these RODOLFO Fagan Attn: Accounting,[address] [facility], [place], [address], [facility], [place] 08/16/2024 15:43:03 OBGyn Episode Ob Episode Information Episode Created Date Number of Fetuses Patient Bloodtype Patient rh Status Prepregnancy Weight lbs Domestic Partner Domestic Partner Phone Father Name Multi Operation Forming Machine Setter Status 02/22/20 24 1 DELETED Fetus Data First Name Last Name Admitted to NICU Weight (g) Sex Living Outcome Pediatric Complications Fetus ID Race Codes Race Delivery Type [id number] Fabrice Calculation Initial Fabrice Date Initial Exam [...]
--- OUTSIDE RECORDS SUMMARY | 2024-08-20 11:09 | XMS_ITS | Encounter Summary ---
Author Organization [facility] Health Address [address] [place] [address] Care Team Providers Care Interventional Pain Physician Name Role Phone Juan Nicole MD Primary Care Provider [phone] Raymundo Bolton MD Unavailable [phone] Encounter Details Date Type Department Care Team (Late st Contact Info) Description 03/19/2023 Lab Requisition [facility] - DermPath Lab [address] [facility], [place] [id number] Wendy Harrison DO [address] [facility] [address] [place] [address] Social History Tobacco Use Types Packs/Day Years Used Date Smoking Tobacco: Never Assessed Comments Unknown Sex and Gender Information Value Date Recorded Sex Assigned at Not on file Legal Sex Female 5:41 PM [employer] P[employer] Gender Identity Not on file Sexual Orientation Not on file documented as of this encounter Plan of Treatment Not on file documented as of this encounter Procedures Procedure Name Priority Date/Time Associated Diagnosis Comments DERMATOPATHOLOGY Routine 03/19/2023 11:2 4 AM [employer] documented in this encounter Results * DERMATOPATHOLOGY (03/19/2023 11:24 AM [employer] PAPER) Case Report Dermatopathology Report Case: [id number] Authorizing Provider: Wendy Harrison DO Collected: 03/19/2023 11:24 AM Ordering Location: [facility] DermPath Lab Received: 03/20/2023 12:31 PM Pathologist: Lauren Griffith MD Specimens: A) - Skin, right helix B) - Skin, left upper back 3 3:03 PM [facility] DERMATOPATHOLOGY LABORATORY Final Diagnosis Specimen A. SKIN, right helix: SQUAMOUS PROLIFERATION (D48.5) OVERLYING CUTANEOUS HORN (L85.8) (see microscopic description and comment) Specimen B. SKIN, left upper back: BASAL CELL CARCINOMA, SUPERFICIAL MULTIFOCAL (C44.519) 3 3:03 PM [facility] DERMATOPATHOLOGY LABORATORY Clinical History A: CNH, R/O NMSC B: R/O NMSC 3 3:03 PM [facility] DERMATOPATHOLOGY LABORATORY Gross Description Specimen [...] shave biopsy measuring 5x5x1 mm. Jar 0. 3 3:03 PM [facility] DERMATOPATHOLOGY LABORATORY Microscopic Description Specimen [...] nuclear to cytoplasmic ratio and peripheral palisading. 3 3:03 PM [facility] DERMATOPATHOLOGY LABORATORY Disclaimer An external and internal positive and negative controls are appropriate for the histochemical, immunohistochemical and immunofluorescence stain(s) in this case (if any), except where stated explicitly. The performance characteristics of the stain(s) cited in this report were developed and its performance characteristic determined by the Dermatopathology Laboratory at [facility], directed by Dr. Linda Armijo. These tests need not be, and therefore are not, approved by the [place] Food and Drug Administration. The tests are used for clinical purposes. Billing Codes Specimen Charges Stain Charges 60333 66244 1 1 3 3:03 PM [employer] DERMATOPATHOLOGY LABORATORY Embedded Images 3 3:03 PM [employer] DERMATOPATHOLOGY LABORATORY Pathology/Cytology TISSUE SPECIMEN FROM SKIN / Unknown 03/19/2023 11:24 AM [employer] PAPER 03/20/2023 12:31 PM [employer] P[employer]ER Miscellaneous samples (specimen) TISSUE SPECIMEN FROM SKIN / Unknown 03/19/2023 11:24 AM [employer] PAPER 03/20/2023 12:31 PM COATER [employer] P[employer]ER us Wendy aHrrison DO LAB - PATHOLOGY/CYTOLOGY ORDERABLES Final Result DERMATOPATHOLOGY LABORATORY [facility] - Department of Dermatology [facility] Medicine [address] [place] [address], [address] [phone] documented in this encounter Visit Diagnoses Not on filedocumented in this encounter Care Teams Interventional Pain Physician Relationship Specialty Start Date End Date Juan Nicole MD PCP - General Internal Medicine 11/21/18 [place] [id number] [address] Orthopedic Surgery 11/21/18 documented as of this encounter
--- OUTSIDE RECORDS SUMMARY | 2024-08-20 11:10 | XMS_ITS | Encounter Summary ---
Author Organization [facility] Address [address] [facility] [place] [address] Care Team Providers Care Rustic Terrazzo Setter Name Role Phone Juan Nicole MD Primary Care Provider [phone] Raymundo Bolton MD Unavailable [phone] Encounter Details Date Type Department Care Team (Late st Contact Info) Description 08/27/2019 Lab Requisition [facility] DermPath Lab [address] [facility] [place] [address] Cesilia Gomez MD [address] 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 Gender Identity Not on file Sexual Orientation Not on file documented as of this encounter Plan of Treatment Not on file documented as of this encounter Procedures Procedure Name Priority Date/Time Associated Diagnosis Comments DERMATOPATH TECHNICAL REPORT Routine 08/26/2019 12:00 AM CDT documented in this encounter Results * DERMATOPATH TECHNICAL REPORT (08/26/2019 12:00 AM CDT) Case Report Dermatopathology Report Case: [id number] Authorizing Provider: Cesilia Gomez MD Collected: 08/26/2019 12:00 AM Ordering Location: [facility] DermPath Lab Received: 08/27/2019 06:44 AM Pathologist: Lauren Griffith MD Specimen: Skin, left upper eyelid 0 12:43 PM CDT DERMATOPATHOLOGY LABORATORY Clinical History R/O SK, irritated. 0 12:43 PM CDT DERMATOPATHOLOGY LABORATORY Gross Description Specimen A: Received is one formalin filled container labeled with the patient's name and designated left upper eyelid. The specimen consists of a shave measuring [id number]. Jar 0. [facility] Dermatopathology Laboratory performed the technical component [...] characteristic determined by the Dermatopathology Laboratory at [facility], directed by Dr. Linda Armijo. These tests need not be, and therefore are not, approved by the [place] Food and Drug Administration. The tests are used for clinical purposes. 0 12:43 PM CDT DERMATOPATHOLOGY LABORATORY Pathology/Cytolog y TISSUE SPECIMEN FROM SKIN / Unknown 08/26/2019 08/27/2019 6:44 AM CDT Cesilia Gomez MD LAB - PATHOLOGY/CYTOLOGY OR DERABLES Final Result DERMATOPATHOLOGY LABORATORY [facility] - Department of Dermatology [address] [facility], 5th Floor Lab [address] [phone] documented in this encounter Visit Diagnoses Not on filedocumented in this encounter Care Teams Rustic Terrazzo Setter Relationship Specialty Start Date End Date Juan Nicole MD PCP - General Internal Medicine 11/21/18 [place] [address] [address] Orthopedic Surgery 11/21/18 documented as of this encounter
--- OUTSIDE RECORDS SUMMARY | 2024-08-20 11:10 | XMS_ITS | Data Portability ---
Author Organization [place] - [facility], Main Office Address [address] [place] [address] Care Team Providers Care Canvas Baster Name Role Phone MELL CHIN Primary Care Provider MELL CHIN Referring Provider [phone] Assessment No assessment recorded. Plan of Treatment Reminders Order Date Submit Date Provider Last Modified By Organization Details Last Modified Time Details Appointments None recorded. Lab HbA1c (hemoglobin A1c), blood [address] (Lab), [address] [place] [address], [address], 4 11:48:28 CBC w/ auto diff [address] (Lab), [address] [place] [address], [address], 4 11:47:01 BMP, serum or plasma [address] (Lab), [address] [place] [address], [address], 4 11:47:16 hepatic function panel, serum [address] (Lab), [address] [place] [address], [address], 4 11:47:27 lipid panel, serum [address] (Lab), [address] [place] [address], [address], 4 11:48:19 T4, free, serum [address] (Lab), [address] [place] [address] 162, [place], [address], 4 11:47:43 TSH, serum or plasma [address] (Lab), [address] [place] [address] 162, [place], [address], 4 11:47:58 T3, free, serum or plasma [address] (Lab), [address] [place] [address] 162, [place], [address], 4 11:48:09 HbA1c (hemoglobin A1c), blood [email or web address] [place] [address] (Lab), [address] [place] [address], [place], [address], 3 10:53:03 CBC w/ auto diff 2022 [email or web address] [place] [address] (Lab), [address] [place] [address], [place], [address], 3 10:52:08 BMP, serum or plasma 2022 [email or web address] [place] [address] (Lab), [address] [place] [address], [place], [address], 3 10:52:27 hepatic function panel, serum 2022 [email or web address] [place] [address] (Lab), [address] [place] [address], [address], 3 10:53:18 lipid panel, serum [facility] [address] [place] [address] 162, [place], [address], 3 10:43:39 noninvasive colorectal cancer DNA + occult blood screening, QL, stool 2022 023 [place] [facility] (Cologuard Orders Only), [address], [address], [place], [address], 3 04:30:51 T4, free, serum [address] (Lab), [address] [facility] [address], [address], 3 10:52:46 TSH, serum or plasma [address] (Lab), [facility] [address], [place], [address], 3 10:52:52 T3, free, serum or plasma 2022 023 [facility] (Lab), [facility] [address], [place], [address], 3 10:47:30 Referral None recorded. Procedures diagnostic colonoscopy (PROC) - no referral required 2022 023 [place] Arthur Canela MD, [address] [facility] [address], [address], [place], [address], 3 15:48:19 Surgeries None recorded. Imaging None recorded. Medication Orders Ozempic 1 mg/dose (4 mg/3 mL) subcutaneou s pen injector 2022 023 [place] [id number], [address], [place], [id number], 3 12:16:49 Wegovy 0.25 mg/0.5 mL subcutaneou s pen injector 2022 023 [email or web address] [facility], [address], [address], [place], [place], [id number], 12:16:34 Patient TargetsNo targets recorded. Patient InstructionsNo instructions recorded. Reason for Referral None Reported. Results Created Date Observation Date Name Description Value Unit Range Abnormal Flag Note LastModifiedBy Organization Detail LastModifiedTime 01/05/2001/04/2021 urina lysis , dipst ick Leukocytes (reference range: negative keyla/ l) Small Not Available [facility] [place] [address], [place], [address], 01/04/2021 12:36:18 01/05/2001/04/2021 urina lysis , dipst ick Nitrite (reference rage: negative mg/dl) negati ve Not Available [facility] [place] [address], [place], [address], 01/04/2021 12:36:18 01/05/2001/04/2021 urina lysis , dipst ick Urobilinogen (reference range: 0.2-1 mg/dl) 0.2 Not Available [facility] [place] [address], [place], [address], 01/04/2021 12:36:18 01/05/2001/04/2021 urina lysis , dipst ick Protein (reference range: negative mg/dl) Negati ve Not Available [facility] [place] [address], [place], [address], 01/04/2021 12:36:18 01/05/2001/04/2021 urina lysis , dipst ick pH (reference range: 5-7) 5.5 Not Available [facility] [place] [address], [place], [address], 01/04/2021 12:36:18 01/05/2001/04/2021 urina lysis , dipst ick Blood (reference range: negative Sushant/ l) Hemoly zed: Trace Not Available [facility] [place] [address], [place], [address], 01/04/2021 12:36:18 01/05/2001/04/2021 urina lysis , dipst ick Specific Narvon (reference range: 1.005-1.030) 1.025 Not Available [facility] [place] [address], [place], [address], 01/04/2021 12:36:18 01/05/2001/04/2021 urina lysis , dipst ick Ketone (reference range: negative mg/dl) Negati ve Not Available [facility] [place] [address], [place], [address], 01/04/2021 12:36:18 01/05/20 21 01/04/2021 urina lysis , dipst ick Bilirubin (reference range: negative mg/dl) Negati ve Not Available [facility] [place] [address], [place], [address], 01/04/2021 12:36:18 01/05/20 21 01/04/2021 urina lysis , dipst ick Glucose (reference range: negative mg/dl) Negati ve Not Available [facility] [place] [address], [place], [address], 01/04/2021 12:36:18 01/05/20 21 01/04/2021 urina lysis , dipst ick Appearance Cloudy Not Available [facility] [place] [address], [place], [address], 01/04/2021 12:36:18 01/05/20 21 01/04/2021 urina lysis , dipst ick Color Dark Yellow Not Available [facility] [place] [address], [place], [address], 01/04/2021 12:36:18 12/26/19 23 12/25/2022 COLOG UARD [...] is negat jesse. TEST DESCR IPTIO N: Almena site algor ithmi c khloe sis of [...] years or older , who are at [facility] for color ectal cance r (CRC) . Colog uard has been appro kevin for use by the [place]. FDA. The perfo rmanc e of Colog uard was estab lishe d in a cross secti onal study of [facility] adult s aged 50-84 . Colog [...] of ,00 0 indiv idual s at [facility] risk for color ectal cance r [...] at www.c ologu loyd.c om. Not Available [facility] (Cologuard Orders Only) [address], [place], [address], 12/30/2022 04:30:51 03/23/20 21 03/22/2021 XR, abdom en No observ ation record ed. [id number] [facility] (Imaging) [facility] [address], [place], [address], 06/14/2022 03:34:14 07/08/19 22 07/01/2021 XR, abdom en No observ ation record ed. [id number] Not Available 06/14/2022 03:34:14 07/09/19 22 07/07/2021 XR, thumb No observ ation record ed. MIGRATION. [facility] ([facility]) [address] [place] [address] Rte [facility], [place], [address], 06/14/2022 03:34:14 07/14/19 22 07/07/2021 XR, abdom en No observ ation record ed. [id number] Not Available 06/14/2022 03:34:14 08/30/19 22 08/25/2021 imagi ng/di agnos tic resul t No observ ation record ed. MIGRATION. [id number], [place], [address], 06/14/2022 03:34:14 09/03/19 22 08/08/2021 XR, abdom en No observ ation record ed. MIGRATION. [address] [facility], [place], [address], 06/14/2022 03:34:14 01/17/20 23 07/25/2022 MAMMO , scree claribel, digit al, bilat eral No observ ation record ed. [place] [address] [facility] [address], [place], [address], 01/17/2023 15:38:00 02/20/20 23 02/19/2023 diagn ostic colon oscop y (PROC ) No observ ation record ed. [email or web address] Arthur Canela MD [address] [address] [address], [place], [address], 04/20/2023 19:49:06 Result Notes None recorded. Problems Name Problem SNOMED Code Status Onset Date Resolution Date Notes Provider Name and Address Organization Details Recorded Time Colorectal cancer detected by DNA-based stool screening 928947225 Active 2022 RODOLFO Fagan [address] [place] [address], [address], [place], [address] , [facility] 3 12:15:15 Cervical radiculitis 42330122 Active Not Available [facility] 3 03:17:14 Body mass index 30+ - obesity 284357212 Active Not Available [facility] 3 03:17:14 Thumb injury 892539179 Active 2021 Not Available [facility] 3 03:17:14 Low back pain 939898824 Active 2021 Not Available [facility] 3 03:17:14 Pain in toe 719175699 Active Not Available [facility] 3 03:17:15 Pain in left arm 603836828 Active Not Available [facility] 3 03:17:15 Hypothyroidis m 42484532 Active 2021 Not Available [facility] 3 03:17:15 Hyperlipidemi a 72551282 Active Not Available [facility] 3 03:17:15 Urinary tract infectious disease 95717887 Active Not Available [facility] 3 03:17:15 Degeneration of cervical intervertebra l disc 93057987 Active Not Available [facility] 3 03:17:15 Hyperglycemia 26383283 Active Not Available [facility] 3 03:17:15 Fatigue 15357581 Active Not Available [facility] 3 03:17:15 Impaired glucose tolerance 3508044 Active Not Available [facility] 3 03:17:15 Kidney stone 04992793 Active 2021 Not Available [facility] 3 03:17:16 Problem Notes None recorded. Procedures Surgical History Date Name Laterality Status Provider Name and Address Organization Details Recorded Time 08/26/19 22 cystoscopy completed Not Available [facility] 3 03:04:38 07/02/19 22 Lithotripsy completed Not Available [facility] 06/15/19 23 03:04:38 03/26/20 20 Most Recent Bone Density completed Not Available [facility] 06/14/2022 03:04:29 04/16/19 13 other completed Not Available [facility] 03:04:38 04/16/19 12 Eye Surgery completed Not Available [facility] 06/15/19 23 03:04:38 04/16/19 10 Xcapsl ctrc rmvl cplx wo ecp completed Not Available [facility] 06/14/2022 03:04:38 04/16/19 10 repair of retina for retinal detachment completed Not Available [facility] 06/14/2022 03:04:38 04/16/19 06 oophorectomy completed Not Available [facility] 023 03:04:38 Imaging Results Imaging Date Name Status LastModified by Organiz ation Details LastModified Time 07/07/2021 XR, abdomen completed MIGRATION.[id number] 3 0026 Information not available 06/14/2022 03:34:14 08/25/2021 imaging/diagnos tic result completed [id number].[id number] [address] [place] [address], [address], 06/14/2022 03:34:14 08/08/2021 XR, abdomen completed MIGRATION.[id number], [address], 06/14/2022 03:34:14 03/22/2021 XR, abdomen completed MIGRATION.[id number] 3 0026 [facility] (Imaging) [address] [place] [address], [address], 06/14/2022 03:34:14 07/07/2021 XR, thumb completed MIGRATION.[id number] 3 0026 [facility] (Imaging) [address] [place] [address], [address], 06/14/2022 03:34:14 07/01/2021 XR, abdomen completed MIGRATION.23336 3 0026 Information not available 06/14/2022 03:34:14 07/25/2022 MAMMO, screening, digital, bilateral completed [email or web address] [address], [address], 01/17/2023 15:38:00 02/19/2023 diagnostic colonoscopy (PROC) completed [email or web address] Arthur Canela MD [address] [facility] [address], [place], [address], 04/20/2023 19:49:06 Procedure Notes None recorded. Medical [...] completed Not Available Not Available Not Available Valatie 3 takes daily 2019 active Not Available Not Available Not Avai lable B12 takes daily 07/05 completed Not Available Not Available Not Available Picato 0.05 % topical gel 11/12 completed Not Available Not Available Not Available Myrbetriq 25 mg tablet,ext ended release TAKE 1 TABLET BY MOUTH DAILY 07/05 completed Not Available Not Available Not Available Flucelvax Quad [id number] (PF) 60 mcg (15 mcg x 4)/0.5 [...] 3 172.72 cm 96.9 [degF] 31.9 kg/m2 07125.4 g 84 /min 97 % 97 % 124 mm[Hg] 82 mm[Hg] ADOLPH Tron[place]o [email or web address] 3 11:44:49 Date Recorded Body height Body mass index (BMI) Body weight Body temperature Heart rate Oxygen saturation Oxygen saturation in Arterial blood by Pulse oximetry Systolic blood pressure Diastolic blood pressure Provider Name and Address Organization Details Last Updated DateTime 3 172.72 cm 30.4 kg/m2 90002.4 7 g 97.3 [degF] 84 /min 96 % 96 % 122 mm[Hg] 80 mm[Hg] ADOLPH [place] - [place] [email or web address] 3 11:41:41 Date Recorded Body mass index (BMI) Body height Oxygen saturation Oxygen saturation in Arterial blood by Pulse oximetry Heart rate Body temperature Body weight Systolic blood pressure Diastolic blood pressure Provider Name and Address Organization Details Last Updated DateTime 1 32.2 kg/m2 172.72 cm 95 % 95 % 84 /min 96.1 [degF] 73536.1 5 g 130 mm[Hg] 90 mm[Hg] Not Available [facility] 3 03:10:39 Date Recorded Body mass index (BMI) Body height Oxygen saturation Oxygen saturation in Arterial blood by Pulse oximetry Heart rate Body temperature Body weight Systolic blood pressure Diastolic blood pressure Provider Name and Address Organization Details Last Updated DateTime 2 31.6 kg/m2 172.72 cm 96 % 96 % 92 /min 97.2 [degF] 17316.2 1 g 126 mm[Hg] 80 mm[Hg] Not Available [facility] 3 03:10:39 Date Recorded Body height Heart rate Respiratory rate Body temperature Systolic blood pressure Diastolic blood pressure Systolic blood pressure Diastolic blood pressure Provider Name and Address Organization Details Last Updated DateTime 2 172.72 cm 83 /min 16 /min 96.6 [degF] 158 mm[Hg] 100 mm[Hg] 130 mm[Hg] 90 mm[Hg] Not Available [facility] 3 03:10:40 Social History Question Answer Notes LastModified by Organizat ion Details LastModified Time Tobacco Smoking Status Former Smoker Not Available [facility] 06/14/2022 02:46:24 Do You Have An Advance Directive? No [id number].317646 3335 Information not available 06/14/2022 What Is Your Level Of Alcohol Consumption? Moderate MIGRATION.109787 5458 Information not available 06/14/2022 Do You Wear A Helmet When Biking? No MIGRATION.172019 1863 Information not available 06/14/2022 What Is Your Level Of Caffeine Consumption? Moderate MIGRATION.548186 3887 Information not available 06/14/2022 How Much Tobacco Do You Chew? None MIGRATION.121120 1505 Information not available 06/14/2022 In The 14 Days Before Symptom Onset, Have You Had Close Contact With A Laboratory-confir med COVID-19 While That Case Was Ill? No MIGRATION.709436 3207 Information not available 06/14/2022 In The 14 Days Before Symptom Onset, Have You Had Close Contact With A Person Who Is Under Investigation For COVID-19 While That Person Was Ill? No MIGRATION.148153 4611 Information not available 06/14/2022 Are You Currently Employed? No [email or web address] Information not available 01/08/2023 What Type Of Diet Are You Following? REGULAR MIGRATION.723705 7316 Information not available 06/14/2022 Which Illicit Or Recreational Drugs Have You Used? None MIGRATION.318910 8311 Information not available 06/14/2022 Do You Or Have You Ever Used E-cigarettes Or Vape? Never Used Electronic Cigarettes MIGRATION.163214 2616 Information not available 06/14/2022 What Is The Highest Grade Or Level Of School You Have Completed Or The Highest Degree You Have Received? [id number] MIGRATION.554040 8828 Information not available 06/14/2022 What Is Your Occupation? Retired. MIGRATION.253783 7690 Information not available 06/14/2022 Have There Been Any Changes To Your Family Or Social Situation? No MIGRATION.062698 4520 Information not available 06/14/2022 Are There Any Guns Present In Your Home? No MIGRATION.859689 6433 Information not available 06/14/2022 Do You Use Insect Repellent Routinely? No MIGRATION.168229 1277 Information not available 06/14/2022 Do You Have A Medical Power Of Exploitation Analyst? No Information not available 01/08/2023 Have You Ever Been Counseled For Unhealthy Alcohol Use? No MIGRATION.540670 8393 Information not available 06/14/2022 Do You Have Any Pets? No MIGRATION.531029 5441 Information not available 06/14/2022 What Is Your Relationship Status? MIGRATION.918558 5027 Information not available 06/14/2022 Do You Use Your Seat Belt Or Car Seat Routinely? Yes MIGRATION.434144 0932 Information not available 06/14/2022 Do You Have Smoke And Carbon Monoxide Detectors In Your Home? Yes MIGRATION.000010 1251 Information not available 06/14/2022 Are You Passively Exposed To Smoke? No MIGRATION.621795 4923 Information not available 06/14/2022 Do You Or Have You Ever Used Smokeless Tobacco? Never Used Smokeless Tobacco MIGRATION.296310 0398 Information not available 06/14/2022 Are There Any Smokers In Your House? No MIGRATION.129804 4519 Information not available 06/14/2022 How Much Tobacco Do You Smoke? 0.5 PPD MIGRATION.874189 2566 Information not available 06/14/2022 Do You Feel Stressed (tense, Restless, Nervous, Or Anxious, Or Unable To Sleep At Night)? [id number] MIGRATION.786612 9229 Information not available 06/14/2022 Do You Use Any Illicit Or Recreational Drugs? No MIGRATION.201775 7668 Information not available 06/14/2022 Do You Use Sunscreen Routinely? Yes MIGRATION.171231 1425 Information not available 06/14/2022 Have You Recently Traveled Abroad? No MIGRATION.947794 2207 Information not available 06/14/2022 Do You Have Any Dietary Restrictions? No MIGRATION.487734 8991 Information not available 06/14/2022 Do You Or Have You Ever Used Any Other Forms Of Tobacco Or Nicotine? No MIGRATION.794743 8707 Information not available 06/14/2022 Sex: Unknown Functional Status Question Answer Note LastModified by Organizat ion Details LastModified Time Do you have transportation difficulties? No MIGRATION.2830480 026 Information not available 06/14/2022 Are you able to walk? YESWOREST MIGRATION.5704562 026 Information not available 06/14/2022 Do you have difficulty doing errands alone? No MIGRATION.8072505 026 Information not available 06/14/2022 Are you able to care for yourself? Yes MIGRATION.6055097 026 Information not available 06/14/2022 Do you have difficulty dressing or bathing? No MIGRATION.6892770 026 Information not available 06/14/2022 What is your exercise level? Moderate MIGRATION.3639898 026 Information not available 06/14/2022 Mental Status None recorded. Family History Relationship Description Onset Age of this Age Resolved Age Notes LastModified by Organization Details LastModified Time Father No current problems or disability MIGRATION.479 [id number] Not available 06/14/2022 03:04:43 Father General health good MIGRATION.170 [id number] Not available 06/14/2022 03:04:43 Mother No current problems or disability MIGRATION.493 [id number] Not available 06/14/2022 03:04:43 Medical History Condition [...] HAVE YOU BEEN HOSPITALIZED OR SEEN IN [facility] IN THE PAST YEAR ? N [...] virus, quadrivalent, preservative 9 completed Not Available [facility] 06/14/2022 03:32:54 Influenza, split virus, quadrivalent, preservative 8 completed Not Available [facility] 06/14/2022 03:32:54 COVID-19, mRNA, LNP-S, PF, 30 mcg/0.3 mL dose 1 completed Not Available [facility] 06/14/2022 03:32:54 zoster live 4 completed Not Available [facility] 06/14/2022 03:32:54 Past Encounters Encounter ID Performer Location Encounter Start Date Encounter Closed Date Diagnosis/Indication Diagnosis SNOMED-CT Code Diagnosis ICD10 Code Diagnosis Note [id number] RODOLFO Fagan [facility] [place] [address] [place] [address] 06/29/2020 00:00:00 07/06/2020 13:54:00 [id number] RODOLFO Fagan [facility] [place] [address] [facility] [address] [place] [address] 01/04/2021 00:00:00 01/12/2021 11:18:37 [id number] RODOLFO Fagan [facility] [place] [address] [place] [address] 07/05/2021 00:00:00 07/12/2021 23:45:[id number] [facility] Internal Med [place] [address] [place] [address] 01/10/2022 00:00:00 01/10/2022 13:53:[id number] [facility] Internal [facility] [place] [address] [place] [address] 07/11/2022 11:31:57 07/11/2022 12:21:18 Impaired glucose tolerance 1539107 R73.03 6% a1c. repeat lab in dec. Hyperlipidemia 91344889 E78.5 on pravastati n 20mg daily. stable labs. repeat in dec. Hypothyroidism 22212588 E03.9 on supplement . stable. repeat labs due in dec. Body mass index 30+ - obesity 901691794 Z68.31 start wegovy if insurance with cover Long-term drug therapy 700772005 Z79.899 routine labs due in dec Screening for malignant neoplasm of colon 477358043 Z12.11 pt will be due for cologuard screening. [id number] RODOLFO Fagan [facility] Internal Med [place] [address] [place] [address] 01/09/2023 11:19:56 01/09/2023 12:25:27 Impaired glucose tolerance 8781002 R73.03 5.7% a1c. . boost to ozempic 1mg weekly. HOLD metformin at this time. she feels she has GI issues from it. Hyperlipidemia 76575382 E78.5 on pravastati n 20mg daily. stable labs. repeat fasting in June Hypothyroidism 96104757 E03.9 on supplement . stable. repeat labs due in June Body mass index 30+ - obesity 965720204 Z68.31 noted. stable Long-term drug therapy 999657719 Z79.899 next labs due in June Colorectal cancer detected by DNA-based stool screening 367077086 R19.5 pt agrees to colonoscop y now with her positive cologuard screening. Health Concerns Section Related Observation LastModified by Organization Detai ls LastModified Time None Recorded Concern Status LastModified by Organization Details LastModified Time None Recorded Advance Directives Directive N: Payers Encounter Date Sequence Insurance Name Policy Number Policy [place] Covered Member ID Beach Member ID Guarantor Name 07/11/2022 1 [employer] - [employer] - MEDICARE SOLUTIONS - MEDICARE COMPLETE (MEDICARE REPLACEMENT HMO) [id number] Palak Lio Peterson [id number] Palak Peterson 01/09/2023 1 [facility] - MEDICARE SOLUTIONS - MEDICARE COMPLETE (MEDICARE REPLACEMENT HMO) [id number] Palak Lio Peterson [id number] Palak Peterson Notes Date Note Type Note [...] skin changes; no hair changes Not Available [facility] [employer] 01/12/2021 11:18:37 07/06/19 22 text/ht ml Generic [...] tabs; taking medication as directed Not Available [employer] [facility] 07/12/2021 23:45:56 01/11/20 22 text/ht ml HyperlipidemiaReported [...] difficulties; no skin changes;hair changes Not Available [employer] [facility] 01/10/2022 13:53:52 07/12/19 23 text/ht ml HyperlipidemiaReported [...] on metformin 6% a1c RODOLFO Fagan [address] [facility], [facility] [address], [place], [address], [place] [facility] 07/11/2022 20:59:02 01/10/20 23 text/ht ml HyperlipidemiaReported [...] changes 6 mo f/u RODOLFO Fagan [address] [address], [place], [address], [place] [facility] 01/09/2023 18:11:05 OBGyn Episode No OBEpisode recorded.
--- OUTSIDE RECORDS SUMMARY | 2024-08-20 11:10 | XMS_ITS | Clinical Summary ---
Author Organization [facility] Address [address] [place] [address] Care Team Providers Care Underwater Welder Name Role Phone Unavailable Primary Care Provider [...] 1 - Tdap) 1969 Mammogram Screening 1990 Pneumococcal Vaccine: 50+ Ye ars (1 of 1 - PCV) 2000 Zoster Vaccines (1 of 2) 2000 Dexa Scan (General) 10/10/2015 COVID-19 Vaccine ( - 2023-2 5 [...]
--- OUTSIDE RECORDS SUMMARY | 2024-08-20 11:10 | XMS_ITS | Encounter Summary ---
Author Organization [facility] Health Address [address] [facility] [place] [address] Care Team Providers Care Flight Control Specialist Name Role Phone Juan Nicole MD Primary Care Provider [phone] Raymundo Bolton MD Unavailable [phone] Encounter Details Date Type Department Care Team (Late st Contact Info) Description 05/01/2024 Lab Requisition [facility] - DermPath Lab [address] [facility], [place] [address] Wendy Harrison DO [address] [facility] 3 [place] [address] Social History Tobacco Use Types Packs/Day Years Used Date Smoking Tobacco: Never Assessed Comments Unknown Sex and Gender Information Value Date Recorded Sex Assigned at Not on file Legal Sex Female 5:41 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 Gender Identity Not on file Sexual Orientation Not on file documented as of this encounter Plan of Treatment Not on file documented as of this encounter Procedures Procedure Name Priority Date/Time Associated Diagnosis Comments DERMATOPATHOLOGY Routine 05/01/2024 10:5 8 AM OPERATOR BEARER SYSTEMS documented in this encounter Results * DERMATOPATHOLOGY (05/01/2024 10:58 AM OPERATOR BEARER SYSTEMS) Case Report Dermatopathology Report Case: [id number] Authorizing Provider: Wendy Harrison DO Collected: 05/01/2024 [...] LABORATORY Clinical History R/O BCC 1:03 PM [facility] DERMATOPATHOLOGY LABORATORY Gross Description Specimen A: [...] purposes. Billing Codes Specimen Charges Stain Charges 35972 1 1:03 PM [facility] DERMATOPATHOLOGY LABORATORY Embedded Images 1:03 PM [facility] DERMATOPATHOLOGY LABORATORY Pathology/Cytolo gy TISSUE SPECIMEN FROM SKIN / Unknown 05/01/2024 10:58 AM OPERATOR BEARER SYSTEMS 05/01/2024 4:34 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 us Wendy Harrison DO LAB - PATHOLOGY/CYTOLOGY ORDERABLES Final Result DERMATOPATHOLOGY LABORATORY [facility] - Department of Dermatology [address], [address] [phone] documented in this encounter Visit Diagnoses Not on filedocumented in this encounter Care Teams Flight Control Specialist Relationship Specialty Start Date End Date Juan Nicole MD PCP - General Internal Medicine 11/21/18 [place] [address] [address] Orthopedic Surgery 11/21/18 documented as of this encounter
--- OUTSIDE RECORDS SUMMARY | 2024-08-20 11:10 | XMS_ITS | Clinical Summary ---
Author Organization [facility] Address [address] [facility] [place] [address] Care Team Providers Care Marketing Operations Associate Name Role Phone Juan Nicole MD Primary Care Provider [phone] Raymundo Bolton MD Unavailable [phone] Source Comments [facility],non-owned Affiliates and Associated Physician Practices is amultiple site organization consisting of ambulatory clinics and hospital sitesin [place], [place], [place] and [place]. This disclosure is being madepursuant to the Care Everywhere program and may not contain all information available regarding this patient. Last updated 18.[facility] [employer] Allergies No known active allergies Medications * Be aware that medications may not be up to date on this document. Alwaysverify current medications with the patient. 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 Gender Identity Not on file Sexual Orientation [...] on patient's age to complete this topic Insurance [facility] MANAGED MEDICARE ADV [facility] MANAGED MEDICARE ADV Member Subscriber Plan / Payer (Ef fective 2016-Present) Name:Jony Gonzalez Relation to Subscriber:Self Name:JONY GONZALEZ Payer ID:[id number] (NAIC) Type:Medicare-Managed Care Address: [place] [id number] Care Teams Marketing Operations Associate Relationship Specialty Start Date End Date Juan Nicole MD PCP - General Internal Medicine 11/21/18 [place] [address] [address] Orthopedic Surgery 11/21/18
--- OUTSIDE RECORDS SUMMARY | 2024-08-20 11:10 | XMS_ITS | Continuity of Care Document ---
Author Organization [facility] Address [address] [facility] [address] [place] [address] Phone Care Team Providers Care Case Work Aide Name Role Phone Karyn Acosta Unavailable Unavailable Procedures Procedure Date Post-op Follow-up Visit Post-op Follow-up Visit Post-op Follow-up Visit Remove Cataract, Insert Lens Post-op Follow-up Visit I[facility]-Professional Post-op Follow-up Visit Post-op Follow-up Visit Remove Cataract, Insert Lens Office/outpatient Visit, [facility] Advance Directives Directive Yes / No Effective Date File Name No Information Encounters Encounter Description Practice Location Reason(s) For Visit Diagnoses Date Provider Providers Copied on Encounter [facility], [address] [place] [address] [address], [place], [place], [address], tel:[phone] [facility] No Information Oct-2 1-201 0 Karla Wahl [address], [place], [address], [place]. tel:[phone] [facility], [address] [place] [address] [address], [place], [place], [address], tel:[phone] [facility] No Information Oct-0 7-201 0 Karla Wahl [address], [place], [address], [place]. tel:[phone] [facility], [address], [place], [place], [address], [place] tel:[phone] [facility] No Information Sep-3 0-201 0 King OD Tomy. [address], [place], [address], [place]. tel:[phone] Referring Provider: Karyn Mackey, [address], [place], [place], [facility]. tel:[phone] [facility], [address], [place], [place], [address], [place] tel:[phone] [facility] No Information Sep-2 9-201 0 Karla Boss. [address], [place], [place], [facility], [place]. tel:[phone] [facility], [address], [place], [place], [address], [place] tel:[phone] [facility] [place] No Information Sep-1 6-201 0 Karla Boss. [address], [place], [address], [place]. tel:[phone] Referring Provider: Shala Hernandez MD, [address] [facility], [place], [address]. tel:[phone] [facility], [address], [place], [place], [address], [place] tel:[phone] [facility] [place] No Information Aug-2 6-201 0 Karla Boss. [address], [place], [address], [place]. tel:[phone] [facility], [address], [place], [place], [address], [place] tel:[phone] [facility] No Information 9-201 0 King OD Tomy. [address], [place], [address], [place]. tel:[phone] [facility], [address] [place] [address] [address], [place], [place], [address], [place] tel:[phone] [facility] No Information 8-201 0 Karla Boss. [address] [facility] , [address], [place], [address], [place]. tel:[phone] Referring Provider: Shala Hernandez MD, [address] [place], [address]. tel:[phone] Office/outpat ient Visit, [facility], [address], [place], [place], [address], [place] tel:[phone] [facility] No Information 0-201 0 Karla Boss. [address] [facility] , [address], [place], [address], [place]. tel:[phone] Referring Provider: Shala Hernandez MD, [address] [place], [address]. tel:[phone] Family History Family Member Type Diagnosis Age [...]
== END 2024-08-20 10:22 | disposition home or self-care (01) ==
PROVIDERS: PCP Physician Assistant; Visit Provider Urology
DX: N20.0 Calculus of kidney (principal)
CPT/HCPCS: 74018

== ENCOUNTER 2024-08-22 10:49 | Outpatient (CLI) | payer MEDICARE, SELFPAY ==
--- OUTSIDE RECORDS SUMMARY | 2024-08-22 10:55 | XMS_ITS | Encounter Summary ---
Author Organization [facility] Health Address [address] [facility] [place] [address] Care Team Providers Care Transition Mgr Name Role Phone Juan Nicole MD Primary Care Provider [phone] Raymundo Bolton MD Unavailable [phone] Encounter Details Date Type Department Care Team (Late st Contact Info) Description 05/01/2024 Lab Requisition [facility] - DermPath Lab [address] [facility], [place] [phone] Wendy Harrison DO [address] [facility] 3 [place] [address] Social History Tobacco Use Types Packs/Day Years Used Date Smoking Tobacco: Never Assessed Comments Unknown Sex and Gender Information Value Date Recorded Sex Assigned at Not on file 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 Gender Identity Not on file Sexual Orientation Not on file documented as of this encounter Plan of Treatment Not on file documented as of this encounter Procedures Procedure Name Priority Date/Time Associated Diagnosis Comments DERMATOPATHOLOGY Routine 05/01/2024 10:5 8 AM HOSE TUBING BACKER documented in this encounter Results * DERMATOPATHOLOGY (05/01/2024 10:58 AM HOSE TUBING BACKER) Case Report Dermatopathology Report Case: [id number] Authorizing Provider: Wendy Harrison DO Collected: 05/01/2024 10:58 AM Ordering Location: [facility] - Received: 05/01/2024 04:34 PM DermPath Lab Pathologist: Lauren Griffith MD Specimen: Skin, left superior NLF 1:03 PM [facility] DERMATOPATHOLOGY LABORATORY Final Diagnosis Specimen A. SKIN, left superior NLF: BASAL CELL CARCINOMA, NODULAR TYPE (C44.311) (see microscopic description) 1:03 PM [facility] DERMATOPATHOLOGY LABORATORY Clinical History R/O BCC 1:03 PM [facility] DERMATOPATHOLOGY LABORATORY Gross Description Specimen A: Received is one formalin filled container labeled with the patient's name and designated left superior NLF. The specimen consists of a shave biopsy measuring 2x2x1 mm. Jar 0. 1:03 PM [facility] DERMATOPATHOLOGY LABORATORY Microscopic Description Specimen A. SKIN, left superior NLF: Within the dermis there are aggregates of basaloid cells with a high nuclear to cytoplasmic ratio and peripheral palisading. Additional deeper sections were obtained and reviewed. 1:03 PM [facility] DERMATOPATHOLOGY LABORATORY Disclaimer An external and internal positive and negative controls are appropriate for the histochemical, immunohistochemical and immunofluorescence stain(s) in this case (if any), except where stated explicitly. The performance characteristics of the stain(s) cited in this report were developed and its performance characteristic determined by the Dermatopathology Laboratory at [facility], directed by Dr. Linda Armijo. These tests need not be, and therefore are not, approved by the [place] Food and Drug Administration. The tests are used for clinical purposes. Billing Codes Specimen Charges Stain Charges 24631 1 1:03 PM [facility] DERMATOPATHOLOGY LABORATORY Embedded Images 1:03 PM [facility] DERMATOPATHOLOGY LABORATORY Pathology/Cytolo gy TISSUE SPECIMEN FROM SKIN / Unknown 05/01/2024 10:58 AM HOSE TUBING BACKER 05/01/2024 4:34 PM HOSE TUBING BACKER us Wendy Harrison DO LAB - PATHOLOGY/CYTOLOGY ORDERABLES Final Result DERMATOPATHOLOGY LABORATORY [facility] - Department of Dermatology [address], [address] [phone] documented in this encounter Visit Diagnoses Not on filedocumented in this encounter Care Teams Transition Mgr Relationship Specialty Start Date End Date Juan Nicole MD PCP - General Internal Medicine 11/21/18 [place] [address] [address] Orthopedic Surgery 11/21/18 documented as of this encounter
--- OUTSIDE RECORDS SUMMARY | 2024-08-22 10:55 | XMS_ITS | Clinical Summary ---
Author Organization [facility] Address [address] [place] [address] Care Team Providers Care Die Cutter Diamond Name Role Phone Unavailable Primary Care Provider [...]
--- OUTSIDE RECORDS SUMMARY | 2024-08-22 10:55 | XMS_ITS | Encounter Summary ---
Author Organization [facility] Health Address [address] [facility] [place] [address] Care Team Providers Care Cleaner And Polisher Name Role Phone Juan Nicole MD Primary Care Provider [phone] Raymundo Bolton MD Unavailable [phone] Encounter Details Date Type Department Care Team (Late st Contact Info) Description 03/19/2023 Lab Requisition [facility] - DermPath Lab [address] [facility], [place] [address] Wendy Harrison DO [address] [facility] 3 [place] [address] Social History Tobacco Use Types Packs/Day Years Used Date Smoking Tobacco: Never Assessed Comments Unknown Sex and Gender Information Value Date Recorded Sex Assigned at Not on file 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 Gender Identity Not on file Sexual Orientation Not on file documented as of this encounter Plan of Treatment Not on file documented as of this encounter Procedures Procedure Name Priority Date/Time Associated Diagnosis Comments DERMATOPATHOLOGY Routine 03/19/2023 11:2 4 AM LOADER SEMICONDUCTOR DIES documented in this encounter Results * DERMATOPATHOLOGY (03/19/2023 11:24 AM LOADER SEMICONDUCTOR DIES) Case Report Dermatopathology Report Case: [id number] Authorizing Provider: Wendy Harrison DO Collected: 03/19/2023 11:24 AM Ordering Location: [facility] DermPath Lab Received: 03/20/2023 12:31 PM Pathologist: Lauren Griffith MD Specimens: A) - Skin, right helix B) - Skin, left upper back 3 3:03 PM [facility] DERMATOPATHOLOGY LABORATORY Final Diagnosis Specimen A. SKIN, right helix: SQUAMOUS PROLIFERATION (D48.5) OVERLYING CUTANEOUS HORN (L85.8) (see microscopic description and comment) Specimen B. SKIN, left upper back: BASAL CELL CARCINOMA, SUPERFICIAL MULTIFOCAL (C44.519) 3 3:03 PM [facility] DERMATOPATHOLOGY LABORATORY Clinical History A: CNH, R/O NMSC B: R/O NMSC 3 3:03 PM [facility] DERMATOPATHOLOGY LABORATORY Gross Description Specimen A: Received [...] 5x5x1 mm. Jar 0. 3 3:03 PM [facility] DERMATOPATHOLOGY LABORATORY Microscopic Description Specimen A. SKIN, [...] ratio and peripheral palisading. 3 3:03 PM [facility] DERMATOPATHOLOGY LABORATORY Disclaimer An external and internal positive and negative controls are appropriate for the histochemical, immunohistochemical and immunofluorescence stain(s) in this case (if any), except where stated explicitly. The performance characteristics of the stain(s) cited in this report were developed and its performance characteristic determined by the Dermatopathology Laboratory at [facility], directed by Dr. Linda Armijo. These tests need not be, and therefore are not, approved by the [place] Food and Drug Administration. The tests are used for clinical purposes. Billing Codes Specimen Charges Stain Charges 23388 69941 1 1 3 3:03 PM LOADER SEMICONDUCTOR DIES DERMATOPATHOLOGY LABORATORY Embedded Images 3 3:03 PM LOADER SEMICONDUCTOR DIES DERMATOPATHOLOGY LABORATORY Pathology/Cytology TISSUE SPECIMEN FROM SKIN / Unknown 03/19/2023 11:24 AM LOADER SEMICONDUCTOR DIES 03/20/2023 12:31 PM LOADER SEMICONDUCTOR DIES Miscellaneous samples (specimen) TISSUE SPECIMEN FROM SKIN / Unknown 03/19/2023 11:24 AM LOADER SEMICONDUCTOR DIES 03/20/2023 12:31 PM LOADER SEMICONDUCTOR DIES us Wendy Harrison DO LAB - PATHOLOGY/CYTOLOGY ORDERABLES Final Result DERMATOPATHOLOGY LABORATORY [facility] - Department of Dermatology [facility] Medicine [address] [place] [address], [address] [phone] documented in this encounter Visit Diagnoses Not on filedocumented in this encounter Care Teams Cleaner And Polisher Relationship Specialty Start Date End Date Juan Nicole MD PCP - General Internal Medicine 11/21/18 [place] [address] [address] Orthopedic Surgery 11/21/18 documented as of this encounter
--- OUTSIDE RECORDS SUMMARY | 2024-08-22 10:55 | XMS_ITS | Continuity of Care Document ---
Author Organization [facility] Address [address] [facility] [address] [place] [address] Phone Care Team Providers Care Asphalt Roller Operator Name Role Phone Karyn Acosta Unavailable Unavailable Procedures Procedure Date Post-op Follow-up Visit Post-op Follow-up Visit Post-op Follow-up Visit Remove Cataract, Insert Lens Post-op Follow-up Visit IOLMaster-Professional Post-op Follow-up Visit Post-op Follow-up Visit Remove Cataract, Insert Lens Office/outpatient Visit, [facility] Advance Directives Directive Yes / No Effective Date File Name No Information Encounters Encounter Description Practice Location Reason(s) For Visit Diagnoses Date Provider Providers Copied on Encounter [facility], [address] [place] [address] [address], [place], [place], [address], tel:[phone] [facility] No Information Oct-2 1-201 0 Karla Wahl [address], [place], [address], [place]. tel:[phone] [facility], [address] [place] [address] [address], [place], [place], [address], tel:[phone] [facility] No Information Oct-0 7-201 0 Karla Wahl [address], [place], [address], [place]. tel:[phone] [facility], [address], [place], [place], [address], [place] tel:[phone] [facility] No Information Sep-3 0-201 0 King OD Tomy. [address], [place], [address], [place]. tel:[phone] Referring Provider: Karyn Mackey, [address], [place], [place], [facility] tel:[phone] [facility], [address], [place], [place], [address], [place] tel:[phone] [facility] No Information Sep-2 9-201 0 Karla Boss. [address], [place], [place], [facility], [place]. tel:[phone] [facility], [address], [place], [place], [address], [place] tel:[phone] [facility] No Information Sep-1 6-201 0 Karla Boss. [address], [place], [address], [place]. tel:[phone] Referring Provider: Shala Hernandez MD, [address] [facility], [place], [address]. tel:[phone] [facility], [address], [place], [place], [address], [place] tel:[phone] [facility] No Information Aug-2 6-201 0 Karla Boss. [address], [place], [address], [place]. tel:[phone] [facility], [address], [place], [place], [address], [place] tel:[phone] [facility] No Information 9-201 0 King OD Tomy. [address], [place], [address], [place]. tel:[phone] [facility], [address] [place] [address] [address], [place], [place], [address], [place] tel:[phone] [facility] No Information 8-201 0 Karla Boss. [address] [facility] , [address], [place], [address], [place]. tel:[phone] Referring Provider: Shala Hernandez MD, [address] [place], [address]. tel:[phone] Office/outpat ient Visit, [facility], [address], [place], [place], [address], [place] tel:[phone] [facility] No Information 0-201 0 Karla Boss. [address] [facility] , [address], [place], [address], [place]. tel:[phone] Referring Provider: Shala Hernandez MD, [address] [place], [address]. tel:[phone] Family History Family Member Type Diagnosis Age [...]
--- OUTSIDE RECORDS SUMMARY | 2024-08-22 10:55 | XMS_ITS | Data Portability ---
Author Organization MEI TEODOROKatty Perez Address [address] [facility] [place] [address] Care Team Providers Care Statistics Teacher Name Role Phone TAMELA ROMERO Primary Care Provider Unavailab le Assessment Encounter Date Assessment Date Assessment LastModified by Organization Details LastModified Time 01/24/2024 01/24/2024 Mammogram completed October of 2023 Colonoscopy March 05, 2023 at [facility] Eye exam is up-to-date Dental exams up-to-date Labs up-to-date Not available 02/15/2024 23:15:51 07/24/2024 07/24/2024 Mammogram completed October of 2023 Colonoscopy March 05, 2023 at [facility] Eye exam is up-to-date Dental exams up-to-date Labs up-to-date Not available 07/24/2024 11:57:06 Plan of Treatment Reminders Order Date Submit Date Provider Last Modified By Organization Details Last Modified Time Details Appointments ANY 15 2024 11:00A M RODOLFO Fagan Not available Not available Not available Lab HbA1c (hemoglob in A1c), blood 2024 025 [email or web address] [facility], [address] [place] [address], [address], 07/24/2024 12:09:10 CBC w/ auto diff 2024 025 [email or web address] [facility], [address], [address], 07/24/2024 12:09:10 BMP, serum or plasma [address] Lab, [address] [place] [address], [address], 07/24/2024 12:09:10 hepatic function panel, serum [address] [place] [address] Lab, [address] [place] [address], [address], 07/24/2024 12:09:10 lipid panel, serum [address] [place] [address] Lab, [address] [place] [address], [address], 07/24/2024 12:09:10 TSH + free T4, serum [address] [place] [address] Lab, [address] [place] [address], [address], 07/24/2024 12:09:10 HbA1c (hemoglob in A1c), blood [address] [place] [address] Lab, [address] [place] [address], [address], 07/07/2024 09:30:55 CBC w/ auto diff [address] Lab, [address] [place] [address], [address], 07/25/2024 10:04:00 BMP, serum or plasma [address] [place] [address] Lab, [address] [place] [address], [address], 07/07/2024 09:30:55 hepatic function panel, serum [address] [place] [address] Lab, [address] [place] [address], [address], 07/07/2024 09:30:55 lipid panel, serum [address] [place] [address] Lab, [address] [place] [address], [address], 07/07/2024 09:30:55 CBC w/ manual diff 2023 024 [facility], [address] [place] [address], [address], 02/25/2024 12:35:10 TSH + free T4, serum [address] [facility], [address] [place] [address], [address], 07/07/2024 09:30:55 HbA1c (hemoglob in A1c), blood 2023 024 [facility], [address] [place] [address], [address], 01/21/2024 15:40:07 CBC w/ auto diff 2023 024 [facility], [address] [place] [address], [address], 01/21/2024 12:30:44 BMP, serum or plasma 2023 024 [facility], [facility] [address], [address], 07/22/2024 09:30:48 hepatic function panel, serum [address] Lab, [facility] [address], [address], 07/02/2024 10:58:53 lipid panel, serum [address] Lab, [facility] [address], [address], 07/02/2024 10:58:53 TSH + free T4, serum [address] Lab, [address] [place] [address], [address], 07/02/2024 10:58:52 Referral hand surgeon referral 2023 MORENITA Lozano MD, [address], [address], [place], [address], 10/11/2023 14:25:54 Procedures None recorded. Surgeries None recorded. Imaging CT, chest, w/o contrast 2023 [facility] (Imaging), [address], [place], [address], 01/26/2024 09:04:00 Medication Orders pravastat in 20 mg tablet 2023 [place] [facility], [address] [place] [address], [address], [place], [place], [id number], 07/19/2023 12:27:28 Zepbound 2.5 mg/0.5 mL subcutane ous pen injector 2023 [email or web address] [id number], [address], [place], [place], [id number], 08/01/2023 12:36:44 meloxicam 15 mg tablet 2023 [place] [facility], [address], [address], [place], [place], [id number], 07/19/2023 12:27:28 levothyro xine 50 mcg tablet 2023 024 [place] [facility], [address] [place] [address], [address], [place], [place], [id number], 07/19/2023 12:27:29 Patient TargetsNo targets recorded. Patient Instructions Encounter Date Encounter Id Patient Instructions Last Modified By Organization Details Last Modified Time 01/24/2024 [id number] A healthy lifestyle: care instructions Not available 01/24/2024 12:58:18 07/24/2024 [id number] A healthy lifestyle: care instructions Not available [...] left superi or NLF Case Repor t [place] topat holog y Repor t Case: [id number] Autho arjaziel Provi fanta: Jensen Saldana DO Colle cted: 05/01 10:58 AM Order ing Locat ion: [facility] - Recei kevin: 05/01 04:34 PM DermP ath Lab Patho logis t: Carmen Chavez MD Speci men: Skin, left super ior NLF 05/05 1:03 PM 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 Jar 0. 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 Linda Armijo . These tests need not be, and theref ore are not, approv ed by the [place] Food and Drug Admini strati on. The tests are used for clinic al purpos es. Allyson g Codes Specim en Charge [place] [address] 1 Discl aimer An exter nal and [...] becki cteri stic deter mined by the [place] topat holog y Labor atory at [facility] , direc mary lou by Dr. Linda Bryant. These tests need not be, and there fore are not, appro kevin by the [facility] Food and Drug Admin istra tion. The tests are used for clini stephanie purpo ses. 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 [address] [facility], [place], [address], 10/24/2023 19:25:31 11/02/19 24 11/02/2023 MAMMO , scree claribel, digit al, bilat eral No observ ation record ed. [address] [address], [place], [address], 02/15/2024 23:15:57 01/26/20 24 01/25/2024 CT, chest , w/o contr ast No observ ation record ed. [address] [address], [place], [address], 01/30/2024 12:51:28 07/11/19 25 07/09/2024 CT, lower extre mity, w/o contr ast No observ ation record ed. [address] [address], [place], [address], 07/10/2024 16:29:46 08/21/19 25 08/20/2024 imagi ng/di agnos tic resul t No observ ation record ed. [address] [address], [place], [address], 08/20/2024 13:55:27 Result Notes None recorded. Problems Name Problem SNOMED Code Status Onset Date Resolution Date Notes Provider Name and Address Organization Details Recorded Time Body mass index 30+ - obesity 407771268 Active [address] [facility], [place] - [facility] 12:27:17 Hyperlipide vesna 30011680 Active 2023 RODOLFO Fagan Attn: Mark g,[address] [facility], [place], [address], [place] - [facility] 4 23:14:47 Hypothyroid ism 22384486 Active 2023 RODOLFO Fagan Attn: Accountin g,[address] [facility], [place], [address], [place] [facility] 4 23:14:48 Impaired glucose tolerance 7206829 Active 2023 RODOLFO Fagan Attn: Accountin g,[address] [facility], [place], [address], [place] [facility] 4 23:14:50 Blood chemistry outside reference range 179185717 Active 2023 RODOLFO Fagan Attn: Accountin g,[address] [facility], [place], [address], [place] [facility] 4 23:14:52 Pain of bilateral knee joints 9938096647740 04 Active 2023 RODOLFO Fagan Attn: Accountin g,[address] [facility], [place], [address], [place] [facility] 4 23:14:55 Osteoarthro sis of the carpometaca rpal joint of the thumb 05782555 Active 2023 RODOLFO Fagan Attn: Accountin g,[address] [facility], [place], [address], [place] [facility] 4 23:14:57 Obesity 296718242 Active 2023 RODOLFO Fagan Attn: Accountin g,[address] [facility], [place], [address], [place] [facility] 4 23:15:00 Long-term drug therapy Active 2023 RODOLFO Fagan Attn: Accountin g,[address] [facility], [place], [address], [place] [facility] 4 23:15:02 Night sweats 10549107 Active 2023 RODOLFO Fagan Attn: Mark ravi,[address], [place], [address], [facility] 23:19:07 Problem Notes None recorded. Procedures Surgical History None recorded. Imaging Results Imaging Date Name Status LastModified by Organiz ation Details LastModified Time 10/24/2023 XR, knee completed [address], [address], 10/24/2023 19:25:31 11/02/2023 MAMMO, screening, digital, bilateral completed [address], [address], 02/15/2024 23:15:57 01/25/2024 CT, chest, w/o contrast completed [address], [address], 01/30/2024 12:51:28 07/09/2024 CT, lower extremity, w/o contrast completed [address] [address], [place], [address], 07/10/2024 16:29:46 08/20/2024 imaging/diagno stic result active [address], [address], 08/20/2024 13:55:27 Procedure Notes None recorded. Medical Equipment None [...] Updated DateTime 4 171.45 cm 31 kg/m2 52435.0 7 g 20 /min 99 % 99 % 83 /min 128 mm[Hg] 82 mm[Hg] Baldemar Nagle MA [facility] 4 12:00:52 Date Recorded Body height Body mass index (BMI) Body weight Respiratory rate Oxygen saturation Oxygen saturation in Arterial blood by Pulse oximetry Heart rate Systolic blood pressure Diastolic blood pressure Provider Name and Address Organization Details Last Updated DateTime 4 171.45 cm 32.6 kg/m2 87301.9 9 g 18 /min 96 % 96 % 76 /min 138 mm[Hg] 88 mm[Hg] Baldemar Nagel MA [facility] 4 12:29:46 Date Recorded Body height Body mass index (BMI) Body weight Respiratory rate Oxygen saturation Oxygen saturation in Arterial blood by Pulse oximetry Heart rate Systolic blood pressure Diastolic blood pressure Provider Name and Address Organization Details Last Updated DateTime 5 171.45 cm 32.9 kg/m2 05709.1 7 g 18 /min 97 % 97 % 76 /min 122 mm[Hg] 80 mm[Hg] Baldemar Nagel MA [facility] 5 11:38:49 Social History Question Answer Notes LastModified by Organizat ion Details LastModified Time Tobacco Smoking Status Former Smoker quit at [age] years Baldemar Nagel MA null, [facility] 07/19/2023 11:57:56 Do You Have An Advance [...] SNOMED-CT Code Diagnosis ICD10 Code Diagnosis Note [id number] Juan Nicole MD [facility] [address] [place] [address] 07/19/2023 11:48:48 07/19/2023 12:39:36 Hyperlipidemia 07249558 E78.5 refill pravastati n 20mg daily and repeat fasting lipids in dec. Hypothyroidism 02585297 E03.9 refill levothyrox ine 50mcg daily. due for repeat TFT panel in Dec. Impaired g lucose tolerance 3637709 R73.03 6.1% a1c. stable but no longer on ozempic due to coverage issues. Long-term drug therapy 703349780 Z79.899 next labs due in dec. Body mass index 30+ - obesity 252762022 Z68.31 bmi 31 Obesity 937382624 E66.9 If insurance will authorize, start zepbound titration course to aid on weight loss but also with her prediabete s and hyperlipid emia and hypothyroi dism underlying risk factors. Pain of bi lateral knee joints 8882747462 [address] M25.561 M25.562 Trial of meloxicam 15mg daily PRN. Osteoarthr osis of the carpometacarpal joint of the thumb 34363195 M18.9 refer to Hand specialist for evaluation of painful thumb joint. 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 Repeat labs in June Impaired g lucose tolerance 0123734 R73.03 6.1% a1c. stable but no longer on ozempic due to coverage issues. Repeat A1c in June Pain of bi lateral knee joints 9442349763 43558 M25.561 M25.562 Patient has meloxicam 15mg daily PRN. Long-term drug therapy 787291044 Z79.899 Next labs are due in June Osteoarthr osis of the carpometacarpal joint of the thumb 29837657 M18.9 History noted she has seen a specialist for the thumb joint arthritis Night sweats 97968472 R6 1 For an increase in night sweats we will refer for CT of the chest without contrast for mediastina l evaluation Blood chem istry outside reference range 140140298 R79.9 Repeat CBC next month as there is a little elevation in her monocytes and differenti al that is minor that she would like to repeat to ensure normalized levels [id number] Juan Nicole MD [facility] [employer] [address] [facility] [address] 07/24/2024 11:06:08 07/24/2024 15:37:24 Hyperlipidemia 43012407 E78.5 Stable on pravastati n 20mg daily and repeat fasting lipids due in December Hypothyroidism 07126721 E03.9 Stable on levothyrox ine 50mcg daily. Labs due again in December Impaired g lucose tolerance 7917585 R73.03 6.2% a1c. stable but no longer on ozempic due to coverage issues. Repeat A1c ordered Pain of bi lateral knee joints 5847461951 [address]5595 M25.561 M25.562 Patient has meloxicam 15mg daily PRN. Osteoarthr osis of the carpometacarpal joint of the thumb 34512636 M18.9 History noted she has seen a specialist for the thumb joint arthritis Body mass index 30+ - obesity 534229949 Z68.31 BMI is 32.9 Obesity 892626844 E66.9 discussed healthy diet, exercise, controllin g carbohydra bjorn and added sugars in the diet Long-term drug therapy 791222133 Z79.899 Health Concerns Section Related Observation LastModified by Organization Detai ls LastModified Time None Recorded Concern Status LastModified by Organization Details LastModified Time None Recorded Advance Directives Directive Y: Payers Encounter Date Sequence Insurance Name Policy Number Policy Beach Covered Member ID Beach Member ID Guarantor Name 07/19/2023 1 [facility] (MEDICARE REPLACEMENT/A DVANTAGE - HMO) [id number] Palak Peterson [id number] Palak Peterson 01/24/2024 1 [facility] (MEDICARE REPLACEMENT/A DVANTAGE - HMO) [id number] Palak Peterson [id number] Palak Peterson 07/24/2024 1 [facility] (MEDICARE REPLACEMENT/A DVANTAGE - HMO) [id number] Palak Peterson [id number] Palak Peterson Notes Date Note Type Note Provider Name and Address Organization Details Recorded Time 07/19/19 24 text/htm l Generic HPI TemplateReported bypatient.Notes:Prediabetes hx. was on ozempic prior but not taking now.HyperlipidemiaReported bypatient.Notes:stable on pravastatin 20mg dailyThyroidReported bypatient.Notes:stable on levothyroxine 50mcg daily. RODOLFO Fagan Attn: Accounting,[address] [facility], [place], [address], [facility] 07/24/2023 09:02:56 01/24/20 24 text/htm l Generic [...] frequent lately RODOLFO Fagan Attn: Accounting,[address] [place], [address], [facility] 02/15/2024 23:19:26 07/25/19 25 text/htm l Generic HPI TemplateReported bypatient.Notes:Prediabetes hx. was on ozempic prior but not taking now due to coverage issues and costHyperlipidemiaReported bypatient.Notes:stable on pravastatin 20mg dailyThyroidReported bypatient.Notes:stable on levothyroxine 50mcg daily. Osteoarthritis of the knees and the thumb joint-patient has seen a specialist for both of these RODOLFO Fagan Attn: Accounting,[address] [place], [address], [facility] 08/16/2024 15:43:03 OBGyn Episode Ob Episode Information Episode Created Date Number of Fetuses Patient Bloodtype Patient rh Status Prepregnancy Weight lbs Domestic Partner Domestic Partner Phone Father Name Web Feeder Status 02/22/20 24 1 DELETED Fetus Data First Name Last Name Admitted to NICU Weight (g) Sex Living Outcome Pediatric Complications Fetus ID Race Codes Race Delivery Type [id number] Fabrice Calculation Initial Fabrice Date Initial Exam [...]
--- OUTSIDE RECORDS SUMMARY | 2024-08-22 10:56 | XMS_ITS | Clinical Summary ---
Author Organization [facility] Address [address] [facility] [place] [address] Care Team Providers Care Contamination Consultant Name Role Phone Juan Nicole MD Primary Care Provider [phone] Raymundo Bolton MD Unavailable [phone] Source Comments [facility],non-owned Affiliates and Associated Physician Practices is amultiple site organization consisting of ambulatory clinics and hospital sitesin [place], [place], [place] and [place]. This disclosure is being madepursuant to the Care Everywhere program and may not contain all information available regarding this patient. 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 Gender Identity Not on file Sexual Orientation [...] patient's age to complete this topic Insurance [facility] MANAGED MEDICARE ADV [facility] MANAGED MEDICARE ADV Member Subscriber Plan / Payer (Ef fective 2016-Present) Name:Jony Gonzalez Relation to Subscriber:Self Name:JONY GONZALEZ Payer ID:[id number] (NAIC) Type:Medicare-Managed Care Address: [place] [id number] Care Teams Contamination Consultant Relationship Specialty Start Date End Date Juan Nicole MD PCP - General Internal Medicine 11/21/18 [place] [address] [address] Orthopedic Surgery 11/21/18
--- OUTSIDE RECORDS SUMMARY | 2024-08-22 10:56 | XMS_ITS | Encounter Summary ---
Author Organization [facility] Address [address] [facility] [address] Care Team Providers Care Hematology Technologist Name Role Phone Juan Nicole MD Primary Care Provider [phone] Raymundo Bolton MD Unavailable [phone] Encounter Details Date Type Department Care Team (Late st Contact Info) Description 08/27/2019 Lab Requisition [facility] [address] [facility], [place] [address] Cesilia Gomez MD [address] 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 Gender Identity Not on file Sexual Orientation Not on file documented as of this encounter Plan of Treatment Not on file documented as of this encounter Procedures Procedure Name Priority Date/Time Associated Diagnosis Comments DERMATOPATH TECHNICAL REPORT Routine 08/26/2019 12:00 AM CDT documented in this encounter Results * DERMATOPATH TECHNICAL REPORT (08/26/2019 12:00 AM CDT) Case Report Dermatopathology Report Case: [id number] Authorizing Provider: Cesilia Gomez MD Collected: 08/26/2019 12:00 AM Ordering Location: [facility] Received: 08/27/2019 06:44 AM Pathologist: Lauren Griffith MD Specimen: Skin, left upper eyelid 0 12:43 PM CDT DERMATOPATHOLOGY LABORATORY Clinical History R/O SK, irritated. 0 12:43 PM CDT DERMATOPATHOLOGY LABORATORY Gross Description Specimen A: Received is one formalin filled container labeled with the patient's name and designated left upper eyelid. The specimen consists of a shave measuring [id number]. Jar 0. [facility] performed the technical component only. [...] PATHOLOGY/CYTOLOGY OR DERABLES Final Result DERMATOPATHOLOGY LABORATORY [facility] - Department of Dermatology [address] [facility], 5th Floor Lab [address] [phone] documented in this encounter Visit Diagnoses Not on filedocumented in this encounter Care Teams Hematology Technologist Relationship Specialty Start Date End Date Juan Nicole MD PCP - General Internal Medicine 11/21/18 [place] [address] [address] Orthopedic Surgery 11/21/18 documented as of this encounter
--- OUTSIDE RECORDS SUMMARY | 2024-08-22 10:56 | XMS_ITS | Data Portability ---
Author Organization [place] [facility], Main Office Address [address] [place] [address] Care Team Providers Care Tin Worker Name Role Phone MELL CHIN Primary Care Provider MELL CHIN Referring Provider Assessment No assessment recorded. Plan of Treatment Reminders Order Date Submit Date Provider Last Modified By Organization Details Last Modified Time Details Appointments None recorded. Lab HbA1c (hemoglobin A1c), blood [address] (Lab), [address] [place] [address], [address], 4 11:48:28 CBC w/ auto diff [address] (Lab), [address] [place] [address], [address], 4 11:47:01 BMP, serum or plasma [address] (Lab), [address] [place] [address], [address], 4 11:47:16 hepatic function panel, serum [address] (Lab), [address] [place] [address], [address], 4 11:47:27 lipid panel, serum [address] (Lab), [address] [place] [address], [address], 4 11:48:19 T4, free, serum [address] (Lab), [address] [place] [address] 162, [place], [address], 4 11:47:43 TSH, serum or plasma [address] (Lab), [address] [place] [address] 162, [place], [address], 4 11:47:58 T3, free, serum or plasma [address] (Lab), [address] [place] [address] 162, [place], [address], 4 11:48:09 HbA1c (hemoglobin A1c), blood [address]22 [email or web address] [place] [address] (Lab), [address] [place] [address], [place], [address], 3 10:53:03 CBC w/ auto diff 2022 [email or web address] [place] [address] (Lab), [address] [place] [address], [place], [address], 3 10:52:08 BMP, serum or plasma 2022 [email or web address] [place] [address] (Lab), [address] [place] [address], [place], [address], 3 10:52:27 hepatic function panel, serum 2022 [email or web address] [place] [address] (Lab), [address] [place] [address], [address], 3 10:53:18 lipid panel, serum 2022 023 [facility] [address] [place] [address] 162, [place], [address], 3 10:43:39 noninvasive colorectal cancer DNA + occult blood screening, QL, stool 2022 023 ROLLA [facility] (Cologuard Orders Only), [address], [address], [place], [address], 3 04:30:51 T4, free, serum [address] (Lab), [address] [facility] [address], [address], 3 10:52:46 TSH, serum or plasma [address] (Lab), [facility] [facility] [address], [address], 3 10:52:52 T3, free, serum or plasma 2022 023 [facility] (Lab), [facility] [address], [address], 3 10:47:30 Referral None recorded. Procedures diagnostic colonoscopy (PROC) - no referral required 2022 023 ROLLA Arthur Canela MD, [address] [facility] [address], [address], [place], [address], 3 15:48:19 Surgeries None recorded. Imaging None recorded. Medication Orders Ozempic 1 mg/dose (4 mg/3 mL) subcutaneou s pen injector 2022 023 ROLLA [id number], [address], [place], [place], [id number], 3 12:16:49 Wegovy 0.25 mg/0.5 mL subcutaneou s pen injector 2022 023 [email or web address] [facility], [address], [address], [place], [place], [id number], 12:16:34 Patient TargetsNo targets recorded. Patient InstructionsNo instructions recorded. Reason for Referral None Reported. Results Created Date Observation Date Name Description Value Unit Range Abnormal Flag Note LastModifiedBy Organization Detail LastModifiedTime 01/05/2001/04/2021 urina lysis , dipst ick Leukocytes (reference range: negative keyla/ l) Small Not Available [facility] [place] [address], [place], [address], 01/04/2021 12:36:18 01/05/2001/04/2021 urina lysis , dipst ick Nitrite (reference rage: negative mg/dl) negati ve Not Available [facility] [place] [address], [place], [address], 01/04/2021 12:36:18 01/05/2001/04/2021 urina lysis , dipst ick Urobilinogen (reference range: 0.2-1 mg/dl) 0.2 Not Available [facility] [place] [address], [place], [address], 01/04/2021 12:36:18 01/05/2001/04/2021 urina lysis , dipst ick Protein (reference range: negative mg/dl) Negati ve Not Available [facility] [place] [address], [place], [address], 01/04/2021 12:36:18 01/05/2001/04/2021 urina lysis , dipst ick pH (reference range: 5-7) 5.5 Not Available [facility] c_g [facility] [place] [address], [place], [address], 01/04/2021 12:36:18 01/05/2001/04/2021 urina lysis , dipst ick Blood (reference range: negative Sushant/ l) Hemoly zed: Trace Not Available [facility] [place] [address], [place], [address], 01/04/2021 12:36:18 01/05/2001/04/2021 urina lysis , dipst ick Specific [place] (reference range: 1.005-1.030) 1.025 Not Available [facility] [place] [address], [place], [address], 01/04/2021 12:36:18 01/05/2001/04/2021 urina lysis , dipst ick Ketone (reference range: negative mg/dl) Negati ve Not Available [facility] [place] [address], [place], [address], 01/04/2021 12:36:18 01/05/20 21 01/04/2021 urina lysis , dipst ick Bilirubin (reference range: negative mg/dl) Negati ve Not Available [facility] [place] [address], [place], [address], 01/04/2021 12:36:18 01/05/20 21 01/04/2021 urina lysis , dipst ick Glucose (reference range: negative mg/dl) Negati ve Not Available [facility] [place] [address], [place], [address], 01/04/2021 12:36:18 01/05/20 21 01/04/2021 urina lysis , dipst ick Appearance Cloudy Not Available [facility] [place] [address], [place], [address], 01/04/2021 12:36:18 01/05/20 21 01/04/2021 urina lysis , dipst ick Color Dark Yellow Not Available [facility] [place] [address], [place], [address], 01/04/2021 12:36:18 12/26/19 23 12/25/2022 COLOG UARD [...] is negat jesse. TEST DESCR IPTIO N: [place] site algor ithmi c khloe sis of [...] years or older , who are at [facility] for color ectal cance r (CRC) . Colog uard has been appro kevin for use by the [place]. FDA. The perfo rmanc e of Colog uard was estab lishe d in a cross secti onal study of [facility] adult s aged 50-84 . Colog [...] at www.c ologu loyd.c om. Not Available [facility] (Cologuard Orders Only) [address], [place], [address], 12/30/2022 04:30:51 03/23/20 21 03/22/2021 XR, abdom en No observ ation record ed. [id number] [facility] (Imaging) [facility] [address], [place], [address], 06/14/2022 03:34:14 07/08/19 22 07/01/2021 XR, abdom en No observ ation record ed. [id number] Not Available 06/14/2022 03:34:14 07/09/19 22 07/07/2021 XR, thumb No observ ation record ed. MIGRATION. [facility] ([facility]) [address] [place] [address] [address] [facility], [place], [address], 06/14/2022 03:34:14 07/14/19 22 07/07/2021 XR, abdom en No observ ation record ed. [id number] Not Available 06/14/2022 03:34:14 08/30/19 22 08/25/2021 imagi ng/di agnos tic resul t No observ ation record ed. MIGRATION. [id number], [place], [address], 06/14/2022 03:34:14 09/03/19 22 08/08/2021 XR, abdom en No observ ation record ed. MIGRATION. [address] [facility], [place], [address], 06/14/2022 03:34:14 01/17/20 23 07/25/2022 MAMMO , scree claribel, digit al, bilat eral No observ ation record ed. [email or web address] [facility] [address], [place], [address], 01/17/2023 15:38:00 02/20/20 23 02/19/2023 diagn ostic colon oscop y (PROC ) No observ ation record ed. [email or web address] Arthur Canela MD [address] [address] [address], [place], [address], 04/20/2023 19:49:06 Result Notes None recorded. Problems Name Problem SNOMED Code Status Onset Date Resolution Date Notes Provider Name and Address Organization Details Recorded Time Colorectal cancer detected by DNA-based stool screening 168910005 Active 2022 RODOLFO Fagan [address] [place] [address], [address], [place] [address] , [facility] 3 12:15:15 Cervical radiculitis 26316932 Active Not Available [facility] 3 03:17:14 Body mass index 30+ - obesity 298474886 Active Not Available [facility] 3 03:17:14 Thumb injury 786779693 Active 2021 Not Available [facility] 3 03:17:14 Low back pain 662753635 Active 2021 Not Available [facility] 3 03:17:14 Pain in toe 571093030 Active Not Available [facility] 3 03:17:15 Pain in left arm 660112297 Active Not Available [facility] 3 03:17:15 Hypothyroidis m 17065096 Active 2021 Not Available [facility] 3 03:17:15 Hyperlipidemi a 04877368 Active Not Available [facility] 3 03:17:15 Urinary tract infectious disease 12505859 Active Not Available [facility] 3 03:17:15 Degeneration of cervical intervertebra l disc 98280771 Active Not Available [facility] 3 03:17:15 Hyperglycemia 70066985 Active Not Available [facility] 3 03:17:15 Fatigue 27602832 Active Not Available [facility] 3 03:17:15 Impaired glucose tolerance 2370703 Active Not Available [facility] 3 03:17:15 Kidney stone 88566509 Active 2021 Not Available [facility] 3 03:17:16 Problem Notes None recorded. Procedures Surgical History Date Name Laterality Status Provider Name and Address Organization Details Recorded Time 08/26/19 22 cystoscopy completed Not Available [facility] 3 03:04:38 07/02/19 22 Lithotripsy completed Not Available [facility] 06/15/19 23 03:04:38 03/26/20 20 Most Recent Bone Density completed Not Available [facility] 06/14/2022 03:04:29 04/16/19 13 other completed Not Available [facility] 03:04:38 04/16/19 12 Eye Surgery completed Not Available [facility] 06/15/19 23 03:04:38 04/16/19 10 Xcapsl ctrc rmvl cplx wo ecp completed Not Available [facility] 06/14/2022 03:04:38 04/16/19 10 repair of retina for retinal detachment completed Not Available [facility] 06/14/2022 03:04:38 04/16/19 06 oophorectomy completed Not Available [facility] 023 03:04:38 Imaging Results Imaging Date Name Status LastModified by Organiz ation Details LastModified Time 07/07/2021 XR, abdomen completed MIGRATION.[id number] 3 0026 Information not available 06/14/2022 03:34:14 08/25/2021 imaging/diagnos tic result completed MIGRATION.[id number] [address] [place] [address], [address], 06/14/2022 03:34:14 08/08/2021 XR, abdomen completed MIGRATION.[id number], [address], 06/14/2022 03:34:14 03/22/2021 XR, abdomen completed MIGRATION.[id number] [facility] (Imaging) [address] [place] [address], [address], 06/14/2022 03:34:14 07/07/2021 XR, thumb completed MIGRATION.[id number] [facility] (Imaging) [address] [place] [address], [address], 06/14/2022 03:34:14 07/01/2021 XR, abdomen completed MIGRATION.[id number] 3 0026 Information not available 06/14/2022 03:34:14 07/25/2022 MAMMO, screening, digital, bilateral completed [email or web address], [address], 01/17/2023 15:38:00 02/19/2023 diagnostic colonoscopy (PROC) completed [email or web address] Arthur Canela MD [address] [facility] [address], [place], [address], 04/20/2023 19:49:06 Procedure Notes None recorded. Medical [...] completed Not Available Not Available Not Available Dime Box 3 takes daily 2019 active Not Available Not Available Not Avai lable B12 takes daily 07/05 completed Not Available Not Available Not Available Picato 0.05 % topical gel 11/12 completed Not Available Not Available Not Available Myrbetriq 25 mg tablet,ext ended release TAKE 1 TABLET BY MOUTH DAILY 07/05 completed Not Available Not Available Not Available Flucelvax Quad 0962-0922 (PF) 60 mcg (15 mcg x 4)/0.5 [...] 3 172.72 cm 96.9 [degF] 31.9 kg/m2 75649.4 g 84 /min 97 % 97 % 124 mm[Hg] 82 mm[Hg] AD[facility] 3 11:44:49 Date Recorded Body height Body mass index (BMI) Body weight Body temperature Heart rate Oxygen saturation Oxygen saturation in Arterial blood by Pulse oximetry Systolic blood pressure Diastolic blood pressure Provider Name and Address Organization Details Last Updated DateTime 3 172.72 cm 30.4 kg/m2 46920.4 7 g 97.3 [degF] 84 /min 96 % 96 % 122 mm[Hg] 80 mm[Hg] [facility] [place] [facility] 3 11:41:41 Date Recorded Body mass index (BMI) Body height Oxygen saturation Oxygen saturation in Arterial blood by Pulse oximetry Heart rate Body temperature Body weight Systolic blood pressure Diastolic blood pressure Provider Name and Address Organization Details Last Updated DateTime 1 32.2 kg/m2 172.72 cm 95 % 95 % 84 /min 96.1 [degF] 96033.1 5 g 130 mm[Hg] 90 mm[Hg] Not Available [facility] 3 03:10:39 Date Recorded Body mass index (BMI) Body height Oxygen saturation Oxygen saturation in Arterial blood by Pulse oximetry Heart rate Body temperature Body weight Systolic blood pressure Diastolic blood pressure Provider Name and Address Organization Details Last Updated DateTime 2 31.6 kg/m2 172.72 cm 96 % 96 % 92 /min 97.2 [degF] 18048.2 1 g 126 mm[Hg] 80 mm[Hg] Not Available [facility] 3 03:10:39 Date Recorded Body height Heart rate Respiratory rate Body temperature Systolic blood pressure Diastolic blood pressure Systolic blood pressure Diastolic blood pressure Provider Name and Address Organization Details Last Updated DateTime 2 172.72 cm 83 /min 16 /min 96.6 [degF] 158 mm[Hg] 100 mm[Hg] 130 mm[Hg] 90 mm[Hg] Not Available [facility] 3 03:10:40 Social History Question Answer Notes LastModified by Organizat ion Details LastModified Time Tobacco Smoking Status Former Smoker Not Available [facility] 06/14/2022 02:46:24 Do You Have An Advance Directive? No [id number].[id number] 0203 Information not available 06/14/2022 What Is Your Level Of Alcohol Consumption? Moderate MIGRATION.098214 4890 Information not available 06/14/2022 Do You Wear A Helmet When Biking? No MIGRATION.591307 6360 Information not available 06/14/2022 What Is Your Level Of Caffeine Consumption? Moderate MIGRATION.724599 6812 Information not available 06/14/2022 How Much Tobacco Do You Chew? None MIGRATION.289034 5776 Information not available 06/14/2022 In The 14 Days Before Symptom Onset, Have You Had Close Contact With A Laboratory-confir med COVID-19 While That Case Was Ill? No MIGRATION.779691 4311 Information not available 06/14/2022 In The 14 Days Before Symptom Onset, Have You Had Close Contact With A Person Who Is Under Investigation For COVID-19 While That Person Was Ill? No MIGRATION.737840 5849 Information not available 06/14/2022 Are You Currently Employed? No Information not available 01/08/2023 What Type Of Diet Are You Following? REGULAR MIGRATION.309313 1445 Information not available 06/14/2022 Which Illicit Or Recreational Drugs Have You Used? None MIGRATION.534028 9826 Information not available 06/14/2022 Do You Or Have You Ever Used E-cigarettes Or Vape? Never Used Electronic Cigarettes MIGRATION.742648 5311 Information not available 06/14/2022 What Is The Highest Grade Or Level Of School You Have Completed Or The Highest Degree You Have Received? [id number] MIGRATION.394378 4148 Information not available 06/14/2022 What Is Your Occupation? Retired. MIGRATION.175126 0318 Information not available 06/14/2022 Have There Been Any Changes To Your Family Or Social Situation? No MIGRATION.568942 4981 Information not available 06/14/2022 Are There Any Guns Present In Your Home? No MIGRATION.370790 3185 Information not available 06/14/2022 Do You Use Insect Repellent Routinely? 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 No MIGRATION.244678 6418 Information not available 06/14/2022 Do You Have Any Pets? No MIGRATION.858065 0186 Information not available 06/14/2022 What Is Your Relationship Status? MIGRATION.399075 4739 Information not available 06/14/2022 Do You Use Your Seat Belt Or Car Seat Routinely? Yes MIGRATION.318775 5601 Information not available 06/14/2022 Do You Have Smoke And Carbon Monoxide Detectors In Your Home? Yes MIGRATION.486312 2655 Information not available 06/14/2022 Are You Passively Exposed To Smoke? No MIGRATION.798723 4203 Information not available 06/14/2022 Do You Or Have You Ever Used Smokeless Tobacco? Never Used Smokeless Tobacco MIGRATION.258613 3441 Information not available 06/14/2022 Are There Any Smokers In Your House? No MIGRATION.544919 6816 Information not available 06/14/2022 How Much Tobacco Do You Smoke? 0.5 PPD MIGRATION.783962 7358 Information not available 06/14/2022 Do You Feel Stressed (tense, Restless, Nervous, Or Anxious, Or Unable To Sleep At Night)? [id number] MIGRATION.280830 3825 Information not available 06/14/2022 Do You Use Any Illicit Or Recreational Drugs? No MIGRATION.331993 1627 Information not available 06/14/2022 Do You Use Sunscreen Routinely? Yes MIGRATION.097629 2692 Information not available 06/14/2022 Have You Recently Traveled Abroad? No MIGRATION.865636 6944 Information not available 06/14/2022 Do You Have Any Dietary Restrictions? No MIGRATION.434202 6084 Information not available 06/14/2022 Do You Or Have You Ever Used Any Other Forms Of Tobacco Or Nicotine? No MIGRATION.159568 0909 Information not available 06/14/2022 Sex: Unknown Functional Status Question Answer Note LastModified by Organizat ion Details LastModified Time Do you have transportation difficulties? No MIGRATION.4076492 026 Information not available 06/14/2022 Are you able to walk? YESWOREST MIGRATION.2374817 026 Information not available 06/14/2022 Do you have difficulty doing errands alone? No MIGRATION.8735944 026 Information not available 06/14/2022 Are you able to care for yourself? Yes MIGRATION.1449323 026 Information not available 06/14/2022 Do you have difficulty dressing or bathing? No MIGRATION.3875043 026 Information not available 06/14/2022 What is your exercise level? Moderate MIGRATION.3871079 026 Information not available 06/14/2022 Mental Status None recorded. Family History Relationship Description Onset Age of this Age Resolved Age Notes LastModified by Organization Details LastModified Time Father No current problems or disability MIGRATION.[id number] Not available 06/14/2022 03:04:43 Father General health good MIGRATION.992 [id number] Not available 06/14/2022 03:04:43 Mother No current problems or disability MIGRATION.537 [id number] Not available 06/14/2022 03:04:43 Medical History Condition [...] HAVE YOU BEEN HOSPITALIZED OR SEEN IN [facility] IN THE PAST YEAR ? N [...] quadrivalent, preservative 9 completed Not Available [facility] 06/14/2022 03:32:54 Influenza, split virus, quadrivalent, preservative 8 completed Not Available [facility] 06/14/2022 03:32:54 COVID-19, mRNA, LNP-S, PF, 30 mcg/0.3 mL dose 1 completed Not Available [facility] 06/14/2022 03:32:54 zoster live 4 completed Not Available [facility] 06/14/2022 03:32:54 Past Encounters Encounter ID Performer Location Encounter Start Date Encounter Closed Date Diagnosis/Indication Diagnosis SNOMED-CT Code Diagnosis ICD10 Code Diagnosis Note [id number] RODOLFO Fagan [facility] [place] [address] [place] [address] 06/29/2020 00:00:00 07/06/2020 13:54:00 [id number] RODOLFO Fagan [facility] [place] [address] [facility] [address] [place] [address] 01/04/2021 00:00:00 01/12/2021 11:18:37 [id number] RODOLFO Fagan [facility] [place] [address] [place] [address] 07/05/2021 00:00:00 07/12/2021 23:45:56 [id number] RODOLFO Fagan [facility] [place] [address] [place] [address] 01/10/2022 00:00:00 01/10/2022 13:53:52 [id number] RODOLFO Fagan [facility] [place] [address] [place] [address] 07/11/2022 11:31:57 07/11/2022 12:21:18 Impaired glucose tolerance 3234796 R73.03 6% a1c. repeat lab in dec. Hyperlipidemia 88167150 E78.5 on pravastati n 20mg daily. stable labs. repeat in dec. Hypothyroidism 20123281 E03.9 on supplement . stable. repeat labs due in dec. Body mass index 30+ - obesity 006572394 Z68.31 start wegovy if insurance with cover Long-term drug therapy 855759367 Z79.899 routine labs due in dec Screening for malignant neoplasm of colon 029247463 Z12.11 pt will be due for cologuard screening. [id number] RODOLFO Fagan [facility] [place] [address] [place] [address] 01/09/2023 11:19:56 01/09/2023 12:25:27 Impaired glucose tolerance 9082841 R73.03 5.7% a1c. . boost to ozempic 1mg weekly. HOLD metformin at this time. she feels she has GI issues from it. Hyperlipidemia 74439712 E78.5 on pravastati n 20mg daily. stable labs. repeat fasting in June Hypothyroidism 96096108 E03.9 on supplement . stable. repeat labs due in June Body mass index 30+ - obesity 288791922 Z68.31 noted. stable Long-term drug therapy 532703378 Z79.899 next labs due in June Colorectal cancer detected by DNA-based stool screening 520239032 R19.5 pt agrees to colonoscop y now [...] SOLUTIONS - MEDICARE COMPLETE (MEDICARE REPLACEMENT HMO) [id number] Pal[address] Lio Peterson [id number] Palak Peterson 01/09/2023 1 [facility] - MEDICARE SOLUTIONS - MEDICARE COMPLETE (MEDICARE REPLACEMENT HMO) [id number] Palak Lio Peterson [id number] Palak Peterson Notes Date Note Type Note [...] skin changes; no hair changes Not Available [facility] [employer] 01/12/2021 11:18:37 07/06/19 22 text/ht ml Generic [...] tabs; taking medication as directed Not Available [facility] [employer] 07/12/2021 23:45:56 01/11/20 22 text/ht ml HyperlipidemiaReported [...] difficulties; no skin changes;hair changes Not Available [facility] 01/10/2022 13:53:52 07/12/19 23 text/ht ml HyperlipidemiaReported [...] on metformin 6% a1c RODOLFO Fagan [address] [facility] [address], [place], [address], [place] [facility] [employer] 07/11/2022 20:59:02 01/10/20 23 text/ht ml HyperlipidemiaReported [...] changes 6 mo f/u RODOLFO Fagan [address] [address], [place], [address], [place] [facility] 01/09/2023 18:11:05 OBGyn Episode No OBEpisode recorded.
[2024-08-22 12:20] LABS: INR 1.1; Prothrombin Time 14.8 Seconds (11.1-14.7)
[2024-08-22 12:21] LABS: Partial Thromboplastin Time 24.6 Seconds (22.3-36.8)
== END 2024-08-22 10:50 | disposition home or self-care (01) ==
LOC: ANHSURGERY 10:52
PROVIDERS: PCP Physician Assistant; Visit Provider Urology
DX: N20.0 Calculus of kidney (principal)
CPT/HCPCS: 36415; 85610; 85730

== ENCOUNTER 2024-08-22 18:54 | Emergency (ER) | payer MEDICARE, SELFPAY ==
[2024-08-22] VITALS (35 sets, daily range): BP systolic 88–233; BP diastolic 62–147; PULSE 102–145; RESP 13–43; TEMP 36.6–41.8; O2SAT 90–100
--- NOTE | ~2024-08-22 | XR_ITS ---
XR abdomen gastric tube insert Ordering provider: Mauricio Jose MD History: . /NG placement . Comparison: None. FINDINGS/impression: Nasogastric tube with the tip in the fundus of the stomach. Reviewed, dictated and finalized at location A.
--- NOTE | ~2024-08-22 | XR_ITS ---
XR chest ET placement Ordering provider: Mauricio Jose MD History: 73 years Female with . ET PLACEMENT . Comparison: None. FINDINGS: MEDIASTINUM: The cardiac silhouette is not enlarged. Endotracheal tube with the tip in the right main bronchus. Retraction by about 3 cm is advised. Nasogastric tube is seen with the tip in the stomach. Congestive wilfredo are noted. LUNGS: No effusions or pneumothorax. Left basilar atelectasis versus pneumonia. Interstitial thickeni ng with Underlying cardiac decompensation is not excluded. OTHER: No free air under the diaphragm. IMPRESSION: Endotracheal tube in the right main bronchus and needs to be retracted by about 3 cm. Cardiomegaly with cardiac decompensation. Left basilar atelectasis versus pneumonia. Reviewed, dictated and finalized at location A.
--- NOTE | ~2024-08-22 | XR_ITS ---
XR chest port-a-cath/central Ordering provider: Mauricio Jose MD History: 73 years Female with . verify placement . Comparison: None. FINDINGS: MEDIASTINUM: The cardiac silhouette is slightly enlarged. Endotracheal tube is about 4 cm above the c jessica. Left central line with the tip overlying the superior vena cava. Nasogastric tube with the tip in the stomach. Congestive wilfredo. LUNGS: No , effusions or pneumothorax. Prominent markings bilaterally which may indicate underlying c ardiac decompensation. Minimal opacification the left lung base unchanged. OTHER: No free air under the diaphragm. Degenerative changes of the spine. IMPRESSION: Supporting lines in good position Other appearances are unchanged. Reviewed, dictated and finalized at location A.
--- NOTE | ~2024-08-22 | XR_ITS ---
XR chest 1V portable Ordering provider: Mauricio Jose MD History: 73 years Female with . CVA? . Comparison: None. FINDINGS: MEDIASTINUM: The cardiac silhouette is slightly enlarged. Congestive wilfredo. LUNGS: No infiltrates, effusions or pneumothorax. Prominent bronchovascular markings bilaterally. OTHER: No free air under the diaphragm. Degenerative changes of the spine. IMPRESSION: No acute cardiopulmonary pathology. Reviewed, dictated and finalized at location A.
--- NOTE | ~2024-08-22 | CT_ITS ---
CT brain wo con Ordering provider: Mauricio Jose MD History: 73 years Female with . acute confusion . Comparison: None. Technique: CT of the head without contrast. Radiation reduction technique utilized.The dose-length pr oduct was 605.33 mGy-cm. FINDINGS: BRAIN PARENCHYMA AND CSF SPACES: No midline shift, mass effect or hemorrhage. The brain parenchyma a nd CSF spaces are otherwise normal. VISUALIZED PARANASAL SINUSES: Well aerated. MASTOIDS: Well aerated. BONES: The bones appear intact. SOFT TISSUES: Visualized nasopharynx is normal. Superficial soft tissues are normal. IMPRESSION: No acute intracranial findings. Reviewed, dictated and finalized at location A.
--- NOTE | ~2024-08-22 | CT_ITS ---
CLINICAL INDICATION: Fever COMPARISON: 07/10/2024. TECHNIQUE: Multiple contiguous axial images of the abdomen and pelvis were performed following the ad ministration of with 100 mL Omnipaque-350 intravenous contrast The dose-length product (DLP) was 1430.89 mGy-cm. Automated exposure control and iterative reconstruction technique were employed. Examination is markedly limited as the patient was scanned with her arm overlying the abdomen. The le ft upper quadrant could not be visualized. FINDINGS/OBSERVATIONS: Visualized lower thorax: The bilateral lung bases are clear. The heart is enlarged, without pericardial effusion. Small hiatal hernia is present. Liver: The liver demonstrates homogeneous enhancement and is enlarged measuring 21 cm in longitudinal dimens ion. Gallbladder and biliary system: The gallbladder is distended, and otherwise unremarkable. Pancreas: The pancreas could not be adequately visualized secondary to motion and streak artifact from the bernardino ent's left upper extremity and metallic watch overlying the upper quadrant. Spleen: The spleen enhances homogeneously and is not enlarged. Kidneys: Contrast from patient's earlier CTA of the head and neck is excreted from the bilateral kidneys, limi ting evaluation for the presence or absence of renal calculi. No hydronephrosis is present. Adrenal glands: Unremarkable. Gastrointestinal tract: Colonic diverticulosis without surrounding inflammatory change. Extensive fecal stasis within the colon. Appendix: The appendix is not definitively visualized. However, no pericecal inflammatory change is identified suggest the presence of acute appendicitis. Vasculature: Unremarkable. Lymph nodes: No pathologically enlarged or morphologically suspicious lymph nodes within the retroperitoneum or at the root of the mesentery. Pelvic structures: The bladder is decompressed with a Molina catheter, limiting its evaluation. The uterus is retroverted and retroflexed. Body wall and musculoskeletal: Age-appropriate degenerative disease within the lumbosacral spine. IMPRESSION: Markedly limited examination secondary to streak metallic artifact from the patient's wrist watch ove rlying the left upper quadrant. No hydronephrosis. Reviewed, dictated and finalized at location A. IMPRESSION: Markedly limited examination secondary to streak metallic artifact from the pat ient's wrist watch overlying the left upper quadrant. No hydronephrosis.
--- NOTE | ~2024-08-22 | CT_ITS ---
CTA brain carotid Ordering provider: Mauricio Jose MD History: . acute confusion. . Comparison: None. Technique: CT angiogram head and neck was performed following timed intravenous injection of contrast . Thin slice axial images and reformatted coronal images were obtained. Three dimensional reformatted images of the brain were also obtained using a [employer] workstation. Radiation reduction technique ut ilized.The dose-length product was 1197.01 mGy-cm. 100 mL Omnipaque 350 was given IV. FINDINGS: HEAD: --ANTERIOR AND MIDDLE CEREBRAL ARTERIES AND BRANCHES: Normal caliber and contour. --INTERNAL CAROTID ARTERIES: Mild atheromatous disease but no significant stenosis. No occlusion. --BASILAR ARTERY AND BRANCHES: Normal caliber and contour. No atheromatous disease. --POSTERIOR CEREBRAL ARTERIES: Normal caliber and contour --POSTERIOR COMMUNICATING ARTERIES: Not visualized which is probably related to congenital absence or small size. --ANEURYSM: None visualized. --BRAIN: Please refer to report of CT head performed the same day. --BONES AND SUPERFICIAL SOFT TISSUES: Please refer to report of CT head performed the same day. --PARANASAL SINUSES AND MASTOIDS: Please refer to report of CT head done the same day. NECK: --RIGHT CERVICAL CAROTID SYSTEM: Normal caliber and contour. Percent stenosis per NASCET criteria is 0%. No carotid dissection. Otherwise, no significant atheromatous disease or stenosis of the cervica l carotid system. --LEFT CERVICAL CAROTID SYSTEM: Normal caliber and contour. Percent stenosis per NASCET criteria is 0%. No carotid dissection. Otherwise, no significant atheromatous disease or stenosis of the cervical carotid system. --VERTEBRAL ARTERIES: Dominant left vertebral artery. --VISUALIZED AORTIC ARCH AND BRANCHING VESSELS: Mild atheromatous disease but no significant stenosis . --SOFT TISSUES: Normal. Dependent atelectatic changes in the lungs. --CERVICAL SPINE: Age appropriate degenerative changes. IMPRESSION: 1. Normal CTA head and neck. Percent stenosis per NASCET criteria is 0%. Reviewed, dictated and finalized at location A.
--- OUTSIDE RECORDS SUMMARY | 2024-08-22 18:56 | XMS_ITS | Encounter Summary ---
Author Organization [facility] Health Address [address] [place] [address] Care Team Providers Care Personnel Security Specialist Name Role Phone Juan Nicole MD Primary Care Provider [phone] Raymundo Bolton MD Unavailable Encounter Details Date Type Department Care Team (Late st Contact Info) Description 03/19/2023 Lab Requisition [facility] - DermPath Lab [address] [facility], [place] [address] Wendy Harrison DO [address] [facility] 3 [place] [address] Social History Tobacco Use Types Packs/Day Years Used Date Smoking Tobacco: Never Assessed Comments Unknown Sex and Gender Information Value Date Recorded Sex Assigned at Not on file Legal Sex Female 5:41 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 Gender Identity Not on file Sexual Orientation Not on file documented as of this encounter Plan of Treatment Not on file documented as of this encounter Procedures Procedure Name Priority Date/Time Associated Diagnosis Comments DERMATOPATHOLOGY Routine 03/19/2023 11:2 4 AM OFFSHORE WIND TURBINE TECHNICIAN documented in this encounter Results * DERMATOPATHOLOGY (03/19/2023 11:24 AM OFFSHORE WIND TURBINE TECHNICIAN) Case Report Dermatopathology Report Case: [id number] Authorizing Provider: Wendy Harrison DO Collected: 03/19/2023 11:24 AM Ordering Location: [facility] DermPath Lab Received: 03/20/2023 12:31 PM Pathologist: Lauren Griffith MD Specimens: A) - Skin, right helix B) - Skin, left upper back 3 3:03 PM [facility] DERMATOPATHOLOGY LABORATORY Final Diagnosis Specimen A. SKIN, right helix: SQUAMOUS PROLIFERATION (D48.5) OVERLYING CUTANEOUS HORN (L85.8) (see microscopic description and comment) Specimen B. SKIN, left upper back: BASAL CELL CARCINOMA, SUPERFICIAL MULTIFOCAL (C44.519) 3 3:03 PM [facility] DERMATOPATHOLOGY LABORATORY Clinical History A: CNH, R/O NMSC B: R/O NMSC 3 3:03 PM [facility] DERMATOPATHOLOGY LABORATORY Gross Description Specimen [...] 5x5x1 mm. Jar 0. 3 3:03 PM [facility] DERMATOPATHOLOGY LABORATORY Microscopic Description Specimen [...] ratio and peripheral palisading. 3 3:03 PM [facility] DERMATOPATHOLOGY LABORATORY Disclaimer An external and internal positive and negative controls are appropriate for the histochemical, immunohistochemical and immunofluorescence stain(s) in this case (if any), except where stated explicitly. The performance characteristics of the stain(s) cited in this report were developed and its performance characteristic determined by the Dermatopathology Laboratory at [facility], directed by Dr. Linda Armijo. These tests need not be, and therefore are not, approved by the [place] Food and Drug Administration. The tests are used for clinical purposes. Billing Codes Specimen Charges Stain Charges 79820 99955 1 1 3 3:03 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 DERMATOPATHOLOGY LABORATORY Embedded Images 3 3:03 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 DERMATOPATHOLOGY LABORATORY Pathology/Cytology TISSUE SPECIMEN FROM SKIN / Unknown 03/19/2023 11:24 AM OFFSHORE WIND TURBINE TECHNICIAN 03/20/2023 12:31 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 Miscellaneous samples (specimen) TISSUE SPECIMEN FROM SKIN / Unknown 03/19/2023 11:24 AM OFFSHORE WIND TURBINE TECHNICIAN 03/20/2023 12:31 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 us Wendy Harrison DO LAB - PATHOLOGY/CYTOLOGY ORDERABLES Final Result DERMATOPATHOLOGY LABORATORY [facility] - Department of Dermatology [facility] Medicine [address] [place] [address], [address] [phone] documented in this encounter Visit Diagnoses Not on filedocumented in this encounter Care Teams Personnel Security Specialist Relationship Specialty Start Date End Date Juan Nicole MD PCP - General Internal Medicine 11/21/18 [place] [address] [address] Orthopedic Surgery 11/21/18 documented as of this encounter
--- OUTSIDE RECORDS SUMMARY | 2024-08-22 18:57 | XMS_ITS | Continuity of Care Document ---
Author Organization [facility] [place] [address] [facility] [address] [place] [address] Phone Care Team Providers Care Director Informatics Name Role Phone Karyn Acosta Unavailable Unavailable Procedures Procedure Date Post-op Follow-up Visit Post-op Follow-up Visit Post-op Follow-up Visit Remove Cataract, Insert Lens Post-op Follow-up Visit [facility] Post-op Follow-up Visit Post-op Follow-up Visit Remove Cataract, Insert Lens Office/outpatient Visit, [facility] Advance Directives Directive Yes / No Effective Date File Name No Information Encounters Encounter Description Practice Location Reason(s) For Visit Diagnoses Date Provider Providers Copied on Encounter [facility], [address] [place] [address] [address], [place], [place], [id number], tel:[phone] [facility] No Information Oct-2 1-201 0 Karla Wahl [address], [place], [address], [place]. tel:[phone] [facility], [address] [place] [address] [address], [place], [place], [address], tel:[phone] [facility] No Information Oct-0 7-201 0 Karla Wahl [address] , [address], [place], [address], [place]. tel:[phone] [facility]ly [facility], [address], [place], [place], [address], [place] tel:[phone] [facility] No Information Sep-3 0-201 0 King OD Otmy. [address], [address], [place], [address], [place]. tel:[phone] Referring Provider: Karyn Mackey, [address], [place], [place], [facility]. tel:[phone] Formerly [facility], [address], [place], [place], [address], [place] tel:[phone] [facility] No Information Sep-2 9-201 0 Karla Boss. [address], [place], [place], [facility], [place]. tel:[phone] Formerly [facility], [address], [place], [place], [address], [place] tel:[phone] [facility] No Information Sep-1 6-201 0 Karla Boss. [address], [place], [address], [place]. tel:[phone] Referring Provider: Shala Hernandez MD, [address] [facility], [place], [address]. tel:[phone] Formerly [facility], [address], [place], [place], [address], [place] tel:[phone] [facility] No Information Aug-2 6-201 0 Karla Boss. [address], [place], [address], [place]. tel:[phone] Formerly [facility], [address], [place], [place], [address], [place] tel:[phone] [facility] No Information 9-201 0 King OD Tomy. [address], [place], [address], [place]. tel:[phone] Formerly [facility], [address] [place] [address] [address], [place], [place], [address], [place] tel:[phone] [facility] No Information 8-201 0 Karla Boss. [address] [facility] , [address], [place], [address], [place]. tel:[phone] Referring Provider: Shala Hernandez MD, [address] [place], [address]. tel:[phone] [facility]pat [facility], [facility], [address], [place], [place], [address], [place] tel:[phone] [facility] No Information 0-201 0 Karla Boss. [address] [facility] , [address], [place], [address], [place]. tel:[phone] Referring Provider: Shala Hernandez MD, [address] [place], [address]. tel:[phone] Family History Family Member Type Diagnosis Age [...]
--- OUTSIDE RECORDS SUMMARY | 2024-08-22 18:57 | XMS_ITS | Clinical Summary ---
Author Organization [facility] Address [address] [place] [address] Care Team Providers Care Visual And Stock Associate Name Role Phone Unavailable Primary Care Provider [...]
--- OUTSIDE RECORDS SUMMARY | 2024-08-22 18:57 | XMS_ITS | Encounter Summary ---
Author Organization [facility] Health Address [address] [facility] [place] [address] Care Team Providers Care Manager Business Process Name Role Phone Juan Nicole MD Primary Care Provider Raymundo Bolton MD Unavailable [phone] Encounter Details Date Type Department Care Team (Late st Contact Info) Description 05/01/2024 Lab Requisition [facility] Lab [address] [facility], [place] [address] Wendy Harrison DO [address] [facility] [address] [place] [address] Social History Tobacco Use Types Packs/Day Years Used Date Smoking Tobacco: Never Assessed Comments Unknown Sex and Gender Information Value Date Recorded Sex Assigned at Not on file Legal Sex Female 5:41 PM DISPATCHER RADIOACTIVE WASTE DISPOSAL Gender Identity Not on file Sexual Orientation Not on file documented as of this encounter Plan of Treatment Not on file documented as of this encounter Procedures Procedure Name Priority Date/Time Associated Diagnosis Comments DERMATOPATHOLOGY Routine 05/01/2024 10:5 8 AM DISPATCHER RADIOACTIVE WASTE DISPOSAL documented in this encounter Results * DERMATOPATHOLOGY (05/01/2024 10:58 AM DISPATCHER RADIOACTIVE WASTE DISPOSAL) Case Report Dermatopathology Report Case: [id number] Authorizing Provider: Wendy Harrison DO Collected: 05/01/2024 10:58 AM Ordering Location: [facility] - Received: 05/01/2024 04:34 PM DermPath Lab Pathologist: Lauren Griffith MD Specimen: Skin, left superior NLF 1:[address] [facility] DERMATOPATHOLOGY LABORATORY Final Diagnosis Specimen A. [...] by the Dermatopathology Laboratory at [facility], directed by Dr. Linda Armijo. These tests need not be, and therefore are not, approved by the [place] Food and Drug Administration. The tests are used for clinical purposes. Billing Codes Specimen Charges Stain Charges 93577 1 1:[address] [facility] DERMATOPATHOLOGY LABORATORY Embedded Images 1:[address] [facility] DERMATOPATHOLOGY LABORATORY Pathology/Cytolo gy TISSUE SPECIMEN FROM SKIN / Unknown 05/01/2024 10:58 AM DISPATCHER RADIOACTIVE WASTE DISPOSAL 05/01/2024 4:34 PM DISPATCHER RADIOACTIVE WASTE DISPOSAL us Wendy Harrison DO LAB - PATHOLOGY/CYTOLOGY ORDERABLES Final Result DERMATOPATHOLOGY LABORATORY [facility] - Department of Dermatology [address], [address] [phone] documented in this encounter Visit Diagnoses Not on filedocumented in this encounter Care Teams Manager Business Process Relationship Specialty Start Date End Date Juan Nicole MD PCP - General Internal Medicine 11/21/18 [place] [address] [address] Orthopedic Surgery 11/21/18 documented as of this encounter
--- OUTSIDE RECORDS SUMMARY | 2024-08-22 18:57 | XMS_ITS | Clinical Summary ---
Author Organization [facility] Address [address] [facility] [place] [address] Care Team Providers Care Top Coater Name Role Phone Juan Nicole MD Primary Care Provider [phone] Raymundo Bolton MD Unavailable [phone] Source Comments [facility],non-owned Affiliates and Associated Physician Practices is amultiple site organization consisting of ambulatory clinics and hospital sitesin [place], [place], [place] and [place]. This disclosure is being madepursuant to the Care Everywhere program and may not contain all information available regarding this patient. 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
--- OUTSIDE RECORDS SUMMARY | 2024-08-22 18:57 | XMS_ITS | Encounter Summary ---
Author Organization [facility] Address [address] [facility] [place] [address] Care Team Providers Care Children'S Aide Name Role Phone Juan Nicole MD Primary Care Provider [phone] Raymundo Bolton MD Unavailable [phone] Encounter Details Date Type Department Care Team (Late st Contact Info) Description 08/27/2019 Lab Requisition [facility] DermPath Lab [address] [facility] [place] [address] Cesilia Gomez MD [address] [facility] [address] [place] [address] Social History Tobacco Use Types Packs/Day Years Used Date Smoking Tobacco: Never Assessed Comments Unknown Sex and Gender Information Value Date Recorded Sex Assigned at Not on file 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 Gender Identity Not on file Sexual Orientation Not on file documented as of this encounter Plan of Treatment Not on file documented as of this encounter Procedures Procedure Name Priority Date/Time Associated Diagnosis Comments DERMATOPATH TECHNICAL REPORT Routine 08/26/2019 12:00 AM CDT documented in this encounter Results * DERMATOPATH TECHNICAL REPORT (08/26/2019 12:00 AM CDT) Case Report Dermatopathology Report Case: [id number] Authorizing Provider: Cesilia Gomez MD Collected: 08/26/2019 12:00 AM Ordering Location: [facility] DermPath Lab Received: 08/27/2019 06:44 AM Pathologist: Lauren Griffith MD Specimen: Skin, left upper eyelid 0 12:43 PM CDT DERMATOPATHOLOGY LABORATORY Clinical History R/O SK, irritated. 0 12:43 PM CDT DERMATOPATHOLOGY LABORATORY Gross Description Specimen A: Received is one formalin filled container labeled with the patient's name and designated left upper eyelid. The specimen consists of a shave measuring [id number]. Jar 0. [facility] Dermatopathology Laboratory performed the technical component [...] characteristic determined by the Dermatopathology Laboratory at [facility], directed by Dr. Linda [...] PATHOLOGY/CYTOLOGY OR DERABLES Final Result DERMATOPATHOLOGY LABORATORY [facility] - Department of Dermatology [address] [facility], 5th Floor Lab [address] [phone] documented in this encounter Visit Diagnoses Not on filedocumented in this encounter Care Teams Children'S Aide Relationship Specialty Start Date End Date Juan Nicole MD PCP - General Internal Medicine 11/21/18 [place] [address] [address] Orthopedic Surgery 11/21/18 documented as of this encounter
[2024-08-22 19:01] LABS: Glucose Point of Care 143 mg/dl (65-105)
--- NOTE | 2024-08-22 19:01 | ECG_ITS ---
Test Date: 2024-08-22 19:22:07 Measurements Intervals [place] Rate: 103 P: 48 [place]: 155 QRS: -22 QRSD: 102 T: 58 QT: 341 QTc: 448 Interpretive Statements SINUS TACHYCARDIA BORDERLINE LEFT AXIS DEVIATION [QRS AXIS < -20] MINIMAL ST DEPRESSION [0.025+ mV ST DEPRESSION] ABNORMAL RHYTHM ECG Compared to ECG 07/09/2024 09:26:13 ST (T wave) deviation now present Sinus rhythm no longer present Incomplete right bundle-branch block no longer present Electronically Signed On 08-22-2024 21:56:17 CDT by Lenard Hope M.D.
--- NOTE | 2024-08-22 19:05 | ED_ITS ---
HPI - Neuro Symptoms/Deficit General Chief Complaint: Neuro Symptoms/Deficit Stated Complaint: CVA? confusion x 1 hour? Time Seen by Provider: 08/22/24 19:00 History of Present Illness HPI Narrative: 73-year-old female with history of hyperlipidemia, diabetes, kidney stones. Patient presents to the emergency department accompanied by her for concerns of acute onset confusion and generalized weakness. Patient was here in the hospital getting preoperative clearance for lithotripsy schedule for Sunday. Patient went home and suddenly had mental status changes were she was slow to respond to questioning, not eating or drinking, barely responding questioning and seem to have weakness globally with some more appreciable deficits on the left side. No slurring of her speech or loss of continence or consciousness. She was transported to the hospital by her . Patient arrives and brought back to stroke. For evaluation of her acute onset symptomatology with potential neurological deficits. Patient is awake alert and answers questions intermittently, seems to have some lateralizing deficits on the left upper and left lower extremity worse on the left lower extremity. Considerations for potential ischemic event such as a stroke so she was brought back to CT scanner at this time for further evaluation. Collateral formation provided by the as patient is a limited historian at this time. Will have to discuss with patient's family for exact time of onset for last known well, but reportedly per it was 1 hour prior to arrival so around 6:00 p.m. patient arrives to the ED at 6:54 p.m. Related Data Home Medications Medication Instructions Recorded Confirmed Last Taken Type aspirin 81 mg tablet,delayed 81 mg PO DAILY 02/12/20 08/21/24 01/31/23 History release (Adult Aspirin Regimen) meloxicam 15 mg tablet 15 mg PO DAILY 02/12/20 08/21/24 02/19/23 History pravastatin 20 mg tablet 20 mg PO DAILY 02/12/20 08/21/24 06/30/21 History levothyroxine 50 mcg tablet 50 mcg PO HS 06/20/21 08/21/24 02/19/23 History cetirizine 5 mg tablet 5 mg PO DAILY PRN ALLERGIES 10/31/23 08/21/24 Unknown History metformin 500 mg tablet 500 mg PO DAILY 10/31/23 08/21/24 Unknown History Allergies Allergy/AdvReac Type Severity Reaction Status Date / Time ascorbic acid (From [place] Allergy Unknown Unknown Verified 08/21/24 13:38 Elderberry Immune) Echinacea angustifolia root, Allergy Unknown Unknown Verified 08/21/24 13:38 rhizome extract (From [place] Elderberry Immune) Echinacea purpurea extract Allergy Unknown Unknown Verified 08/21/24 13:38 (From [place] Elderberry Immune) elderberry fruit (From Allergy Unknown Unknown Verified 08/21/24 13:38 [place] Elderberry Immune) propolis (bee glue) (From Allergy Unknown Unknown Verified 08/21/24 13:38 [place] Elderberry Immune) zinc (From [place] Allergy Unknown Unknown Verified 08/21/24 13:38 Elderberry Immune) Review of Systems 2 Review of Systems: ROS unobtainable: Yes unobtainable due to medical condition PMFSH Past Medical History Medical History History of bone density study (~07/25/22) History of bruising easily History of stress test (~2015) Kidney disease Hyperlipidemia Arthritis Hypothyroid Diabetes Obesity Kidney stone Surgical History Surgical History History of colonoscopy History of oophorectomy (~2005) History of dental surgery Tooth implant 02/22/2023 Finished the tooth 07/05/2023 H/O lithotripsy H/O knee surgery (~2012) Left knee (Bakers cyst) Dr. Painting History of laser refractive surgery Right eye History of bilateral tubal ligation H/O section (~03/26/81) Family History Family History Father Family history of diabetes mellitus in first degree relative, Onset Age: 74 Family history of coronary artery disease, Onset Age: 74 Patient's father is Kidney disease Mother Non Hodgkin's lymphoma Other Cerebrovascular accident Diabetes mellitus Family history of arthritis Family history of cardiovascular disease Family history of kidney disease Family history of malignant neoplasm Family history of osteoporosis Social History Social History Smoking packs per day: 1 Smoking cigarettes per day: 20.0 Years smoked: 3 Smoking pack-years: 3.00 Smoking status: Former smoker Tobacco type: cigarettes Second hand tobacco smoke exposure: No Smoking end date: 04/16/79 Alcohol intake: current Drinks per week: 1 Substance use: never Substance use type: does not use Do You Feel Safe in your Home?: Yes Lack of Transportation: No Lack of Food: Never True Current Housing: I Have Housing Concerned About Future Housing: No Difficulty Paying Gas/Electric Bills: No Difficulty Paying for Meds: No Currently Unemployed: No Education: Decline to Answer Difficulty w/ Childcare or Family Care: No Living arrangements: with family Additional living arrangements comments: HUSB Spiritual care concerns: No Exam 2 Narrative: GENERAL: [Well-appearing, well-nourished, and in no acute distress.] HEAD: [Normocephalic, atraumatic.] EYES: [PERRLA and EOMI.] ENT: Nares clear, no rhinorrhea or epistaxis. Mucous membranes moist. NECK: Supple. CHEST: [Clear to auscultation. No respiratory distress.] HEART: [Regular rate and rhythm]. No murmur heard. [Normal peripheral pulses.] ABDOMEN: [Soft, nondistended], [nontender], [No rigidity or guarding] EXTREMITIES: Normal range of motion. [No edema.] SKIN: Warm, dry, no rash. NEURO: [No focal deficits]. Alert and oriented [x3.] PSYCH: [Normal mood and affect.] Course Vital Signs Vital signs: Vital Signs Temperature 36.6 C 08/22/24 19:18 Pulse Rate 104 H 08/22/24 19:18 Respiratory Rate 36 H 08/22/24 19:18 Blood Pressure 158/79 H 08/22/24 19:18 Pulse Oximetry 92 08/22/24 19:18 Oxygen Delivery Room Air 08/22/24 19:18 Temperature 38.8 C H 08/23/24 00:56 Pulse Rate 100 08/23/24 00:56 Respiratory Rate 15 08/23/24 00:56 Blood Pressure 94/69 L 08/23/24 00:56 Pulse Oximetry 100 08/23/24 00:56 Oxygen Delivery Mechanical Ventilation 08/23/24 00:29 Fraction of Inspired Oxygen 100 08/23/24 00:29 Procedures Central Line Placement Left SC: Central Line Date: 08/22/24 Central Line Time: 22:25 Discussed w/ the patient/family/POA,the placement of a central venous catheter, including its clinical necessity/indication & associated potential risks, benifits and alternatives.: Yes The patient/family/POA understand(s) and acknowledge(s) the need to proceed with central venous catheter insertion as an important element of the patient's clinical management.: Yes Time Out Performed: Yes Patient Placed on Monitor/Pulse Ox: Yes Max. Sterile Barrier Technique: Caps, large sterile sheet and hand hygiene Central Line Prep: 2% chlorhexidine scrub and sterile drapes applied Technique: seldinger Local Anesthetic: none Ultrasound Used for Placement: No Central Line Lumen Inserted: triple Post Procedure: sutured in place, good blood return, all ports aspirated, flushed, capped and sterile dressing applied Post Procedure X-Ray: tip of catheter in good position and no pneumothorax seen Patient Tolerated Procedure: well and no complications Complications: none Intubation Intubation #1: Intubation Date: 08/22/24 Intubation Time: 22:09 Time out performed: Yes sedative: Etomidate Mg Given: 20 paralytic: Rocuronium Mg Given: 100 Laryngoscope: fiber optic video scope Tube Size (cm): 7.5 Method of Intubation: orotracheal Number of Attempts: 2 Tube Secured Depth (cm): 23 Tube Secured Location: lips Tube Placement Confirmation: visualized tube passing through cords, equal breath sounds bilaterally, no breath sounds over epigastrium and confirmation by capnometry Patient Tolerated Procedure: well Intubation Complications: difficult intubation Additional Comments: Patient was a difficult intubation with a large tongue requiring manipulation and patient did sustain a laceration with bleeding on the inferior aspect of the tongue against the bottom teeth. No missing teeth but there was bleeding requiring hemostasis with gauze packing and TXA. Bite block placed over top to hold hemostasis. No bleeding in the posterior oropharynx and no bleeding through the NG tube. Lumbar Puncture Lumbar Puncture #1: Lumbar Puncture Date: 08/22/24 Lumbar Puncture Time: 23:59 Time Out Performed: Yes Patient Position: right lateral decubitus Skin Prep: Povidone-Iodine 1% Anesthetic: none Spinal Needle Gauge: 20G Interspace Used: L3-L4 Opening Pressure (cmH20): 35 Spinal Fluid: fluid obtained, atraumatic and multiple attempts Fluid Initially Obtained: cloudy Closing Pressure: 35 Complications: none MDM - Neuro Symptoms/Deficit MDM Narrative Medical decision making narrative: 73-year-old female with history of hyperlipidemia, diabetes, kidney stones. She presents to the emergency department for acute onset confusion lateralizing deficits in the left upper and left lower extremity. Patient is alert but only intermittently answering questions, intermittently following commands. Does seem to have more drift in the left arm and no effort against gravity in the left leg compared to the right side which has some weakness but able to move it against gravity without any appreciable drift. No facial deficits. Total NIH stroke scale 5 at this time. Last known well 6:00 p.m., arrival to the emergency department 6:54 p.m[address] patient sent for CT head and CT angiography of the head neck, point care glucose obtained is normal. Vital signs obtained, cardiac workup ordered, awaiting imaging studies and plan of care from there. Suspect potential ischemic stroke, hemorrhagic stroke, infectious pathology, urinary tract infection with her recent workup for preop clearance for kidney stone. No reported head trauma or injury. Noncontrast CT was independently reviewed and I do not appreciate any hemorrhages. Confirmed by Radiology. I went and re-evaluated the patient at 7:33 p.m. to discuss next steps and re-evaluated the patient. Repeat NIH stroke scale shows marked improvement with NIH is 0 at this point and complete symptomatic resolution. She is able to hold both arms and both legs without any drift, answering all questions appropriately, awake alert oriented, no facial asymmetries, but does not remember feeling so weak or the stroke scale that we just completed prior to CT scan. Family's in the room and states that she was so weak and staring off into space that they felt like she was not there but looked awake and they had to drag her into the car she was not able to move her legs. Patient suddenly had severe decompensation from a hemodynamic standpoint where she became severely febrile tachycardic, hypertensive and altered. Patient reached a temperature 41.7° C on temperature [place]. She was tachycardic in the 140s, blood pressure was high in the 190s and even reached 141 point. Patient became tachypneic in the 50s and obtunded. Unclear what the source of the sudden decompensation was although considerations presently for potential thyroid storm given the contrast iodinated load and then sudden decreased mental status and hemodynamic instability with high fevers out of proportion to tachycardia and massively increased blood pressure and heart rate compared to when she came in. Other considerations are for severe sepsis with elevated tachycardia and temperature and now having laboratory results with an elevated lactate 6.8. Septic bundle was initially including blood cultures, lactic acid, 30 cc/kg bolus of fluids and antibiotics including vancomycin, ceftriaxone and acyclovir to cover for meningitis or other potential sources. Patient re-evaluated after interventions including labetalol to lower her blood pressure and heart rate and she had calmed down quite a bit but was still obtunded, awake not able to answer questions, shivering and having high fever and the 105-107 F range despite IV count the lower, Tylenol and ice packs in the axilla, behind the neck and in the intertriginous areas of the body. At this juncture decision was made to intubate the patient for airway protection with her sudden decompensation and need for further diagnostics including LP, CT scans and repeat imaging. Discussed this with the family was agreeable. Patient was intubated although traumatic as she did have a small laceration to her inferior aspect of the tongue during the intubation with some minor oozing of blood that required TXA and gauze to occlude. Postprocedural chest x-ray shows appropriate position of the 2 tube at 20 cm at the lip after we retracted slightly. She now had some pulmonary edema after 3 L of fluid but intubated and oxygenating well on minimal vent settings. Left subclavian catheter was placed for IV access and titration of medications. Patient's workup showed that she was having worsening lactic acidosis and now having lower blood pressures in the 80 systolic range. Her tachycardia has improved and now in the low 100s. Her fever still remained see really elevated at 39-40 C. patient was maximally fluid resuscitated and additional fluids were given and now initiation of norepinephrine. Patient was sedated with fentanyl pushes 100 mcg of fentanyl infusion. Initially did order esmolol and Ativan for potential thyroid storm however this was discontinued given her hemodynamic decompensation an now where leaning more towards septic and infectious workup. Her CT scans of the abdomen pelvis were largely nondiagnostic given streak artifact but showed nothing obvious with no hydronephrosis in the kidneys which was a worry given her history of kidney stones. At this juncture lumbar puncture was performed at bedside to rule out meningitis and broad lumbar puncture CSF studies were sent including cell count, Gram stain, West Nile virus, HSV, fungal stain, herpes, glucose, lactic acid, Gram stain, VR dL, CSF culture. Patient's antibiotic coverage was expanded to include cefepime instead of Rocephin, metronidazole for anaerobic coverage for potential other sources rather than CSF, acyclovir, vancomycin. Patient is critically ill and needs transfer to higher level care center for ICU admission and evaluation by Endocrinology, Neurology, Infectious Disease and intensive care. Patient will be transferred to the [facility] system. I discussed the case with the [facility] transfer line and was connected with the ICU developmental mathematics instructor and patient was accepted under Dr. Varela. ICU bed was being awaited and flight crew was called to patient's aid to transfer her emergently to [facility] for further care and evaluation upon assignment of bed. Patient on next re-eval required initiation and rapid titration of her norepinephrine and now reaching 20 micrograms/minute and we started giving her push doses of epinephrine while additional resources were used to get vasopressin drip from pharmacy. Patient's repeat ABG shows respiratory acidosis and metabolic acidosis and so we hyperventilate her with a respiratory rate of 26, tidal volume of 450, 100% FiO2 and PEEP of 5. Patient was given 150 mEq of bicarbonate pushes for her acidosis and this is likely causing her refractory shock state to worsen from vasoplegia. Patient is hemodynamically labile at this time requiring vasopressin initiation infrequent push doses of epinephrine which patient response to nicely with improving blood pressures in the low 100s. [facility] transfer system made aware and ICU bed has been assigned. Transfer has been initiated and flight crew arrived. Patient becomes much more active and agitated when her blood pressures are corrected with vasopressors and she required more sedation with fentanyl and even ketamine by flight crew when they arrived. Patient is currently on norepinephrine max dose and vasopressin with push dose epinephrine given to the flight crew for injections as needed. Family is at bedside and I discussed patient's critical status, prognosis, next steps and transferred to [facility]. They were agreeable to the transfer process and patient was flown out of the emergency department at this time. Medical Records Attestation: I reviewed the patient's medical records. Lab Data Attestation: I reviewed the patient's lab results. 08/22/24 19:25 08/22/24 19:25 Labs: Lab Results 05/09/25 05/09/25 05/09/25 Range/Units 18:58 19:25 20:31 WBC 8.4 (4.5-10.0) K/mm3 RBC 4.42 (4.2-5.4) M/mm3 Hgb 12.6 (12.0-15.0) g/dL Hct 39.4 (37.0-47.0) % MCV 89.1 (80-100) fl MCH 28.5 (26-34) pg MCHC 32.0 (32-36) g/dl RDW 14.1 (11.5-14.5) % Plt Count 103 L D (150-375) k/mm3 MPV 9.1 (7.4-10.4) fl Immature Gran % (Auto) 1.1 H (0-0.5) % Neut % (Auto) 89.9 H (45.5-73.1) % Lymph % (Auto) 3.1 L (18.3-44.2) % [place] % (Auto) 3.9 (2.6-8.5) % Eos % (Auto) 1.5 (0-4.4) % Baso % (Auto) 0.5 (0.2-1.2) % Lymph # (Auto) 0.26 L (0.9-3.2) K/mm3 [place] # (Auto) 0.3 (0.1-0.6) K/mm3 Eos # (Auto) 0.1 (0-0.3) K/mm3 Baso # (Auto) 0.0 (0.0-0.1) K/mm3 Abs Immat Gran (auto) 0.09 H (0.00-0.031) K/mm3 Absolute Neuts (auto) 7.5 H (1.3-6.7) K/mm3 Absolute Nucleated RBC 0.000 (0.0-0.012) K/mm3 Band Neutrophils % Not Reportable Nucleated RBC % 0.0 (0.0-0.2) % Platelet Estimate Decreased (Adequate) % Immature Plt Fraction 1.5 (0.9-11.2) % Ovalocytes 1+ Schistocytes None seen PT 16.5 H (11.1-14.7) Seconds INR 1.3 APTT 26.1 (22.3-36.8) Seconds Minute Volume Vent Mode Tidal Volume ml PEEP cmH2O Peak Inspir Pressure Pressure Support Sodium 132 L (137-145) mmol/L Potassium 4.2 (3.4-5.0) mmol/L Chloride 101 (98-107) mmol/L Carbon Dioxide 21 L (22-30) mmol/L Anion Gap 10 (4-12) mmol/L BUN 20 H (7-17) mg/dL Creatinine 1.12 H (0.7-1.0) mg/dL Estim Creat Clear Calc 48 ml/min Estimated GFR 48 L (59 - ) Glucose 130 H (65-110) mg/dL POC Capillary Glucose 143 H (65-105) mg/dl Lactic Acid (0.7-2.0) mmol/L Calcium 8.2 L (8.4-10.2) mg/dL Total Bilirubin 1.2 (0.2-1.3) mg/dL AST 30 (14-36) U/L ALT 29 (6-35) U/L Alkaline Phosphatase 77 (38-126) U/L Troponin I < 0.012 (0.000-0.034) ng/mL Total Protein 6.0 L (6.3-8.2) g/dL Albumin 3.3 L (3.5-5.1) g/dL TSH (Reflex) 1.290 (0.465-4.68) uIU/mL Urine Color (Yellow) Urine Appearance (Clear) Urine pH (5.0-9.0) Ur Specific [place] (1.001-1.035) Urine Protein (Negative) mg/dL Urine Glucose (UA) (Negative) mg/dL Urine Ketones (Negative) mg/dL Ur Blood (Man) (Negative) Urine Nitrate (Negative) Urine Bilirubin (Negative) Urine Urobilinogen (<2.0) mg/dL Add Ur Microanalysis Leukocyte Esterase Rfl (Negative) HEATHER/UL Urine RBC (0-2) /hpf Urine WBC (0-3) /hpf Ur Squamous Epith Cells (Few) /hpf Urine Bacteria /hpf Urine Casts Fluid EBV Source CSF Source CSF Appearance (Clear) CSF Color (Colorless) CSF RBC (0-2) CSF Tot Nucleated Cells (0-5) /uL CSF Lymphocytes (40-80) % CSF Monocytes (15-45) % CSF Macrophages CSF Glucose (40-70) mg/dL CSF Total Protein (12-60) mg/dL CSF VDRL CSF Lyme IgG Antibody CSF Lyme IgG (Immblot) CSF Lyme IgM Antibody CSF Lyme IgM (Immblot) CSF EBV DNA (PCR) CSF Herpes I DNA (PCR) CSF Herpes II DNA (PCR) CSF West Nile RNA Urine Opiates Screen Negative (Negative) Urine Methadone Screen Negative (Negative) Ur Barbiturates Screen Negative (Negative) Ur Phencyclidine Scrn Negative (Negative) Ur Amphetamine Screen Negative (Negative) U Benzodiazepines Scrn Negative (Negative) Urine Cocaine Screen Negative (Negative) U Cannabinoids Screen Negative (Negative) Lyme IgG Bands Present Lyme IgM Bands Present HSV (PCR) Source Influenza A (RT-PCR) (Negative) Influenza B (RT-PCR) (Negative) RSV (RT-PCR) (Negative) SARS-CoV-2 RNA (RT-PCR) (Negative) 08/22/24 08/22/24 08/22/24 Range/Units 20:32 20:52 23:12 WBC (4.5-10.0) K/mm3 RBC (4.2-5.4) M/mm3 Hgb (12.0-15.0) g/dL Hct (37.0-47.0) % MCV (80-100) fl MCH (26-34) pg MCHC (32-36) g/dl RDW (11.5-14.5) % Plt Count (150-375) k/mm3 MPV (7.4-10.4) fl Immature Gran % (Auto) (0-0.5) % Neut % (Auto) (45.5-73.1) % Lymph % (Auto) (18.3-44.2) % [place] % (Auto) (2.6-8.5) % Eos % (Auto) (0-4.4) % Baso % (Auto) (0.2-1.2) % Lymph # (Auto) (0.9-3.2) K/mm3 [place] # (Auto) (0.1-0.6) K/mm3 Eos # (Auto) (0-0.3) K/mm3 Baso # (Auto) (0.0-0.1) K/mm3 Abs Immat Gran (auto) (0.00-0.031) K/mm3 Absolute Neuts (auto) (1.3-6.7) K/mm3 Absolute Nucleated RBC (0.0-0.012) K/mm3 Band Neutrophils % Nucleated RBC % (0.0-0.2) % Platelet Estimate (Adequate) % Immature Plt Fraction (0.9-11.2) % Ovalocytes Schistocytes PT (11.1-14.7) Seconds INR APTT (22.3-36.8) Seconds Minute Volume Vent Mode Tidal Volume ml PEEP cmH2O Peak Inspir Pressure Pressure Support Sodium (137-145) mmol/L Potassium (3.4-5.0) mmol/L Chloride (98-107) mmol/L Carbon Dioxide (22-30) mmol/L Anion Gap (4-12) mmol/L BUN (7-17) mg/dL Creatinine (0.7-1.0) mg/dL Estim Creat Clear Calc ml/min Estimated GFR (59 - ) Glucose (65-110) mg/dL POC Capillary Glucose (65-105) mg/dl Lactic Acid 6.8 H* 7.0 H* (0.7-2.0) mmol/L Calcium (8.4-10.2) mg/dL Total Bilirubin (0.2-1.3) mg/dL AST (14-36) U/L ALT (6-35) U/L Alkaline Phosphatase (38-126) U/L Troponin I (0.000-0.034) ng/mL Total Protein (6.3-8.2) g/dL Albumin (3.5-5.1) g/dL TSH (Reflex) (0.465-4.68) uIU/mL Urine Color Yellow (Yellow) Urine Appearance Clear (Clear) Urine pH 6.5 (5.0-9.0) Ur Specific [place] > 1.045 H (1.001-1.035) Urine Protein 3+ H (Negative) mg/dL Urine Glucose (UA) Negative (Negative) mg/dL Urine Ketones 2+ H (Negative) mg/dL Ur Blood (Man) 2+ H (Negative) Urine Nitrate Positive H (Negative) Urine Bilirubin Negative (Negative) Urine Urobilinogen 1.0 (<2.0) mg/dL Add Ur Microanalysis Reviewed Leukocyte Esterase Rfl Negative (Negative) HEATHER/UL Urine RBC 11-20 H (0-2) /hpf Urine WBC 11-20 H (0-3) /hpf Ur Squamous Epith Cells Occasional (Few) /hpf Urine Bacteria 4+ H /hpf Urine Casts 0-2 Fluid EBV Source CSF Source CSF Appearance (Clear) CSF Color (Colorless) CSF RBC (0-2) CSF Tot Nucleated Cells (0-5) /uL CSF Lymphocytes (40-80) % CSF Monocytes (15-45) % CSF Macrophages CSF Glucose (40-70) mg/dL CSF Total Protein (12-60) mg/dL CSF VDRL CSF Lyme IgG Antibody CSF Lyme IgG (Immblot) CSF Lyme IgM Antibody CSF Lyme IgM (Immblot) CSF EBV DNA (PCR) CSF Herpes I DNA (PCR) CSF Herpes II DNA (PCR) CSF West Nile RNA Urine Opiates Screen (Negative) Urine Methadone Screen (Negative) Ur Barbiturates Screen (Negative) Ur Phencyclidine Scrn (Negative) Ur Amphetamine Screen (Negative) U Benzodiazepines Scrn (Negative) Urine Cocaine Screen (Negative) U Cannabinoids Screen (Negative) Lyme IgG Bands Present Lyme IgM Bands Present HSV (PCR) Source Influenza A (RT-PCR) Negative (Negative) Influenza B (RT-PCR) Negative (Negative) RSV (RT-PCR) Negative (Negative) SARS-CoV-2 RNA (RT-PCR) Negative (Negative) 08/22/24 08/22/24 08/23/24 Range/Units 23:53 23:53 00:05 WBC (4.5-10.0) K/mm3 RBC (4.2-5.4) M/mm3 Hgb (12.0-15.0) g/dL Hct (37.0-47.0) % MCV (80-100) fl MCH (26-34) pg MCHC (32-36) g/dl RDW (11.5-14.5) % Plt Count (150-375) k/mm3 MPV (7.4-10.4) fl Immature Gran % (Auto) (0-0.5) % Neut % (Auto) (45.5-73.1) % Lymph % (Auto) (18.3-44.2) % [place] % (Auto) (2.6-8.5) % Eos % (Auto) (0-4.4) % Baso % (Auto) (0.2-1.2) % Lymph # (Auto) (0.9-3.2) K/mm3 [place] # (Auto) (0.1-0.6) K/mm3 Eos # (Auto) (0-0.3) K/mm3 Baso # (Auto) (0.0-0.1) K/mm3 Abs Immat Gran (auto) (0.00-0.031) K/mm3 Absolute Neuts (auto) (1.3-6.7) K/mm3 Absolute Nucleated RBC (0.0-0.012) K/mm3 Band Neutrophils % Nucleated RBC % (0.0-0.2) % Platelet Estimate (Adequate) % Immature Plt Fraction (0.9-11.2) % Ovalocytes Schistocytes PT (11.1-14.7) Seconds INR APTT (22.3-36.8) Seconds Minute Volume Not Reportable Vent Mode Cmv Tidal Volume 400 ml PEEP 5 cmH2O Peak Inspir Pressure Not Reportable Pressure Support Not Reportable Sodium (137-145) mmol/L Potassium (3.4-5.0) mmol/L Chloride (98-107) mmol/L Carbon Dioxide (22-30) mmol/L Anion Gap (4-12) mmol/L BUN (7-17) mg/dL Creatinine (0.7-1.0) mg/dL Estim Creat Clear Calc ml/min Estimated GFR (59 - ) Glucose (65-110) mg/dL POC Capillary Glucose (65-105) mg/dl Lactic Acid (0.7-2.0) mmol/L Calcium (8.4-10.2) mg/dL Total Bilirubin (0.2-1.3) mg/dL AST (14-36) U/L ALT (6-35) U/L Alkaline Phosphatase (38-126) U/L Troponin I (0.000-0.034) ng/mL Total Protein (6.3-8.2) g/dL Albumin (3.5-5.1) g/dL TSH (Reflex) (0.465-4.68) uIU/mL Urine Color (Yellow) Urine Appearance (Clear) Urine pH (5.0-9.0) Ur Specific [place] (1.001-1.035) Urine Protein (Negative) mg/dL Urine Glucose (UA) (Negative) mg/dL Urine Ketones (Negative) mg/dL Ur Blood (Man) (Negative) Urine Nitrate (Negative) Urine Bilirubin (Negative) Urine Urobilinogen (<2.0) mg/dL Add Ur Microanalysis Leukocyte Esterase Rfl (Negative) HEATHER/UL Urine RBC (0-2) /hpf Urine WBC (0-3) /hpf Ur Squamous Epith Cells (Few) /hpf Urine Bacteria /hpf Urine Casts Fluid EBV Source Pending CSF Source Csf Pending CSF Appearance Clear (Clear) CSF Color Colorless (Colorless) CSF RBC < 2000 H (0-2) CSF Tot Nucleated Cells 5 (0-5) /uL CSF Lymphocytes 52 (40-80) % CSF Monocytes 10 L (15-45) % CSF Macrophages 38 CSF Glucose 71 H (40-70) mg/dL CSF Total Protein 51 (12-60) mg/dL CSF VDRL Pending CSF Lyme IgG Antibody Pending CSF Lyme IgG (Immblot) Pending CSF Lyme IgM Antibody Pending CSF Lyme IgM (Immblot) Pending CSF EBV DNA (PCR) Pending CSF Herpes I DNA (PCR) Pending CSF Herpes II DNA (PCR) Pending CSF West Nile RNA Pending Urine Opiates Screen (Negative) Urine Methadone Screen (Negative) Ur Barbiturates Screen (Negative) Ur Phencyclidine Scrn (Negative) Ur Amphetamine Screen (Negative) U Benzodiazepines Scrn (Negative) Urine Cocaine Screen (Negative) U Cannabinoids Screen (Negative) Lyme IgG Bands Present Pending Lyme IgM Bands Present Pending HSV (PCR) Source Pending Influenza A (RT-PCR) (Negative) Influenza B (RT-PCR) (Negative) RSV (RT-PCR) (Negative) SARS-CoV-2 RNA (RT-PCR) (Negative) ABG Data ABG results: 08/22/24 08/23/24 21:25 00:05 Puncture Site Left radial ABG pH 7.114 L* ABG pCO2 51.6 H ABG pO2 182.1 H ABG PO2/FiO2 Ratio 1.82 ABG HCO3 16.2 L ABG O2 Saturation 98.8 ABG O2 Content 18.7 ABG Base Excess -13.2 VBG pH 7.468 H* VBG pCO2 21.9 L* VBG pO2 57.9 H VBG HCO3 15.5 L A-a Gradient 479.3 Oxyhemoglobin 98.2 Total Hemoglobin 13.3 O2 Delivery Device Room air Ventilator O2 Liters/Min Not Reportable Vent Rate 18 FiO2 21 100 Attestation: I personally reviewed and interpreted this ABG as follows: Interpretation: Repeat ABG shows respiratory acidosis and metabolic acidosis concomitant. Imaging Data Attestation: I personally reviewed and interpreted this imaging study as follows: My impression: Impressions Head CT 08/22/24 19:07 IMPRESSION: No acute intracranial findings. Head/Neck CTA 08/22/24 19:17 IMPRESSION: 1. Normal CTA head and neck. Percent stenosis per NASCET criteria is 0%. Chest X-Ray 08/22/24 19:48 IMPRESSION: No acute cardiopulmonary pathology. Abdomen/Pelvis CT 08/22/24 21:18 IMPRESSION: Markedly limited examination secondary to streak metallic artifact from the patient's wrist watch overlying the left upper quadrant. No hydronephrosis. Chest X-Ray 08/22/24 22:45 IMPRESSION: Endotracheal tube in the right main bronchus and needs to be retracted by about 3 cm. Cardiomegaly with cardiac decompensation. Left basilar atelectasis versus pneumonia. Chest X-Ray 08/22/24 23:16 IMPRESSION: Supporting lines in good position Other appearances are unchanged. Critical Care Time Critical Care Time Critical Care Time: Yes Total Critical Care Time: 195 (195 minutes of critical care time is exclusive of the separately billable procedures as described above in the procedure note. Critical care time is spent with frequent re-evaluations, titration of vasoactive medications, re-evaluation with family members, response to vent setting changes, ect.) Discharge Plan Discharge Clinical Impression: Acute alteration in mental status, Acute focal neurological deficit, At high risk for thyroid storm, Sepsis, Septic shock, Respiratory failure requiring intubation, Metabolic acidosis, Acute lactic acidosis Patient Disposition: Acute Care Hospital Condition: Critical Patient Language: Amharic Prescriptions: No Action clobetasol 0.05 % cream 1 applic topical DAILY PRN (Reason: irritated vaginal area) Qty: 30 0RF Rx Instructions: Apply to affected area daily for one month and then can apply twice daily for two weeks for recurring symptoms. metformin 500 mg tablet 500 mg PO DAILY Patient Comments: TAKES BID cetirizine 5 mg tablet 5 mg PO DAILY PRN (Reason: ALLERGIES) pravastatin 20 mg tablet 20 mg PO DAILY aspirin [Adult Aspirin Regimen] 81 mg tablet,delayed release (DR/EC) 81 mg PO DAILY meloxicam 15 mg tablet 15 mg PO DAILY levothyroxine 50 mcg Tablet 50 mcg PO HS Follow-up/Referrals: Heather,NEY Rapp [Primary Care Provider] - Time of Disposition: 02:00 Quality Stroke Date of last known normal: 08/22/24 Time of last known normal: 18:00 Stroke Scale Stroke Scale 1: Stroke scale date:: 08/22/24 Stroke scale time:: 19:00 1a Level of consciousness: alert-0 1b Level of consciousness questions: answers one correctly-1 1c Level of consciousness commands: obeys both correctly-0 2 Best gaze: normal-0 3 Visual: no visual loss-0 4 Facial palsy: normal-0 5a Motor: left arm: drift-1 5b Motor: right arm: no drift-0 6a Motor: left leg: no effort/gravity-3 6b Motor: right leg: no drift-0 7 Limb ataxia: absent-0 8 Sensory: normal-0 9 Best language: no aphasia-0 10 Dysarthria: normal-0 11 Extinction and inattention: no abnormality-0 Level:: 5
--- OUTSIDE RECORDS SUMMARY | 2024-08-22 19:30 | XMS_ITS | Encounter Summary ---
Author Organization [facility] Address [address] [facility] [address] [place] [address] Care Team Providers Care Ticket Manager Name Role Phone Juan Nicole MD Primary Care Provider [phone] Raymundo Bolton MD Unavailable [phone] Encounter Details Date Type Department Care Team (Late st Contact Info) Description 08/27/2019 Lab Requisition 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 DermPath Lab Received: 08/27/2019 06:44 AM Pathologist: Lauren Griffith MD Specimen: Skin, left upper eyelid 0 12:43 PM CDT DERMATOPATHOLOGY LABORATORY Clinical History R/O SK, irritated. 0 12:43 PM CDT DERMATOPATHOLOGY LABORATORY Gross Description Specimen A: Received is one formalin filled container labeled with the patient's name and designated left upper eyelid. The specimen consists of a shave measuring [id number]. Jar 0. [facility] Dermatopathology Laboratory performed the technical component only. [...] characteristic determined by the Dermatopathology Laboratory at [facility], directed by Dr. Linda Armijo. These tests need not be, and therefore are not, approved by the [place] Food and Drug Administration. The tests are used for clinical purposes. 0 12:43 PM CDT DERMATOPATHOLOGY LABORATORY Pathology/Cytolog y TISSUE SPECIMEN FROM SKIN / Unknown 08/26/2019 08/27/2019 6:44 AM CDT Cesilia Gomez MD LAB - PATHOLOGY/CYTOLOGY OR DERABLES Final Result DERMATOPATHOLOGY LABORATORY [facility] - Department of Dermatology [address] [facility], 5th Floor Lab [address] [phone] documented in this encounter Visit Diagnoses Not on filedocumented in this encounter Care Teams Ticket Manager Relationship Specialty Start Date End Date Juan Nicole MD PCP - General Internal Medicine 11/21/18 [place] [address] [address] Orthopedic Surgery 11/21/18 documented as of this encounter
--- OUTSIDE RECORDS SUMMARY | 2024-08-22 19:30 | XMS_ITS | Continuity of Care Document ---
Author Organization [facility] Address [address] [place] [address] Phone Care Team Providers Care Valet Manager Name Role Phone Karyn Acosta Unavailable Unavailable Procedures Procedure Date Post-op Follow-up Visit Post-op Follow-up Visit Post-op Follow-up Visit Remove Cataract, Insert Lens Post-op Follow-up Visit [facility] Post-op Follow-up Visit Post-op Follow-up Visit Remove Cataract, Insert Lens Office/outpatient Visit, [facility] Advance Directives Directive Yes / No Effective Date File Name No Information Encounters Encounter Description Practice Location Reason(s) For Visit Diagnoses Date Provider Providers Copied on Encounter [facility], [address] [place] [address] [address], [place], [place], [id number], tel:[phone] [facility] No Information Oct-2 1-201 0 Karla Wahl [address], [place], [address], [place]. tel:[phone] [facility], [address] [place] [address] [address], [place], [place], [id number], tel:[phone] [facility] No Information Oct-0 7-201 0 Karla Wahl [address] , [address], [place], [address], [place]. tel:[phone] [facility], [address], [place], [place], [address], [place] tel:[phone] [facility] No Information Sep-3 0-201 0 King OD Tomy. [address], [address], [place], [address], [place]. tel:[phone] Referring Provider: Karyn Mackey, [address], [place], [place], [facility]. tel:[phone] [facility], [address], [place], [place], [address], [place] tel:[phone] [facility] No Information Sep-2 9-201 0 Karla Boss. [address], [place], [place], [facility], [place]. tel:[phone] [facility], [address], [place], [place], [address], [place] tel:[phone] [facility] No Information Sep-1 6-201 0 Karla Boss. [address], [place], [address], [place]. tel:[phone] Referring Provider: Shala Hernandez MD, [address] [facility], [place], [address]. tel:[phone] [facility], [address], [place], [place], [address], [place] tel:[phone] [facility] No Information Aug-2 6-201 0 Karla Boss. [address], [place], [address], [place]. tel:[phone] [facility], [address], [place], [place], [address], [place] tel:[phone] [facility] No Information 9-201 0 King OD Tomy. [address], [place], [address], [place]. tel:[phone] [facility], [address] [place] [address] [address], [place], [place], [address], [place] tel:[phone] [facility] No Information 8-201 0 Karla Boss. [address] , [address], [place], [address], [place]. tel:[phone] Referring Provider: Shala Hernandez MD, [address] [place], [address]. tel:[phone] Office/outpat ient Visit, [facility], [address], [place], [place], [address], [place] tel:[phone] [facility] No Information 0-201 0 Karla Boss. [address] , [address], [place], [address], [place]. tel:[phone] Referring Provider: Shala Hernandez MD, 1 [place], [address]. tel:[phone] Family History Family Member Type Diagnosis Age [...]
--- OUTSIDE RECORDS SUMMARY | 2024-08-22 19:30 | XMS_ITS | Encounter Summary ---
Author Organization [facility] Address [address] [facility] [place] [address] Care Team Providers Care Beading Machine Operator Name Role Phone Juan Nicole MD Primary Care Provider [phone] Raymundo Bolton MD Unavailable [phone] Encounter Details Date Type Department Care Team (Late st Contact Info) Description 03/19/2023 Lab Requisition [facility] - DermPath Lab [address] [facility], [place] [address] Wendy [place] DO [address] 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 Gender Identity Not on file Sexual Orientation Not on file documented as of this encounter Plan of Treatment Not on file documented as of this encounter Procedures Procedure Name Priority Date/Time Associated Diagnosis Comments DERMATOPATHOLOGY Routine 03/19/2023 11:2 4 AM BREEDING MANAGER documented in this encounter Results * DERMATOPATHOLOGY (03/19/2023 11:24 AM BREEDING MANAGER) Case Report Dermatopathology Report Case: [id number] Authorizing Provider: Wendy [place] DO Collected: 03/19/2023 11:24 AM Ordering Location: [facility] DermPath Lab Received: 03/20/2023 12:31 PM Pathologist: Lauren [place] MD Specimens: A) - Skin, right helix B) - Skin, left upper back 3 3:03 PM [facility] DERMATOPATHOLOGY LABORATORY Final Diagnosis Specimen A. SKIN, right helix: SQUAMOUS PROLIFERATION (D48.5) OVERLYING CUTANEOUS HORN (L85.8) (see microscopic description and comment) Specimen B. SKIN, left upper back: BASAL CELL CARCINOMA, SUPERFICIAL MULTIFOCAL (C44.519) 3 3:03 PM [facility] DERMATOPATHOLOGY LABORATORY Clinical History A: CNH, R/O NMSC B: R/O NMSC 3 3:03 PM [facility] DERMATOPATHOLOGY LABORATORY Gross Description Specimen A: [...] 5x5x1 mm. Jar 0. 3 3:03 PM [facility] DERMATOPATHOLOGY LABORATORY Microscopic Description Specimen A. [...] ratio and peripheral palisading. 3 3:03 PM [facility] DERMATOPATHOLOGY LABORATORY Disclaimer An external and internal positive and negative controls are appropriate for the histochemical, immunohistochemical and immunofluorescence stain(s) in this case (if any), except where stated explicitly. The performance characteristics of the stain(s) cited in this report were developed and its performance characteristic determined by the Dermatopathology Laboratory at [facility], directed by Dr. Linda Armijo. These tests need not be, and therefore are not, approved by the [place] Food and Drug Administration. The tests are used for clinical purposes. Billing Codes Specimen Charges Stain Charges 93631 61461 1 1 3 3:03 PM BREEDING MANAGER DERMATOPATHOLOGY LABORATORY Embedded Images 3 3:03 PM BREEDING MANAGER DERMATOPATHOLOGY LABORATORY Pathology/Cytology TISSUE SPECIMEN FROM SKIN / Unknown 03/19/2023 11:24 AM BREEDING MANAGER 03/20/2023 12:31 PM BREEDING MANAGER Miscellaneous samples (specimen) TISSUE SPECIMEN FROM SKIN / Unknown 03/19/2023 11:24 AM BREEDING MANAGER 03/20/2023 12:31 PM BREEDING MANAGER us Wendy [place] DO LAB - PATHOLOGY/CYTOLOGY ORDERABLES Final Result DERMATOPATHOLOGY LABORATORY [facility] - Department of Dermatology [facility] Medicine [address] [place] [address], [address] [phone] documented in this encounter Visit Diagnoses Not on filedocumented in this encounter Care Teams Beading Machine Operator Relationship Specialty Start Date End Date Juan Nicole MD PCP - General Internal Medicine 11/21/18 [place] [address] [address] Orthopedic Surgery 11/21/18 documented as of this encounter
--- OUTSIDE RECORDS SUMMARY | 2024-08-22 19:30 | XMS_ITS | Clinical Summary ---
Author Organization [facility] Address [address] [place] [address] Care Team Providers Care Labor Delivery Rn Name Role Phone Unavailable Primary Care Provider [...]
--- OUTSIDE RECORDS SUMMARY | 2024-08-22 19:30 | XMS_ITS | Clinical Summary ---
Author Organization [facility] Address [address] [facility] [place] [address] Care Team Providers Care Filler Shredder Name Role Phone Juan Nicole MD Primary Care Provider [phone] Raymundo Bolton MD Unavailable [phone] Source Comments [facility],non-owned Affiliates and Associated Physician Practices is amultiple site organization consisting of ambulatory clinics and hospital sitesin [place] and [place]. This disclosure is being madepursuant to the Care Everywhere program and may not contain all information available regarding this patient. Last updated 18.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 MANAGED MEDICARE ADV [facility] MANAGED MEDICARE ADV Member Subscriber Plan / Payer (Ef fective 2016-Present) Name:Jony Gonzalez Relation to Subscriber:Self Name:JONY GONZALEZ Payer ID:[id number] (NAIC) Type:Medicare-Managed Care Address: [place] [id number] Care Teams Filler Shredder Relationship Specialty Start Date End Date Juan Nicole MD PCP - General Internal Medicine 11/21/18 [place] [address] [address] Orthopedic Surgery 11/21/18
--- OUTSIDE RECORDS SUMMARY | 2024-08-22 19:30 | XMS_ITS | Encounter Summary ---
Author Organization [facility] Address [address] [facility] [place] [address] Care Team Providers Care Machine Plate Stacker Name Role Phone Juan Nicole MD Primary Care Provider [phone] Raymundo Bolton MD Unavailable [phone] Encounter Details Date Type Department Care Team (Late st Contact Info) Description 05/01/2024 Lab Requisition [facility] - DermPath Lab [address] [facility], [place] [address] Wendy [place] DO [address] [facility] 3 [place] [address] Social History Tobacco Use Types Packs/Day Years Used Date Smoking Tobacco: Never Assessed Comments Unknown Sex and Gender Information Value Date Recorded Sex Assigned at Not on file 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 Gender Identity Not on file Sexual Orientation Not on file documented as of this encounter Plan of Treatment Not on file documented as of this encounter Procedures Procedure Name Priority Date/Time Associated Diagnosis Comments DERMATOPATHOLOGY Routine 05/01/2024 10:5 8 AM YOUTH ACCOMMODATION SUPPORT WORKER documented in this encounter Results * DERMATOPATHOLOGY (05/01/2024 10:58 AM YOUTH ACCOMMODATION SUPPORT WORKER) Case Report Dermatopathology Report Case: [id number] Authorizing Provider: Wendy [place] DO Collected: 05/01/2024 10:58 AM Ordering Location: [facility] - Received: 05/01/2024 04:34 PM [...] sections were obtained and reviewed. 1:03 PM [facility] DERMATOPATHOLOGY LABORATORY Disclaimer An external and internal positive and negative controls are appropriate for the histochemical, immunohistochemical and immunofluorescence stain(s) in this case (if any), except where stated explicitly. The performance characteristics of the stain(s) cited in this report were developed and its performance characteristic determined by the Dermatopathology Laboratory at [facility], directed by Dr. Linda Armijo. These tests need not be, and therefore are not, approved by the [place] Food and Drug Administration. The tests are used for clinical purposes. Billing Codes Specimen Charges Stain Charges 93866 1 1:03 PM [facility] DERMATOPATHOLOGY LABORATORY Embedded Images 1:03 PM [facility] DERMATOPATHOLOGY LABORATORY Pathology/Cytolo gy TISSUE SPECIMEN FROM SKIN / Unknown 05/01/2024 10:58 AM YOUTH ACCOMMODATION SUPPORT WORKER 05/01/2024 4:34 PM YOUTH ACCOMMODATION SUPPORT WORKER us Wendy [place] DO LAB - PATHOLOGY/CYTOLOGY ORDERABLES Final Result DERMATOPATHOLOGY LABORATORY [facility] - Department of Dermatology [address], [address] [phone] documented in this encounter Visit Diagnoses Not on filedocumented in this encounter Care Teams Machine Plate Stacker Relationship Specialty Start Date End Date Juan Nicole MD PCP - General Internal Medicine 11/21/18 [place] [address] [address] Orthopedic Surgery 11/21/18 documented as of this encounter
[2024-08-22 19:33] LABS: Basophils Percent Auto 0.5 % (0.2-1.2); Eosinophils Absolute Auto 0.1 K/mm3 (0-0.3); Eosinophils Percent Auto 1.5 % (0-4.4); Hematocrit 39.4 % (37.0-47.0); Hemoglobin 12.6 g/dL (12.0-15.0); Immature Granulocyte Absolute 0.09 K/mm3 (0.00-0.031); Immature Granulocyte Percent A 1.1 % (0-0.5); Immature Platelet Fraction Pct 1.5 % (0.9-11.2); Lymphocytes Absolute Auto 0.26 K/mm3 (0.9-3.2); Lymphocytes Percent Auto 3.1 % (18.3-44.2); Mean Corpuscular Hemoglobin 28.5 pg (26-34); Mean Corpuscular Volume 89.1 fl (80-100); Mean Platelet Volume 9.1 fl (7.4-10.4); Monocytes Absolute Auto 0.3 K/mm3 (0.1-0.6); Monocytes Percent Auto 3.9 % (2.6-8.5); Neutrophils Absolute Auto 7.5 K/mm3 (1.3-6.7); Neutrophils Percent Auto 89.9 % (45.5-73.1); Platelet Count Result 103 k/mm3 (150-375); Red Blood Count 4.42 M/mm3 (4.2-5.4); Red Cell Distribution Width 14.1 % (11.5-14.5); White Blood Count 8.4 K/mm3 (4.5-10.0)
[2024-08-22 19:41] LABS: Alanine Aminotransferase 29 U/L (6-35); Albumin Level 3.3 g/dL (3.5-5.1); Alkaline Phosphatase 77 U/L (38-126); Anion Gap 10 mmol/L (4-12); Aspartate Amino Transferase 30 U/L (14-36); Bilirubin,Total 1.2 mg/dL (0.2-1.3); Blood Urea Nitrogen 20 mg/dL (7-17); Calcium 8.2 mg/dL (8.4-10.2); Carbon Dioxide 21 mmol/L (22-30); Chloride 101 mmol/L (98-107); Estimated CRCL calculation 48 ml/min; Estimated Glomerular Filt Rate 48; Glucose 130 mg/dL (65-110); Potassium 4.2 mmol/L (3.4-5.0); Sodium 132 mmol/L (137-145)
[2024-08-22 19:42] LABS: INR 1.3; Prothrombin Time 16.5 Seconds (11.1-14.7)
[2024-08-22 19:44] LABS: Partial Thromboplastin Time 26.1 Seconds (22.3-36.8)
[2024-08-22 19:47] LABS: Ovalocytes 1+; Platelet Estimate Decreased (Adequate); Schistocytes None Seen
[2024-08-22 19:53] LABS: Troponin I < 0.012 ng/mL (0.000-0.034)
[2024-08-22] MEDS: LACTATED RINGERS 1,000 ML 999 ML IV CONT ×3 (20:52→21:31)
[2024-08-22] MEDS: ACETAMINOPHEN 650 MG SUPPOSITORY RECTAL (20:53)
[2024-08-22 20:54] LABS: Add Urine Microscopic? YES; Appearance Urine Clear (Clear); Bacteria Urine 4+ /hpf; Bilirubin Urine Negative (Negative); Blood Urine 2+ (Negative); Color Urine Yellow (Yellow); Glucose Urine UA Negative (Negative); Ketones Urine 2+ mg/dL (Negative); Leukocyte Esterase Ur Negative LEU/UL (Negative); Need Manual Microscopic Reviewed; Nitrate Urine Positive (Negative); Non Pathogenic Casts 0-2; Protein Urine 3+ mg/dL (Negative); Specific Grav Ur > 1.045 (1.001-1.035); Squamous Epithelial Cell Urine Occasional /hpf (Few); pH Urine 6.5 (5.0-9.0)
[2024-08-22 21:11] LABS: Amphetamine Screen Urine Negative (Negative); Barbiturate Screen Urine Negative (Negative); Benzodiazepines Screen Urine Negative (Negative); Cannabinoid Screen Urine Negative (Negative); Cocaine Screen Urine Negative (Negative); Methadone Screen Urine Negative (Negative); Opiate Screen Urine Negative (Negative); Phencyclidine Screen Urine Negative (Negative)
[2024-08-22 21:11] LABS: Lactic Acid Reflex 6.8 mmol/L (0.7-2.0)
[2024-08-22] MEDS: VANCOMYCIN 1,500 MG/NS 500 ML 1,500 MG/500 ML BAG 250 MG IVPB (21:28)
[2024-08-22 21:32] LABS: Fractional Inspired Oxygen 21 %; HCO3 VBG 15.5 mEq/l (24.0-30.0); PO2 VBG 57.9 mmHg (35.0-45.0)
[2024-08-22 21:35] LABS: Influenza A QL RT-PCR Negative (Negative); Influenza B QL RT-PCR Negative (Negative); RSV RNA, RT-PCR Negative (Negative); SARS-CoV-2 RNA PCR Negative (Negative)
[2024-08-22 21:37] LABS: PCO2 VBG 21.9 mmHg (42.0-48.0); pH VBG 7.468 (7.300-7.400)
[2024-08-22 21:38] LABS: Device ROOM AIR
[2024-08-22] MEDS: IBUPROFEN IV 800 MG/200 ML 800 MG/200 ML BAG 400 MG IVPB (21:52)
[2024-08-22] MEDS: RAPID SEQUENCE INTUBATION KIT 1 EACH (22:06)
[2024-08-22] MEDS: TRANEXAMIC ACID 1,000 MG/10 ML AMPUL 1000 MG (22:18)
[2024-08-22] MEDS: FENTANYL 2,500MCG/NS250ML(*CRX 2,500 MCG/250 ML BAG IV CONT (22:31)
[2024-08-22] MEDS: fentaNYL CITRATE INJ (*CRX) 100 MCG/2 ML VIAL IV PUSH ×2 (22:31→22:32)
[2024-08-22] MEDS: LABETALOL HCL INJ 100 MG/20 ML VIAL 20 MG IV PUSH (22:32)
[2024-08-22 22:58] LABS: Reflex Lactic Acid Yes or No Add Lactic
[2024-08-22] MEDS: AMPICILLIN 2 GM/NS 100 ML 2 GM/100 ML BAG IVPB (22:58)
[2024-08-23] VITALS (15 sets, daily range): BP systolic 59–133; BP diastolic 19–88; PULSE 89–144; RESP 15–29; TEMP 38.3–39.7; O2SAT 90–100
[2024-08-23 00:11] LABS: CSF source CSF
[2024-08-23 00:11] LABS: Alveolar/Arterial O2 Gradient 479.3 mmHg; Base Excess ABG -13.2 mEq/l (+/-2.0); Fractional Inspired Oxygen 100 %; HCO3 ABG 16.2 mEq/l (22.0-26.0); Oxygen Content ABG 18.7 %vol (16.0-22.0); Oxygen Saturation ABG 98.8 % (95.0-100.0); Oxyhemoglobin 98.2 % THb (90.0-100.0); PCO2 ABG 51.6 mmHg (35.0-45.0); PO2 ABG 182.1 mmHg (80.0-100.0); PO2 FiO2 Ratio Arterial Blood 1.82 %; Total Hemoglobin 13.3 g/dL (12.0-18.0)
[2024-08-23 00:12] LABS: Appearance CSF Clear (Clear); Color CSF Colorless (Colorless)
[2024-08-23 00:16] LABS: pH ABG 7.114 (7.350-7.450)
[2024-08-23 00:17] LABS: Device VENTILATOR; Modified Allen's Test Pass; Site Drawn LEFT RADIAL
[2024-08-23 00:18] LABS: Arterial Blood Gas PEEP 5 cmH2O; Arterial Blood Gas Tidal Volume 400 ml; Arterial Blood Gas Vent Mode CMV; Arterial Blood Gas Ventilator rate 18 /MIN
[2024-08-23 00:18] LABS: Glucose CSF 71 mg/dL (40-70); Total Protein CSF 51 mg/dL (12-60)
[2024-08-23] MEDS: CEFEPIME 2 GM/NS 50 ML 2 GM/50 ML BAG IVPB (00:26)
[2024-08-23] MEDS: SODIUM BICARBONATE 8.4% 50 MEQ/50 ML SYRINGE IV PUSH (00:27)
[2024-08-23] MEDS: SODIUM BICARBONATE 8.4% 50 MEQ/50 ML SYRINGE 97 MEQ IV PUSH (00:32)
[2024-08-23] MEDS: fentaNYL CITRATE INJ (*CRX) 100 MCG/2 ML VIAL (00:40)
[2024-08-23] MEDS: LACTATED RINGERS 1,000 ML 999 ML IV CONT (00:47)
[2024-08-23] MEDS: NOREPINEPHRINE 8 MG/D5W 250 ML 8 MG/250 ML BAG 18.75 MG IV CONT (00:48)
[2024-08-23] MEDS: metroNIDAZOLE 500 MG/ISO 100ML 500 MG/100 ML BAG 100 MG IVPB (00:53)
[2024-08-23 01:12] LABS: Lymphocytes CSF 52 % (40-80); Macrophages CSF 38; Monocytes CSF 10 % (15-45)
[2024-08-23 01:14] LABS: Nucleated Cell CSF 5 /uL (0-5)
[2024-08-23] MEDS: DEXTROSE 5% IVPB (01:20)
[2024-08-23] MEDS: ACYCLOVIR SODIUM IVPB (01:20)
[2024-08-23 09:35] LABS: Red Blood Cell CSF 30 (0-2)
--- NOTE | 2024-08-25 05:56 | PC.NURSE ---
Was called positive blood culture results for pt at this time. This RN called to [facility] and was told that pt .
== END 2024-08-23 01:58 | disposition short-term general hospital (02) ==
PROVIDERS: Emergency Provider Student in an Organized Health Care Education/Training Program; PCP Physician Assistant
DX: J96.90 Respiratory failure, unspecified, unspecified whether with hypoxia or hypercapnia (principal); R41.82 Altered mental status, unspecified; E87.20 Acidosis, unspecified; E87.21 Acute metabolic acidosis; A41.9 Sepsis, unspecified organism; R29.818 Other symptoms and signs involving the nervous system; E78.5 Hyperlipidemia, unspecified; E11.9 Type 2 diabetes mellitus without complications; E03.9 Hypothyroidism, unspecified; Z87.891 Personal history of nicotine dependence; Z20.822 Contact with and (suspected) exposure to COVID-19
CPT/HCPCS: 31500; 36415; 36600; 62270; 70450; 70496; 70498; 71045; 74177; 80053; 80307; 81001; 82803; 82805; 82945; 82948; 83605; 84157; 84443; 84484; 85018; 85025; 85055; 85610; 85730; 86592; 86617; 87040; 87070; 87086; 87102; 87186; 87205; 87206; 87529; 87637; 87798; 89051; 93005; 94002; 96361; 96365; 96366; 96367; 96368; 96375; 96376; 99291; A9270; C1751; J0133; J0171; J0290; J0692; J0696; J1741; J1836; J3010; J3370; J7120; Q9967